=== PATIENT | female | born 1980 | race Hispanic/Latino ===

== ENCOUNTER 2017-07-16 19:23 | Emergency (ER) | payer SELFPAY ==
--- NOTE | 2017-07-16 20:06 | ER ---
Nurse's Notes [facility] Name: Nidia Ford Age: 37 yrs Sex: Female : 1980 Arrival Date: 07/16/2017 Time: 19:24 Bed 26 Private MD: Diagnosis: Streptococcal pharyngitis Presentation: 07/16 19:37 Presenting complaint: Patient states: fever X2 days. last does tylenol at 1500. ak1 Transition of care: patient was not received from another setting of care. Onset of symptoms is unknown. Care prior to arrival: None. 19:37 Method Of Arrival: Ambulatory ak1 19:37 Acuity: ANASTACIO 4 ak1 Triage Assessment: 19:39 General: Appears in no apparent distress. Behavior is calm, cooperative. 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 - Social history:: Smoking status: Patient/guardian denies using tobacco. Screenin:39 Abuse screen: Denies threats or abuse. Denies injuries from another. Nutritional ak1 screening: No deficits noted. Tuberculosis screening: No symptoms or risk factors identified. Fall Risk None identified. Assessment: 20:00 General: Appears in no apparent distress. Behavior is calm, cooperative, appropriate lk1 for age. Pain: Complains of pain in throat Pain currently is 8 out of 10 on a pain scale. Neuro: Level of Consciousness is awake, alert, obeys commands, Oriented to person, place, time, situation, Installer Helper are equal bilaterally Moves all extremities. Full function Gait is steady, Speech is normal, Facial symmetry appears normal. Cardiovascular: Capillary refill is brisk Patient's skin is warm and dry. Respiratory: Airway is patent Respiratory effort is even, unlabored, Respiratory pattern is regular, symmetrical. GI: Abdomen is non-distended. : No signs and/or symptoms were reported regarding the genitourinary system. EENT: Throat is reddened has enlarged tonsils. Derm: No signs and/or symptoms reported regarding the dermatologic system. Musculoskeletal: No signs and/or symptoms reported regarding the musculoskeletal system. Vital Signs: 19:38 BP 116 / 69; Pulse 88; Resp 20; Pulse Ox 97% on R/A; Weight 72.57 kg (R); Height 5 ft. ak1 (152.40 cm); Pain 8/10; 19:44 Temp 99.0(O); dh3 20:30 BP 124 / 70; Pulse 79; Resp 20; Pulse Ox 99% on R/A; lk1 19:38 Body Mass Index 31.25 (72.57 kg, 152.40 cm) ak1 ED Course: 19:24 Patient arrived in ED. es 19:28 Dulce Maria Chappell [facility]-C [facility] snw 19:28 Jovan Hidalgo MD is Attending Physician. snw 19:38 Triage completed. ak1 19:38 Arm band placed on Patient placed in an exam room, on a stretcher, Patient notified of ak1 wait time. 19:39 Patient has correct armband on for positive identification. Bed in low position. Call ak1 light in reach. Side rails up X 1. Pulse ox on. NIBP on. 19:44 Flu and/or RSV swab sent to lab. Strep swab sent to lab. 3 20:11 Radha Hardwick, RN is Primary Nurse. lk1 20:39 No provider procedures requiring assistance completed. Patient did not have IV access lk1 during this emergency room visit. Administered Medications: 20:15 Drug: Rocephin (cefTRIAXone) 1 grams Route: IM; Site: right gluteus; lk1 20:40 Follow up: Response: No adverse reaction lk1 20:15 Drug: Decadron 8 mg Route: PO; lk1 20:41 Follow up: Response: No adverse reaction lk1 Outcome: 20:05 Discharge ordered by . snw 20:42 Patient left the ED. lk Signatures: Dulce Maria Chappell FNP-C FUR REMODELER-Deepa Espinoza Amber RN RN ak1 Radha Hardwick, MAMI RN lk1 Kristine Nance [facility]
--- NOTE | 2017-07-16 20:06 | EDPHYS ---
Physician Documentation [facility] Name: Nidia Ford Age: 37 yrs Sex: Female : 1980 Arrival Date: 07/16/2017 Time: 19:24 Bed 26 Private MD: ED Physician Jovan Hidalgo HPI: 07/16 19:57 This 37 yrs old Female presents to ER via Ambulatory with complaints of Fever, snw Vomiting, Sore Throat. 19:57 The patient reports fever, not measured (subjective). Onset: The symptoms/episode snw began/occurred suddenly, 3 day(s) ago, and became persistent. Modifying factors: there are no obvious modifying factors. Severity of symptoms: At their worst the symptoms were moderate. It is unknown whether or not the patient has had similar symptoms in the past. The patient has not recently seen a physician. ORTHO TECH: 19:38 pt doesn't remember ak1 Historical: - Allergies: 19:38 NKDA; ak1 - Home Meds: 19:38 None [Active]; ak1 - PMHx: 19:38 fatty liver; ak1 - PSHx: 19:38 None; ak1 - Immunization history:: Adult Immunizations unknown. - Social history:: Smoking status: Patient/guardian denies using tobacco. ROS: 19:50 Eyes: Negative for injury, pain, redness, and discharge. snw 19:50 Neck: Negative for injury, pain, and swelling, Cardiovascular: Negative for chest pain, palpitations, and edema, Respiratory: Negative for shortness of breath, cough, wheezing, and pleuritic chest pain. 19:50 Back: Negative for injury and pain, : Negative for injury, bleeding, discharge, and swelling, MS/Extremity: Negative for injury and deformity, Skin: Negative for injury, rash, and discoloration, Neuro: Negative for headache, weakness, numbness, tingling, and seizure. 19:50 Constitutional: Positive for body aches, fever, malaise. 19:50 Abdomen/GI: Positive for nausea and vomiting. Exam: 19:49 Head/Face: Normocephalic, atraumatic. Eyes: Pupils equal round and reactive to light, snw extra-ocular motions intact. Lids and lashes normal. Conjunctiva and sclera are non-icteric and not injected. Cornea within normal limits. Periorbital areas with no swelling, redness, or edema. Neck: Trachea midline, no thyromegaly or masses palpated, and no cervical lymphadenopathy. Supple, full range of motion without nuchal rigidity, or vertebral point tenderness. No Meningismus. Chest/axilla: Normal chest wall appearance and motion. Nontender with no deformity. No lesions are appreciated. Cardiovascular: Regular rate and rhythm with a normal S1 and S2. No gallops, murmurs, or rubs. Normal PMI, no JVD. No pulse deficits. Respiratory: Lungs have equal breath sounds bilaterally, clear to auscultation and percussion. No rales, rhonchi or wheezes noted. No increased work of breathing, no retractions or nasal flaring. Abdomen/GI: Soft, non-tender, with normal bowel sounds. No distension or tympany. No guarding or rebound. No evidence of tenderness throughout. Back: No spinal tenderness. No costovertebral tenderness. Full range of motion. Skin: Warm, dry with normal turgor. Normal color with no rashes, no lesions, and no evidence of cellulitis. MS/ Extremity: Pulses equal, no cyanosis. Neurovascular intact. Full, normal range of motion. Neuro: Awake and alert, GCS 15, oriented to person, place, time, and situation. Cranial nerves II-XII grossly intact. Motor strength 5/5 in all extremities. Sensory grossly intact. Cerebellar exam normal. Normal gait. 19:49 Constitutional: The patient appears alert, awake, anxious, uncomfortable. 19:49 ENT: External ear(s): no acute changes, Ear canal(s): are normal, TM's: are normal, Nose: is normal, Mouth: is normal, Posterior pharynx: erythema, that is moderate. Vital Signs: 19:38 BP 116 / 69; Pulse 88; Resp 20; Pulse Ox 97% on R/A; Weight 72.57 kg (R); Height 5 ft. ak1 (152.40 cm); Pain 8/10; 19:44 Temp 99.0(O); dh3 20:30 BP 124 / 70; Pulse 79; Resp 20; Pulse Ox 99% on R/A; lk1 19:38 Body Mass Index 31.25 (72.57 kg, 152.40 cm) ak1 MDM: 19:36 Patient medically screened. snw 20:07 Data reviewed: vital signs, nurses notes. Data interpreted: Pulse oximetry: on room air snw is 97 %. Interpretation: normal. Counseling: I had a detailed discussion with the patient and/or guardian regarding: the historical points, exam findings, and any diagnostic results supporting the discharge/admit diagnosis, lab results, the need for outpatient follow up, to return to the emergency department if symptoms worsen or persist or if there are any questions or concerns that arise at home. Special discussion: Based on the history and exam findings, there is no indication for further emergent testing or inpatient evaluation. I discussed with the patient/guardian the need to see the primary care provider for further evaluation of the symptoms. 07/16 19:28 Order name: Flu; Complete Time: 20:04 snw 07/16 19:28 Order name: Strep; Complete Time: 20:04 snw Administered Medications: 20:15 Drug: Rocephin (cefTRIAXone) 1 grams Route: IM; Site: right gluteus; lk1 20:40 Follow up: Response: No adverse reaction lk1 20:15 Drug: Decadron 8 mg Route: PO; lk1 20:41 Follow up: Response: No adverse reaction lk1 Disposition: 07/17 01:40 Co-signature as Attending Physician, Jovan Hidalgo MD I agree with the assessment and 4 plan of care. Disposition: 07/16/17 20:05 Discharged to Home. Impression: Streptococcal pharyngitis. - Condition is Stable. - Discharge Instructions: Fever, Adult, Sore Throat, Strep Throat, Rehydration, Adult. - Prescriptions for Zithromax 500 mg Oral Tablet - take 1 tablet by ORAL route once daily for 5 days; 5 tablet. - Work release form, Medication Reconciliation Form, Thank You Letter, Antibiotic Education, Prescription Opioid Use form. - Follow up: Private Physician; When: 2 - 3 days; Reason: Recheck today's complaints, Continuance of care, Re-evaluation by your physician. Follow up: Emergency Department; When: As needed; Reason: Worsening of condition. - Notes: Please replace toothbrush with a new one in 5-7 days. Signatures: [facility] Dulce Maria Bell, TOÑO-C MINES INSPECTOR-Csnw Magdalene Slater, RN RN ak1 Radha Hardwick, RN RN lk1 Jovan Hidalgo MD MD tw4
[2017-07-16] MEDS ORDERED: DEXAMETHASONE 4 MG TAB ONE (20:35)
[2017-07-16] MEDS ORDERED: CEFTRIAXONE 1000 MG/VIAL ONE (20:35)
[2017-07-16] MEDS ORDERED: LIDOCAINE 1% MPF 5 ML VIAL ONE (20:35)
== END 2017-07-16 20:42 | disposition home or self-care (01) ==
LOC: ER 19:23
DX: J02.0 Streptococcal pharyngitis (principal)
CPT/HCPCS: 87081; 87804; 96372; 99283

== ENCOUNTER 2018-02-21 22:09 | Emergency (ER) | payer SELFPAY ==
--- NOTE | 2018-02-21 23:05 | ER ---
Nurse's Notes [facility] Name: Nidia Ford Age: 37 yrs Sex: Female : 1980 Arrival Date: 02/21/2018 Time: 22:27 Bed 17 Private MD: Diagnosis: Pain in left shoulder Presentation: 02/21 22:46 Presenting complaint: Patient states: left arm hurts. my family has a history of "heart dm5 attacks and circulation of the blood" pain in right arm that started at the shoulder. Transition of care: patient was not received from another setting of care. Onset of symptoms was February 21, 2018. Risk Assessment: Do you want to hurt yourself or someone else? Patient reports no desire to harm self or others. 22:46 Method Of Arrival: Ambulatory dm5 22:46 Acuity: ANASTCAIO 3 dm5 23:46 Initial Sepsis Screen: Does the patient meet any 2 criteria? No. Patient's initial jd3 sepsis screen is negative. Does the patient have a suspected source of infection? No. Patient's initial sepsis screen is negative. Care prior to arrival: None. 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 - Social history:: Smoking status: unknown. - Ebola Screening: : Patient negative for fever greater than or equal to 101.5 degrees Fahrenheit, and additional compatible Ebola Virus Disease symptoms. Screenin:46 Abuse screen: Denies threats or abuse. Nutritional screening: No deficits noted. jd3 Tuberculosis screening: No symptoms or risk factors identified. Fall Risk None identified. Assessment: 23:00 General: Appears in no apparent distress. uncomfortable, Behavior is calm, cooperative, jd3 appropriate for age. 23:00 Pain: Complains of pain in anterior aspect of left shoulder Quality of pain is jd3 described as aching. Neuro: Level of Consciousness is awake, alert, obeys commands, Oriented to person, place, time, situation. Cardiovascular: Capillary refill < 3 seconds Patient's skin is warm and dry. Rhythm is regular. Respiratory: Airway is patent Respiratory effort is even, unlabored, Respiratory pattern is regular, symmetrical, Breath sounds are clear bilaterally. GI: No signs and/or symptoms were reported involving the gastrointestinal system. : No signs and/or symptoms were reported regarding the genitourinary system. EENT: No signs and/or symptoms were reported regarding the EENT system. Derm: Skin is intact, Skin is dry, Skin is normal, Skin temperature is warm. Musculoskeletal: Circulation, motion, and sensation intact. Range of motion: limited in left shoulder. Vital Signs: 22:46 BP 116 / 52; Pulse 70; Resp 20; Temp 97.8; Pulse Ox 98% on R/A; Weight 70.31 kg; Height dm5 5 ft. (152.40 cm); Pain 5/10; 23:47 Pulse 75; Resp 18 S; Pulse Ox 98% on R/A; jd3 22:46 Body Mass Index 30.27 (70.31 kg, 152.40 cm) dm5 ED Course: 22:27 Patient arrived in ED. tl2 22:48 Triage completed. dm5 22:48 Arm band placed on right wrist. Patient placed in waiting room. EKG done per protocol. dm5 Performed by ED Staff. 22:57 Dulce Maria Chappell FNP-C [facility]. snw 23:01 Danilo Leiva RN is Primary Nurse. jd3 23:05 Krishna Oconnor MD is Attending Physician. snw 23:46 No provider procedures requiring assistance completed. Patient did not have IV access jd3 during this emergency room visit. 23:48 Patient has correct armband on for positive identification. Bed in low position. Call jd3 light in reach. Side rails up X 1. Adult w/ patient. Administered Medications: 23:29 Drug: TORadol 60 mg Route: IM; Site: right deltoid; jd3 23:48 Follow up: Response: No adverse reaction jd3 23:30 Drug: Flexeril 10 mg Route: PO; jd3 23:49 Follow up: Response: Medication administered at discharge. jd3 Intake: 23:02 IV: 500ml; Total: 500ml. jd3 Outcome: 23:04 Discharge ordered by . snw 23:47 Discharged to home ambulatory, with family. jd3 23:47 Condition: stable 23:47 Discharge instructions given to patient, family, Instructed on discharge instructions, follow up and referral plans. medication usage, Demonstrated understanding of instructions, follow-up care, medications, Prescriptions given X 1. 23:49 Patient left the ED. jradha Signatures: Fabienne Holt, RN RN dm5 Dulce Maria Chappell, PIGSKIN TRIMMER-C PIGSKIN TRIMMER-Csnw Linda Lora RN RN tl2 Danilo Leiva RN RN jd3 Corrections: (The following items were deleted from the chart) 23:46 23:44 General: Appears in no apparent distress. uncomfortable, jradha jradha
--- NOTE | 2018-02-21 23:05 | EDPHYS ---
Physician Documentation [facility] Name: Nidia Ford Age: 37 yrs Sex: Female : 1980 Arrival Date: 02/21/2018 Time: 22:27 Bed 17 Private MD: ED Physician Krishna Oconnor HPI: 02/21 23:07 This 37 yrs old Female presents to ER via Ambulatory with complaints of Arm snw Pain. 23:07 The patient or guardian complains of pain, that is acute. The complaints affect the snw anterior aspect of left shoulder and left bicep. Context: The problem was sustained at home, resulted from unknown cause, pt states she awoke with pain to left shoulder, pain down to elbow. Onset: The symptoms/episode began/occurred suddenly, today. Associated signs and symptoms: Pertinent positives: pain. Severity of symptoms: At their worst the symptoms were mild. The patient has not experienced similar symptoms in the past, but family has similar symptoms. saw a Doctor in [place] and was told she had a fatty liver. Given medications for wt loss to make her have frequent BMs. Denies chest pain. RN BIRTHING: 23:47 LMP N/A - Irregular menses jd3 Historical: - Allergies: 22:48 NKDA; dm5 - PMHx: 23:48 fatty liver; jd3 - PSHx: 23:48 None; jd3 - Immunization history:: Adult Immunizations unknown. - Social history:: Smoking status: unknown. - Ebola Screening: : Patient negative for fever greater than or equal to 101.5 degrees Fahrenheit, and additional compatible Ebola Virus Disease symptoms. ROS: 23:06 Constitutional: Negative for fever, chills, and weight loss, Eyes: Negative for injury, snw pain, redness, and discharge, ENT: Negative for injury, pain, and discharge, Neck: Negative for injury, pain, and swelling, Cardiovascular: Negative for chest pain, palpitations, and edema, Respiratory: Negative for shortness of breath, cough, wheezing, and pleuritic chest pain, Abdomen/GI: Negative for abdominal pain, nausea, vomiting, diarrhea, and constipation, Back: Negative for injury and pain, : Negative for injury, bleeding, discharge, and swelling, Skin: Negative for injury, rash, and discoloration, Neuro: Negative for headache, weakness, numbness, tingling, and seizure. 23:06 MS/extremity: Positive for tenderness, of the left shoulder upon waking today. Exam: 23:05 Constitutional: This is a well developed, well nourished patient who is awake, alert, snw and in no acute distress. Head/Face: Normocephalic, atraumatic. Eyes: Pupils equal round and reactive to light, extra-ocular motions intact. Lids and lashes normal. Conjunctiva and sclera are non-icteric and not injected. Cornea within normal limits. Periorbital areas with no swelling, redness, or edema. ENT: Nares patent. No nasal discharge, no septal abnormalities noted. Tympanic membranes are normal and external auditory canals are clear. Oropharynx with no redness, swelling, or masses, exudates, or evidence of obstruction, uvula midline. Mucous membranes moist. Neck: Trachea midline, no thyromegaly or masses palpated, and no cervical lymphadenopathy. Supple, full range of motion without nuchal rigidity, or vertebral point tenderness. No Meningismus. Chest/axilla: Normal chest wall appearance and motion. Nontender with no deformity. No lesions are appreciated. Cardiovascular: Regular rate and rhythm with a normal S1 and S2. No gallops, murmurs, or rubs. Normal PMI, no JVD. No pulse deficits. Respiratory: Lungs have equal breath sounds bilaterally, clear to auscultation and percussion. No rales, rhonchi or wheezes noted. No increased work of breathing, no retractions or nasal flaring. Abdomen/GI: Soft, non-tender, with normal bowel sounds. No distension or tympany. No guarding or rebound. No evidence of tenderness throughout. Back: No spinal tenderness. No costovertebral tenderness. Full range of motion. Skin: Warm, dry with normal turgor. Normal color with no rashes, no lesions, and no evidence of cellulitis. Neuro: Awake and alert, GCS 15, oriented to person, place, time, and situation. Cranial nerves II-XII grossly intact. Motor strength 5/5 in all extremities. Sensory grossly intact. Cerebellar exam normal. Normal gait. Psych: Awake, alert, with orientation to person, place and time. Behavior, mood, and affect are within normal limits. 23:05 Musculoskeletal/extremity: Extremities: grossly normal except: noted in the left shoulder: tenderness, reproducible pain to left shoulder, ROM: intact in all extremities. Vital Signs: 22:46 BP 116 / 52; Pulse 70; Resp 20; Temp 97.8; Pulse Ox 98% on R/A; Weight 70.31 kg; Height dm5 5 ft. (152.40 cm); Pain 5/10; 23:47 Pulse 75; Resp 18 S; Pulse Ox 98% on R/A; jd3 22:46 Body Mass Index 30.27 (70.31 kg, 152.40 cm) dm5 MDM: 23:01 Patient medically screened. snw 23:06 Data reviewed: vital signs, nurses notes. Data interpreted: Pulse oximetry: on room air snw is 98 %. Interpretation:. Counseling: I had a detailed discussion with the patient and/or guardian regarding: the historical points, exam findings, and any diagnostic results supporting the discharge/admit diagnosis, the need for outpatient follow up, to return to the emergency department if symptoms worsen or persist or if there are any questions or concerns that arise at home. Special discussion: Based on the patient's history, exam, and Dx evaluation, there is no indication for emergent intervention or inpatient Tx. It is understood by the patient/guardian that if the Sx's persist or worsen they need to return immediately for re-evaluation. Based on the history and exam findings, there is no indication for further emergent testing or inpatient evaluation. I discussed with the patient/guardian the need to see the primary care provider for further evaluation of the symptoms. 02/21 22:49 Order name: EKG; Complete Time: 22:49 snw 02/21 22:49 Order name: EKG - Nurse/Tech; Complete Time: 23:17 snw Administered Medications: 23:29 Drug: TORadol 60 mg Route: IM; Site: right deltoid; jd3 23:48 Follow up: Response: No adverse reaction jd3 23:30 Drug: Flexeril 10 mg Route: PO; jd3 23:49 Follow up: Response: Medication administered at discharge. jd3 Disposition: 02/21/18 23:04 Discharged to Home. Impression: Pain in left shoulder. - Condition is Stable. - Discharge Instructions: Joint Pain, Musculoskeletal Pain, Shoulder Pain, Cryotherapy, Heat Therapy. - Prescriptions for Cyclobenzaprine 5 mg Oral Tablet - take 1 tablet by ORAL route 3 times per day As needed; 15 tablet. - Medication Reconciliation Form, Thank You Letter, Antibiotic Education, Prescription Opioid Use form. - Follow up: Emergency Department; When: As needed; Reason: Worsening of condition. Follow up: Private Physician; When: 2 - 3 days; Reason: Recheck today's complaints, Continuance of care, Re-evaluation by your physician. Addendum: 02/24/2018 06:46 Co-signature as Attending Physician, Krishna Oconnor MD. g s Signatures: Fabienne Holt, RN RN dm5 Dulce Maria Chappell, NURSE ASSISTANT-C NURSE ASSISTANT-Csnw Krishna Oconnor MD MD gs Danilo Leiva RN RN jd3 Corrections: (The following items were deleted from the chart) 02/21 23:49 23:04 02/21/2018 23:04 Discharged to Home. Impression: Pain in left shoulder. Condition jd3 is Stable. Forms are Medication Reconciliation Form, Thank You Letter, Antibiotic Education, Prescription Opioid Use. Follow up: Emergency Department; When: As needed; Reason: Worsening of condition. Follow up: Private Physician; When: 2 - 3 days; Reason: Recheck today's complaints, Continuance of care, Re-evaluation by your physician. snw
[2018-02-21] MEDS ORDERED: CYCLOBENZAPRINE 10 MG TAB ONE (23:30)
[2018-02-21] MEDS ORDERED: KETOROLAC 30 MG/ML INJ ONE (23:30)
--- NOTE | 2018-02-22 12:34 | EKG ---
Test Date: 2018-02-21 Test Time: 22:46:34 Guide Cruise: FELISHA MEASUREMENT RESULTS: Intervals: Rate: 73 HI: 162 QRSD: 80 QT: 408 QTc: 449 Fouke: P: 36 HI: 162 QRS: -1 T: 16 INTERPRETIVE STATEMENTS: Normal sinus rhythm with sinus arrhythmia Minimal voltage criteria for LVH, may be normal variant Nonspecific T wave abnormality Abnormal ECG Compared to ECG 10/31/2014 01:03:50 Left ventricular hypertrophy now present T-wave abnormality now present Electronically Signed On 02-22-18 12:32:51 DIETARY SUPERVISOR by London Frias
== END 2018-02-21 23:49 | disposition home or self-care (01) ==
LOC: ER 22:09
DX: M25.512 Pain in left shoulder (principal)
CPT/HCPCS: 93005; 96372; 99283

== ENCOUNTER 2018-04-23 21:32 | Emergency (ER) | payer SELFPAY ==
--- NOTE | 2018-04-23 23:25 | ER ---
Nurse's Notes [facility] Name: Nidia Ford Age: 38 yrs Sex: Female : 1980 Arrival Date: 04/23/2018 Time: 21:35 Bed 23 Private MD: Nevaeh Hernández C Diagnosis: Acute upper respiratory infection, unspecified Presentation: 04/23 21:46 Presenting complaint: Patient states: she is having the "flu" x 3 days with fever up to bb 100.0, sore throat, runny nose and today she started coughing. She also has back pain but she has that whenever it is cold outside. Transition of care: patient was not received from another setting of care. Onset of symptoms was April 20, 2018. Risk Assessment: Do you want to hurt yourself or someone else? Patient reports no desire to harm self or others. Initial Sepsis Screen: Does the patient meet any 2 criteria? No. Patient's initial sepsis screen is negative. Does the patient have a suspected source of infection? No. Patient's initial sepsis screen is negative. Care prior to arrival: None. 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 - Social history:: Smoking status: Patient/guardian denies using tobacco, Patient uses alcohol, but reports only rare drinking. - Ebola Screening: : No symptoms or risks identified at this time. Screenin:50 Abuse screen: Denies threats or abuse. Denies injuries from another. Nutritional mg2 screening: No deficits noted. Tuberculosis screening: No symptoms or risk factors identified. Fall Risk None identified. Assessment: 22:46 General: Appears in no apparent distress. comfortable, Behavior is calm, cooperative. mg2 Pain: Denies pain. Neuro: Level of Consciousness is awake, alert, obeys commands, Oriented to person, place, time, situation. Cardiovascular: Capillary refill < 3 seconds Patient's skin is warm and dry. Respiratory: Airway is patent Respiratory effort is even, unlabored, Respiratory pattern is regular, symmetrical. Respiratory: Reports cough that is non-productive, runny nose. GI: No signs and/or symptoms were reported involving the gastrointestinal system. : No signs and/or symptoms were reported regarding the genitourinary system. EENT: No signs and/or symptoms were reported regarding the EENT system. Derm: Skin is intact, is healthy with good turgor, Skin is pink, warm \\T\\ dry. normal. Musculoskeletal: Circulation, motion, and sensation intact. Capillary refill < 3 seconds. 23:41 Reassessment: Patient appears in no apparent distress at this time. Patient and/or mg2 family updated on plan of care and expected duration. Pain level reassessed. Patient is alert, oriented x 3, equal unlabored respirations, skin warm/dry/pink. Vital Signs: 21:49 BP 115 / 50; Pulse 85; Resp 16 S; Temp 98.6(O); Pulse Ox 99% on R/A; Weight 74.84 kg bb (R); Height 5 ft. 0 in. (152.40 cm) (R); Pain 5/10; 23:41 BP 120 / 78; Pulse 80; Resp 18; Pulse Ox 100% on R/A; Pain 0/10; mg2 21:49 Body Mass Index 32.22 (74.84 kg, 152.40 cm) bb ED Course: 21:35 Patient arrived in ED. am2 21:36 Nevaeh Hernández FNP is Private Physician. am2 21:47 Triage completed. bb 21:49 Arm band placed on Patient placed in an exam room, on a stretcher, on pulse oximetry. bb Family accompanied patient. 21:57 Graham Alvarez PA is PHCP. jr8 21:57 Jovan Hidalgo MD is Attending Physician. jr8 22:09 Jj Beth, MAMI is Primary Nurse. mg2 22:50 No provider procedures requiring assistance completed. Patient did not have IV access mg2 during this emergency room visit. 22:51 Patient has correct armband on for positive identification. mg2 Administered Medications: No medications were administered Outcome: 23:24 Discharge ordered by MD. jr8 23:42 Discharged to home ambulatory, with family. mg2 23:42 Condition: stable 23:42 Discharge instructions given to patient, family, Instructed on discharge instructions, follow up and referral plans. medication usage, Demonstrated understanding of instructions, follow-up care, medications, Prescriptions given X 3. 23:42 Patient left the ED. mg2 Signatures: Rocio Huerta, RN RN Graham Ham PA PA jr8 Oksana Montenegro am2 Jj Beth RN RN mg2
--- NOTE | 2018-04-23 23:25 | EDPHYS ---
Physician Documentation [facility] Name: Nidia Ford Age: 38 yrs Sex: Female : 1980 Arrival Date: 04/23/2018 Time: 21:35 Bed 23 Private MD: Nevaeh Hernández C ED Physician Jovan Hidalgo HPI: 04/23 22:07 This 38 yrs old Female presents to ER via Ambulatory with complaints of Flu jr8 Symptoms. 22:07 Patient presents to ED with 3 day history of flu like symptoms. Not feeling any better jr8 . Severity of symptoms: At their worst the symptoms were mild in the emergency department the symptoms are unchanged. The patient has not experienced similar symptoms in the past. The patient has not recently seen a physician. 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 - Social history:: Smoking status: Patient/guardian denies using tobacco, Patient uses alcohol, but reports only rare drinking. - Ebola Screening: : No symptoms or risks identified at this time. ROS: 22:07 Eyes: Negative for injury, pain, redness, and discharge, Neck: Negative for injury, jr8 pain, and swelling, Cardiovascular: Negative for chest pain, palpitations, and edema, Abdomen/GI: Negative for abdominal pain, nausea, vomiting, diarrhea, and constipation, Back: Negative for injury and pain, MS/Extremity: Negative for injury and deformity, Skin: Negative for injury, rash, and discoloration, Neuro: Negative for headache, weakness, numbness, tingling, and seizure. 22:07 ENT: Positive for rhinorrhea, sinus congestion, sore throat. 22:07 Respiratory: Positive for cough, Negative for dyspnea on exertion, shortness of breath, sputum production, wheezing. Exam: 22:07 Eyes: Pupils equal round and reactive to light, extra-ocular motions intact. Lids and jr8 lashes normal. Conjunctiva and sclera are non-icteric and not injected. Cornea within normal limits. Periorbital areas with no swelling, redness, or edema. ENT: Nares patent. No nasal discharge, no septal abnormalities noted. Tympanic membranes are normal and external auditory canals are clear. Oropharynx with no redness, swelling, or masses, exudates, or evidence of obstruction, uvula midline. Mucous membranes moist. Neck: Trachea midline, no thyromegaly or masses palpated, and no cervical lymphadenopathy. Supple, full range of motion without nuchal rigidity, or vertebral point tenderness. No Meningismus. Cardiovascular: Regular rate and rhythm with a normal S1 and S2. No gallops, murmurs, or rubs. Normal PMI, no JVD. No pulse deficits. Respiratory: Lungs have equal breath sounds bilaterally, clear to auscultation and percussion. No rales, rhonchi or wheezes noted. No increased work of breathing, no retractions or nasal flaring. Abdomen/GI: Soft, non-tender, with normal bowel sounds. No distension or tympany. No guarding or rebound. No evidence of tenderness throughout. Back: No spinal tenderness. No costovertebral tenderness. Full range of motion. Skin: Warm, dry with normal turgor. Normal color with no rashes, no lesions, and no evidence of cellulitis. MS/ Extremity: Pulses equal, no cyanosis. Neurovascular intact. Full, normal range of motion. Neuro: Awake and alert, GCS 15, oriented to person, place, time, and situation. Cranial nerves II-XII grossly intact. Motor strength 5/5 in all extremities. Sensory grossly intact. Cerebellar exam normal. Normal gait. Vital Signs: 21:49 BP 115 / 50; Pulse 85; Resp 16 S; Temp 98.6(O); Pulse Ox 99% on R/A; Weight 74.84 kg bb (R); Height 5 ft. 0 in. (152.40 cm) (R); Pain 5/10; 23:41 BP 120 / 78; Pulse 80; Resp 18; Pulse Ox 100% on R/A; Pain 0/10; mg2 21:49 Body Mass Index 32.22 (74.84 kg, 152.40 cm) bb MDM: 21:57 Patient medically screened. jr8 23:23 Data reviewed: vital signs, nurses notes, lab test result(s), Flu: negative and as a jr8 result, I will discharge patient. Data interpreted: Pulse oximetry: on room air is 99 %. Interpretation: normal. Counseling: I had a detailed discussion with the patient and/or guardian regarding: the historical points, exam findings, and any diagnostic results supporting the discharge/admit diagnosis, lab results, the need for outpatient follow up, a family practitioner, to return to the emergency department if symptoms worsen or persist or if there are any questions or concerns that arise at home. 04/23 22:06 Order name: Influenza Screen (a \\T\\ B); Complete Time: 23:23 jr8 Administered Medications: No medications were administered Disposition: 04/24 22:32 Co-signature as Attending Physician, Jovan Hidalgo MD I agree with the assessment and tw4 plan of care. Disposition: 04/23/18 23:24 Discharged to Home. Impression: Acute upper respiratory infection, unspecified. - Condition is Stable. - Discharge Instructions: Upper Respiratory Infection, Adult. - Prescriptions for Prednisone 20 mg Oral Tablet - take 1 tablet by ORAL route once daily for 5 days; 5 tablet. Claritin- D 24 Hour 10-240 mg Oral Tablet Sustained Release 24 hr - take 1 tablet by ORAL route once daily As needed; 20 tablet. Guaifenesin AC 10- 100 mg/5 mL Oral Liquid - take 10 milliliter by ORAL route every 4 hours As needed; 240 milliliter. - Medication Reconciliation Form, Thank You Letter, Antibiotic Education, Prescription Opioid Use form. - Follow up: Private Physician; When: 5 - 6 days; Reason: Recheck today's complaints, Continuance of care, Re-evaluation by your physician. - Problem is new. - Symptoms have improved. Signatures: Dispatcher [employer] EDUT Rocio Huerta RN RN Graham Ham PA PA jr8 Jovan Hidalgo MD MD tw4 Jj Beth RN RN mg2 Corrections: (The following items were deleted from the chart) 04/23 23:42 23:24 04/23/2018 23:24 Discharged to Home. Impression: Acute upper respiratory mg2 infection, unspecified. Condition is Stable. Forms are Medication Reconciliation Form, Thank You Letter, Antibiotic Education, Prescription Opioid Use. Follow up: Private Physician; When: 5 - 6 days; Reason: Recheck today's complaints, Continuance of care, Re-evaluation by your physician. Problem is new. Symptoms have improved. jr8
== END 2018-04-23 23:42 | disposition home or self-care (01) ==
LOC: ER 21:32
DX: J06.9 Acute upper respiratory infection, unspecified (principal)
CPT/HCPCS: 87804; 99283

== ENCOUNTER 2019-09-11 11:55 | Emergency (ER) | payer SELFPAY ==
[2019-09-11 12:39] LABS: Urine Blood NEGATIVE (NEG); Urine Glucose NEGATIVE (NEG); Urine Protein NEGATIVE (NEG); Urine Specific Gravity 1.025 (1.005-1.030); Urine pH 5.5 (5.0-7.0)
--- OUTSIDE RECORDS SUMMARY | 2019-09-11 12:51 | XMS REPORT | Continuity of Care Document ---
:1980 Author Organization [facility] t Address [address] [place] [address] Care Team Providers Name Role Phone Visit, Nurse Attending Clinician Unavailable Doctor Unassigned, Name Attending Clinician Unavailable Problems This patient has no known problems. Allergies, Adverse Reactions, Alerts This patient has no known allergies or adverse reactions. Medications This patient has no known medications. Procedures This patient has no known procedures. 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
[2019-09-11 12:57] LABS: Urine Bacteria 20-50 /HPF (<20); Urine Culture Reflex Order REFLEXED; Urine Mucus 2+ /HPF (NONE SEEN)
--- NOTE | 2019-09-11 14:18 | ER ---
Nurse's Notes [facility] Name: Nidia Ford Age: 39 yrs Sex: Female : 1980 Arrival Date: 09/11/2019 Time: 11:57 Bed 23 Private MD: Diagnosis: Urinary tract infection, site not specified Presentation: 09/10 12:13 Chief complaint: Patient states: lower abd pain x 3 days and breast tenderness. States sv she took a home test but they have been negative. Reports she is very hungry at times. Coronavirus screen: Proceed with normal triage. Patient denies a cough. Patient denies shortness of breath or difficulty breathing. Patient denies measured and/or subjective temperature greater than 100.4F prior to today's visit. Patient denies travel on a cruise ship or to a country the [facility] currently lists as an affected area. Patient denies contact with known and/or suspected case of COVID-19. Ebola Screen: No symptoms or risks identified at this time. Risk Assessment: Do you want to hurt yourself or someone else? Patient reports no desire to harm self or others. Onset of symptoms was September 08, 2019. 12:13 Method Of Arrival: Ambulatory sv 12:13 Acuity: ANASTACIO 3 sv 12:15 Initial Sepsis Screen: Does the patient meet any 2 criteria? No. Patient's initial sv sepsis screen is negative. Does the patient have a suspected source of infection? Yes: Acute abdominal pain. Triage Assessment: 12:13 General: Appears in no apparent distress. uncomfortable, Behavior is calm, cooperative, sv appropriate for age. Pain: Complains of pain in suprapubic area, right lower quadrant and left lower quadrant. Neuro: Level of Consciousness is awake, alert, obeys commands, Oriented to person, place, time, situation, Gait is steady. Respiratory: Airway is patent Respiratory effort is even, unlabored, Respiratory pattern is regular, symmetrical. GI: Reports lower abdominal pain. 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 - Social history:: Smoking status: Patient denies any tobacco usage or history of. Screenin:30 Abuse screen: Denies threats or abuse. Nutritional screening: No deficits noted. aa5 Tuberculosis screening: No symptoms or risk factors identified. Fall Risk None identified. Assessment: 13:30 General: Appears comfortable, Behavior is calm, cooperative. Pain: Complains of pain in aa5 suprapubic area Pain currently is 7 out of 10 on a pain scale. Quality of pain is described as burning, pressure, Is continuous. Neuro: Level of Consciousness is awake, alert, obeys commands, Oriented to person, place, time, situation. Cardiovascular: Patient's skin is warm and dry. Respiratory: Airway is patent Respiratory effort is even, unlabored, Respiratory pattern is regular, symmetrical. GI: Abdomen is round Bowel sounds present X 4 quads. Abd is soft and non tender X 4 quads. : Reports burning with urination. EENT: No signs and/or symptoms were reported regarding the EENT system. Derm: Skin is pink, warm \\T\\ dry. Musculoskeletal: Range of motion: intact in all extremities. 14:25 Reassessment: Patient is alert, oriented x 3, equal unlabored respirations, skin aa5 warm/dry/pink. Vital Signs: 12:15 BP 121 / 56; Pulse 78; Resp 16; Temp 98.2; Pulse Ox 98% ; Weight 75.3 kg; Height 5 ft. sv 0 in. (152.40 cm); 13:24 BP 113 / 62; Pulse 66; Resp 17; Temp 97.5(TE); Pulse Ox 100% on R/A; dm5 12:15 Body Mass Index 32.42 (75.30 kg, 152.40 cm) sv ED Course: 11:57 Patient arrived in ED. ag5 12:13 Arm band placed on. sv 12:15 Triage completed. sv 13:20 Babatunde Valadez PA is PHCP. [facility] 13:20 Pedrito Salazar MD is Attending Physician. [facility] 13:20 Urine Culture Sent. aa5 13:30 Patient has correct armband on for positive identification. Bed in low position. Call aa5 light in reach. Side rails up X 1. 14:25 No provider procedures requiring assistance completed. Patient did not have IV access aa5 during this emergency room visit. 14:26 Hi, Karla, RN is Primary Nurse. [email or web address] Administered Medications: No medications were administered Outcome: 14:17 Discharge ordered by . andres 14:25 Discharged to home ambulatory. adriana 14:25 Condition: stable 14:25 Discharge instructions given to patient, Instructed on discharge instructions, follow up and referral plans. medication usage, Demonstrated understanding of instructions, follow-up care, medications, Prescriptions given X 1. 14:26 Patient left the ED. aa5 Addendum: 09/14/2019 17:27 Addendum: Culture Results: Positive urine culture. Bacteria is resistant to, has s s intermediate sensitivity, or is not tested against prescribed antibiotics. Report given to RODRIGUEZ for further evaluation and then to political advisor for follow up with patient. Phone call Attempt #1 spoke with patient who reports she is better. Thom Wright NP recommends to call in Bactrim to pharmacy of choice if symptoms have not improved. Pt verbalizes understanding importance of continuing antibiotic therapy and follow up with PCP. Signatures: Fabienne Holt, RN RN [email or web address] Yahaira Prince RN RN sv Mickail, Joel, PA PA jmm Calderon, Audri, RN Regi Miller RN RN ss [place], Ajare [facility]
--- NOTE | 2019-09-11 14:18 | EDPHYS ---
Physician Documentation [facility] Name: Nidia Ford Age: 39 yrs Sex: Female : 1980 Arrival Date: 09/11/2019 Time: 11:57 Bed 23 Private MD: ED Physician Pedrito Salazar HPI: 09/10 12:28 This 39 yrs old Female presents to ER via Ambulatory with complaints of jmm Abdominal Pain. 12:28 The patient presents with abdominal pain suprapubic. Onset: The symptoms/episode jmm began/occurred gradually, 3 day(s) ago. The symptoms do not radiate. Associated signs and symptoms: Pertinent negatives: nausea and vomiting, diarrhea. The symptoms are described as achy. Modifying factors: The symptoms are alleviated by nothing, the symptoms are aggravated by nothing. This is a 39 year old female with a history of asthma, fatty liver that presents to the ED with complaints suprapubic pain. Patient denies vomiting, diarrhea, fever, vaginal bleeding or discharge. . 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 - Social history:: Smoking status: Patient denies any tobacco usage or history of. ROS: 12:28 Constitutional: Negative for fever, chills, and weight loss, Cardiovascular: Negative jmm for chest pain, palpitations, and edema, Respiratory: Negative for shortness of breath, cough, wheezing, and pleuritic chest pain. 12:28 Back: Negative for injury and pain. 12:28 Abdomen/GI: Positive for abdominal pain. 12:28 All other systems are negative. Exam: 12:28 Constitutional: This is a well developed, well nourished patient who is awake, alert, jmm and in no acute distress. Head/Face: atraumatic. Eyes: EOMI, no conjunctival erythema appreciated ENT: Moist Mucus Membranes Neck: Trachea midline, Supple Chest/axilla: Normal chest wall appearance and motion. Cardiovascular: Regular rate and rhythm. No edema appreciated Respiratory: Normal respirations, no respiratory distress appreciated 12:28 Back: Normal ROM Skin: General appearance color normal MS/ Extremity: Moves all extremities, no obvious deformities appreciated, no edema noted to the lower extremities Neuro: Awake and alert, normal gait Psych: Behavior is normal, Mood is normal, Patient is cooperative and pleasant 12:28 Abdomen/GI: Inspection: abdomen appears normal, Bowel sounds: normal, Palpation: soft, mild abdominal tenderness, in the suprapubic area. Vital Signs: 12:15 BP 121 / 56; Pulse 78; Resp 16; Temp 98.2; Pulse Ox 98% ; Weight 75.3 kg; Height 5 ft. sv 0 in. (152.40 cm); 13:24 BP 113 / 62; Pulse 66; Resp 17; Temp 97.5(TE); Pulse Ox 100% on R/A; dm5 12:15 Body Mass Index 32.42 (75.30 kg, 152.40 cm) sv MDM: 13:38 Patient medically screened. andres 14:15 Data reviewed: vital signs, nurses notes. Counseling: I had a detailed discussion with andres the patient and/or guardian regarding: the historical points, exam findings, and any diagnostic results supporting the discharge/admit diagnosis, lab results. ED course: Patient is alert and non toxic in appearance in the ED. No McBurney's pt tenderness. No guarding or rebound. I do not suspect an acute intraabdominal process. Most likely due to UTI/cystitis. Will treat with oral ABX and otherwise given early appendicitis return precautions. Patient understood and agrees with the plan of care. . 09/10 12:27 Order name: Urine Microscopic Only; Complete Time: 14:23 aa5 09/10 12:29 Order name: Urine Dipstick--Ancillary (enter results); Complete Time: 14:23 em1 09/10 12:29 Order name: Urine --Ancillary (enter results); Complete Time: 14:23 em1 09/10 13:02 Order name: Urine Culture EDMS Administered Medications: No medications were administered Disposition: 15:28 Co-signature as Attending Physician, Pedrito Salazar MD I agree with the assessment and kdr plan of care. Disposition: 09/11/19 14:17 Discharged to Home. Impression: Urinary tract infection, site not specified. - Condition is Stable. - Discharge Instructions: Urinary Tract Infection, Adult. - Prescriptions for Cephalexin 500 mg Oral Capsule - take 1 capsule by ORAL route every 12 hours for 10 days; 20 capsule. - Medication Reconciliation Form, Thank You Letter, Antibiotic Education, Prescription Opioid Use form. - Follow up: Private Physician; When: 2 - 3 days; Reason: Recheck today's complaints, Continuance of care, Re-evaluation by your physician. Signatures: Dispatcher [employer] Yahaira Márquez RN RN Pedrito Sears MD MD kdr Mickail, Joel, PA PA jmm Calderon, Audri, MAMI RN aa5 Corrections: (The following items were deleted from the chart) 14:26 14:17 09/11/2019 14:17 Discharged to Home. Impression: Urinary tract infection, site aa5 not specified. Condition is Stable. Forms are Medication Reconciliation Form, Thank You Letter, Antibiotic Education, Prescription Opioid Use. Follow up: Private Physician; When: 2 - 3 days; Reason: Recheck today's complaints, Continuance of care, Re-evaluation by your physician. andres
[2019-09-11 14:34] VITALS: BP 113/62; TEMP 97.5; O2SAT 100
== END 2019-09-11 14:26 | disposition home or self-care (01) ==
LOC: ER 11:55
DX: N39.0 Urinary tract infection, site not specified (principal)
CPT/HCPCS: 81003; 81015; 81025; 87077; 87086; 87088; 87186; 99283

== ENCOUNTER 2020-12-13 23:15 | Emergency (ER) | payer SELFPAY ==
--- OUTSIDE RECORDS SUMMARY | 2020-12-13 23:18 | XMS REPORT | Continuity of Care Document ---
:1980 Author Organization [facility] t Address 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 [id number] MATERNAL [id number] & CHILD [address] [place] [address] 2019-05-24 2019-05-24 Orders Doctor JOANNE [id number] 00:00:00 00:00:00 Only Unassigned, GHISLAINE [id number] [place] [facility] [id number] [id number] Results This patient has no known results.
[2020-12-14] MEDS ORDERED: IBUPROFEN 400 MG TAB ONE (02:15)
[2020-12-14] MEDS ORDERED: ACETAMINOPHEN 500 MG TAB ONE (02:16)
--- NOTE | 2020-12-14 02:27 | ER ---
Nurse's Notes [facility] Name: Nidia Ford Age: 40 yrs Sex: Female : 1980 Arrival Date: 12/13/2020 Time: 23:20 Bed 12 Private MD: Diagnosis: Contusion of left lower leg Presentation: 12/14 00:18 Chief complaint: Patient states: Left posada pain. Pt hit her posada with box at work that bb was full of equipment. Coronavirus screen: Vaccine status: Patient reports receiving the 1st dose of the Covid vaccine. Date November 16, 2020 Moderna Client denies travel out of the [place] in the last 14 days. At this time, the client does not indicate any symptoms associated with coronavirus-19. Ebola Screen: Patient negative for fever greater than or equal to 101.5 degrees Fahrenheit, and additional compatible Ebola Virus Disease symptoms Patient denies exposure to infectious person. Patient denies travel to an Ebola-affected area in the 21 days before illness onset. No symptoms or risks identified at this time. Initial Sepsis Screen: Does the patient meet any 2 criteria? No. Patient's initial sepsis screen is negative. Does the patient have a suspected source of infection? No. Patient's initial sepsis screen is negative. Risk Assessment: Do you want to hurt yourself or someone else? Patient reports no desire to harm self or others. Onset of symptoms was December 13, 2020 at 20:30. 00:18 Method Of Arrival: Ambulatory bb 00:18 Acuity: ANASTACIO 4 bb Triage Assessment: 00:22 General: Appears in no apparent distress. Behavior is calm, cooperative, appropriate bb for age, quiet. Pain: Complains of pain in lateral aspect of left calf, left calf, medial aspect of left calf and left posada Pain currently is 8 out of 10 on a pain scale. at worst was 4 out of 10 on a pain scale. DOCTORATE OF CHIROPRACTIC: 00:22 LMP N/A - Hysterectomy bb Historical: - Allergies: 00:22 NKDA; bb - Home Meds: 00:22 None [Active]; bb - PMHx: 00:22 "heart problem"; Asthma; fatty liver; bb - PSHx: 00:22 Ligation of fallopian tube; bb - Immunization history:: Adult Immunizations up to date, Client reports receiving the 1st dose of the Covid vaccine, November 16, 2020 Quita. - Social history:: Smoking status: Patient denies any tobacco usage or history of. Patient uses alcohol, on a daily basis. Screenin:22 Abuse screen: Denies threats or abuse. Nutritional screening: No deficits noted. cc4 Tuberculosis screening: No symptoms or risk factors identified. Fall Risk None identified. Assessment: 02:25 General: Appears uncomfortable. cc4 02:26 Pain: Complains of pain in left leg Pain currently is 6 out of 10 on a pain scale. at cc4 worst was 9 out of 10 on a pain scale. Musculoskeletal: Reports plastic container containing "heavy objects" fell onto her left medial lower leg \\T\\ approx 2000 tonight causing pain "9" on pain scale with "limp" of gait; approximately 1 cm x 0.5cm bruising with tenderness noted medial lower lower leg beneath knee; moving right toes with no difficulty. Vital Signs: 00:18 BP 121 / 61; Pulse 61; Resp 20; Temp 98.1(TE); Pulse Ox 100% on R/A; Weight 72.57 kg; bb Height 5 ft. 0 in. (152.40 cm); Pain 8/10; 02:10 BP 111 / 58; Pulse 80; Resp 20; Temp 98.2(O); Pulse Ox 98% on R/A; cc4 02:45 BP 118 / 60; Pulse 72; Resp 20; Temp 97.6(O); cc4 00:18 Body Mass Index 31.25 (72.57 kg, 152.40 cm) ED Course: 12/13 23:20 Patient arrived in ED. ja2 12/14 00:22 Triage completed. bb 01:05 Tanner Reyes PA is PHCP. cp 01:12 Tanner Reyes PA is PHCP. cp 01:12 Reggie Espinal MD is Attending Physician. cp 01:30 XRAY Tib Fib LEFT In Process Unspecified. EDMS 01:45 Radha Vieyra is Primary Nurse. cc4 02:23 Arm band placed on. cc4 02:23 X-ray(s) taken. cc4 02:24 No provider procedures requiring assistance completed. cc4 02:25 Patient has correct armband on for positive identification. Bed in low position. Call cc4 light in reach. Side rails up X 1. 02:45 Recheck of Ben wrap applied left lower leg with ice pack applied; instructed on use of cc4 crutches with return demonstration of use; discharge instructions given with v/u. 03:07 Patient did not have IV access during this emergency room visit. cc4 Administered Medications: 01:55 Drug: Ibuprofen 800 mg Route: PO; cc4 03:02 Follow up: Urine output 0245 ml; Response: Pain is decreased cc4 01:55 Drug: Tylenol 1000 mg Route: PO; cc4 02:45 Follow up: BP 118 / 60; Pulse 72 bpm; Resp 20 bpm; Temp 97.6 Oral cc4 03:01 Follow up: Response: Pain is decreased cc4 Point of Care Testing: Urine : 02:10 hCG Reading: Negative; cc4 Output: 03:02 Urine: 245ml; Total: 245ml. cc4 Outcome: 02:24 Condition: stable cc4 02:26 Discharge ordered by . cp 03:06 Discharged to home via wheelchair, with significant other. cc4 03:06 Discharge instructions given to Instructed on crutch walking, Reapplication of ben wrap cc4 and use of ice pack with v/u. Prescriptions given X 1. 03:08 Patient left the ED. cc4 Signatures: Dispatcher [employer] Rocio Palomino RN RN Tanner Choudhary PA PA cp Alexander, Jessica ja2 Cooper, Christie cc4
--- NOTE | 2020-12-14 02:27 | EDPHYS ---
Physician Documentation [facility] Name: Nidia Ford Age: 40 yrs Sex: Female : 1980 Arrival Date: 12/13/2020 Time: 23:20 Bed 12 Private MD: ED Physician Reggie Espinal HPI: 12/14 01:20 This 40 yrs old Female presents to ER via Ambulatory with complaints of Leg cp Pain. 01:20 The patient presents with a contusion, an injury. The complaints affect the left posada. cp 01:20 Context: resulted from a direct blow, heavy box full of equipment. Onset: The cp symptoms/episode began/occurred today. Associated signs and symptoms: Pertinent positives: numbness, Pertinent negatives calf tenderness. Treatment prior to arrival includes: no previous treatment. 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 - Social history:: Smoking status: Patient denies any tobacco usage or history of. Patient uses alcohol, on a daily basis. ROS: 01:25 MS/extremity: Positive for contusion, ecchymosis, swelling, tenderness, of the anterior cp aspect left lower leg, Negative for decreased range of motion, deformity. 01:25 Eyes: Negative for injury, pain, redness, and discharge. cp 01:25 Constitutional: Negative for body aches, chills, fever. 01:25 Cardiovascular: Negative for chest pain, palpitations. 01:25 Respiratory: Negative for cough, shortness of breath, wheezing. 01:25 Abdomen/GI: Negative for abdominal pain, nausea, vomiting, and diarrhea. 01:25 Neuro: Negative for altered mental status, dizziness, headache, syncope, weakness. 01:25 All other systems are negative. Exam: 01:30 Constitutional: The patient appears in no acute distress, alert, awake, non-toxic, well cp developed, well nourished. 01:30 Musculoskeletal/extremity: Extremities: grossly normal except: noted in the anterior cp upper aspect left lower leg: contusion, ecchymosis, pain, swelling, tenderness, the left foot decreased sensation, Compartment Syndrome exam of affected extremity: is normal. no palor, no weak pulses. Vital Signs: 00:18 BP 121 / 61; Pulse 61; Resp 20; Temp 98.1(TE); Pulse Ox 100% on R/A; Weight 72.57 kg; bb Height 5 ft. 0 in. (152.40 cm); Pain 8/10; 02:10 BP 111 / 58; Pulse 80; Resp 20; Temp 98.2(O); Pulse Ox 98% on R/A; cc4 02:45 BP 118 / 60; Pulse 72; Resp 20; Temp 97.6(O); cc4 00:18 Body Mass Index 31.25 (72.57 kg, 152.40 cm) bb MDM: 01:26 Patient medically screened. cp 02:00 Differential diagnosis: dislocation, closed fracture, contusion, compartment syndrome. cp 02:24 Data reviewed: vital signs, nurses notes, radiologic studies, plain films. Test cp interpretation: by ED physician or midlevel provider: xrays of left lower leg negative for fracture. Counseling: I had a detailed discussion with the patient and/or guardian regarding: the historical points, exam findings, and any diagnostic results supporting the discharge/admit diagnosis, radiology results, to return to the emergency department if symptoms worsen or persist or if there are any questions or concerns that arise at home. Response to treatment: the patient's symptoms have mildly improved after treatment, and as a result, I will discharge patient. 12/14 00:26 Order name: XRAY Tib Fib LEFT bb 12/14 01:15 Order name: Urine Test (obtain specimen); Complete Time: 02:06 cp 12/14 02:23 Order name: Crutches; Complete Time: 02:59 cp 12/14 02:23 Order name: Ben Wrap; Complete Time: 02:59 cp 12/14 02:23 Order name: Ice pack; Complete Time: 02:59 cp Administered Medications: 01:55 Drug: Ibuprofen 800 mg Route: PO; cc4 03:02 Follow up: Urine output 0245 ml; Response: Pain is decreased cc4 01:55 Drug: Tylenol 1000 mg Route: PO; cc4 02:45 Follow up: BP 118 / 60; Pulse 72 bpm; Resp 20 bpm; Temp 97.6 Oral cc4 03:01 Follow up: Response: Pain is decreased cc4 Point of Care Testing: Urine : 02:10 hCG Reading: Negative; cc4 Disposition: 02:30 Chart complete. cp 07:42 Co-signature as Attending Physician, Reggie Espinal MD. [email or web address] Disposition Summary: 12/14/20 02:26 Discharge Ordered Location: Home cp Problem: new cp Symptoms: have improved cp Condition: Stable cp Diagnosis - Contusion of left lower leg cp Followup: cp - With: Private Physician - When: 1 - 2 days - Reason: Worsening of condition Discharge Instructions: - Discharge Summary Sheet cp - Contusion cp - Crutch Use, Adult cp - Form - Excuse from Work, School, or Physical Activity cp Forms: - Medication Reconciliation Form cp - Thank You Letter cp - Antibiotic Education cp - Prescription Opioid Use cp Prescriptions: - Naprosyn 500 mg Oral Tablet - take 1 tablet by ORAL route 2 times per day take with food; 20 tablet; Refills: cp 0, Product Selection Permitted Signatures: Dispatcher [employer] Rocio Palomino RN RN Tanner Choudhary PA PA cp Reggie Espinal MD MD [facility] Radha Vieyra [facility]
[2020-12-14 03:22] VITALS: O2SAT 98
[2020-12-14 03:24] VITALS: BP 118/60; TEMP 97.6
--- NOTE | 2020-12-14 09:42 | RAD REPORT ---
EXAM DESCRIPTION: Tracee Guzman Left12/14/2020 1:30 am CLINICAL HISTORY: Left leg pain status post injury FINDINGS: No fracture is seen
== END 2020-12-14 03:08 | disposition home or self-care (01) ==
LOC: ER 23:15
DX: S80.12XA Contusion of left lower leg, initial encounter (principal); W22.8XXA Striking against or struck by other objects, initial encounter
CPT/HCPCS: 99284

== ENCOUNTER 2021-03-25 23:21 | Emergency (ER) | payer SELFPAY ==
--- OUTSIDE RECORDS SUMMARY | 2021-03-26 00:24 | XMS REPORT | Continuity of Care Document ---
:1980 [facility] t Address [address] [place] [address] Care Team Providers Name Role Phone David COLON Attending Clinician Unavailable Visit, Nurse Attending Clinician Unavailable David Meyer Attending Clinician Doctor Unassigned, Name Attending Clinician Unavailable Payers Payer Name Policy Type Policy Number Effective Date Expiration Date S cordell [id number] 2019 00:00:00 Problems Condition Condition Condition Status Onset Resolution Last Treating Co mments Source Name Details Category Date Date Treatment Clinician Date Heavy Heavy Disease Active Univers menses menses 6-24 ity of 00:00: [place] 00 Medical Branch Stress Stress Disease Active Univers incontinen incontinen 6-24 it y of ce ce 00:00: [place] 00 Medical Branch Recent Recent Disease Active 2015-04 Univers urinary urinary 0-28 ity of tract tract 00:00: [place] infection infection 00 [facility] harriett Branch Other Other Disease Active 2015-04 Univers general general 0-28 [place] of [place] and advice and advice 00 Ar dical for for Branch contracept contracept jorge jorge management management History of History of Disease Active 2015-04 U nivers bilateral bilateral 0-28 ity of tubal tubal 00:00: [place] ligation ligation 00 Medica l Branch Overweight Overweight Disease Active 2015-04 U nivers (BMI (BMI 0-28 ity of 25.0-29.9) 25.0-29.9) [place] Obesity Obesity Disease Active Overview: Univ ers (BMI (BMI 6-15 ICD10 ity of 30-39.9) 30-39.9) 00:00: Diagnosis [place] 00 [employer] Branch Utility Obesity Obesity Disease Active Overview: Univ ers 6-15 ICD10 ity of 00:00: Diagnosis [place] 00 [employer] Branch Utility Allergies, Adverse Reactions, Alerts Allergy Allergy Status Severity Reaction(s) Onset Inactive Treating Comm ents Source Name Type Date Date Clinician NO KNOWN Drug Active Univers ALLERGIE Class ity of S [facility] Social History Social Habit Start Date Stop Date Quantity Comments Source History SDOH University o f Alcohol Std [place] Medical Drinks Branch History SDOH University o f Alcohol Binge [place] Medic al Branch Exposure to Not sure [facility] SARS-CoV-2 [facility] (event) Branch Sex Assigned At Universit y of [facility] Tobacco use and 2020-01-13 2020-01-13 Never used Universit y of exposure 00:00:00 00:00:00 [facility] Alcohol intake 2020-01-13 2020-01-13 Current drinker Unive rsity of 00:00:00 00:00:00 of alcohol [place] Medical (finding) Branch History SDOH 2019-10-02 2019-10-02 2 University o f Alcohol Frequency 00:00:00 00:00:00 [facility] edical [place] Alcohol Comment 2019-10-02 2019-10-02 socially Universit y of 00:00:00 00:00:00 [facility] Smoking Status Start Date Stop Date Source Never smoker [facility] Medications Ordered Filled Start Stop Current Ordering Indication Dosage Frequency Signature Comments Components Source Medication Medication Date Date Medication? Clinician (SIG) Name Name norethindro Yes [id number] 1{tbl} Take 1 Univers ne 0.35 mg 6-24 tablet by ity of tablet 00:00: mouth [place] 00 daily. Medical Branch norethindro Yes [id number] 1{tbl} Take 1 Univers ne 0.35 mg 6-24 tablet by ity of tablet 00:00: mouth [place] 00 daily. Medical Branch norethindro Yes [id number] 1{tbl} Take 1 Univers ne 0.35 mg 6-24 tablet by ity of tablet 00:00: mouth [place] 00 daily. [facility] Branch norethindro 2019-0 Yes [id number] 1{tbl} Take 1 Univers ne 0.35 mg 6-24 tablet by ity of tablet 00:00: mouth [place] 00 daily. [facility] norethindro 0 Yes [id number] 1{tbl} Take 1 Univers ne 0.35 mg 6-24 tablet by ity of tablet 00:00: mouth [place] 00 daily. [facility] Branch norgestimat 2020- No [id number] 1{tbl} Take 1 Univers e-ethinyl 6-24 06-24 tablet by ity of estradiol 00:00: 00:00 mouth [place] (ORTHO 00 :00 daily. [facility] [place] [address] 0.18/0.215/ 0.25 mg-35 mcg (28) tablet norgestimat 2019- No [id number] 1{tbl} Take 1 Univers e-ethinyl 6-24 06-24 tablet by ity of estradiol 00:00: 00:00 mouth [place] (ORTHO 00 :00 daily. [facility] [place] [address] 0.18/0.215/ 0.25 mg-35 mcg (28) tablet norgestimat 2020- No [id number] 1{tbl} Take 1 Univers e-ethinyl 6-24 06-24 tablet by ity of estradiol 00:00: 00:00 mouth [place] ([facility] 00 :[facility] [address] 0.18/0.215/ 0.25 mg-35 mcg (28) tablet Nitrofurant 2019- No [id number] 100mg Take 1 Univers oin&Nit. 6-15 -26 capsule by ity of Macrocryst 00:00: 04:59 mouth 2 [place] (MACROBID) 00 :00 (two) Medical 100 mg times Branch capsule daily for 10 days. Nitrofurant 2019- No [id number] 100mg Take 1 Univers oin&Nit. 6-15 -26 capsule by ity of Macrocryst 00:00: 04:59 mouth 2 [place] (MACROBID) 00 :00 (two) Medical 100 mg times Branch capsule daily for 10 days. Nitrofurant 2019- No [id number] 100mg Take 1 Univers oin&Nit. 6-15 -26 capsule by ity of Mac[place] 00:00: 04:59 mouth 2 [place] (MACROBID) 00 :00 (two) Medical 100 mg times Branch capsule daily for 10 days. Nitrofurant 2020-0 2020- No [id number] 100mg Take 1 Univers oin&Nit. 6-15 -26 capsule by ity of [place] 00:00: 04:59 mouth 2 [place] (MACROBID) 00 :00 (two) Medical 100 mg times Branch capsule daily for 10 days. Nitrofurant 2020-0 2020- No [id number] 100mg Take 1 Univers oin&Nit. 6-15 - capsule by ity of [place] 00:00: 04:59 mouth 2 [place] (MACROBID) 00 :00 (two) Medical 100 mg times Branch capsule daily for 10 days. Nitrofurant 2020-0 2020- No [id number] 100mg Take 1 Univers oin&Nit. 615 - capsule by ity of [place] 00:00: 04:59 mouth 2 [place] (MACROBID) 00 :00 (two) Medical 100 mg times Branch capsule daily for 10 days. Nitrofurant 2020-0 2020- No [id number] 100mg Take 1 Univers oin&Nit. 6-15 - capsule by ity of [place] 00:00: 04:59 mouth 2 [place] (MACROBID) 00 :00 (two) Medical 100 mg times Branch capsule daily for 10 days. No known No Univers medications ity [facility] No known No Univers medications ity [facility] No known No Univers medications ity [facility] No known No [facility] No known No [facility] No known No [facility] Immunizations Ordered Filled Immunization Date Status Comments [facility] e Immunization Name Name Td 2014-04-22 Completed University of 00:00:00 [facility] TDAP 2014-04-22 Completed University of 00:00:00 [facility] TDAP 2014-04-22 Completed University of 00:00:00 [facility] TDAP 2014-04-22 Completed University of 00:00:00 [facility] Tdap 2014-04-22 Completed University of 00:00:00 [facility] TDAP 2014-04-22 Completed University of 00:00:00 [place] [facility] TDAP 2014-04-22 Completed University of 00:00:00 [place] [facility] TDAP 2014-04-22 Completed University of 00:00:00 [place] [facility] Tdap 2014-04-22 Completed University of 00:00:00 [place] [facility] Tdap 2014-04-22 Completed University of 00:00:00 [place] [facility] Tdap 2014-04-22 Completed University of 00:00:00 [place] [facility] Tdap 2014-04-22 Completed University of 00:00:00 [place] [facility] Tdap 2014-04-22 Completed University of 00:00:00 [place] [facility] Tdap 2014-04-22 Completed University of 00:00:00 [place] [facility] Tdap 2014-04-22 Completed University of 00:00:00 [facility] Influenza Virus 2014-03-25 Completed Universit y of Vaccine Quad IM 00:00:00 [place] Med ical Multi-dose 6+ MO Branch Influenza Virus 2014-03-25 Completed Universit y of Vaccine Quad IM 00:00:00 [place] Med ical Multi-dose 6+ MO Branch Influenza Virus 2014-03-25 Completed Universit y of Vaccine Quad IM 00:00:00 [place] Med ical Multi-dose 6+ MO Branch Influenza Virus 2014-03-25 Completed Universit y of Vaccine Quad IM 00:00:00 [place] Med ical Multi-dose 6+ MO Branch Influenza Virus 2014-03-25 Completed Universit y of Vaccine [place] IM 00:00:00 [place] Med ical Multi-dose 6+ MO Branch Influenza Virus 2014-03-25 Completed Universit y of Vaccine Quad IM 00:00:00 [place] Med ical Multi-dose 6+ MO Branch Influenza Virus 2014-03-25 Completed Universit y of Vaccine [place] IM 00:00:00 [place] Med ical Multi-dose 6+ MO Branch Influenza Virus 2014-03-25 Completed Universit y of Vaccine Quad IM 00:00:00 [place] Med ical Multi-dose 6+ MO Branch Influenza Virus 2014-03-25 Completed Universit y of Vaccine Quad IM 00:00:00 [place] Med ical Multi-dose 6+ MO Branch Influenza Virus 2014-03-25 Completed Universit y of Vaccine Quad IM 00:00:00 [place] Med ical Multi-dose 6+ MO Branch Influenza Virus 2014-03-25 Completed Universit y of Vaccine Quad IM 00:00:00 [place] Med ical Multi-dose 6+ MO Branch Influenza Virus 2014-03-25 Completed Universit y of Vaccine Quad IM 00:00:00 [place] Med ical Multi-dose 6+ MO Branch Influenza Virus 2014-03-25 Completed Universit y of Vaccine Quad IM 00:00:00 [place] Med ical Multi-dose 6+ MO Branch Influenza Virus 2014-03-25 Completed Universit y of Vaccine [facility] IM 00:00:00 [place] Med ical Multi-dose 6+ MO Branch Influenza Virus 2014-03-25 Completed Universit y of Vaccine Quad IM 00:00:00 [place] Med ical Multi-dose 6+ MO Branch Varicella 2011-08-18 Completed University of (varivax)(chicken 00:00:00 [place] M edical pox) Branch Varicella 2011-08-18 Completed University of (varivax)(chicken 00:00:00 [place] M edical pox) Branch Varicella 2011-08-18 Completed University of (varivax)(chicken 00:00:00 [place] M edical pox) Branch Varicella 2011-08-18 Completed University of (varivax)(chicken 00:00:00 [place] M edical pox) Branch Varicella 2011-08-18 Completed University of (varivax)(chicken 00:00:00 [place] M edical pox) Branch Varicella 2011-08-18 Completed University of (varivax)(chicken 00:00:00 [place] M edical pox) Branch Varicella 2011-08-18 Completed University of (varivax)(chicken 00:00:00 [place] M edical pox) Branch Varicella 2011-08-18 Completed University of (varivax)(chicken 00:00:00 [place] M edical pox) Branch Varicella 2011-08-18 Completed University of (varivax)(chicken 00:00:00 [place] M edical pox) Branch Varicella 2011-08-18 Completed University of (varivax)(chicken 00:00:00 [place] M edical pox) Branch Varicella 2011-08-18 Completed University of (varivax)(chicken 00:00:00 [place] M edical pox) Branch Varicella 2011-08-18 Completed University of (varivax)(chicken 00:00:00 [place] M edical pox) Branch Varicella 2011-08-18 Completed University of (varivax)(chicken 00:00:00 [facility] edical pox) Branch Varicella 2011-08-18 Completed University of (varivax)(chicken 00:00:00 [place] edical pox) Branch Varicella 2011-08-18 Completed University of (varivax)(chicken 00:00:00 [place] M edical pox) Branch Rubella 2008-03-25 Completed University of 00:00:00 [facility] Rubella 2008-03-25 Completed University of 00:00:00 [facility] Rubella 2008-03-25 Completed University of 00:00:00 [facility] Rubella 2008-03-25 Completed University of 00:00:00 [facility] Rubella 2008-03-25 Completed University of 00:00:00 [facility] Rubella 2008-03-25 Completed University of 00:00:00 [facility] Rubella 2008-03-25 Completed University of 00:00:00 [facility] Rubella 2008-03-25 Completed University of 00:00:00 [facility] Rubella 2008-03-25 Completed University of 00:00:00 [facility] Rubella 2008-03-25 Completed University of 00:00:00 [facility] Rubella 2008-03-25 Completed University of 00:00:00 [facility] Rubella 2008-03-25 Completed University of 00:00:00 [facility] Rubella 2008-03-25 Completed University of 00:00:00 [facility] Rubella 2008-03-25 Completed University of 00:00:00 [facility] Rubella 2008-03-25 Completed University of 00:00:00 [facility] Td 2006-04-10 Completed University of 00:00:00 [facility] Td 2006-04-10 Completed University of 00:00:00 [facility] Td 2006-04-10 Completed University of 00:00:00 [facility] Td 2006-04-10 Completed University of 00:00:00 [facility] Td 2006-04-10 Completed University of 00:00:00 [facility] Td 2006-04-10 Completed University of 00:00:00 [facility] Td 2006-04-10 Completed University of 00:00:00 [facility] Td 2006-04-10 Completed University of 00:00:00 [facility] Td 2006-04-10 Completed University of 00:00:00 [facility] Td 2006-04-10 Completed University of 00:00:00 [place] [facility] Td 2006-04-10 Completed University of 00:00:00 [place] [facility] Td 2006-04-10 Completed University of 00:00:00 [place] [facility] Td 2006-04-10 Completed University of 00:00:00 [place] [facility] Td 2006-04-10 Completed University of 00:00:00 [place] [facility] Td 2006-04-10 Completed University of 00:00:00 [facility] Branch Vital Signs Vital Name Observation Time Observation Value Comments Source Systolic blood 2020-01-13 15:53:00 111 mm[Hg] Univer sity of pressure [place] [facility] Diastolic blood 2020-01-13 15:53:00 64 mm[Hg] Unive rsity of pressure [place] [facility] Heart rate 2020-01-13 15:53:00 74 /min Universi ty of [place] [facility] Body temperature 2020-01-13 15:53:00 36.17 Sandie Univ ersity of [place] [facility] Respiratory rate 2020-01-13 15:53:00 16 /min Univ ersity of [place] [facility] Body height 2020-01-13 15:53:00 152.4 cm Universi ty of [place] [facility] Body weight 2020-01-13 15:53:00 74.503 kg Universi ty of [place] [facility] BMI 2020-01-13 15:53:00 32.08 kg/m2 Universi ty of [place] [facility] Systolic blood 2019-10-02 19:20:00 102 mm[Hg] Univer sity of pressure [place] [facility] Diastolic blood 2019-10-02 19:20:00 72 mm[Hg] Unive rsity of pressure [place] [facility] Heart rate 2019-10-02 19:20:00 68 /min Universi ty of [place] [facility] Body temperature 2019-10-02 19:20:00 36.67 Sandie Univ ersity of [place] [facility] Respiratory rate 2019-10-02 19:20:00 16 /min Univ ersity of [place] [facility] Body height 2019-10-02 19:20:00 154.9 cm Universi ty of [place] [facility] Body weight 2019-10-02 19:20:00 75.524 kg Universi ty of [place] [facility] BMI 2019-10-02 19:20:00 31.46 kg/m2 Universi ty of [place] [facility] Systolic blood 2019-09-18 13:36:00 108 mm[Hg] Univer sity of pressure [place] [facility] Diastolic blood 2019-09-18 13:36:00 63 mm[Hg] Unive rsity of pressure [place] [facility] Heart rate 2019-09-18 13:36:00 62 /min Universi ty of [place] [facility] Body temperature 2019-09-18 13:36:00 36.33 Sandie Univ ersity of [place] [facility] Respiratory rate 2019-09-18 13:36:00 16 /min Univ ersity of [place] [facility] Body height 2019-09-18 13:36:00 152.4 cm Universi ty of [place] [facility] Body weight 2019-09-18 13:36:00 75.864 kg Universi ty of [place] [facility] BMI 2019-09-18 13:36:00 32.66 kg/m2 Universi ty of [place] [facility] Systolic blood 2019-05-24 16:48:00 118 mm[Hg] Univer sity of pressure [place] [facility] Diastolic blood 2019-05-24 16:48:00 71 mm[Hg] Unive rsity of pressure [place] [facility] Heart rate 2019-05-24 16:48:00 71 /min Universi ty of [place] [facility] Body temperature 2019-05-24 16:48:00 36.56 Sandie Univ ersity of [place] [facility] Respiratory rate 2019-05-24 16:48:00 16 /min Univ ersity of [place] [facility] Body height 2019-05-24 16:48:00 152.4 cm Universi ty of [place] [facility] Body weight 2019-05-24 16:48:00 73.596 kg Universi ty of [place] [facility] BMI 2019-05-24 16:48:00 31.69 kg/m2 Universi ty of [place] [facility] Systolic blood 2019-05-24 16:48:00 118 mm[Hg] Univer sity of pressure [place] [facility] Diastolic blood 2019-05-24 16:48:00 71 mm[Hg] Unive rsity of pressure [place] [facility] Heart rate 2019-05-24 16:48:00 71 /min Universi ty of [place] [facility] Body temperature 2019-05-24 16:48:00 36.56 Sandie Univ ersity of [place] [facility] Respiratory rate 2019-05-24 16:48:00 16 /min Univ ersity of [place] [facility] Body height 2019-05-24 16:48:00 152.4 cm [facility] Body weight 2019-05-24 16:48:00 73.596 kg [facility] BMI 2019-05-24 16:48:00 31.69 kg/m2 [facility] Procedures Procedure Date / Time Performed Performing Clinician [facility] e POCT TEST 2020-01-13 15:59:00 [facility] 2019-10-02 19:26:00 Yue Colon Uni [facility] NOTICE OF PRIVACY 2019-10-02 18:34:07 Doctor Unassigned, No Univ [facility] POCT TEST 2019-09-18 13:43:00 Yue Colon Uni [facility] POCT TEST 2019-05-24 17:00:00 Yue Colon [facility] CONSENT/REFUSAL FOR 2019-05-24 16:07:54 Doctor Unassigned, No [facility] DIAGNOSIS AND [facility] TREATMENT ASSIGNMENT OF BENEFITS 2019-05-24 16:07:36 Doctor Unassigned, No [facility] Encounters Start End Encounter Admission Attending Care Care Encounter Source Date/Time Date/Time Type Type Clinicians Facility Department ID 2020-09-29 2020-09-29 Outpatient R NOY [facility] [id number] Univers 10:30:00 10:30:00 YUE [id number] ity o f [facility] 2020-09-29 2020-09-29 Outpatient R NOY [facility] [id number] Univers 10:30:00 10:30:00 YUE ity o f [facility] 2020-01-13 2020-01-13 Outpatient R [facility] [id number] Univers 14:00:00 14:00:00 ity [facility] 2020-01-13 2020-01-13 Outpatient R [facility] [id number] Univers 14:00:00 [facility] 2020-01-13 2020-01-13 Nurse Visit, Gaurang-Rmchp Nurse [facility] [id number] .[id number] Univers 10:40:07 11:11:28 Visit Yue Colon [employer]ER [id number]. [address] [facility] [id number] [place] MATERNAL [id number] [facility] & CHILD [address] [place] [address] 2020-01-02 2020-01-02 Outpatient R [facility] [id number] Univers 14:30:00 14:30:00 [id number] ity of [facility] 2020-01-02 2020-01-02 Outpatient R [facility] [id number] Univers 14:30:00 14:30:00 ity of [facility] 2019-10-14 2019-10-14 Tele[facility] [id number] Univers 00:00:00 00:00:00 Yue Hernandez [employer] [id number] [facility] [id number] [place] MATERNAL [id number] [address] 2019-10-02 2019-10-02 Office [facility] [id number] Univers 14:05:45 16:18:05 Visit Yue Hernandez [employer] [id number] [facility] [id number] [place] MATERNAL [id number] [address] 2019-10-02 2019-10-02 [facility] [id number] Univers 14:15:00 14:15:00 YUE [id number] ity o f [facility] 2019-10-02 2019-10-02 [facility] [id number] Univers 14:15:00 14:15:00 YUE ity o f [facility] 2019-10-02 2019-10-02 Orders Doctor RUBIO [id number] Univers 00:00:00 00:00:00 Only Unassigned, GHISLAINE [id number] ity of [place] [facility] [id number] [place] [id number] [address] 2019-09-23 2019-09-23 [facility] [id number] Univers 00:00:00 00:00:00 Yue C [employer] [id number] ity of REGIONAL [id number] [place] MATERNAL [id number] [facility] & CHILD [address] [place] [address] 2019-09-19 2019-09-19 [facility] [id number] Univers 00:00:00 00:00:00 Yue C [employer]ER [id number] ity of REGIONAL [id number] [place] MATERNAL [id number] [facility] & CHILD [address] [place] [address] 2019-09-18 2019-09-18 Outpatient R NOY, [facility] [id number] Univers 09:45:00 09:45:00 YUE ott [facility] 2019-09-18 2019-09-18 Outpatient R NOY, [facility] [id number] Univers 09:45:00 09:45:00 YUE anguiano o f [facility] 2019-09-18 2019-09-18 [facility] [id number] Univers 08:23:20 09:22:38 Visit Yue Hernandez [employer] [id number] ity of REGIONAL [id number] [place] MATERNAL [id number] [facility] & CHILD [address] [place] [address] 2019-06-28 2019-06-28 Outpatient R MCKENZIEPE, [facility] [id number] Univers 09:00:00 09:00:00 YUE anguiano o namrata [facility] 2019-05-24 2019-05-24 Nurse Visit, [facility] [id number] 10:29:28 10:58:44 Visit Rosekaren [employer] [id number] Nurse REGIONAL [id number] MATERNAL [id number] & CHILD [address] [place] [address] 2019-05-24 2019-05-24 [facility] 1.2 .840.114 [id number] [facility] 10:29:28 10:58:44 Visit Yue Colon [employer] BR[employer]ER [id number]. [address] [facility] [id number] [place] MATERNAL [id number] Med ical & CHILD 107 [facility] 2019-05-24 2019-05-24 Orders Doctor JOANNE [id number] 00:00:00 00:00:00 Only Unassigned, GHISLAINE [id number] [place] [facility] [id number] [id number] 2019-05-24 2019-05-24 Orders Doctor JOANNE [id number] Univers 00:00:00 00:00:00 Only Unassigned, GHISLAINE [id number] [facility] [id number] [place] [id number] [address] Results Test Description Test Time Test Comments Results Result Comments Source POCT TEST 2020-01-13 16:00:00 Test Item Value Reference Range Interpretation Comme nts POCT PREG (test code = 1605) Negative On board controls acceptable with C Line (test code = 3574) Yes POCT PREG LOT # (test code = 3575) POCT PREG TEST DATE (test code = 3576) [facility] [id number] 19:26:00 Test Item Value Reference Range Interpretation Comments POCT PREG (test code = 1605) Negative On board controls acceptable with C Yes Line (test code = 3574) POCT PREG LOT # (test code = 3575) POCT PREG TEST DATE (test code = 3576) [id number] 19:26:00 Test Item Value Reference Range Interpretation Comments POCT PREG (test code = 1605) Negative On board controls acceptable with C Yes Line (test code = 3574) POCT PREG LOT # (test code = 3575) POCT PREG TEST DATE (test code = 3576) [facility] [id number] 19:26:00 Test Item Value Reference Range Interpretation Comments POCT PREG (test code = 1605) Negative On board controls acceptable with C Yes Line (test code = 3574) POCT PREG LOT # (test code = 3575) POCT PREG TEST DATE (test code = 3576) [facility] [id number] 13:43:00 Test Item Value Reference Range Interpretation Comments POCT PREG (test code = 1605) Negative On board controls acceptable with C Yes Line (test code = 3574) POCT PREG LOT # (test code = 3575) POCT PREG TEST DATE (test code = 3576) [id number] Test Item Value Reference Range Interpretation Comments POCT PREG (test code = 1605) Negative On board controls acceptable with C Yes Line (test code = 3574) POCT PREG LOT # (test code = 3575) POCT PREG TEST DATE (test code = 3576) [id number] 17:03:00 Test Item Value Reference Range Interpretation Comments POCT PREG (test code = 1605) Negative On board controls acceptable with C Yes Line (test code = 3574) POCT PREG LOT # (test code = 3575) POCT PREG TEST DATE (test code = 3576) [facility]
[2021-03-26 01:02] LABS: Urine Blood Negative (Negative); Urine Glucose Negative (Negative); Urine Protein Negative (Negative); Urine Specific Gravity 1.025 (1.005-1.030)
[2021-03-26 01:20] LABS: Urine Specific Gravity/Preg 1.025 (1.005-1.030)
[2021-03-26] MEDS ORDERED: MORPHINE 2 MG/ML SYR ONE (01:34)
[2021-03-26] MEDS ORDERED: NA CHLORIDE 0.9% 1,000 ML ONE (01:34)
[2021-03-26] MEDS ORDERED: ONDANSETRON 4 MG/2 ML VIAL ONE (01:34)
[2021-03-26 02:24] LABS: Urine RBC <5 /HPF (NONE SEEN)
[2021-03-26 02:25] LABS: Urine Bacteria 20-50 /HPF (<20); Urine Mucus 1+ /HPF (NONE SEEN)
[2021-03-26 02:38] LABS: Absolute Lymphocytes (CBC) 4.9 K/uL (0.7-4.9); Basophils % 0.8 % (0-1.3); Hematocrit 38.4 % (36.0-45.0); Lymphocytes % 41.4 % (15.3-44.8); MPV 8.7 fL (7.6-11.3); RBC Red Blood Cell Count 4.49 M/uL (3.86-4.86)
[2021-03-26 02:40] LABS: Albumin 3.4 g/dL (3.4-5.0); Bilirubin Direct 0.1 mg/dL (0-0.2); Bilirubin Total 0.3 mg/dL (0.2-1.0); Potassium 3.2 mmol/L (3.5-5.1); Protein, Total 7.8 g/dL (6.4-8.2)
[2021-03-26] MEDS ORDERED: NA CHLORIDE 0.9% 50 ML ONE (03:22)
[2021-03-26] MEDS ORDERED: CEFTRIAXONE 1000 MG/VIAL ONE (03:22)
[2021-03-26] MEDS ORDERED: POTASSIUM 25 MEQ EFFERV TAB ONE (03:22)
--- NOTE | 2021-03-26 03:25 | EDPHYS ---
Physician Documentation [facility] Name: Nidia Ford Age: 41 yrs Sex: Female : 1980 Arrival Date: 03/25/2021 Time: 23:23 Bed 7 Private MD: ED Physician Moustapha Hill HPI: 03/26 01:35 This 41 yrs old Female presents to ER via Ambulatory with complaints of Low cp Back Pain and Left Flank Pain. 01:35 The patient presents with pain that is chronic, with no known mechanism of injury. The cp symptoms are located in the lumbar area. Onset: The symptoms/episode began/occurred 6 month(s) ago. 01:35 The patient complains of pain in the left flank. cp 01:35 Associated signs and symptoms: Pertinent negatives: chest pain, constipation, dysuria, cp fever, incontinence, numbness, weakness. The pain radiates to the back and abdomen. Onset: The symptoms/episode began/occurred yesterday. Historical: - Allergies: 03/25 23:30 NKDA; 5 - PMHx: 23:30 "heart problem"; Asthma; fatty liver; 5 - PSHx: 23:30 Ligation of fallopian tube; [facility] - Immunization history:: Adult Immunizations up to date. - Social history:: Smoking status: Patient denies any tobacco usage or history of. ROS: 03/26 01:40 Constitutional: Negative for body aches, chills, fever, poor PO intake. cp 01:40 Eyes: Negative for injury, pain, redness, and discharge. cp 01:40 ENT: Negative for ear pain, sore throat, difficulty swallowing, difficulty handling secretions. 01:40 Cardiovascular: Negative for chest pain, edema, palpitations. 01:40 Respiratory: Negative for cough, shortness of breath, wheezing. 01:40 Abdomen/GI: Positive for abdominal pain, Negative for vomiting, diarrhea, constipation, bowel incontinence. 01:40 Back: Positive for pain at rest, pain with movement, flank pain, on the left. 01:40 : Negative for urinary symptoms, bladder incontinence, vaginal bleeding, vaginal discharge. 01:40 MS/extremity: Negative for decreased range of motion, paresthesias, swelling, tenderness. 01:40 Neuro: Negative for altered mental status, headache, weakness. 01:40 All other systems are negative. Exam: 01:45 Constitutional: The patient appears in no acute distress, alert, awake, non-toxic, well cp developed, well nourished, uncomfortable. 01:45 Head/Face: Normocephalic, atraumatic. cp 01:45 Eyes: Periorbital structures: appear normal, Conjunctiva: normal, no exudate, no injection, Sclera: no appreciated abnormality, Lids and lashes: appear normal, bilaterally. 01:45 ENT: External ear(s): are unremarkable, Nose: is normal, Mouth: Lips: moist, Oral mucosa: pink and intact, moist, Posterior pharynx: Airway: no evidence of obstruction, patent. 01:45 Chest/axilla: Inspection: normal. 01:45 Cardiovascular: Rate: normal, Rhythm: regular, Edema: is not appreciated, JVD: is not appreciated. 01:45 Respiratory: the patient does not display signs of respiratory distress, Respirations: normal, no use of accessory muscles, no retractions, labored breathing, is not present, Breath sounds: are clear throughout, no decreased breath sounds. 01:45 Abdomen/GI: Inspection: obese Bowel sounds: active, all quadrants, Palpation: soft, in all quadrants, moderate abdominal tenderness, in the posterior aspect of left lateral abdomen and anterior aspect of left lateral abdomen. 01:45 Back: pain, that is moderate, of the lumbar area, ROM is painful, with all movement. 01:45 Skin: cellulitis, is not appreciated, no rash present. 01:45 Neuro: Orientation: to person, place \\T\\ time. Mentation: is normal, Motor: moves all fours, strength is normal, Sensation: is normal, Gait: is steady, Deep tendon reflexes are 2+ (normal) in the right patellar, right Achilles, left patellar and left Achilles. Vital Signs: 03/25 23:25 BP 106 / 67; Pulse 72; Resp 18; Temp 97.4; Pulse Ox 100% ; Weight 74.84 kg; Height 5 jh5 ft. 0 in. (152.40 cm); Pain 8/10; 12 01:00 BP 113 / 63; Pulse 66; Resp 18 S; Pulse Ox 100% on R/A; as6 02:07 BP 114 / 60; Pulse 61; Resp 18 S; Pulse Ox 100% on R/A; as6 03:06 BP 98 / 53; Pulse 58; Resp 18 S; Pulse Ox 99% on R/A; as6 03:30 Pain 5/10; tw5 12/16 23:25 Body Mass Index 32.22 (74.84 kg, 152.40 cm) jh5 MDM: 00:54 Patient medically screened. cp 02:00 Differential diagnosis: sciatica, Herniated disc UTI, nephrolithiasis, pyelonephritis, cp diverticulitis. 03:22 Data reviewed: vital signs, nurses notes, lab test result(s), radiologic studies, CT cp scan. Counseling: I had a detailed discussion with the patient and/or guardian regarding: the historical points, exam findings, and any diagnostic results supporting the discharge/admit diagnosis, lab results, radiology results, the need for outpatient follow up, a family practitioner, to return to the emergency department if symptoms worsen or persist or if there are any questions or concerns that arise at home. Response to treatment: the patient's symptoms have markedly improved after treatment, and as a result, I will discharge patient. ED course: VSS. Labs and radiology studies reviewed. Pain improved. Will discharge to home for continued monitoring. 03/26 01:03 Order name: Urine Dipstick-Ancillary; Complete Time: 01:30 EDMS 03/26 03:19 Interpretation: Normal except: UESTR Trace. cp 03/26 01:03 Order name: Urine --Ancillary (enter results); Complete Time: 01:30 cs9 03/26 01:31 Order name: Urine Microscopic Only; Complete Time: 03:18 cp 03/26 03:18 Interpretation: Normal except: UWBC 10-20; UBACT 20-50; SQEPI 10-20. cp 03/26 01:31 Order name: Basic Metabolic Panel; Complete Time: 03:18 cp 03/26 03:18 Interpretation: Normal except: K 3.2; CL 108; GLUC 107; GFR 79. cp 03/26 01:31 Order name: CBC with Diff; Complete Time: 03:18 cp 03/26 03:18 Interpretation: Normal except: WBC 11.90. cp 03/26 01:31 Order name: Hepatic Function; Complete Time: 03:18 cp 03/26 03:18 Interpretation: Normal except: ALK 127; GLOB 4.4; A/G 0.8. cp 03/26 01:31 Order name: Lipase; Complete Time: 03:18 cp 03/26 01:31 Order name: CT Stone Protocol cp 03/26 02:26 Order name: Urine Culture EDMS 03/26 01:31 Order name: IV Saline Lock; Complete Time: 01:48 cp 03/26 01:31 Order name: Labs collected and sent; Complete Time: 01:51 cp Administered Medications: 01:40 Drug: morphine 2 mg Route: IVP; Site: right antecubital; as6 03:30 Follow up: Pain 5/10 Adult; Response: No adverse reaction; Pain is decreased; RASS: tw5 Alert and Calm (0) 01:40 Drug: NS 0.9% 1000 ml Route: IV; Rate: 1 bolus; Site: right antecubital; as6 03:30 Follow up: Response: No adverse reaction; IV Status: Completed infusion tw5 04:09 Follow up: Response: No adverse reaction; IV Status: Completed infusion; IV Intake: as6 1000ml 01:40 Drug: Zofran (Ondansetron) 4 mg Route: IVP; Site: right antecubital; as6 03:30 Follow up: Response: No adverse reaction tw5 03:30 Drug: Potassium Effervescent Tablet 50 mEq Route: PO; tw5 04:09 Follow up: Response: No adverse reaction as6 03:30 Drug: Rocephin - (cefTRIAXone) 1 grams Route: IVPB; Infused Over: 30 mins; Site: left tw5 antecubital; 04:09 Follow up: Response: No adverse reaction; IV Status: Completed infusion; IV Intake: [id number] Disposition Summary: 03/26/21 03:24 Discharge Ordered Location: Home cp Problem: new cp Symptoms: have improved cp Condition: Stable cp Diagnosis - Low back pain cp - UTI/ Urinary tract infection, site not specified cp Followup: cp - With: Private Physician - When: 2 - 3 days - Reason: Recheck today's complaints Discharge Instructions: - Discharge Summary Sheet cp - Chronic Back Pain cp - Urinary Tract Infection, Adult cp - Heat Therapy cp - Back Exercises cp Forms: - Medication Reconciliation Form cp - Thank You Letter cp - Antibiotic Education cp - Prescription Opioid Use cp Prescriptions: - Lidoderm 5 % Topical adhesive patch,medicated - apply 1 patch by TOPICAL route once daily As needed; 1 box; Refills: 0, Product cp Selection Permitted - Zofran 4 mg Oral Tablet - take 1 tablet by ORAL route every 12 hours As needed; 20 tablet; Refills: 0, cp Product Selection Permitted - Cyclobenzaprine 10 mg Oral Tablet - take 1 tablet by ORAL route every 8 hours As needed no driving while taking cp medication; 20 tablet; Refills: 0, Product Selection Permitted - Bactrim DS 800-160 mg Oral Tablet - take 1 tablet by ORAL route every 12 hours for 7 days; 14 tablet; Refills: 0, cp Product Selection Permitted - Diclofenac Sodium 75 mg Oral Tablet Sustained Release - take 1 tablet by ORAL route 2 times per day; 30 tablet; Refills: 0, Product cp Selection Permitted Signatures: Dispatcher [employer] EDTanner Irizarry PA PA cp Wood, Tiffany tw5 Alyssa Ferro, RN RN jh5 Orestes Gold RN RN as6
--- NOTE | 2021-03-26 03:25 | ER ---
Nurse's Notes [facility] [place], [place] Name: Nidia Ford Age: 41 yrs Sex: Female : 1980 Arrival Date: 03/25/2021 Time: 23:23 Bed 7 Private MD: Diagnosis: Low back pain;UTI/ Urinary tract infection, site not specified Presentation: 03/25 23:25 Chief complaint: Patient states: pain first started left lower quadrant abdomen and its jh5 radiated to left lower back. She was in a car to [place] for 20 hours there and back and she has been hurting since returning. Believes it may be from long car ride. Pt denies frequency of urination, denies pain upon urination. Coronavirus screen: Vaccine status: Patient reports receiving the 2nd dose of the covid vaccine. Client indicates they have traveled out of the [place] in the last 14 days. Client traveled to: [place] At this time, the client does not indicate any symptoms associated with coronavirus-19. Ebola Screen: Patient negative for fever greater than or equal to 101.5 degrees Fahrenheit, and additional compatible Ebola Virus Disease symptoms Patient denies exposure to infectious person. Patient denies travel to an Ebola-affected area in the 21 days before illness onset. Initial Sepsis Screen: Does the patient meet any 2 criteria? No. Patient's initial sepsis screen is negative. Does the patient have a suspected source of infection? No. Patient's initial sepsis screen is negative. Risk Assessment: Do you want to hurt yourself or someone else? Patient reports no desire to harm self or others. Onset of symptoms was March 03, 2021. 23:25 Method Of Arrival: Ambulatory [facility] 23:25 Acuity: ANASTACIO 3 jh5 Triage Assessment: 23:30 General: Appears in no apparent distress. comfortable, well groomed, well developed, jh5 well nourished, Behavior is calm, cooperative, appropriate for age. Pain: Complains of pain in lumbar area, right mid back and right low back. Historical: - Allergies: 23:30 NKDA; jh5 - PMHx: 23:30 "heart problem"; Asthma; fatty liver; jh5 - PSHx: 23:30 Ligation of fallopian tube; 5 - Immunization history:: Adult Immunizations up to date. - Social history:: Smoking status: Patient denies any tobacco usage or history of. Screenin:31 Abuse screen: Denies threats or abuse. Denies injuries from another. Nutritional [facility] screening: No deficits noted. Tuberculosis screening: No symptoms or risk factors identified. Fall Risk None identified. Assessment: 03/26 00:59 General: Appears in no apparent distress. uncomfortable, Behavior is calm, cooperative. as6 Pain: Complains of pain in left lower quadrant Pain radiates to back and coccyx Quality of pain is described as aching. Neuro: Level of Consciousness is awake, alert, obeys commands, Oriented to person, place, time, situation. Cardiovascular: Capillary refill < 3 seconds Patient's skin is warm and dry. Respiratory: Airway is patent Trachea midline Respiratory effort is even, unlabored, Respiratory pattern is regular, symmetrical. Derm: Skin is intact, is healthy with good turgor. 03:07 Reassessment: Patient states feeling better. as6 Vital Signs: 03/25 23:25 BP 106 / 67; Pulse 72; Resp 18; Temp 97.4; Pulse Ox 100% ; Weight 74.84 kg; Height 5 [facility] ft. 0 in. (152.40 cm); Pain 8/10; 03/26 01:00 BP 113 / 63; Pulse 66; Resp 18 S; Pulse Ox 100% on R/A; as6 02:07 BP 114 / 60; Pulse 61; Resp 18 S; Pulse Ox 100% on R/A; as6 03:06 BP 98 / 53; Pulse 58; Resp 18 S; Pulse Ox 99% on R/A; as6 03:30 Pain 5/10; tw5 03/25 23:25 Body Mass Index 32.22 (74.84 kg, 152.40 cm) [facility] ED Course: 03/25 23:23 Patient arrived in ED. kc5 23:30 Triage completed. [facility] 23:32 Arm band placed on left wrist. [facility] 03/26 00:46 Orestes Gold RN is Primary Nurse. as6 00:51 Tanner Reyes PA is PHCP. cp 00:51 Moustapha Hill MD is Attending Physician. cp 01:03 Placed in gown. Bed in low position. Call light in reach. Side rails up X2. Adult w/ as6 patient. Pulse ox on. NIBP on. Warm blanket given. 01:52 Inserted saline lock: 20 gauge in right antecubital area, using aseptic technique. as6 Blood collected. 02:32 CT Stone Protocol In Process Unspecified. EDMS 04:08 No provider procedures requiring assistance completed. IV discontinued, intact, as6 bleeding controlled, No redness/swelling at site. Pressure dressing applied. Administered Medications: 01:40 Drug: morphine 2 mg Route: IVP; Site: right antecubital; as6 03:30 Follow up: Pain 5/10 Adult; Response: No adverse reaction; Pain is decreased; RASS: tw5 Alert and Calm (0) 01:40 Drug: NS 0.9% 1000 ml Route: IV; Rate: 1 bolus; Site: right antecubital; as6 03:30 Follow up: Response: No adverse reaction; IV Status: Completed infusion tw5 04:09 Follow up: Response: No adverse reaction; IV Status: Completed infusion; IV Intake: as6 1000ml 01:40 Drug: Zofran (Ondansetron) 4 mg Route: IVP; Site: right antecubital; as6 03:30 Follow up: Response: No adverse reaction tw5 03:30 Drug: Potassium Effervescent Tablet 50 mEq Route: PO; tw5 04:09 Follow up: Response: No adverse reaction as6 03:30 Drug: Rocephin - (cefTRIAXone) 1 grams Route: IVPB; Infused Over: 30 mins; Site: left tw5 antecubital; 04:09 Follow up: Response: No adverse reaction; IV Status: Completed infusion; IV Intake: [id number] Intake: 04:09 IV: 50ml; Total: 50ml. as6 04:09 IV: 1000ml; Total: 1050ml. as6 Outcome: 03:24 Discharge ordered by . cp 04:08 Discharged to home ambulatory, with significant other. as6 04:08 Condition: stable 04:08 Discharge instructions given to patient, Instructed on discharge instructions, follow up and referral plans. medication usage, Demonstrated understanding of instructions, follow-up care, medications, Prescriptions given X 5 04:09 Patient left the ED. as6 Signatures: Dispatcher [employer] EDMA Tanner Reyes PA PA cp Wood, Tiffany tw5 Alyssa Ferro RN RN jh5 Orestes Gold RN RN as6 Osiris Martinez kc5
[2021-03-26 04:16] VITALS: TEMP 97.4
[2021-03-26 04:20] VITALS: BP 98/53; O2SAT 99
--- NOTE | 2021-03-28 11:28 | RAD REPORT ---
EXAM DESCRIPTION: CT Abdomen and Pelvis Without Intravenous Contrast CLINICAL HISTORY: The patient is 41 years old and is Female; FLANK PAIN TECHNIQUE: Axial computed tomography images of the abdomen and pelvis without intravenous contrast. Sagittal and coronal reformatted images were created and reviewed. This CT exam was performed usi ng one or more of the following dose reduction techniques: automated exposure control, adjustment o f the mA and/or kV according to patient size, and/or use of iterative reconstruction technique. COMPARISON: No relevant prior studies available. FINDINGS: Lung bases: Unremarkable. No mass. No consolidation. ABDOMEN: Liver: Hepatomegaly with diffuse hepatic steatosis. Gallbladder and bile ducts: Unremarkable. No calcified stones. No ductal dilation. Pancreas: Unremarkable. No ductal dilation. Spleen: Unremarkable. No splenomegaly. Adrenals: Unremarkable. No mass. Kidneys and ureters: Unremarkable. No obstructing stones. No hydronephrosis. Stomach and bowel: Unremarkable. No obstruction. No mucosal thickening. PELVIS: Appendix: No findings to suggest acute appendicitis. Bladder: Unremarkable. No stones. Reproductive: Unremarkable as visualized. ABDOMEN and PELVIS: Intraperitoneal space: Unremarkable. No free air. No significant fluid collection. Bones/joints: No acute fracture. No dislocation. Soft tissues: Unremarkable. Vasculature: Unremarkable. No abdominal aortic aneurysm. Lymph nodes: Unremarkable. No enlarged lymph nodes. IMPRESSION: 1. No acute finding. 2. Hepatomegaly with diffuse hepatic steatosis. Electronically signed by: Brooks Atkins MD 03/26/2021 3:04 AM FINISHING AREA OPERATOR Due to temporary technical issues with the PACS/Fluency reporting system, reports are being signed by the in house radiologists without review as a courtesy to insure prompt reporting. The interpreting radiologist is fully responsible for the content of the report.
== END 2021-03-26 04:09 | disposition home or self-care (01) ==
LOC: ER 23:21
DX: N39.0 Urinary tract infection, site not specified (principal)
CPT/HCPCS: 36415; 74176; 76377; 80048; 80076; 81003; 81015; 81025; 83690; 85025; 87077; 87086; 87088; 87186; 96361; 96365; 96375; 99284; J2270; J2405; J7030

== ENCOUNTER 2021-06-18 07:54 | Emergency (ER) | payer SELFPAY ==
--- OUTSIDE RECORDS SUMMARY | 2021-06-18 07:57 | XMS REPORT | Continuity of Care Document ---
:1980 Author Organization [facility] t Address [address] [place] [address] Care Team Providers Name Role Phone David COLON Attending Clinician Unavailable Visit, Nurse Attending Clinician Unavailable David Meyer Attending Clinician Doctor Unassigned, Name Attending Clinician Unavailable Payers Payer Name Policy Type Policy Number Effective Date Expiration Date S cordell [id number] 2019 00:00:00 Problems Condition Condition Condition Status Onset Resolution Last Treating Co mments Source Name Details Category Date Date Treatment Clinician Date Heavy Heavy Disease Active Univers menses menses 6-24 ity of 00:00: [place] 00 Medical Branch Stress Stress Disease Active Univers incontinen incontinen 6-24 it y of ce ce 00:00: [place] 00 Medical Branch Recent Recent Disease Active 2015-04 Univers urinary urinary 0-28 ity of tract tract 00:00: [place] infection infection 00 [facility] Branch Other Other Disease Active 2015-04 Univers general general 0-28 ity of counseling [place] and advice and advice 00 Dc dical for for Branch contracept contracept jorge [...] 00:00: Diagnosis [place] 00 Term Medical Licensed Veterinary Technician Branch Utility Obesity Obesity Disease Active Overview: Univ ers 6-15 ICD10 ity of 00:00: Diagnosis [place] 00 Term Medical Licensed Veterinary Technician Branch Utility Allergies, Adverse Reactions, Alerts Allergy Allergy Status Severity Reaction(s) Onset Inactive Treating Comm ents Source Name Type Date Date Clinician NO KNOWN Drug Active Univers ALLERGIE Class ity of S [facility] Social History Social Habit Start Date Stop Date Quantity Comments Source History SDOH University o f Alcohol Std [place] [facility] Drinks Branch History SDOH University o f Alcohol Binge [place] [facility] Branch Exposure to Not sure [facility] SARS-CoV-2 [facility] (event) Branch Sex Assigned At Universit y of [facility] Tobacco use and 2020-01-13 2020-01-13 Never used Universit y of exposure 00:00:00 00:00:00 [facility] Alcohol intake 2020-01-13 2020-01-13 Current drinker Unive rsity of 00:00:00 00:00:00 of alcohol [place] [facility] (finding) Branch History SDOH 2019-10-02 2019-10-02 2 University o f Alcohol Frequency 00:00:00 00:00:00 [facility] [place] [facility] edical Branch Alcohol Comment 2019-10-02 2019-10-02 socially Universit y of 00:00:00 00:00:00 [facility] Smoking Status Start Date Stop Date Source Never smoker [facility] Medications Ordered Filled Start Stop Current Ordering Indication Dosage Frequency Signature Comments Components Source Medication Medication Date Date Medication? Clinician (SIG) Name Name norethindro Yes [id number] 1{tbl} Take 1 Univers ne 0.35 mg 6-24 tablet by ity of tablet 00:00: mouth 00 daily. Medical Branch norethindro Yes [id number] 1{tbl} Take 1 Univers ne 0.35 mg 6-24 tablet by ity of tablet 00:00: mouth [place] 00 daily. Medical Branch norethindro Yes [id number] 1{tbl} Take 1 Univers ne 0.35 mg 6-24 tablet by ity of tablet 00:00: mouth 00 daily. Medical Branch norethindro Yes [id number] 1{tbl} Take 1 Univers ne 0.35 mg 6-24 tablet by ity of tablet 00:00: mouth [place] 00 daily. Medical Branch norethindro 2019-0 Yes [id number] 1{tbl} Take 1 Univers ne 0.35 mg 6-24 tablet by ity of tablet 00:00: mouth [place] 00 daily. [facility] Branch norgestimat 2019- 2020- No [id number] 1{tbl} Take 1 Univers e-ethinyl 6-24 06-24 tablet by ity of estradiol 00:00: 00:00 mouth [place] ([facility] 00 :[facility] 0.18/0.215/ 0.25 mg-35 mcg (28) tablet norgestimat 2019- No [id number] 1{tbl} Take 1 Univers e-ethinyl 6-24 06-24 tablet by ity of estradiol 00:00: 00:00 mouth [place] (ORTHO 00 :00 daily. [facility] 28,) 0.18/0.215/ 0.25 mg-35 mcg (28) tablet norgestimat 2019- No [id number] 1{tbl} Take 1 Univers e-ethinyl 6-24 06-24 tablet by ity of estradiol 00:00: 00:00 mouth [place] (ORTHO 00 :00 [facility]. [facility] 0.18/0.215/ 0.25 mg-35 mcg (28) tablet Nitrofurant 2019- No [id number] 100mg Take 1 Univers oin&Nit. 6-15 -26 capsule by ity of Macrocryst 00:00: 04:59 mouth 2 [place] as (MACROBID) 00 :00 (two) Medical 100 mg times Branch capsule daily for 10 days. Nitrofurant 2019- No [id number] 100mg Take 1 Univers oin&Nit. 6-15 -26 capsule by ity of Macrocryst 00:00: 04:59 mouth 2 [place] (MACROBID) 00 :00 (two) Medical 100 mg times Branch capsule daily for 10 days. Nitrofurant 2019- No [id number] 100mg Take 1 Univers oin&Nit. 6-15 -26 capsule by ity of Macrocryst 00:00: 04:59 mouth 2 [place] (MACROBID) 00 :00 (two) Medical 100 mg times Branch capsule daily for 10 days. Nitrofurant 2019-0 2020- No [id number] 100mg Take 1 Univers oin&Nit. 09-22 capsule by ity of Macrocryst 00:00: 04:59 mouth 2 [place] (MACROBID) 00 :00 (two) Medical 100 mg times Branch capsule daily for 10 days. Nitrofurant 2020-0 2020- No [id number] 100mg Take 1 Univers oin&Nit. 09-22 capsule by ity of Macrocryst 00:00: 04:59 mouth 2 [place] (MACROBID) 00 :00 (two) Medical 100 mg times Branch capsule daily for 10 days. Nitrofurant 2020-0 2020- No [id number] 100mg Take 1 Univers oin&Nit. 09-22 capsule by ity of Macrocryst 00:00: 04:59 mouth 2 [place] (MACROBID) 00 :00 (two) Medical 100 mg times Branch capsule daily for 10 days. Nitrofurant 2020-0 2020- No [id number] 100mg Take 1 Univers oin&Nit. 09-22 capsule by ity of Macrocryst 00:00: 04:59 mouth 2 [place] (MACROBID) 00 :00 (two) Medical 100 mg times Branch capsule daily for 10 days. No known No [facility] No known No [facility] No known No [facility] No known No [facility] No known No [facility] Immunizations Ordered Filled Immunization Date Status Comments [facility] e Immunization Name Name Tdap 2014-04-22 Completed University of 00:00:00 [facility] TDAP 2014-04-22 Completed University of 00:00:00 [facility] TDAP 2014-04-22 Completed University of 00:00:00 [facility] TDAP 2014-04-22 Completed University of 00:00:00 [facility] Tdap 2014-04-22 Completed University of 00:00:00 [facility] TDAP 2014-04-22 Completed University of 00:00:00 [facility] Branch TDAP 2014-04-22 Completed University of 00:00:00 [place] [facility] TDAP 2014-04-22 Completed University of 00:00:00 [place] [facility] Tdap 2014-04-22 Completed University of 00:00:00 [place] [facility] Tdap 2014-04-22 Completed University of 00:00:00 [place] [facility] Tdap 2014-04-22 Completed University of 00:00:00 [place] [facility] Tdap 2014-04-22 Completed University of 00:00:00 [place] [facility] Tdap 2014-04-22 Completed University of 00:00:00 [place] [facility] Tdap 2014-04-22 Completed University of 00:00:00 [facility] Branch Tdap 2014-04-22 Completed University of 00:00:00 [facility] Influenza Virus 2014-03-25 Completed [...] Universit y of Vaccine Quad IM 00:00:00 [place] [facility] ical Multi-dose 6+ MO Branch Varicella [...] Varicella 2011-08-18 Completed University of (varivax)(chicken 00:00:00 [facility] [place] [facility] edical pox) Branch Varicella 2011-08-18 Completed University of (varivax)(chicken 00:00:00 [facility] [place] [facility] edical pox) Branch Rubella 2008-03-25 Completed University of 00:00:00 [facility] Rubella 2008-03-25 Completed University of 00:00:00 [facility] Rubella 2008-03-25 Completed University of 00:00:00 [facility] Rubella 2008-03-25 Completed University of 00:00:00 [facility] Rubella 2008-03-25 Completed University of 00:00:00 [facility] Rubella 2008-03-25 Completed University of 00:00:00 [facility] Rubella 2008-03-25 Completed University of 00:00:00 [facility] Rubella 2008-03-25 Completed University of 00:00:00 [facility] Rubella 2008-03-25 Completed University of 00:00:00 [facility] Rubella 2008-03-25 Completed University of 00:00:00 [facility] Rubella 2008-03-25 Completed University of 00:00:00 [facility] Rubella 2008-03-25 Completed University of 00:00:00 [facility] Rubella 2008-03-25 Completed University of 00:00:00 [facility] Rubella 2008-03-25 Completed University of 00:00:00 [facility] Rubella 2008-03-25 Completed University of 00:00:00 [facility] Td 2006-04-10 Completed University of 00:00:00 [facility] Td 2006-04-10 Completed University of 00:00:00 [facility] Td 2006-04-10 Completed University of 00:00:00 [facility] Td 2006-04-10 Completed University of 00:00:00 [facility] Td 2006-04-10 Completed University of 00:00:00 [facility] Td 2006-04-10 Completed University of 00:00:00 [facility] Td 2006-04-10 Completed University of 00:00:00 [facility] Td 2006-04-10 Completed University of 00:00:00 [facility] Td 2006-04-10 Completed University of 00:00:00 [facility] Td 2006-04-10 Completed University of 00:00:00 [facility] Td 2006-04-10 Completed University of 00:00:00 [place] [facility] Td 2006-04-10 Completed University of 00:00:00 [place] [facility] Td 2006-04-10 Completed University of 00:00:00 [place] [facility] Td 2006-04-10 Completed University of 00:00:00 [place] [facility] Td 2006-04-10 Completed University of 00:00:00 [facility] Branch Vital Signs Vital Name Observation Time Observation Value Comments Source Systolic blood 2020-01-13 15:53:00 111 mm[Hg] Univer sity of pressure [place] [facility] Diastolic blood 2020-01-13 15:53:00 64 mm[Hg] Unive rsity of pressure [place] [facility] Heart rate 2020-01-13 15:53:00 74 /min Universi ty of [place] [facility] Body temperature 2020-01-13 15:53:00 36.17 Sandie Univ ersity of [place] [facility] Respiratory rate 2020-01-13 15:53:00 16 /min Univ ersity of [place] [facility] Body height 2020-01-13 15:53:00 152.4 cm Universi ty of [place] [facility] Body weight 2020-01-13 15:53:00 74.503 kg Universi ty of [place] [facility] BMI 2020-01-13 15:53:00 32.08 kg/m2 Universi ty of [place] [facility] Systolic blood 2019-10-02 19:20:00 102 mm[Hg] Univer sity of pressure [place] [facility] Diastolic blood 2019-10-02 19:20:00 72 mm[Hg] Unive rsity of pressure [place] [facility] Heart rate 2019-10-02 19:20:00 68 /min Universi ty of [place] [facility] Body temperature 2019-10-02 19:20:00 36.67 Sandie Univ ersity of [place] [facility] Respiratory rate 2019-10-02 19:20:00 16 /min Univ ersity of [place] [facility] Body height 2019-10-02 19:20:00 154.9 cm Universi ty of [place] [facility] Body weight 2019-10-02 19:20:00 75.524 kg Universi ty of [place] [facility] BMI 2019-10-02 19:20:00 31.46 kg/m2 Universi ty of [place] [facility] Systolic blood 2019-09-18 13:36:00 108 mm[Hg] Univer sity of pressure [place] [facility] Diastolic blood 2019-09-18 13:36:00 63 mm[Hg] Unive rsity of pressure [place] [facility] Heart rate 2019-09-18 13:36:00 62 /min Universi ty of [place] [facility] Body temperature 2019-09-18 13:36:00 36.33 Sandie Univ ersity of [place] [facility] Respiratory rate 2019-09-18 13:36:00 16 /min Univ ersity of [place] [facility] Body height 2019-09-18 13:36:00 152.4 cm Universi ty of [place] [facility] Body weight 2019-09-18 13:36:00 75.864 kg Universi ty of [place] [facility] BMI 2019-09-18 13:36:00 32.66 kg/m2 Universi ty of [place] [facility] Systolic blood 2019-05-24 16:48:00 118 mm[Hg] Univer sity of pressure [place] [facility] Diastolic blood 2019-05-24 16:48:00 71 mm[Hg] Unive rsity of pressure [place] [facility] Heart rate 2019-05-24 16:48:00 71 /min Universi ty of [place] [facility] Body temperature 2019-05-24 16:48:00 36.56 Sandie Univ ersity of [place] [facility] Respiratory rate 2019-05-24 16:48:00 16 /min Univ ersity of [place] [facility] Body height 2019-05-24 16:48:00 152.4 cm Universi ty of [place] [facility] Body weight 2019-05-24 16:48:00 73.596 kg Universi ty of [place] [facility] BMI 2019-05-24 16:48:00 31.69 kg/m2 Universi ty of [place] [facility] Systolic blood 2019-05-24 16:48:00 118 mm[Hg] Univer sity of pressure [place] [facility] Diastolic blood 2019-05-24 16:48:00 71 mm[Hg] Unive rsity of pressure [place] [facility] Heart rate 2019-05-24 16:48:00 71 /min Universi ty of [place] [facility] Body temperature 2019-05-24 16:48:00 36.56 Sandie Univ ersity of [place] [facility] Respiratory rate 2019-05-24 16:48:00 16 /min Univ ersity of [place] [facility] Body height 2019-05-24 16:48:00 152.4 cm Universi ty of [place] [facility] Body weight 2019-05-24 16:48:00 73.596 kg [facility] BMI 2019-05-24 16:48:00 31.69 kg/m2 [facility] Procedures Procedure Date / Time Performed Performing Clinician Rena lim POCT TEST 2020-01-13 15:59:00 [facility] 2019-10-02 19:26:00 Yue Colon Uni [facility] NOTICE OF PRIVACY 2019-10-02 18:34:07 Doctor Unassigned, No [facility] POCT TEST 2019-09-18 13:43:00 Yue Colon Uni [facility] POCT TEST 2019-05-24 17:00:00 Yue Colon [facility] CONSENT/REFUSAL FOR 2019-05-24 16:07:54 Doctor Unassigned, No [facility] DIAGNOSIS AND [facility] TREATMENT ASSIGNMENT OF BENEFITS 2019-05-24 16:07:36 Doctor Unassigned, No [facility] Encounters Start End Encounter Admission Attending Care Care Encounter Source Date/Time Date/Time Type Type Clinicians Facility Department ID 2020-09-29 2020-09-29 Outpatient R ISAIAH [facility] [id number] Univers 10:30:00 10:30:00 YUE [id number] silvio o f [facility] 2020-09-29 2020-09-29 Outpatient R ISAIAH [facility] [id number] Univers 10:30:00 10:30:00 YUE chackoy o f [facility] 2020-01-13 2020-01-13 Outpatient R [facility] [id number] Univers 14:00:00 14:00:00 ity [facility] [place] [facility] 2020-01-13 2020-01-13 Outpatient R [facility] [id number] Univers 14:00:00 14:00:00 [facility] 2020-01-13 2020-01-13 Nurse Visit, Ang-Rmchp Nurse [facility] 1.2 .[id number] Univers 10:40:07 11:11:28 Visit Yue Colon NURSING HOME ADMINISTRATOR [id number]. 10 ity of [facility] [id number] [place] MATERNAL [id number] [facility] CH[facility] [address] [place] [address] 2020-01-02 2020-01-02 Outpatient R [facility] [id number] Univers 14:30:00 14:30:00 [id number] ity [facility] [place] [facility] 2020-01-02 2020-01-02 Outpatient R [facility] [id number] Univers 14:30:00 14:30:00 ity of [facility] 2019-10-14 2019-10-14 Telephone [facility] [id number] Univers 00:00:00 00:00:00 Yue Hernandez NURSING HOME ADMINISTRATOR [id number] ity of [facility] [id number] [place] MATERNAL [id number] [facility] & [address] 2019-10-02 2019-10-02 [facility] [id number] Univers 14:05:45 16:18:05 Visit Yue Hernandez NURSING HOME ADMINISTRATOR [id number] ity of [facility] [id number] [place] MATERNAL [id number] [address] 2019-10-02 2019-10-02 [facility] [id number] Univers 14:15:00 14:15:00 YUE [id number] ity o f [facility] 2019-10-02 2019-10-02 [facility] [id number] Univers 14:15:00 14:15:00 YUE ity o f [facility] 2019-10-02 2019-10-02 Orders Doctor RUBIO [id number] Univers 00:00:00 00:00:00 Only Unassigned, GHISLAINE [id number] ity of [place] [facility] [id number] [place] [id number] [address] 2019-09-23 2019-09-23 [facility] [id number] Univers 00:00:00 00:00:00 Yue Hernandez NURSING HOME ADMINISTRATOR [id number] ity of REGIONAL [id number] [place] MATERNAL [id number] [facility] & CHILD [address] [place] [address] 2019-09-19 2019-09-19 [facility] [id number] Univers 00:00:00 00:00:00 Yue C NURSING HOME ADMINISTRATOR [id number] ity of [facility] [id number] [place] MATERNAL [id number] [facility] & [address] 2019-09-18 2019-09-18 Outpatient R ISAIAH, [facility] [id number] Univers 09:45:00 09:45:[address] [facility] 2019-09-18 2019-09-18 Outpatient R ISAIAH, [facility] [id number] Univers 09:45:00 09:45:[address] [facility] 2019-09-18 2019-09-18 Office Tongsherry, [facility] [id number] Univers 08:23:20 09:22:38 Visit Yue Hernandez NURSING HOME ADMINISTRATOR [id number] ity of [facility] [id number] [place] MATERNAL [id number] [facility] & [address] 2019-06-28 2019-06-28 Outpatient R ISAIAH, [facility] [id number] Univers 09:00:00 09:00:00 YUE ott [facility] 2019-05-24 2019-05-24 Nurse Visit, [facility] [id number] 10:29:28 10:58:44 Visit Bobby NURSING HOME ADMINISTRATOR [id number] Nurse REGIONAL [id number] MATERNAL [id number] & CHILD [address] [place] [address] 2019-05-24 2019-05-24 Nurse Visit, Gaurang-Abhay Nurse [facility] 1.2 .840.[id number] [facility] 10:29:28 10:58:44 Visit Yue Colon NURSING HOME ADMINISTRATOR [id number]. 10 ity of REGIONAL [id number] [place] MATERNAL [id number] Med ical & CHILD [address] [facility] 2019-05-24 2019-05-24 Orders Doctor JOANNE [id number] 00:00:00 00:00:00 Only Unassigned, GHISLAINE [id number] [place] [facility] 4.2.7.2.686 [id number] 2019-05-24 2019-05-24 Orders Doctor JOANNE [id number] Univers 00:00:00 00:00:00 Only Unassigned, GHISLAINE [id number] ity of [place] [facility] [id number] [place] [id number] [address] Results Test Description Test Time Test Comments Results Result Comments Source POCT TEST 2020-01-13 16:00:00 Test Item Value Reference Range Interpretation Comme nts POCT PREG (test code = 1605) Negative On board controls acceptable with C Line (test code = 3574) Yes POCT PREG LOT # (test code = 3575) POCT PREG TEST DATE (test code = 3576) [facility] [id number] 19:26:00 Test Item Value Reference Range Interpretation Comments POCT PREG (test code = 1605) Negative On board controls acceptable with C Yes Line (test code = 3574) POCT PREG LOT # (test code = 3575) POCT PREG TEST DATE (test code = 3576) [id number] 19:26:00 Test Item Value Reference Range Interpretation Comments POCT PREG (test code = 1605) Negative On board controls acceptable with C Yes Line (test code = 3574) POCT PREG LOT # (test code = 3575) POCT PREG TEST DATE (test code = 3576) [facility] [id number] 19:26:00 Test Item Value Reference Range Interpretation Comments POCT PREG (test code = 1605) Negative On board controls acceptable with C Yes Line (test code = 3574) POCT PREG LOT # (test code = 3575) POCT PREG TEST DATE (test code = 3576) [facility] [id number] 13:43:00 Test Item Value Reference Range Interpretation Comments POCT PREG (test code = 1605) Negative On board controls acceptable with C Yes Line (test code = 3574) POCT PREG LOT # (test code = 3575) POCT PREG TEST DATE (test code = 3576) [facility] [id number] 13:43:00 Test Item Value Reference Range Interpretation Comments POCT PREG (test code = 1605) Negative On board controls acceptable with C Yes Line (test code = 3574) POCT PREG LOT # (test code = 3575) POCT PREG TEST DATE (test code = 3576) [facility] [id number] 17:03:00 Test Item Value Reference Range Interpretation Comments POCT PREG (test code = 1605) Negative On board controls acceptable with C Yes Line (test code = 3574) POCT PREG LOT # (test code = 3575) POCT PREG TEST DATE (test code = 3576) [facility]
--- NOTE | 2021-06-18 08:32 | EDPHYS ---
Physician Documentation [facility] Name: Nidia Ford Age: 41 yrs Sex: Female : 1980 Arrival Date: 06/18/2021 Time: 07:55 Bed 7 Private MD: ED Physician Pedrito Salazar HPI: 06/18 08:34 This 41 yrs old Female presents to ER via Ambulatory with complaints of Back jr8 Pain, Hip Pain. 08:35 Onset: The symptoms/episode began/occurred 1 week(s) ago. Severity of symptoms: At jr8 their worst the symptoms were mild, in the emergency department the symptoms are unchanged. The patient has not experienced similar symptoms in the past. The patient has not recently seen a physician. Patient stated that she has had pain to left flank and thigh for one week. Just noticed rash today. Denies trauma . 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 - Social history:: Smoking status: Patient denies any tobacco usage or history of. ROS: 08:35 Eyes: Negative for injury, pain, redness, and discharge, ENT: Negative for injury, jr8 pain, and discharge, Neck: Negative for injury, pain, and swelling, Cardiovascular: Negative for chest pain, palpitations, and edema, Respiratory: Negative for shortness of breath, cough, wheezing, and pleuritic chest pain, Abdomen/GI: Negative for abdominal pain, nausea, vomiting, diarrhea, and constipation, Back: Negative for injury and pain, MS/Extremity: Negative for injury and deformity, Neuro: Negative for headache, weakness, numbness, tingling, and seizure. 08:35 Skin: Positive for rash, of the left leg and flank. Exam: 08:35 Constitutional: This is a well developed, well nourished patient who is awake, alert, jr8 and in no acute distress. Cardiovascular: Regular rate and rhythm with a normal S1 and S2. No gallops, murmurs, or rubs. Normal PMI, no JVD. No pulse deficits. Respiratory: Lungs have equal breath sounds bilaterally, clear to auscultation and percussion. No rales, rhonchi or wheezes noted. No increased work of breathing, no retractions or nasal flaring. Abdomen/GI: Soft, non-tender, with normal bowel sounds. No distension or tympany. No guarding or rebound. No evidence of tenderness throughout. Back: No spinal tenderness. No costovertebral tenderness. Full range of motion. MS/ Extremity: Pulses equal, no cyanosis. Neurovascular intact. Full, normal range of motion. Neuro: Awake and alert, GCS 15, oriented to person, place, time, and situation. Cranial nerves II-XII grossly intact. Motor strength 5/5 in all extremities. Sensory grossly intact. 08:35 Skin: rash a mild rash is noted, rash can be described as vesicular, zoster, on the left flank and back in typical dermatomal pattern. Left lateral thigh as well. Vital Signs: 08:14 BP 109 / 63; Pulse 66; Resp 17; Temp 98.2; Pulse Ox 100% ; Weight 70.31 kg; Height 5 [facility] ft. 0 in. (152.40 cm); Pain 3/10; 08:46 BP 112 / 63; Pulse 70; Resp 17; Pulse Ox 100% ; jh6 08:14 Body Mass Index 30.27 (70.31 kg, 152.40 cm) [facility] MDM: 08:09 Patient medically screened. jr8 08:30 Data reviewed: vital signs, nurses notes, and as a result, I will discharge patient. 8 Data interpreted: Pulse oximetry: on room air is 100 %. Interpretation: normal. Counseling: I had a detailed discussion with the patient and/or guardian regarding: the historical points, exam findings, and any diagnostic results supporting the discharge/admit diagnosis, the need for outpatient follow up, a family practitioner, to return to the emergency department if symptoms worsen or persist or if there are any questions or concerns that arise at home. Administered Medications: No medications were administered Disposition: 08:58 Co-signature as Attending Physician, Pedrito Salazar MD I agree with the assessment and kdr plan of care. Disposition Summary: 06/18/21 08:31 Discharge Ordered Location: Home [facility] Problem: new jr8 Symptoms: are unchanged jr8 Condition: Stable jr8 Diagnosis - Zoster without complications jr8 Followup: jr8 - With: Private Physician - When: 1 week - Reason: Recheck today's complaints, Continuance of care, Re-evaluation by your physician Discharge Instructions: - Discharge Summary Sheet jr8 - Valerie jr8 Forms: - Medication Reconciliation Form jr8 - Thank You Letter jr8 - Antibiotic Education jr8 - Prescription Opioid Use jr8 - Work release form 6 Prescriptions: - Ibuprofen 800 mg Oral Tablet - take 1 tablet by ORAL route every 12 hours As needed take with food; 20 tablet; jr8 Refills: 0, Product Selection Permitted - Acyclovir 800 mg Oral Tablet - take 1 tablet by ORAL route 5 times per day for 7 days; 35 tablet; Refills: 0, jr8 Product Selection Permitted - Tylenol-Codeine #3 300 mg-30 mg Oral - take 2 tablet by ORAL route every 6-8 hours As needed; 20 tablet; Refills: 0, jr8 Product Selection Permitted Signatures: Pedrito Salazar MD MD [facility] Graham Alvarez PA PA 8 Floresita Pena, RN RN 6
--- NOTE | 2021-06-18 08:32 | ER ---
Nurse's Notes [facility] Name: Nidia Ford Age: 41 yrs Sex: Female : 1980 Arrival Date: 06/18/2021 Time: 07:55 Bed 7 Private MD: Diagnosis: Zoster without complications Presentation: 06/18 08:14 Chief complaint: Patient states: raised rash x 1wk to l lower back. no new products or [facility] exposure to irritants. Coronavirus screen: Vaccine status: Patient reports receiving the 2nd dose of the covid vaccine. Client denies travel out of the [place] in the last 14 days. At this time, the client does not indicate any symptoms associated with coronavirus-19. Ebola Screen: Patient denies exposure to infectious person. Patient denies travel to an Ebola-affected area in the 21 days before illness onset. Initial Sepsis Screen: Does the patient meet any 2 criteria? No. Patient's initial sepsis screen is negative. Does the patient have a suspected source of infection? No. Patient's initial sepsis screen is negative. Risk Assessment: Do you want to hurt yourself or someone else? Patient reports no desire to harm self or others. Onset of symptoms was June 10, 2021. 08:14 Method Of Arrival: Ambulatory [facility] 08:14 Acuity: ANASTACIO 4 [facility] Triage Assessment: 08:17 General: Appears in no apparent distress. comfortable, Behavior is calm, cooperative. 6 Pain: Complains of pain in left mid back. Derm: Wound noted Rash noted that is itchy, papular, red, raised. 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 - Social history:: Smoking status: Patient denies any tobacco usage or history of. Screenin:17 Abuse screen: Denies threats or abuse. Nutritional screening: No deficits noted. [facility] Tuberculosis screening: No symptoms or risk factors identified. Fall Risk None identified. Assessment: 08:17 General: Appears in no apparent distress. Behavior is calm, cooperative. 6 08:17 Neuro: No deficits noted. 6 08:45 Reassessment: No changes from previously documented assessment. Patient is alert, 6 oriented x 3, equal unlabored respirations, skin warm/dry/pink. Verbal understanding of d.c instructions and meds. Vital Signs: 08:14 BP 109 / 63; Pulse 66; Resp 17; Temp 98.2; Pulse Ox 100% ; Weight 70.31 kg; Height 5 [facility] ft. 0 in. (152.40 cm); Pain 3/10; 08:46 BP 112 / 63; Pulse 70; Resp 17; Pulse Ox 100% ; jh6 08:14 Body Mass Index 30.27 (70.31 kg, 152.40 cm) 6 ED Course: 07:55 Patient arrived in ED. as 08:08 [facility] 8 08:09 Pedrito Salazar MD is Attending Physician. 8 08:14 Floresita Pena, MAMI is Primary Nurse. 6 08:16 Triage completed. jh6 08:17 Arm band placed on left wrist. 6 08:18 Placed in gown. Bed in low position. Call light in reach. Side rails up X 1. 6 08:18 No provider procedures requiring assistance completed. 6 08:46 Patient did not have IV access during this emergency room visit. 6 Administered Medications: No medications were administered Outcome: 08:31 Discharge ordered by . 8 08:46 Discharged to home ambulatory. jh6 08:46 Condition: good 08:46 Discharge instructions given to patient, Instructed on discharge instructions, Demonstrated understanding of instructions, medications, Prescriptions given X 3. 08:47 Patient left the ED. [facility] Signatures: Kaitlyn Kimble as Graham Alvarez PA PA 8 Floresita Pena, RN RN 6
[2021-06-18 08:57] VITALS: TEMP 98.2; O2SAT 100
[2021-06-18 08:58] VITALS: BP 112/63
== END 2021-06-18 08:47 | disposition home or self-care (01) ==
LOC: ER 07:54
DX: B02.9 Zoster without complications (principal)
CPT/HCPCS: 99282

== ENCOUNTER 2021-09-13 07:56 | Emergency (ER) | payer SELFPAY ==
--- OUTSIDE RECORDS SUMMARY | 2021-09-13 08:00 | XMS REPORT | Continuity of Care Document ---
:1980 Author Organization [facility] t Address [address] [place] [address] Care Team Providers Name Role Phone David COLON Attending Clinician Unavailable Visit, Nurse Attending Clinician Unavailable David Meyer Attending Clinician Doctor Unassigned, Name Attending Clinician Unavailable Payers Payer Name Policy Type Policy Number Effective Date Expiration Date Lionel landa [id number] 2019 00:00:00 Problems Condition Condition Condition Status Onset Resolution Last Treating Co mments Source Name Details Category Date Date Treatment Clinician Date Heavy Heavy Disease Active Univers menses menses 6-24 ity of 00:00: [place] 00 Medical [place] Stress Stress Disease Active Univers incontinen incontinen 6-24 it y of ce ce 00:00: [place] 00 Medical Branch Recent Recent Disease Active 2015-04 Univers urinary urinary 0-28 ity of tract tract 00:00: [place] infection infection 00 [facility] Branch Other Other Disease Active 2015-04 Univers general general 0-28 ity of counseling [place] and advice and advice 00 [place] dical for for Branch contracept contracept jorge [...] 00:00: Diagnosis [place] 00 Term [facility] Sales Associate Branch Utility Obesity Obesity Disease Active Overview: Univ ers 6-15 ICD10 ity of 00:00: Diagnosis [place] 00 Term [facility] Sales Associate Branch Utility Allergies, Adverse Reactions, Alerts Allergy Allergy Status Severity Reaction(s) Onset Inactive Treating Comm ents Source Name Type Date Date Clinician NO KNOWN Drug Active Univers ALLERGIE Class ity of S [facility] Social History Social Habit Start Date Stop Date Quantity Comments Source History SDOH University o f Alcohol Std [place] [facility] Drinks Branch History SDWA University o f Alcohol Binge [place] [facility] Branch Exposure to Not sure [facility] SARS-CoV-2 [facility] (event) Branch Sex Assigned At Universit y of [facility] [place] [facility] Tobacco use and 2020-01-13 2020-01-13 Never used Universit y of exposure 00:00:00 00:00:00 [facility] [place] [facility] Alcohol intake 2020-01-13 2020-01-13 Current drinker Unive rsity of 00:00:00 00:00:00 of alcohol [place] [facility] (finding) Branch History SDOH 2019-10-02 2019-10-02 2 University o f Alcohol Frequency 00:00:00 00:00:00 [facility] edical [place] Alcohol Comment 2019-10-02 2019-10-02 socially Universit y of 00:00:00 00:00:00 [facility] [place] [facility] Smoking Status Start Date Stop Date Source Never smoker [facility] Branch Medications Ordered Filled Start Stop Current Ordering Indication Dosage Frequency Signature Comments Components Source Medication Medication Date Date Medication? Clinician (SIG) Name Name norethindro Yes [id number] 1{tbl} Take 1 Univers ne 0.35 mg 6-24 tablet by ity of tablet 00:00: mouth [place] 00 daily. Medical Branch norethindro Yes [id number] 1{tbl} Take 1 Univers ne 0.35 mg 6-24 tablet by ity of tablet 00:00: mouth [place] 00 daily. Medical Branch norethindro Yes [id number] 1{tbl} Take 1 Univers ne 0.35 mg 6-24 tablet by ity of tablet 00:00: mouth [place] 00 daily. Medical Branch norethindro 2020-0 Yes [id number] 1{tbl} Take 1 Univers ne 0.35 mg 6-24 tablet by ity of tablet 00:00: mouth [place] 00 daily. [facility] Branch norethindro 2019-0 Yes [id number] 1{tbl} Take 1 Univers ne 0.35 mg 6-24 tablet by ity of tablet 00:00: mouth [place] 00 daily. [facility] Branch norgestimat 2019- No [id number] 1{tbl} Take 1 Univers e-ethinyl 6-24 06-24 tablet by ity of estradiol 00:00: 00:00 mouth [place] (ORTHO 00 :00 daily. [facility] 0.18/0.215/ 0.25 mg-35 mcg (28) tablet norgestimat 2019- No [id number] 1{tbl} Take 1 Univers e-ethinyl 6-24 06-24 tablet by ity of estradiol 00:00: 00:00 mouth [place] (ORTHO 00 :00 [facility]. [facility] 0.18/0.215/ 0.25 mg-35 mcg (28) tablet norgestimat 2019- No [id number] 1{tbl} Take 1 Univers e-ethinyl 6-24 06-24 tablet by ity of estradiol 00:00: 00:00 mouth [place] (ORTHO 00 :00 [facility]. [facility] 0.18/0.215/ 0.25 mg-35 mcg (28) tablet Nitrofurant 2019- No [id number] 100mg Take 1 Univers oin&Nit. 6-15 -26 capsule by ity of [place] 00:00: 04:59 mouth 2 [place] as (MACROBID) 00 :00 (two) Medical 100 mg times Branch capsule daily for 10 days. Nitrofurant 2019- No [id number] 100mg Take 1 Univers oin&Nit. 6-15 -26 capsule by ity of [place] 00:00: 04:59 mouth 2 [place] as (MACROBID) 00 :00 (two) Medical 100 mg times Branch capsule daily for 10 days. Nitrofurant 2019- No [id number] 100mg Take 1 Univers oin&Nit. 09-22 capsule by ity of [place] 00:00: 04:59 mouth 2 [place] (MACROBID) 00 :00 (two) Medical 100 mg times Branch capsule daily for 10 days. Nitrofurant 2019-0 2020- No [id number] 100mg Take 1 Univers oin&Nit. 09-22 capsule by ity of [place] 00:00: 04:59 mouth 2 [place] (MACROBID) 00 :00 (two) Medical 100 mg times Branch capsule daily for 10 days. Nitrofurant 2019-0 2020- No [id number] 100mg Take 1 Univers oin&Nit. 09-22 capsule by ity of [place] 00:00: 04:59 mouth 2 [place] (MACROBID) 00 :00 (two) Medical 100 mg times Branch capsule daily for 10 days. Nitrofurant 2019-0 2020- No [id number] 100mg Take 1 Univers oin&Nit. 09-22 capsule by ity of [place] 00:00: 04:59 mouth 2 [place] as (MACROBID) 00 :00 (two) Medical 100 mg times Branch capsule daily for 10 days. Nitrofurant 2019-0 2020- No [id number] 100mg Take 1 Univers oin&Nit. 09-22 capsule by ity of [place] 00:00: 04:59 mouth 2 [place] (MACROBID) 00 :00 (two) Medical 100 mg times Branch capsule daily for 10 days. No known No Univers medications ity [facility] No known No Univers medications ity [facility] No known No Univers medications ity [facility] No known No [facility] No known No [facility] No known No [facility] Immunizations Ordered Filled Immunization Date Status Comments [facility] e Immunization Name Name Td 2014-04-22 Completed University of 00:00:00 [facility] [place] [facility] TDAP 2014-04-22 Completed University of 00:00:00 [facility] [place] [facility] TDAP 2014-04-22 Completed University of 00:00:00 [facility] [place] [facility] TDAP 2014-04-22 Completed University of 00:00:00 [facility] [place] [facility] Tdap 2014-04-22 Completed University of 00:00:00 [facility] [place] [facility] TDAP 2014-04-22 Completed University of 00:00:00 [place] [facility] TDAP 2014-04-22 Completed University of 00:00:00 [place] [facility] TDAP 2014-04-22 Completed University of 00:00:00 [place] [facility] Tdap 2014-04-22 Completed University of 00:00:00 [place] [facility] Tdap 2014-04-22 Completed University of 00:00:00 [place] [facility] Tdap 2014-04-22 Completed University of 00:00:00 [place] [facility] Tdap 2014-04-22 Completed University of 00:00:00 [place] [facility] Tdap 2014-04-22 Completed University of 00:00:00 [place] [facility] Tdap 2014-04-22 Completed University of 00:00:00 [place] [facility] Tdap 2014-04-22 Completed University of 00:00:00 [facility] [place] [facility] Influenza Virus 2014-03-25 Completed Universit [...] Universit y of Vaccine Quad IM 00:00:00 [place] [facility] ical Multi-dose 6+ MO Branch Influenza [...] Universit y of Vaccine [place] IM 00:00:00 [place] [facility] ical Multi-dose 6+ MO Branch Varicella [...] Varicella 2011-08-18 Completed University of (varivax)(chicken 00:00:00 [facility] edical pox) Branch Varicella 2011-08-18 Completed University of (varivax)(chicken 00:00:00 [facility] edical pox) Branch Rubella 2008-03-25 Completed University of 00:00:00 [facility] [place] [facility] Rubella 2008-03-25 Completed University of 00:00:00 [facility] [place] [facility] Rubella 2008-03-25 Completed University of 00:00:00 [facility] [place] [facility] Rubella 2008-03-25 Completed University of 00:00:00 [facility] [place] [facility] Rubella 2008-03-25 Completed University of 00:00:00 [facility] [place] [facility] Rubella 2008-03-25 Completed University of 00:00:00 [facility] [place] [facility] Rubella 2008-03-25 Completed University of 00:00:00 [facility] [place] [facility] Rubella 2008-03-25 Completed University of 00:00:00 [facility] [place] [facility] Rubella 2008-03-25 Completed University of 00:00:00 [facility] [place] [facility] Rubella 2008-03-25 Completed University of 00:00:00 [facility] [place] [facility] Rubella 2008-03-25 Completed University of 00:00:00 [facility] [place] [facility] Rubella 2008-03-25 Completed University of 00:00:00 [facility] [place] [facility] Rubella 2008-03-25 Completed University of 00:00:00 [facility] [place] [facility] Rubella 2008-03-25 Completed University of 00:00:00 [facility] [place] [facility] Rubella 2008-03-25 Completed University of 00:00:00 [facility] [place] [facility] Td 2006-04-10 Completed University of 00:00:00 [facility] [place] [facility] Td 2006-04-10 Completed University of 00:00:00 [facility] [place] [facility] Td 2006-04-10 Completed University of 00:00:00 [facility] [place] [facility] Td 2006-04-10 Completed University of 00:00:00 [facility] [place] [facility] Td 2006-04-10 Completed University of 00:00:00 [facility] [place] [facility] Td 2006-04-10 Completed University of 00:00:00 [facility] [place] [facility] Td 2006-04-10 Completed University of 00:00:00 [facility] [place] [facility] Td 2006-04-10 Completed University of 00:00:00 [facility] [place] [facility] Td 2006-04-10 Completed University of 00:00:00 [facility] [place] [facility] Td 2006-04-10 Completed University of 00:00:00 [facility] [place] [facility] Td 2006-04-10 Completed University of 00:00:00 [place] [facility] Td 2006-04-10 Completed University of 00:00:00 [place] [facility] Td 2006-04-10 Completed University of 00:00:00 [place] [facility] Td 2006-04-10 Completed University of 00:00:00 [place] [facility] Td 2006-04-10 Completed University of 00:00:00 [place] [facility] Vital Signs Vital Name Observation Time Observation Value Comments Source Systolic blood 2020-01-13 15:53:00 111 mm[Hg] Univer sity of pressure [place] [facility] Diastolic blood 2020-01-13 15:53:00 64 mm[Hg] Unive rsity of pressure [place] [facility] Heart rate 2020-01-13 15:53:00 74 /min Universi ty of [place] [facility] Body temperature 2020-01-13 15:53:00 36.17 Sandie Univ ersity of [place] [facility] Respiratory rate 2020-01-13 15:53:00 16 /min Univ ersity of [place] [facility] Body height 2020-01-13 15:53:00 152.4 cm Universi ty of [place] [facility] Body weight 2020-01-13 15:53:00 74.503 kg Universi ty of [place] [facility] BMI 2020-01-13 15:53:00 32.08 kg/m2 Universi ty of [place] [facility] Systolic blood 2019-10-02 19:20:00 102 mm[Hg] Univer sity of pressure [place] [facility] Diastolic blood 2019-10-02 19:20:00 72 mm[Hg] Unive rsity of pressure [place] [facility] Heart rate 2019-10-02 19:20:00 68 /min Universi ty of [place] [facility] Body temperature 2019-10-02 19:20:00 36.67 Sandie Univ ersity of [place] [facility] Respiratory rate 2019-10-02 19:20:00 16 /min Univ ersity of [place] [facility] Body height 2019-10-02 19:20:00 154.9 cm Universi ty of [place] [facility] Body weight 2019-10-02 19:20:00 75.524 kg Universi ty of [place] [facility] BMI 2019-10-02 19:20:00 31.46 kg/m2 Universi ty of [place] [facility] Systolic blood 2019-09-18 13:36:00 108 mm[Hg] Univer sity of pressure [place] [facility] Diastolic blood 2019-09-18 13:36:00 63 mm[Hg] Unive rsity of pressure [place] [facility] Heart rate 2019-09-18 13:36:00 62 /min Universi ty of [place] [facility] Body temperature 2019-09-18 13:36:00 36.33 Sandie Univ ersity of [place] [facility] Respiratory rate 2019-09-18 13:36:00 16 /min Univ ersity of [place] [facility] Body height 2019-09-18 13:36:00 152.4 cm Universi ty of [place] [facility] Body weight 2019-09-18 13:36:00 75.864 kg Universi ty of [place] [facility] BMI 2019-09-18 13:36:00 32.66 kg/m2 Universi ty of [place] [facility] Systolic blood 2019-05-24 16:48:00 118 mm[Hg] Univer sity of pressure [place] [facility] Diastolic blood 2019-05-24 16:48:00 71 mm[Hg] Unive rsity of pressure [place] [facility] Heart rate 2019-05-24 16:48:00 71 /min Universi ty of [place] [facility] Body temperature 2019-05-24 16:48:00 36.56 Sandie Univ ersity of [place] [facility] Respiratory rate 2019-05-24 16:48:00 16 /min Univ ersity of [place] [facility] Body height 2019-05-24 16:48:00 152.4 cm Universi ty of [place] [facility] Body weight 2019-05-24 16:48:00 73.596 kg Universi ty of [place] [facility] BMI 2019-05-24 16:48:00 31.69 kg/m2 Universi ty of [place] [facility] Systolic blood 2019-05-24 16:48:00 118 mm[Hg] Univer sity of pressure [place] [facility] Diastolic blood 2019-05-24 16:48:00 71 mm[Hg] Unive rsity of pressure [place] [facility] Heart rate 2019-05-24 16:48:00 71 /min Universi ty of [place] [facility] Body temperature 2019-05-24 16:48:00 36.56 Sandie Univ ersity of [place] [facility] Respiratory rate 2019-05-24 16:48:00 16 /min Univ ersity of [place] [facility] Body height 2019-05-24 16:48:00 152.4 cm Universi ty of [place] [facility] Body weight 2019-05-24 16:48:00 73.[address] [facility] ty [facility] BMI 2019-05-24 16:48:00 31.69 kg/m2 [facility] Procedures Procedure Date / Time Performed Performing Clinician Rena lim POCT TEST 2020-01-13 15:59:00 [facility] 2019-10-02 19:26:00 Yue Colon [facility] NOTICE OF PRIVACY 2019-10-02 18:34:07 Doctor Unassigned, No [facility] POCT TEST 2019-09-18 13:43:00 Yue Colon Uni [facility] POCT TEST 2019-05-24 17:00:00 Yue Colon [facility] acute hospital CONSENT/REFUSAL FOR 2019-05-24 16:07:54 Doctor Unassigned, No [facility] DIAGNOSIS AND [facility] TREATMENT ASSIGNMENT OF BENEFITS 2019-05-24 16:07:36 Doctor Unassigned, No [facility] Encounters Start End Encounter Admission Attending Care Care Encounter Source Date/Time Date/Time Type Type Clinicians Facility Department ID 2020-09-29 2020-09-29 Outpatient R [facility] [id number] Univers 10:30:00 10:30:00 YUE [id number] ity o f [facility] [place] [facility] 2020-09-29 2020-09-29 Outpatient R [facility] [id number] Univers 10:30:00 10:30:00 YUE ity o f [facility] [place] [facility] 2020-01-13 2020-01-13 Outpatient [facility] [id number] Univers 14:00:00 14:00:00 ity [facility] 2020-01-13 2020-01-13 Outpatient [facility] [id number] Univers 14:00:00 [facility]00[facility] 2020-01-13 2020-01-13 Nurse Visit, Ang-Rmchp Nurse [facility] 1.2 .[id number] Univers 10:40:07 11:11:28 Visit Yue Colon HEALTH INFORMATION ASSISTANT 350.1.13. 10 ity of REGIONAL [id number] [place] MATERNAL [phone] [facility] & [address] 2020-01-02 2020-01-02 Outpatient R [facility] [id number] Univers 14:30:00 14:30:00 [id number] ity of [facility] [place] [facility] 2020-01-02 2020-01-02 Outpatient R [facility] [id number] Univers 14:30:00 14:30:00 ity of [facility] [place] [facility] 2019-10-14 2019-10-14 [facility] [id number] Univers 00:00:00 00:00:00 Yue Hernandez HEALTH INFORMATION ASSISTANT [id number] ity of [facility] [id number] [place] MATERNAL [id number] [facility] & [address] 2019-10-02 2019-10-02 Office Noy [facility] [id number] Univers 14:05:45 16:18:05 Visit Yue Hernandez HEALTH INFORMATION ASSISTANT [id number] ity of [facility] [id number] [place] MATERNAL [id number] [address] 2019-10-02 2019-10-02 [facility] [id number] Univers 14:15:00 14:15:00 YUE [id number] ity o f [facility] [place] [facility] 2019-10-02 2019-10-02 [facility] [id number] Univers 14:15:00 14:15:00 YUE ity o f [facility] [place] [facility] 2019-10-02 2019-10-02 Orders Doctor RUBIO [id number] Univers 00:00:00 00:00:00 Only Unassigned, GHISLAINE 350.1.13.10 ity of [place] [facility] [id number] [place] [id number] [address] 2019-09-23 2019-09-23 [facility] [id number] Univers 00:00:00 00:00:00 Yue C HEALTH INFORMATION ASSISTANT [id number] ity of [facility] [id number] [place] MATERNAL [phone] [facility] & CHILD [address] [place] [address] 2019-09-19 2019-09-19 Telephone [facility] [id number] Univers 00:00:00 00:00:00 Yue C HEALTH INFORMATION ASSISTANT [id number] ity of [facility] [id number] [place] MATERNAL [id number] [address] 2019-09-18 2019-09-18 [facility] [id number] Univers 09:45:00 09:45:00 YUE [id number] itvin o [facility] 2019-09-18 2019-09-18 Outpatient R NOY, [facility] [id number] Univers 09:45:00 09:45:00 YUE chackoy o [facility] 2019-09-18 2019-09-18 Office [facility] [id number] Univers 08:23:20 09:22:38 Visit Yue Hernandez HEALTH INFORMATION ASSISTANT 350.1.13.10 ity General acute hospital [id number] [place] MATERNAL [id number] [address] 2019-06-28 2019-06-28 Outpatient R [facility] [id number] Univers 09:00:00 09:00:00 YUE anguiano o f [facility] [place] [facility] 2019-05-24 2019-05-24 Nurse Visit, [facility] [id number] 10:29:28 10:58:44 Visit Bobby HEALTH INFORMATION ASSISTANT 350.1.13.10 Nurse REGIONAL 4.2.7.2.686 MATERNAL [id number] & CHILD [address] [place] [address] 2019-05-24 2019-05-24 Nurse Visit, Bobby Nurse [facility] 1.2 .840.114 [id number] Univers 10:29:28 10:58:44 Visit Yue Colon HEALTH INFORMATION ASSISTANT 350.1.13. 10 ity of [facility] 4.2.7.2.686 [place] MATERNAL [id number] Med ical & CHILD [address] [place] [address] 2019-05-24 2019-05-24 Orders Doctor JOANNE [id number] 00:00:00 00:00:00 Only Unassigned, GHISLAINE 350.1.13.10 [place] [facility] 4.2.7.2.686 [id number] 2019-05-24 2019-05-24 Orders Doctor JOANNE [id number] Univers 00:00:00 00:00:00 Only Unassigned, GHISLAINE 350.1.13.10 [facility] [id number] [place] [id number] [address] Results Test Description Test Time Test Comments Results Result Comments Source POCT TEST 2020-01-13 16:00:00 Test Item Value Reference Range Interpretation Comme nts POCT PREG (test code = 1605) Negative On board controls acceptable with C Line (test code = 3574) Yes POCT PREG LOT # (test code = 3575) POCT PREG TEST DATE (test code = 3576) [facility] [id number] 19:26:00 Test Item Value Reference Range Interpretation Comments POCT PREG (test code = 1605) Negative On board controls acceptable with C Yes Line (test code = 3574) POCT PREG LOT # (test code = 3575) [facility]test [facility] 3576[id number] 19:26:00 Test Item Value Reference Range Interpretation Comments POCT PREG (test code = 1605) Negative On board controls acceptable with C Yes Line (test code = 3574) POCT PREG LOT # (test code = 3575) POCT PREG TEST DATE (test code = 3576) [facility] [id number] 19:26:00 Test Item Value Reference Range Interpretation Comments POCT PREG (test code = 1605) Negative On board controls acceptable with C Yes Line (test code = 3574) POCT PREG LOT # (test code = 3575) POCT PREG TEST DATE (test code = 3576) [facility] [id number] 13:43:00 Test Item Value Reference Range Interpretation Comments POCT PREG (test code = 1605) Negative On board controls acceptable with C Yes Line (test code = 3574) POCT PREG LOT # (test code = 3575) POCT PREG TEST DATE (test code = 3576) [facility] [id number] 13:43:00 Test Item Value Reference Range Interpretation Comments POCT PREG (test code = 1605) Negative On board controls acceptable with C Yes Line (test code = 3574) POCT PREG LOT # (test code = 3575) POCT PREG TEST DATE (test code = 3576) [facility] [id number] 17:03:00 Test Item Value Reference Range Interpretation Comments POCT PREG (test code = 1605) Negative On board controls acceptable with C Yes Line (test code = 3574) POCT PREG LOT # (test code = 3575) POCT PREG TEST DATE (test code = 3576) [facility]
--- NOTE | 2021-09-13 08:32 | EDPHYS ---
Physician Documentation [facility] Name: Nidia Ford Age: 41 yrs Sex: Female : 1980 Arrival Date: 09/13/2021 Time: 07:59 Bed 12 Private MD: ED Physician Alexi Proctor HPI: 09/13 08:20 This 41 yrs old Female presents to ER via Ambulatory with complaints of r/o cp covid. 08:20 requesting screening test for COVID-19. Denies any symptoms at this time. Reports cp co-workers are sick and has an upcoming trip planned. Historical: - Allergies: 08:07 NKDA; iw - PMHx: 08:07 "heart problem"; Asthma; fatty liver; iw - PSHx: 08:07 Ligation of fallopian tube; iw - Immunization history:: Adult Immunizations unknown. - Social history:: Smoking status: unknown. ROS: 08:25 Constitutional: Negative for body aches, chills, fever, poor PO intake. cp 08:25 Eyes: Negative for injury, pain, redness, and discharge. cp 08:25 ENT: Negative for drainage from ear(s), ear pain, sore throat, difficulty swallowing, difficulty handling secretions. 08:25 Respiratory: Negative for cough, shortness of breath, wheezing. 08:25 Abdomen/GI: Negative for abdominal pain, nausea, vomiting, and diarrhea. 08:25 Neuro: Negative for altered mental status, headache. 08:25 All other systems are negative. Exam: 08:27 Constitutional: The patient appears in no acute distress, alert, awake, comfortable, cp non-toxic, well developed, well nourished. 08:27 Head/Face: Normocephalic, atraumatic. cp 08:27 Eyes: Periorbital structures: appear normal, Conjunctiva: normal, no exudate, no injection, Sclera: no appreciated abnormality, Lids and lashes: appear normal, bilaterally. 08:27 ENT: External ear(s): are unremarkable, Nose: is normal, Mouth: Lips: moist, Oral mucosa: pink and intact, moist, Posterior pharynx: Airway: no evidence of obstruction, patent, Tonsils: are normal in appearance, erythema, is not appreciated, exudate, is not appreciated. 08:27 Neck: Lymph nodes: no appreciated lymphadenopathy. 08:27 Chest/axilla: Inspection: normal, Palpation: is normal, no crepitus, no tenderness. 08:27 Cardiovascular: Rate: normal. 08:27 Respiratory: the patient does not display signs of respiratory distress, Respirations: normal, no use of accessory muscles, no retractions, labored breathing, is not present, Breath sounds: are clear throughout, no decreased breath sounds, no stridor, no wheezing. 08:27 Abdomen/GI: Exam negative for discomfort, distension, guarding, Inspection: abdomen appears normal. 08:27 Neuro: Orientation: to person, place \\T\\ time. Mentation: is normal. Vital Signs: 08:06 BP 126 / 70; Pulse 64; Resp 16; Temp 98.1; Pulse Ox 100% on R/A; iw MDM: 08:11 Patient medically screened. cp 08:31 Data reviewed: vital signs, nurses notes, and as a result, I will discharge patient. cp 08:31 ED course: Patient medical screened and directed to home testing, [facility], etc.. cp Administered Medications: No medications were administered Disposition: 15:00 Co-signature as Attending Physician, Alexi Proctor MD. rn Disposition Summary: 09/13/21 08:31 Discharge Ordered Location: Home as Medical Screen cp Problem: new cp Symptoms: are unchanged cp Condition: Stable cp Diagnosis - Encounter for screening for other viral diseases - COVID-19 cp Followup: cp - With: Private Physician - When: 2 - 3 days - Reason: Worsening of condition Discharge Instructions: - Discharge Summary Sheet cp - COVID-19 Frequently Asked Questions cp - Frequently Asked Questions About COVID-19 Vaccination - CDC cp Forms: - Medication Reconciliation Form cp - Thank You Letter cp - Antibiotic Education cp - Prescription Opioid Use cp Signatures: Demi Echeverria RN RN Alexi Wallace MD MD rn Page, Corey, PA PA cp
--- NOTE | 2021-09-13 08:32 | ER ---
Nurse's Notes [facility] Name: Nidia Ford Age: 41 yrs Sex: Female : 1980 Arrival Date: 09/13/2021 Time: 07:59 Bed 12 Private MD: Diagnosis: Encounter for screening for other viral [id number] Presentation: 09/13 08:06 Chief complaint: Patient states: somebody at her work was sick and now she wants a iw COVID test , denies any symptoms . Also states in three days she has a trip scheduled. Coronavirus screen: At this time, the client does not indicate any symptoms associated with coronavirus-19. Ebola Screen: Patient negative for fever greater than or equal to 101.5 degrees Fahrenheit, and additional compatible Ebola Virus Disease symptoms Patient denies exposure to infectious person. Patient denies travel to an Ebola-affected area in the 21 days before illness onset. No symptoms or risks identified at this time. Initial Sepsis Screen: Does the patient meet any 2 criteria? No. Patient's initial sepsis screen is negative. Does the patient have a suspected source of infection? No. Patient's initial sepsis screen is negative. Risk Assessment: Do you want to hurt yourself or someone else? Patient reports no desire to harm self or others. Onset of symptoms was September 13, 2021. 08:06 Method Of Arrival: Ambulatory iw 08:06 Acuity: ANASTACIO 4 iw Triage Assessment: 08:40 General: Appears in no apparent distress. Behavior is calm, cooperative. iw Historical: - Allergies: 08:07 NKDA; iw - PMHx: 08:07 "heart problem"; Asthma; fatty liver; iw - PSHx: 08:07 Ligation of fallopian tube; iw - Immunization history:: Adult Immunizations unknown. - Social history:: Smoking status: unknown. Screenin:48 Abuse screen: Denies threats or abuse. Denies injuries from another. Nutritional iw screening: No deficits noted. Tuberculosis screening: No symptoms or risk factors identified. Fall Risk None identified. Assessment: 08:15 General: Appears in no apparent distress. Behavior is calm, cooperative. Pain: Denies iw pain. Neuro: Level of Consciousness is awake, alert, obeys commands, Oriented to person, place, time, situation. Respiratory: Respiratory effort is even, unlabored, Respiratory pattern is regular, symmetrical. Vital Signs: 08:06 BP 126 / 70; Pulse 64; Resp 16; Temp 98.1; Pulse Ox 100% on R/A; iw ED Course: 07:59 Patient arrived in ED. as 08:07 Triage completed. iw 08:08 Arm band placed on. iw 08:10 Tanner Reyes PA is PHCP. cp 08:10 Alexi Proctor MD is Attending Physician. cp 08:15 Patient has correct armband on for positive identification. iw 08:35 Demi Echeverria, RN is Primary Nurse. iw 08:47 No provider procedures requiring assistance completed. Patient did not have IV access iw during this emergency room visit. Administered Medications: No medications were administered Medication: 08:15 VIS not applicable for this client. iw Outcome: 08:31 Discharge ordered by . cp 08:48 Medical screen evaluation completed per provider. Patient declined treatment. iw 08:48 Following a medical screening exam, the patient was provided information regarding iw alternative care sites and resources available per registration personnel. 08:48 Condition: good iw 08:49 Patient left the ED. iw Signatures: Kaitlyn Kimble as Demi Echeverria, RN RN iw Tanner Reyes PA PA cp Corrections: (The following items were deleted from the chart) 08:08 08:06 Chief complaint: Patient states: somebody at her work was sick and now she wants iw a COVID test , denies any symptoms iw
[2021-09-13 08:53] VITALS: BP 126/70; TEMP 98.1; O2SAT 100
== END 2021-09-13 08:49 | disposition home or self-care (01) ==
LOC: ER 07:56
DX: Z20.822 Contact with and (suspected) exposure to COVID-19 (principal)
CPT/HCPCS: 99281

== ENCOUNTER 2023-01-18 11:32 | Emergency (ER) | payer SELFPAY ==
--- OUTSIDE RECORDS SUMMARY | 2023-01-18 11:35 | XMS REPORT | Continuity of Care Document ---
:1980 Author Organization [facility] t Address [address] [facility] [address] [place] [address] Care Team Providers Name Role Phone YUE COLON Primary Care Physician Unavailable YUE COLON Attending Clinician Unavailable Noy Yue SAVAGE Attending Clinician [phone] Visit, [facility] Nurse Attending Clinician Unavailable Doctor Unassigned, [place] Attending Clinician Unavailable Payers Payer Name Policy Type Policy Number Effective Date Expiration Date Lionel landa [facility] [id number] 2019 00:00:00 Problems Condition Condition Condition Status Onset Resolution Last Treating Co mments Source Name Details Category Date Date Treatment Clinician Date Heavy Heavy Disease Active Univers menses menses 6-24 ity of 00:00: [address] Stress Stress Disease Active Univers incontinen incontinen 6-24 it y of ce ce 00:00: [address] Recent Recent Disease Active 2015-04 Univers urinary urinary 0-28 ity of tract tract 00:00: [place] infection infection 00 Medi harriett Branch Other Other Disease Active 2015-04 Univers general general 0-28 it[place] of counseling [place] and advice 00 Wy dical for for Branch contracept contracept jorge jorge management management History of History of Disease Active 2015-04 U nivers bilateral bilateral 0-28 ity of tubal tubal 00:00: [place] ligation ligation 00 Medica l Branch Obesity Obesity Disease Active Overview: Univ ers (BMI (BMI 6-15 Formattin ity of 30-39.9) 30-39.9) 00:00: g of this [place] as 00 note Medical might be Branch different from the original. 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 Utility Allergies, Adverse Reactions, Alerts Allergy Allergy Status Severity Reaction(s) Onset Inactive Treating Comm ents Source Name Type Date Date Clinician NO KNOWN Drug Active Univers ALLERGIE Class ity of S [place] [facility] [place] Social History Social Habit Start Date Stop Date Quantity Comments Source History SDTN University o f Alcohol Std [place] [facility] Branch History [facility] o f Alcohol Binge [place] [facility] Exposure to 2021-10-09 2021-10-19 Not sure [facility] SARS-CoV-2 00:00:00 08:45:00 [facility] (event) Branch Tobacco use and 2021-10-19 2021-10-19 Smokeless tobacco Un iversity of exposure 00:00:00 00:00:00 non-user [facility] Alcohol intake 2021-10-19 2021-10-19 Ex-drinker [facility] 00:00:00 00:00:00 (finding) [facility] Branch History SDOH 2019-10-02 2019-10-02 2 University o f Alcohol Frequency 00:00:00 00:00:00 [facility] edical [place] Alcohol Comment 2019-10-02 2019-10-02 socially Universit y of 00:00:00 00:00:00 [facility] Sex Assigned At [birth year] Universit y of 00:00:00 00:00:00 [facility] Smoking Status Start Date Stop Date Source Never smoked tobacco [facility] Medications Ordered Filled Start Stop Current Ordering Indication Dosage Frequency Signature Comments Components Source Medication Medication Date Date Medication? Clinician (SIG) Name Name norethindro 2020-0 Yes [id number] 1{tbl} Take 1 Univers ne 0.35 mg 6-24 tablet by ity of tablet 00:00: mouth 00 daily. Medical Branch norethindro 2020-0 Yes [id number] 1{tbl} Take 1 Univers ne 0.35 mg 6-24 tablet by ity of tablet 00:00: mouth 00 daily. Medical Branch Vital Signs Vital Name Observation Time Observation Value Comments Source Systolic blood 2021-10-19 13:46:00 114 mm[Hg] Univer sity of pressure [facility] Diastolic blood 2021-10-19 13:46:00 65 mm[Hg] Unive rsity of [facility] Heart rate 2021-10-19 13:46:00 61 /min [facility] Body temperature 2021-10-19 13:46:00 36.22 [facility] Respiratory rate 2021-10-19 13:46:00 16 /min [facility] Body height 2021-10-19 13:46:[address] [facility] Body weight 2021-10-19 13:46:[address] [facility] BMI 2021-10-19 13:46:00 28.94 kg/m2 [facility] Procedures Procedure Date / Time Performed Performing Clinician Rena e GARDASIL 9 (HPV 9V) 2021-10-19 14:03:[address] [facility] POCT TEST 2021-10-19 13:48:00 [facility] En[facility] Start End Encounter Admission Attending Care Care Encounter Source Date/Time Date/Time Type Type Clinicians Facility Department ID 2023-01-03 2023-01-03 Outpatient R NOY [facility] [id number] Univers 13:30:00 13:30:00 YUE ott [facility] 2021-11-19 2021-11-19 Outpatient R [facility] [id number] Univers 08:00:00 08:00:00 ity [facility] 2021-11-19 2021-11-19 Outpatient R NOY [facility] [id number] Univers 08:00:00 08:00:00 YUE ott [facility] 2021-10-19 2021-10-19 Outpatient R NOY [facility] [id number] Univers 08:30:00 09:36:55 YUE ott [facility] 2021-10-19 2021-10-19 Office Noy [facility] [id number] Univers 08:30:00 09:36:55 Visit Yue Hernandez MEDICATION RECONCILIATION TECHNICIAN [id number] ity of [facility] [id number] [place] MATERNAL [phone] [facility] & [address] 2021-10-19 2021-10-19 [facility] [id number] Univers 09:30:00 09:30:00 YUE ott [facility] 2021-10-19 2021-10-19 [facility] 1.2 .840.114 [id number] Univers 08:30:00 08:45:00 Visit Yue Colon MEDICATION RECONCILIATION TECHNICIAN 350.1.13. 10 ity of [facility] [id number] [place] MATERNAL [id number] [address] 2021-10-19 2021-10-19 [facility] [id number] Univers 08:30:00 08:30:00 YUE schultz [facility] 2021-10-19 2021-10-19 Orders Doctor JOANNE [id number] Univers 00:00:00 00:00:00 Only Unassigned, GHISLAINE 350.1.13.10 ity of [place] [facility] 4.2.7.2.686 [place] as [id number] [address] 2020-09-29 2020-09-29 [facility] [id number] Univers 10:30:00 10:30:00 YUE schultz [facility] 2020-01-13 2020-01-13 Outpatient R [facility] [id number] Univers 14:00:00 14:00:00 ity of [facility] 2020-01-13 2020-01-13 [facility] 1.2 .840.114 [id number] Univers 10:40:07 11:11:28 Visit Yue Colon MEDICATION RECONCILIATION TECHNICIAN 350.1.13. 10 ity of [facility] 4.2.7.2.686 [place] MATERNAL [phone] Med ical & CHILD [address] [place] [address] 2020-01-02 2020-01-02 Outpatient R [facility] [id number] Univers 14:30:00 14:30:00 ity of [facility] 2019-10-14 2019-10-14 Telephone [facility] [id number] Univers 00:00:00 00:00:00 Yue C MEDICATION RECONCILIATION TECHNICIAN 350.1.13.10 ity of [facility] 4.2.7.2.686 [place] MATERNAL [id number] [facility] ical & CHILD [address] [place] [address] 2019-10-02 2019-10-02 Office [facility] [id number] Univers 14:05:45 16:18:05 Visit Yue C MEDICATION RECONCILIATION TECHNICIAN 350.1.13.10 ity of [place] [id number] [place] MATERNAL [id number] [facility] ical & CHILD [address] [place] [address] 2019-10-02 2019-10-02 Outpatient R [facility] [id number] Univers 14:15:00 14:15:00 YUE ity o f [facility] 2019-10-02 2019-10-02 Orders Doctor JOANNE 1.2.840.114 [id number] Univers 00:00:00 00:00:00 Only Unassigned, GHISLAINE 350.1.13.10 ity of [place] [facility] 4.2.7.2.686 [place] as [id number] [address] 2019-09-23 2019-09-23 Telephone [facility] 1.2.840.114 [id number] Univers 00:00:00 00:00:00 Yue C MEDICATION RECONCILIATION TECHNICIAN 350.1.13.10 ity of [facility] 4.2.7.2.686 [place] MATERNAL [id number] Med ical & CHILD [address] [place] [address] 2019-09-19 2019-09-19 Telephone [facility] 1.2.840.114 [id number] Univers 00:00:00 00:00:00 Yue C MEDICATION RECONCILIATION TECHNICIAN 350.1.13.10 ity of [facility] 4.2.7.2.686 [place] MATERNAL [id number] Med ical & CHILD [address] [place] [address] 2019-09-18 2019-09-18 Outpatient R NOY [facility] [id number] Univers 09:45:00 09:45:00 YUE ott [facility] 2019-09-18 2019-09-18 Office Noy [facility] [id number] Univers 08:23:20 09:22:38 Visit Yue Hernandez MEDICATION RECONCILIATION TECHNICIAN 350.1.13.10 ity of [facility] 4.2.7.2.686 [place] MATERNAL [id number] [facility] & CHILD [address] [place] [address] 2019-06-28 2019-06-28 Outpatient R NOY [facility] [id number] Univers 09:00:00 09:00:00 YUE ott [facility] 2019-05-24 2019-05-24 Nurse Visit, [facility] Nurse [facility] 1.2 .840.114 [id number] [facility] 10:29:28 10:58:44 Visit Yue Colon MEDICATION RECONCILIATION TECHNICIAN 350.1.13. 10 ity of REGIONAL 4.2.7.2.686 [place] MATERNAL [id number] [facility] & CHILD [address] [place] [address] 2019-05-24 2019-05-24 Nurse Visit, [facility] 1.2.840.114 [id number] 10:29:28 10:58:44 Visit [facility] MEDICATION RECONCILIATION TECHNICIAN 350.1.13.10 Nurse REGIONAL 4.2.7.2.686 MATERNAL [phone] & CHILD [address] [place] [address] 2019-05-24 2019-05-24 Orders Doctor JOANNE 1.2.840.114 [id number] Univers 00:00:00 00:00:00 Only Unassigned, GHISLAINE 350.1.13.10 ity of [place] [facility] 4.2.7.2.686 [place] as [phone] [address] 2019-05-24 2019-05-24 Orders Doctor RUBIO 1.2.840.114 [id number] 00:00:00 00:00:00 Only Unassigned, GHISLAINE 350.1.13.10 [facility] 4.2.7.2.686 [id number] Results Test Description Test Time Test Comments Results Result Comments Source COMPREHENSIVE METABOLIC PANEL 2021-11-03 05:53:04 Test Item Value Reference Range Interpretation Comme nts GLUCOSE (test code = 2217) 79 MG/DL 70-99 BUN (test code = 2208) 12 MG/DL 6-20 CREATININE (test code = 0.73 MG/DL 0.60-1.30 2213) eGFR (2020 CKD-EPI) (test 106 ML/MIN/1.73 >60 code = 42750) CALC BUN/CREAT (test code = 16 RATIO 6-28 2234) SODIUM (test code = 223) 139 MEQ/L 133-146 POTASSIUM (test code = 2228) 4.6 MEQ/L 3.5-5.4 CHLORIDE (test code = 221) 106 MEQ/L 95-107 CARBON DIOXIDE (test code = 23 MEQ/L 19-31 2205) CALCIUM (test code = 220) 9.1 MG/DL 8.5-10.5 PROTEIN, TOTAL (test code = 7.1 G/DL 6.1-8.3 2228) ALBUMIN (test code = 220) 3.9 G/DL 3.5-5.2 CALC GLOBULIN (test code = 3.2 G/DL 1.9-3.7 2239) CALC A/G RATIO (test code = 1.2 RATIO 1.0-2.6 2233) BILIRUBIN, TOTAL (test code 0.4 MG/DL See_Comment [Automated message] The = 2206) system which ge nerated this result transmit karen reference range : <=1.2. The reference range was not used to interpr et this result as everardo l/abnormal. ALKALINE PHOSPHATASE (test 105 U/L 40-113 code = 2204) AST (test code = 2218) 15 U/L 9-40 ALT (test code = 2219) 28 U/L 5-40 LIPID [id number] 05:53:04 Test Item Value Reference Range Interpretation Comments CHOLESTEROL (test 175 MG/DL <200 code = 2210) TRIGLYCERIDES (test 103 MG/DL <150 code = 2232) HDL CHOLESTEROL (test 47 MG/DL >39 code = 2220) CALC LDL CHOL (test 108 MG/DL <100 H NOTE: C ALCULATED LDL code = 2237) IS BASED ON JARAD-BELCHER METHOD WHICHINCLUDES ADJUSTABLE TRIGLYCERIDE:VL DL CHOLESTEROL RAT IO.THIS FACTOR VARIES B Y MEASURED TRIGLY CERIDE AND NON-HDLCHOL ESTEROL CONCENTRATIONS WITH INCREASED CALCU LATED LDL SEENIN HIGH ER TRIGLYCERIDE OR LOWER NON-HDL SPECIME NS. FOR MOREINFORMATION , SEE CLIENT ANNOUNCE MENT AT [email or web address] [email or web address] RATIO LDL/HDL 2.30 RATIO <3.22 (test code = 2238) TSH, THIRD [id number] 04:53:46 Test Item Value Reference Range Interpretation Comments TSH, THIRD 1.790 UIU/ML 0.400-4.100 UNLESS OTHERWI SE GENERATION (test INDICATED, ALL TESTING code = 2821) PERFORMED [facility] PATH[facility]Y [facility], [facility]. [address] [place] [id number] [place] [address] [place]ITA DIRECTOR: RAMIREZ CUELLO M.D. CLIA NUMBER [id number] CAP ACCREDITATION N O. [id number] CBC W/AUTO DIFF WITH [id number] 04:43:48 Test Item Value Reference Range Interpretation Comments WBC (test code = 9.6 K/UL 3.5-11.0 1001) RBC (test code = 4.42 M/UL 3.80-5.40 1002) HEMOGLOBIN (test code 12.8 G/DL 11.5-15.5 = 1003) HEMATOCRIT (test code 37.0 % 34.0-45.0 = 1004) MCV (test code = 83.7 fL 80.0-99.0 1005) MCH (test code = 29.0 PG 25.0-33.0 1006) MCHC (test code = 34.6 G/DL 31.0-36.0 1007) RDW (test code = 12.8 % 11.5-15.0 1038) NEUTROPHILS (test 56.3 % code = 1008) LYMPHOCYTES (test 33.7 % code = 1010) MONOCYTES (test code 5.3 % = 1011) EOSINOPHILS (test 3.5 % code = 1012) BASOPHILS (test code 0.9 % = 1013) IMMATURE GRANULOCYTES 0.3 % (test code = 1036) NUCLEATED RBCS (test 0.0 /100 WBC'S See_Comment [Aut omated code = 1065) message] The sy stem which generated this result transmitted reference range : 0.0. The refere nce range was not u sed to interpret th is result as normal/abnormal . PLATELET COUNT (test 345 K/UL 130-400 code = 1015) ABSOLUTE NEUTROPHILS 5.42 K/UL 1.50-7.50 (test code = 1066) ABSOLUTE LYMPHOCYTES 3.25 K/UL 1.00-4.00 (test code = 1067) ABSOLUTE MONOCYTES 0.51 K/UL 0.20-1.00 (test code = 1068) ABSOLUTE EOSINOPHILS 0.34 K/UL 0.00-0.50 (test code = 1040) ABSOLUTE BASOPHILS 0.09 K/UL 0.00-0.20 (test code = 1069) ABS IMMATURE 0.03 K/UL 0.00-0.10 GRANULOCYTES (test code = 1020) ABS NUCLEATED RBCS 0.00 K/UL 0.00-0.11 (test code = 72326) HEMOGLOBIN [id number] 04:35:33 Test Item Value Reference Range Interpretation Comments HEMOGLOBIN A1c (test code = 82099) 5.8 % 4.2-5.6 H VAGINAL PATHOGENS DNA [id number] 15:33:56 Test Item Value Reference Range Interpretation Comments RAMAKRISHNA SPECIES (test NEGATIVE NEGATIVE code = 27715) G. VAGINALIS (test POSITIVE NEGATIVE A code = ) T. VAGINALIS (test NEGATIVE NEGATIVE UNLESS O THERWISE code = 67363) INDICATED, ALL TESTING PERFORMED [facility] PATHOLOGY [facility], [facility]. [address] [place] [address] LABORATORY DIRE CTOR: RAMIREZ ALCARAZ M.D. CLIA NUMBER [id number] [facility] [place] [id number] PAP TEST, THINPREP, [id number] 14:29:43 Test Item Value Reference Range Interpretation Comments SOURCE: (test Cervical code = 8001) SLIDES: (test 1 code = 8011) LMP: (test code 09/29/2021 = 8021) SPECIMEN (NOTE) Satisfactory f or ADEQUACY: (test evaluation. code = 24867) Endocervical cells/transform ation zone component present. INTERPRETATION: NILM/NO EPITH. (test code = ABNORMALITY;SEE 07230) BELOW -------- - NEGATIVE FOR INTRAEPITHELIAL LESION OR MALIGNANCY ( NILM) -------- -------- -------- ---- OTHER COMMENTS: (NOTE) Shift in aster ra (test code = suggestive of b acterial 8081) vaginosis. DIRECTOR TELEVISION NEWS [place] : (test code = YE Mai(ASCP) 8101) IAC LOCATION: (test (NOTE) Specimens pr ocessed and code = 44160) interpreted at [facility], [address] [place] [address] 4, Phone: , CLIA: [id number] CPT: (test code (NOTE) 68275 UNLESS OTHERWISE = 8140) INDICATED, COMP UTER AIDED AND CYTOTECHNOLOGIS T SCREENING PERFO RMED. The Pap test is a screening test with an inherent, but l ow probability of error. Your patient sh ould be reminded to con sult you immediately if she experiences any suspicious sign s or symptoms, regar dless of her Pap test re sult. An alternate repor t format containing imag es or consolidated pr ior Pap history is avai lable as applicable. UNL ESS OTHERWISE INDIC ATED, ALL TESTING PER FORMED ATCLIN[facility] PATH [facility], I [place]. [address] [place] [address] LABORATOR Y DIRECTOR: RAMIREZ CUELLO M.D. CLIA NUMBER [id number] CAP ACCREDITATION N O. [id number] HCG, [id number] 06:38:23 Test Item Value Reference Range Interpretation Comments HCG, QUANTITATIVE <5 MIU/ML SEE BELOW E XPECTED (test code = 2506) VALUES FO R HCG GST.AGE UNITS RANGE GST. AGE UNITS RANGE3 WEEKS TN U/ML 6-71 10 WEEKS M IU/ML 46,509-186,9774 WEEKS MIU/ML 10-750 1 2 WEEKS MIU/ML 27,832-2 10,6125 WEEKS MIU/ML 21 7-7,138 14 WEEKS MIU/ML 13,950-62,5306 WEEKS MIU/ML 158-31,7 95 15 WEEKS MIU/ML 12,039-70,9717 WEEKS MIU/ML 3,697-16 3,563 16 WEEKS MIU/ML 9,040-56,4518 W EEKS MIU/ML 32,065-1 49,571 17 WEEKS MIU/ML 8,175-55,8689 W EEKS MIU/ML 63,803-1 51,410 18 WEEKS MIU/ML 8,099-58,176MAL ES and NON- FE MALES . . . . . . . . M IU/ML 3-8JTUD-ZYCWECJ JAKE FEMALES . . . . . . . . . . . . MIU/M L <=7 UNLESS OTHERWIS E INDICATED, ALL TESTING PERFORMED [facility], [facility]. [address] [place] [id number] [place] [address] DIRECTOR: RAMIREZ CUELLO M.D. CLIA NUMBER [id number] CAP ACCREDITATION N O. [id number] POCT [id number] 13:48:00 Test Item Value Reference Range Interpretation Comments POCT PREG (test code = 1605) Negative On board controls acceptable with C Yes Line (test code = 3574) POCT PREG LOT # (test code = 3575) POCT PREG TEST DATE (test code = 3576) [facility]
[2023-01-18] MEDS ORDERED: FLUORESCEIN SODIUM 1 MG/WRAP ONE (12:00)
[2023-01-18] MEDS ORDERED: TETRACAINE HCL 0.5% 4ML OPTH ONE (12:00)
--- NOTE | 2023-01-18 12:03 | EDPHYS ---
Physician Documentation [facility] Name: Nidia Ford Age: 42 yrs Sex: Female : 1980 Arrival Date: 01/18/2023 Time: 11:32 Bed 19 Private MD: ED Physician Pedrito Salazar HPI: 01/18 11:57 This 42 yrs old Female presents to ER via Ambulatory with complaints of Eye kdr Problem. 11:57 The patient is experiencing burning, redness, The patient sustained Unknown. Onset: The kdr symptoms/episode began/occurred this morning. Duration: the symptoms are continuous. Aggravated by nothing. Alleviated by nothing. Associated signs and symptoms: Pertinent positives: None. Pertinent negatives: chills, dizziness, ear ache, fever, headache, runny nose. Patient wears glasses. Severity of symptoms: At their worst the symptoms were very mild in the emergency department the symptoms are unchanged. The patient has not experienced similar symptoms in the past. The patient has not recently seen a physician. Historical: - Allergies: 11:39 NKDA; ll1 - PMHx: 11:39 fatty liver; Asthma; ll1 - PSHx: 11:39 Ligation of fallopian tube; ll1 - Immunization history:: Adult Immunizations up to date. - Social history:: Smoking status: Patient denies any tobacco usage or history of. ROS: 11:57 Constitutional: Negative for fever, chills, and weight loss, ENT: Negative for injury, kdr pain, and discharge, Neck: Negative for injury, pain, and swelling, 11:57 Eyes: Positive for redness, of the outer aspect of conjuctiva of right eye, Negative for blurry vision, discharge, foreign body sensation, icterus, injury or acute deformity, itching, matting, pain, photophobia, sunken appearance, swelling, tearing, vision loss, visual disturbance, Exam: 11:57 Visual Acuity: I have reviewed the nursing documentation. kdr 11:57 Constitutional: This is a well developed, well nourished patient who is awake, alert, and in no acute distress. Head/Face: Normocephalic, atraumatic. ENT: Nares patent. No nasal discharge, no septal abnormalities noted. Tympanic membranes are normal and external auditory canals are clear. Oropharynx with no redness, swelling, or masses, exudates, or evidence of obstruction, uvula midline. Mucous membranes moist. Neck: Trachea midline, no thyromegaly or masses palpated, and no cervical lymphadenopathy. Supple, full range of motion without nuchal rigidity, or vertebral point tenderness. No Meningismus. 11:57 Eyes: Periorbital structures: appear normal, Pupils: equal, round, and reactive to light and accomodation, Extraocular movements: intact throughout, Conjunctiva: injected, subconjunctival hemorrhage(s), seen in the right eye, at 9 o'clock, Corneas: are normal, abrasion, is not appreciated, foreign body, is not appreciated, a fluorescein strip employed to appreciate the findings, Vital Signs: 11:39 BP 122 / 70; Pulse 55; Resp 17; Temp 98.1; Pulse Ox 100% ; Pain 3/10; ll1 12:07 BP 109 / 62; Pulse 50; Resp 16; Pulse Ox 99% ; nj1 11:39 Pain Scale: Adult ll1 Visual Acuity: 12:00 Left Eye Visual acuity 20/30, ; Right Eye Visual acuity 20/40, ; Both Eyes Visual nj1 acuity 20/40; Without Lenses; MDM: 11:57 Data reviewed: vital signs, nurses notes. kdr 12:03 Patient medically screened. kdr 01/18 11:57 Order name: Visual Acuity; Complete Time: 12:00 kdr Administered Medications: 11:48 Drug: Tetracaine Ophthalmic Drops 0.5 % 1 drops Ophthalmic once {Note: Given to Dr megan Salazar for administration.} Route: Ophthalmic; Site: right eye; 12:12 Follow up: Response: No adverse reaction nj1 11:49 Drug: Fluorescein Ophthalmic Strip 1 strip Ophthalmic once {Note: Given to Dr Martin guzman for administration.} Route: Ophthalmic; Site: right eye; 12:13 Follow up: Response: No adverse reaction nj1 Disposition Summary: 01/18/23 12:03 Discharge Ordered Notes: Location: Home kdr Problem: new kdr Symptoms: are unchanged kdr Condition: Stable kdr Diagnosis - Subconjunctival hemorrhage -right eye at 9 o'clock position kdr Followup: kdr - With: Private Physician - When: Tomorrow - Reason: If symptoms return, Further diagnostic work-up, Recheck today's complaints, Continuance of care, Re-evaluation by your physician Followup: kdr - With: Cipriano Cortés MD - When: 48 Hours - Reason: If symptoms return, Further diagnostic work-up, Recheck today's complaints, Continuance of care, Re-evaluation by your physician Discharge Instructions: - Discharge Summary Sheet kdr - Subconjunctival Hemorrhage kdr Forms: - Medication Reconciliation Form kdr - Thank You Letter kdr - Patient Portal Instructions kdr - Leadership Thank You Letter kdr Signatures: Pedrito Salazar MD MD kdr Paul Parmar RN RN ll1 Jami Pinto RN RN nj1
--- NOTE | 2023-01-18 12:03 | ER ---
Nurse's Notes [facility] Name: Nidia Ford Age: 42 yrs Sex: Female : 1980 Arrival Date: 01/18/2023 Time: 11:32 Bed 19 Private MD: Diagnosis: Subconjunctival hemorrhage -right eye at 9 o'clock position Presentation: 01/18 11:39 Chief complaint: Patient states: Noticed R eye is red today. Slight pain now, no ll1 trauma. Coronavirus screen: Client denies travel out of the [place] in the last 14 days. At this time, the client does not indicate any symptoms associated with coronavirus-19. Ebola Screen: Patient denies travel to an Ebola-affected area in the 21 days before illness onset. Initial Sepsis Screen: Does the patient meet any 2 criteria? No. Patient's initial sepsis screen is negative. Does the patient have a suspected source of infection? No. Patient's initial sepsis screen is negative. Risk Assessment: Do you want to hurt yourself or someone else? Patient reports no desire to harm self or others. Onset of symptoms was January 18, 2023. 11:39 Method Of Arrival: Ambulatory ll1 11:39 Acuity: ANASTACIO 4 ll1 Historical: - Allergies: 11:39 NKDA; ll1 - PMHx: 11:39 fatty liver; Asthma; ll1 - PSHx: 11:39 Ligation of fallopian tube; ll1 - Immunization history:: Adult Immunizations up to date. - Social history:: Smoking status: Patient denies any tobacco usage or history of. Screenin:00 [facility] ED Fall Risk Assessment (Adult) Score/Fall Risk Level 0 - 2 = Low Risk nj1 Oriented to surroundings, Maintained a safe environment, Hourly rounding (assess needs \T\ fall precautionary measures) done. Abuse screen: Denies threats or abuse. Denies injuries from another. Nutritional screening: No deficits noted. Tuberculosis screening: No symptoms or risk factors identified. Assessment: 11:52 General: Appears in no apparent distress. comfortable, Behavior is calm, cooperative, nj1 appropriate for age. Pain: Complains of pain in right eye. Neuro: Level of Consciousness is awake, alert, obeys commands, Oriented to person, place, time, situation. Cardiovascular: Patient's skin is warm and dry. Respiratory: Airway is patent Respiratory effort is even, unlabored. EENT: Sclera/Cornea are reddened in outer aspect of conjuctiva of right eye and inner aspect of conjuctiva of right eye. Vital Signs: 11:39 BP 122 / 70; Pulse 55; Resp 17; Temp 98.1; Pulse Ox 100% ; Pain 3/10; ll1 12:07 BP 109 / 62; Pulse 50; Resp 16; Pulse Ox 99% ; nj1 11:39 Pain Scale: Adult ll1 Visual Acuity: 12:00 Left Eye Visual acuity 20/30, ; Right Eye Visual acuity 20/40, ; Both Eyes Visual nj1 acuity 20/40; Without Lenses; ED Course: 11:33 Patient arrived in ED. rg4 11:35 Pedrito Salazar MD is Attending Physician. kdr 11:39 Jami Pinto, MAMI is Primary Nurse. nj1 11:39 Arm band placed on Patient placed in an exam room, on a stretcher. ll1 11:40 Triage completed. ll1 12:01 Cipriano Cortés MD is Referral Physician. kdr 12:01 Patient has correct armband on for positive identification. Bed in low position. Call nj1 light in reach. Adult w/ patient. Provided Education on: call light, fall precautions. 12:12 No provider procedures requiring assistance completed. Patient did not have IV access nj1 during this emergency room visit. Administered Medications: 11:48 Drug: Tetracaine Ophthalmic Drops 0.5 % 1 drops Ophthalmic once {Note: Given to Dr megan Salazar for administration.} Route: Ophthalmic; Site: right eye; 12:12 Follow up: Response: No adverse reaction nj1 11:49 Drug: Fluorescein Ophthalmic Strip 1 strip Ophthalmic once {Note: Given to Dr Martin guzman for administration.} Route: Ophthalmic; Site: right eye; 12:13 Follow up: Response: No adverse reaction nj1 Medication: 12:01 VIS not applicable for this client. nj1 Outcome: 12:03 Discharge ordered by . kdr 12:12 Discharged to home ambulatory, with significant other, nj1 12:12 Condition: stable 12:12 Discharge instructions given to patient, Instructed on discharge instructions, follow up and referral plans. Demonstrated understanding of instructions, follow-up care, 12:13 Patient left the ED. nj1 Signatures: Pedrito Salazar MD MD kdr Brit [place] rg4 Paul Parmar RN RN ll1 Jami Pinto RN RN nj1
[2023-01-18 12:17] VITALS: TEMP 98.1
[2023-01-18 12:19] VITALS: BP 109/62; O2SAT 99
== END 2023-01-18 12:13 | disposition home or self-care (01) ==
LOC: ER 11:32
DX: H11.31 Conjunctival hemorrhage, right eye (principal)

== ENCOUNTER 2023-09-03 01:22 | Emergency (ER) | payer OTHER, SELFPAY ==
--- OUTSIDE RECORDS SUMMARY | 2023-09-03 01:27 | XMS REPORT | Continuity of Care Document ---
Author Name Unknown Address [address] [facility] [address] [place] [address] [facility] thconnect Address [address] [facility] [address] [place] [address] Care Team Providers Care Riprap Man Name Role Phone Yessenia Taylor Primary Care Physician [phone] YUE COLON Attending Clinician Unavail able Visit, [facility] Nurse Attending Clinician Unava ilable Yue Meyer Attending Clinician + Doctor Unassigned, [place] Attending Clinician U navailable Payers Payer Name Policy Type Policy Number Effective Date Expirati on Date Source [facility] [id number] 2019 00:00:00 Problems Condition Name Condition Details Condition Category Status Onset Date Resolution Date Last Treatment Date Treating Clinician Comments Source Heavy menses Heavy menses Disease Active 10-01 00:00: 00 [facility] Stress incontinen ce Stress incontinen ce Disease Active 10-01 00:00: 00 [facility] Recent urinary tract infection Recent urinary tract infection Disease Active 2015-04 00:00: 00 [facility] Other general counseling and advice for contracept jorge management Other general counseling and advice for contracept jorge management Disease Active 2015-04 00:00: 00 [facility] History of bilateral tubal ligation History of bilateral tubal ligation Disease Active 2016-1 0-28 00:00: 00 [facility] Obesity (BMI 30-39.9) Obesity (BMI 30-39.9) Disease Active 6-15 00:00: 00 Overview: Formattin g of this note might be different from the original. ICD10 Diagnosis Term Supervisor Composing Room Utility [facility] Allergies, Adverse Reactions, Alerts Allergy Name Allergy Type Status Severity Reaction(s) Onset Date Inactive Date Treating Clinician Comments Source NO KNOWN ALLERGIE S Drug Class Active [facility] Social History Social Habit Start Date Stop Date Quantity Comments Source History SDOH Alcohol Std Drinks [facility] History SDOH Alcohol Binge [facility] Alcoholic beverage intake 2023-08-21 00:00:00 2023-08-21 00:00:00 Ex-drinker (finding) [facility] Exposure to SARS-CoV-2 (event) 2021-10-09 00:00:00 2021-10-19 08:45:00 Not sure [facility] Tobacco use and exposure 2021-10-19 00:00:00 2021-10-19 00:00:00 Smokeless tobacco non-user [facility] History of Social function 2021-10-19 00:00:00 2021-10-19 00:00:00 [facility] Alcohol intake 2021-10-19 00:00:00 2021-10-19 00:00:00 Ex-drinker (finding) [facility] History SDOH Alcohol Frequency 2019-10-02 00:00:00 2019-10-02 00:00:00 2 [facility] Alcohol Comment 2019-10-02 00:00:00 2019-10-02 00:00:00 socially [facility] Sex assigned at 1980 00:00:00 1980 00:00:00 [facility] Smoking Status Start Date Stop Date Source Never smoked tobacco [facility] Medications Ordered Medication Name Filled Medication Name Start Date Stop Date Current Medication? Ordering Clinician Indication Dosage Frequency Signature (SIG) Comments Components Source Dose Unknown - 00:00: 00 Yes 800 Kenyon Brownlee Dose Unknown 11-10 00:00: 00 Yes Kenyno Brownlee TAKE 1 TABLET BY MOUTH EVERY 12 HOURS NEEDED 2-0 8- 00:00: 00 Yes 4 Kenyon Brownlee TAKE 1 TABLET BY MOUTH EVERY 8 HOURS NEEDED FOR MUSCLE SPASMS 2-0 7-26 00:00: 00 Yes 10 Kenyon Brownlee Dose Unknown 2021-0 7-22 00:00: 00 Yes Kenyon Brownlee Dose Unknown 2021-0 7-21 00:00: 00 Yes Kenyon Brownlee Dose Unknown 2021-0 7-21 00:00: 00 Yes 4 Kenyon Brownlee Dose Unknown 2021-0 7- 00:00: 00 Yes Kenyon Brownlee Dose Unknown 2021-0 7-21 00:00: 00 Yes 800 Kenyon Brownlee metronidazo le 500 mg tablet 2021-0 7-21 00:00: 00 Yes 1mg Kenyon Brownlee TAKE 1 TABLET BY MOUTH EVERY 12 HOURS WITH FOOD NEEDED FOR PAIN 2021-0 7-20 00:00: 00 Yes 800 Kenyon Brownlee TAKE 1 TABLET BY MOUTH 5 TIMES A DAY FOR 7 DAYS 2-0 7-19 00:00: 00 Yes 800 Kenyon Brownlee TAKE 1 TABLET BY MOUTH 5 TIMES A DAY FOR 7 DAYS 2021-0 7-13 00:00: 00 Yes 800 Kenyon Brownlee TAKE 1 TABLET BY MOUTH EVERY 12 HOURS FOR 7 DAYS 2-0 7-12 00:00: 00 Yes Kenyon Brownlee TAKE 1 TABLET BY MOUTH EVERY 8 HOURS NEEDED FOR MUSCLE SPASMS 2021-0 7-12 00:00: 00 Yes 10 Kenyon Brownele TAKE 1 TABLET BY MOUTH TWICE A DAY 2021-0 7-08 00:00: 00 Yes 75 Kenyon Brownlee APPLY 1 PATCH ONCE DAILY NEEDED 2021-0 -06 00:00: 00 Yes Kenyon Brownlee TAKE 1 TABLET BY MOUTH EVERY 12 HOURS WITH FOOD NEEDED FOR PAIN 2-0 6- 00:00: 00 Yes Kenyon Brownlee TAKE 2 TABLETS BY MOUTH EVERY 6 TO 8 HOURS NEEDED FOR PAIN 2021-0 - 00:00: 00 Yes Kenyon Brownlee TAKE 1 TABLET BY MOUTH EVERY 12 HOURS NEEDED 2021-0 - 00:00: 00 Yes Kenyon Brownlee norethindro ne 0.35 mg tablet 2019-0 -24 00:00: 00 Yes [id number] 1{tbl} Take 1 tablet by mouth daily. [facility] metronidazo le 500 mg tablet 01-05 00:00: 00 Yes 1mg Kenyon Brownlee Keflex 500 mg capsule 01-01 00:00: 00 Yes 1mg Kenyon Brownlee Immunizations Ordered Immunization Name Filled Immunization Name Date Status Comments Source HPV9 2021-10-19 00:00:00 Completed [facility] HPV9 2021-10-19 00:00:00 Completed [facility] TDAP 2014-04-22 00:00:00 Completed [facility] TDAP 2014-04-22 00:00:00 Completed [facility] Influenza Virus Vaccine Quad IM Multi-dose 6+ MO 2014-03-25 00:00:00 Completed [facility] Influenza Virus Vaccine Quad IM Multi-dose 6+ MO 2014-03-25 00:00:00 Completed [facility] Varicella (varivax)(chicken pox) 2011-08-18 00:00:00 Completed [facility] Varicella (varivax)(chicken pox) 2011-08-18 00:00:00 Completed [facility] Rubella 2008-03-25 00:00:00 Completed [facility] Rubella 2008-03-25 00:00:00 Completed [facility] Td 2006-04-10 00:00:00 Completed [facility] TD, NOS 2006-04-10 00:00:00 Completed [facility] Rubella Unknown Completed [facility] TD, NOS Unknown Completed [facility] Varicella (varivax)(chicken pox) Unknown Completed [facility] Influenza Virus Vaccine Quad IM Multi-dose 6+ MO Unknown Completed [facility] TDAP Unknown Completed [facility] HPV9 Unknown Completed [facility] Vital Signs Vital Name Observation Time Observation Value Comments S cordell Systolic blood pressure 2023-08-21 14:01:00 123 mm[Hg] [facility] Diastolic blood pressure 2023-08-21 14:01:00 76 mm[Hg] [place] [facility] Heart rate 2023-08-21 14:01:00 56 /min [facility] Body temperature 2023-08-21 14:01:00 36.5 Sandie [facility] Respiratory rate 2023-08-21 14:01:00 18 /min [facility] Body height 2023-08-21 14:01:00 152.4 cm [facility] Body weight 2023-08-21 14:01:00 70.398 kg [facility] BMI 2023-08-21 14:01:00 30.31 kg/m2 [facility] Systolic blood pressure 2021-10-19 13:46:00 114 mm[Hg] [facility] Diastolic blood pressure 2021-10-19 13:46:00 65 mm[Hg] [place] [facility] Heart rate 2021-10-19 13:46:00 61 /min [facility] Body temperature 2021-10-19 13:46:00 36.22 Sandie [facility] Respiratory rate 2021-10-19 13:46:00 16 /min [facility] Body height 2021-10-19 13:46:00 152.4 cm [facility] Body weight 2021-10-19 13:46:00 67.223 kg [facility] BMI 2021-10-19 13:46:00 28.94 kg/m2 [facility] BP Systolic 2023-08-21 14:06:00 117 mm[Hg] Step hen F Kem BP Diastolic 2023-08-21 14:06:00 77 mm[Hg] Justice phen F Kem Weight Measured 2023-08-21 14:06:00 155.80 pounds Kenyon F Kem Height Measured 2023-08-21 14:06:00 59.00 inches Kenyon F Kem Body Temperature 2023-08-21 14:06:00 98.20 degrees Kenyon F Kem Heart Rate 2023-08-21 14:06:00 59.00 /min Marjan en F Kem Respiratory Rate 2023-08-21 14:06:00 18.00 /min Kenyon F Kem BP Systolic 2023-08-18 11:31:00 107 mm[Hg] Step hen F Kem BP Diastolic 2023-08-18 11:31:00 57 mm[Hg] Justice phen F Kem Weight Measured 2023-08-18 11:31:00 155.20 pounds Kenyon F Kem Height Measured 2023-08-18 11:31:00 59.00 inches Kenyon F Kem Body Temperature 2023-08-18 11:31:00 98.20 degrees Kenyon F Kem Heart Rate 2023-08-18 11:31:00 64.00 /min Marjan en F Kem Respiratory Rate 2023-08-18 11:31:00 Kenyon F Kem BP Systolic 2021-11-02 10:17:00 129 mm[Hg] Step hen F Kem BP Diastolic 2021-11-02 10:17:00 76 mm[Hg] Justice phen F Kem Weight Measured 2021-11-02 10:17:00 150.20 pounds Kenyon F Kem Height Measured 2021-11-02 10:17:00 59.00 inches Kenyon F Kem Body Temperature 2021-11-02 10:17:00 98.20 degrees Kenyon F Kem Heart Rate 2021-11-02 10:17:00 58.00 /min Marjan en F Kem Respiratory Rate 2021-11-02 10:17:00 18.00 /min Kenyon F Kem BP Systolic 2021-10-26 08:51:00 94 mm[Hg] Step hen F Kem BP Diastolic 2021-10-26 08:51:00 59 mm[Hg] Justice phen F Kem Weight Measured 2021-10-26 08:51:00 148.60 pounds Kenyon F Kem Height Measured 2021-10-26 08:51:00 59.00 inches Kenyon F Kem Body Temperature 2021-10-26 08:51:00 97.80 degrees Kenyon F Kem Heart Rate 2021-10-26 08:51:00 54.00 /min Marjan en F Ekm Respiratory Rate 2021-10-26 08:51:00 16.00 /min Kenyon F Kem BP Systolic 2021-10-20 09:39:00 114 mm[Hg] Step hen F Kem BP Diastolic 2021-10-20 09:39:00 65 mm[Hg] Justice phen F Kem Weight Measured 2021-10-20 09:39:00 149.00 pounds Kenyon F Kem Height Measured 2021-10-20 09:39:00 59.00 inches Kenyon F Kem Body Temperature 2021-10-20 09:39:00 98.30 degrees Kenyon F Kem Heart Rate 2021-10-20 09:39:00 53.00 /min Marjan en F Kem Respiratory Rate 2021-10-20 09:39:00 17.00 /min Kenyon F Kem BP Systolic 2020-07-28 08:20:00 107 mm[Hg] Step hen F Kem BP Diastolic 2020-07-28 08:20:00 61 mm[Hg] Justice phen F Kem Weight Measured 2020-07-28 08:20:00 153.20 pounds Kenyon F Kem Height Measured 2020-07-28 08:20:00 59.00 inches Kenyon F Kem Body Temperature 2020-07-28 08:20:00 Kenyon F Kem Heart Rate 2020-07-28 08:20:00 99.00 /min Marjan en F Kem Respiratory Rate 2020-07-28 08:20:00 17.00 /min Kenyon F Kem BP Systolic 2020-06-27 14:13:00 116 mm[Hg] Step hen F Kem BP Diastolic 2020-06-27 14:13:00 74 mm[Hg] Justice phen F Kem Weight Measured 2020-06-27 14:13:00 164.00 pounds Kenyon F Kem Height Measured 2020-06-27 14:13:00 59.00 inches Kenyon F Kem Body Temperature 2020-06-27 14:13:00 98.10 degrees Kenyon F Kem Heart Rate 2020-06-27 14:13:00 69.00 /min Marjan en F Kem Respiratory Rate 2020-06-27 14:13:00 18.00 /min Kenyon F Kem BP Systolic 2019-09-17 17:13:00 113 mm[Hg] Step hen F Kem BP Diastolic 2019-09-17 17:13:00 72 mm[Hg] Justice phen F Kem Weight Measured 2019-09-17 17:13:00 167.40 pounds Kenyon F Kem Height Measured 2019-09-17 17:13:00 59.00 inches Kenyon F Kem Body Temperature 2019-09-17 17:13:00 98.50 degrees Kenyon F Kem Heart Rate 2019-09-17 17:13:00 61.00 /min Marjan en F Kem Respiratory Rate 2019-09-17 17:13:00 16.00 /min Kenyon F Kem BP Systolic 2019-09-11 10:13:00 112 mm[Hg] Step hen F Kem BP Diastolic 2019-09-11 10:13:00 76 mm[Hg] Justice phen F Kem Weight Measured 2019-09-11 10:13:00 165.80 pounds Kenyon F Kem Height Measured 2019-09-11 10:13:00 59.00 inches Kenyon F Kem Body Temperature 2019-09-11 10:13:00 98.30 degrees Kenyon F Kem Heart Rate 2019-09-11 10:13:00 68.00 /min Marjan en F Kem Respiratory Rate 2019-09-11 10:13:00 16.00 /min Kenyon F Kem BP Systolic 2018-10-03 14:33:00 108 mm[Hg] Step hen F Kem BP Diastolic 2018-10-03 14:33:00 72 mm[Hg] Justice phen F Kem Weight Measured 2018-10-03 14:33:00 159.80 pounds Kenyon F Kem Height Measured 2018-10-03 14:33:00 59.00 inches Kenyon F Kem Body Temperature 2018-10-03 14:33:00 98.80 degrees Kenyon F Kem Heart Rate 2018-10-03 14:33:00 67.00 /min Marjan en F Kem Respiratory Rate 2018-10-03 14:33:00 17.00 /min Kenyon F Kem BP Systolic 2018-05-22 11:50:00 111 mm[Hg] Step hen F Kem BP Diastolic 2018-05-22 11:50:00 61 mm[Hg] Justice phen F Kem Weight Measured 2018-05-22 11:50:00 161.40 pounds Kenyon F Kem Height Measured 2018-05-22 11:50:00 59.00 inches Kenyon F Kem Body Temperature 2018-05-22 11:50:00 98.50 degrees Kenyon F Kem Heart Rate 2018-05-22 11:50:00 59.00 /min Marjan en F Kem Respiratory Rate 2018-05-22 11:50:00 16.00 /min Kenyon F Kem Procedures Procedure Date / Time Performed Performing Clinicia n Source POCT TEST 2023-08-21 14:02:00 Jerad Colon [facility] GARDASIL 9 (HPV 9V) VACCINE 2021-10-19 14:03:36 Yue Colon [facility] POCT TEST 2021-10-19 13:48:00 Jerad Colon [facility] Encounters Start Date/Time End Date/Time Encounter Type Admission Type Attending [facility] Care Facility Care Department Encounter ID Source 2023-08-21 14:02:13 2023-08-21 14:02:13 Outpatient [facility] [id number] Kenyon Brownlee 2023-08-21 09:00:00 2023-08-21 09:11:13 Outpatient R YUE COLON [facility] [id number] [facility] 2023-08-21 09:00:00 2023-08-21 09:11:13 Nurse Visit Visit, Ang-Rmchp Nurse Yue Colon [facility] [id number] [id number] [id number] [facility] 2023-08-21 00:00:00 2023-08-21 00:00:00 Outpatient Visit [facility] [id number] Kenyon Brownlee 2023-08-18 11:35:02 2023-08-18 11:35:02 Outpatient [facility] [id number] Kenyon Brownlee 2023-08-18 00:00:00 2023-08-18 00:00:00 Outpatient Visit [facility] [id number] Kenyon Brownlee 2023-01-03 13:30:00 2023-01-03 13:30:00 Outpatient R YUE COLON [facility] [id number] [facility] 2021-11-19 08:00:00 2021-11-19 08:00:00 Outpatient R [facility] [id number] [facility] 2021-11-19 08:00:00 2021-11-19 08:00:00 Outpatient R MCKENZIESHERRYYUE [facility] [id number] [facility] 2021-10-19 08:30:00 2021-10-19 09:36:55 Outpatient R YUE COLON [facility] [id number] [facility] 2021-10-19 08:30:00 2021-10-19 09:36:55 Office Visit Yue Colon [facility] 1..840.114 350.1.13.10 4.2.7.2.686 [id number] [facility] 2021-10-19 09:30:00 2021-10-19 09:30:00 Outpatient R YUE COLON [facility] [id number] [facility] 2021-10-19 08:30:00 2021-10-19 08:45:00 Nurse Visit Visit, Ang-Rmchp Nurse Yue Colon [facility] 1..840.114 350.1.13.10 4.2.7.2.686 [id number] [facility] 2021-10-19 08:30:00 2021-10-19 08:30:00 Outpatient R YUE COLON [facility] [id number] [facility] 2021-10-19 00:00:00 2021-10-19 00:00:00 Orders Only Doctor Unassigned, [place] [facility] ..840.114 350.1.13.10 4.2.7.2.686 [id number] [facility] 2020-09-29 10:30:00 2020-09-29 10:30:00 Outpatient R YUE COLON [facility] [id number] [facility] 2020-01-13 14:00:00 2020-01-13 14:00:00 Outpatient R [facility] [id number] [facility] 2020-01-13 10:40:07 2020-01-13 11:11:28 Nurse Visit Visit, Ang-Rmchp Nurse Yue Colon [facility] 1.840.114 350.1.13.10 4.2.7.2.686 [id number] [facility] 2020-01-02 14:30:00 2020-01-02 14:30:00 Outpatient R [facility] [id number] [facility] 2019-10-14 00:00:00 2019-10-14 00:00:00 Telephone Yue Colon [facility] 1.840.114 350.1.13.10 4.2.7.2.686 [id number] [facility] 2019-10-02 14:05:45 2019-10-02 16:18:05 Office Visit Yue Colon [facility] 1.84.114 350.1.13.10 4.2.7.2.686 [id number] [facility] 2019-10-02 14:15:00 2019-10-02 14:15:00 Outpatient R YUE COLON [facility] [id number] [facility] 2019-10-02 00:00:00 2019-10-02 00:00:00 Orders Only Doctor Unassigned, [place] [facility] ..114 350.1.13.10 4.2.7.2.686 [id number] [facility] 2019-09-23 00:00:00 2019-09-23 00:00:00 Telephone Yue Colon [facility] 1.0.114 350.1.13.10 4.2.7.2.686 [id number] [facility] 2019-09-19 00:00:00 2019-09-19 00:00:00 Telephone Yue Colon [facility] 1..114 350.1.13.10 4.2.7.2.686 [id number] [facility] 2019-09-18 09:45:00 2019-09-18 09:45:00 Outpatient R YUE COLON [facility] [id number] [facility] 2019-09-18 08:23:20 2019-09-18 09:22:38 Office Visit Yue Colon [facility] 1..114 350.1.13.10 4.2.7.2.686 [id number] [facility] 2019-06-28 09:00:00 2019-06-28 09:00:00 Outpatient R YUE COLON [facility] [id number] [facility] 2019-05-24 10:29:28 2019-05-24 10:58:44 Nurse Visit Visit, Yue Turner [facility] 1..114 350.1.13.10 4.2.7.2.686 [id number] [facility] 2019-05-24 10:29:28 2019-05-24 10:58:44 Nurse Visit Visit, Bobby Huang [facility] 1..114 350.1.13.10 4.2.7.2.686 [id number] 2019-05-24 00:00:00 2019-05-24 00:00:00 Orders Only Doctor Unassigned, [place] [facility] 1.20.114 350.1.13.10 4.2.7.2.686 [id number] [facility] 2019-05-24 00:00:00 2019-05-24 00:00:00 Orders Only Doctor Unassigned, [place] [facility] 1.2.840.114 350.1.13.10 4.2.7.2.686 [id number] Results Test Description Test Time Test Comments Results Result Co mments Source Kenyon BrownleePOCT [id number] 14:02:00* Test Item Value Reference Range Interpretation Comme nts POCT PREG (test code = 1605) Negative On board controls acceptable with C Line (test code = 3574) Yes POCT PREG LOT # (test code = 3575) POCT PREG TEST DATE ( test code = 3576) [facility] [id number] 08:07:31* Test Item Value Reference Range Interpretation Comme nts CHLAMYDIA, NAAT, URINE (test code = 50638) NEGATIVE NEGATIVE Testing is perfo rmed with Homero PAULO 6800/8800 systems usingreal-time polymerase chain reaction (PCR) method. A negative result does not exclude low level infection, specimensampling error, or collection error. GONORRHEA, NAAT, [id number] 08:07:31* Test Item Value Reference Range Interpretation Comme nts GONORRHEA, NAAT, URINE (test code = 84766) NEGATIVE NEGATIVE Testing is perfo rmed with Homero PAULO 6800/8800 systems usingreal-time polymerase chain reaction (PCR) method. A negative result does not exclude low level infection, specimensampling error, or collection error. CHLAMYDIA, AMPLIFIED, [id number] 00:00:00* Test Item Value Reference Range Interpretation Comme nts CHLAMYDIA, NAAT, URINE (test code = 47648) NEGATIVE Kenyon BrownleeGC, AMPLIFIED, [id number] 00:00:00* Test Item Value Reference Range Interpretation Comme nts GONORRHEA, NAAT, URINE (test code = 22715) NEGATIVE Kenyon BrownleeHIV 1/2 4TH GEN, RFLX [id number] 06:46:46* Test Item Value Reference Range Interpretation Comme nts HIV 1/2 4TH GEN, RFLX CONF ( test code = 3514) NON-REACTIVE NON-REACTIVE HEPATITIS PANEL, [id number] 06:46:46* Test Item Value Reference Range Interpretation Comments HEPATITIS A TOTAL AB (test code = 2725) REACTIVE NON-REACTIVE A HEPATITIS B SURF AG (test code = 2739) NON-REACTIVE NON-REACTIVE HEP B CORE TOTAL AB (test code = 2729) NON-REACTIVE NON-REACTIVE HEPATITIS B SURFACE AB (test code = 2737) NON-REACTIVE NON-REACTIVE HEPATITIS C ANTIBODY (test code = 4675) NON-REACTIVE NON-REACTIVE INTERPRETATION HEPATITIS A: (test code = 2552) (NOTE) Hepatitis A sero logy consistent with past exposure or previousvaccination to hepatitis A virus. No evidence of current acutehepatitis A infection. INTERPRETATION HEPATITIS B: (test code = 72840) (NOTE) Hepatitis B sero logy shows no evidence of past exposure to orcurrent infection with hepatitis B virus. No evidence of hepatitis Bimmunization is identified. INTERPRETATION HEPATITIS C: (test code = 54592) (NOTE) Hepatitis C sero logy shows no evidence of exposure to hepatitisC virus at this time. It can take up to 12 months after exposure tothe hepatitis C virus for antibodies to become detectable in the blood in certain patients. HEPATITIS A [id number] 06:46:46* Test Item Value Reference Range Interpretation Comme nts HEPATITIS A IgM (test code = 2728) NON-REACTIVE NON-REACTIVE UNLESS OTHERW ISE INDICATED, ALL TESTING PERFORMED AT [facility] [address] [place] [address] DOG AND CAT FOOD COOK: DAVID DAVE M.D. CLIA NUMBER [id number] [facility] [place]. [id number] RPR REFLEX TO [id number] 03:49:07* Test Item Value Reference Range Interpretation Comme nts RPR (test code = 80172) NON-REACTIVE NON-REACTIVE RPR TITER (test code = 3500) NOT INDIC. TITER NOT INDIC. HIV 1/2 4TH GEN, RFLX [id number] 00:00:00* Test Item Value Reference Range Interpretation Comme nts HIV 1/2 4TH GEN, RFLX CONF ( test code = 3514) NON-REACTIVE Kenyon F AustinHEPATITIS PROFILE (A,B,C)2023-08-19 00:00:00* Test Item Value Reference Range Interpretation Comme nts HEPATITIS A TOTAL AB (test c ode = 2725) REACTIVE HEPATITIS B SURF AG (test co de = 2739) NON-REACTIVE HEP B CORE TOTAL AB (test co de = 2729) NON-REACTIVE HEPATITIS B SURFACE AB (test code = 2737) NON-REACTIVE HEPATITIS C ANTIBODY (test c ode = 4675) NON-REACTIVE INTERPRETATION HEPATITIS A: (test code = 2552) (NOTE) INTERPRETATION HEPATITIS B: (test code = 13810) (NOTE) INTERPRETATION HEPATITIS C: (test code = 56581) (NOTE) Kenyon BrownleeRPR REFLEX TO [id number] 00:00:00* Test Item Value Reference Range Interpretation Comme nts RPR (test code = 46239) NON-REACTIVE RPR TITER (test code = 3500) NOT INDIC. TITER Kenyon BrownleeHEPATITIS A IgM [REFLEX]2023-08-19 00:00:00* Test Item Value Reference Range Interpretation Comme nts HEPATITIS A IgM (test code = 2728) NON-REACTIVE Kenyon BrownleeCOMPREHENSIVE METABOLIC [id number] 05:53:04* Test Item Value Reference Range Interpretation Comme nts GLUCOSE (test code = 2217) 79 MG/DL 70-99 BUN (test code = 2208) 12 MG/DL 6-20 CREATININE (test code = 2214) 0.73 MG/DL 0.60-1.30 eGFR (2020 CKD-EPI) (test code = 55874) 106 ML/MIN/1.73 >60 CALC BUN/CREAT (test code = 2235) 16 RATIO 6-28 SODIUM (test code = 2231) 139 MEQ/L 133-146 POTASSIUM (test code = 2228) 4.6 MEQ/L 3.5-5.4 CHLORIDE (test code = 2215) 106 MEQ/L 95-107 CARBON DIOXIDE (test code = 2206) 23 MEQ/L 19-31 CALCIUM (test code = 2209) 9.1 MG/DL 8.5-10.5 PROTEIN, TOTAL (test code = 222) 7.1 G/DL 6.1-8.3 ALBUMIN (test code = 2201) 3.9 G/DL 3.5-5.2 CALC GLOBULIN (test code = 2240) 3.2 G/DL 1.9-3.7 CALC A/G RATIO (test code = 2234) 1.2 RATIO 1.0-2.6 BILIRUBIN, TOTAL (test code = 7) 0.4 MG/DL See_Comment [Automated me ssage] The system which generated this result transmitted reference range: <=1.2. The reference range was not used to interpret this result as normal/abnormal. ALKALINE PHOSPHATASE (test code = 2203) 105 U/L 40-113 AST (test code = 2218) 15 U/L 9-40 ALT (test code = 9) 28 U/L 5-40 LIPID [id number] 05:53:04* Test Item Value Reference Range Interpretation Comme nts CHOLESTEROL (test code = 0) 175 MG/DL <200 TRIGLYCERIDES (test code = 2231) 103 MG/DL <150 HDL CHOLESTEROL (test code = 2219) 47 MG/DL >39 CALC LDL CHOL (test code = 2236) 108 MG/DL <100 H NOTE: CALCULATED LDL IS BASED ON JARAD-BELCHER METHOD WHICHINCLUDES ADJUSTABLE TRIGLYCERIDE:VLDL CHOLESTEROL RATIO.THIS FACTOR VARIES BY MEASURED TRIGLYCERIDE AND NON-HDLCHOLESTEROL CONCENTRATIONS WITH INCREASED CALCULATED LDL SEENIN HIGHER TRIGLYCERIDE OR LOWER NON-HDL SPECIMENS. FOR MOREINFORMATION, SEE CLIENT ANNOUNCEMENT AT [email or web address] RISK RATIO LDL/HDL (test code = 2237) 2.30 RATIO <3.22 TSH, THIRD [id number] 04:53:46* Test Item Value Reference Range Interpretation Comme nts TSH, THIRD GENERATION (test code = 2821) 1.790 UIU/ML 0.400-4.100 UNLESS OTHERWISE INDICATED, ALL TESTING PERFORMED [facility] [address] [place] [address] DOG AND CAT FOOD COOK: RAMIREZ CUELLO M.D. CLIA NUMBER [id number] [facility] [place]. [id number] CBC W/AUTO DIFF WITH [id number] 04:43:48* Test Item Value Reference Range Interpretation Comme nts WBC (test code = 1001) 9.6 K/UL 3.5-11.0 RBC (test code = 1002) 4.42 M/UL 3.80-5.40 HEMOGLOBIN (test code = 1003) 12.8 G/DL 11.5-15.5 HEMATOCRIT (test code = 1004) 37.0 % 34.0-45.0 MCV (test code = 1005) 83.7 fL 80.0-99.0 MCH (test code = 1006) 29.0 PG 25.0-33.0 MCHC (test code = 1007) 34.6 G/DL 31.0-36.0 RDW (test code = 1038) 12.8 % 11.5-15.0 NEUTROPHILS (test code = 1008) 56.3 % LYMPHOCYTES (test code = 1010) 33.7 % MONOCYTES (test code = 1011) 5.3 % EOSINOPHILS (test code = 1012) 3.5 % BASOPHILS (test code = 1013) 0.9 % IMMATURE GRANULOCYTES (test code = 1036) 0.3 % NUCLEATED RBCS (test code = 1065) 0.0 /100 WBC'S See_Comment [Automated messa ge] The system which generated this result transmitted reference range: 0.0. The reference range was not used to interpret this result as normal/abnormal. PLATELET COUNT (test code = 1015) 345 K/UL 130-400 ABSOLUTE NEUTROPHILS (test code = 1066) 5.42 K/UL 1.50-7.50 ABSOLUTE LYMPHOCYTES (test code = 1067) 3.25 K/UL 1.00-4.00 ABSOLUTE MONOCYTES (test code = 1068) 0.51 K/UL 0.20-1.00 ABSOLUTE EOSINOPHILS (test code = 1040) 0.34 K/UL 0.00-0.50 ABSOLUTE BASOPHILS (test code = 1069) 0.09 K/UL 0.00-0.20 ABS IMMATURE GRANULOCYTES (test code = 1020) 0.03 K/UL 0.00-0.10 ABS NUCLEATED RBCS (test code = 29857) 0.00 K/UL 0.00-0.11 HEMOGLOBIN [id number] 04:35:33* Test Item Value Reference Range Interpretation Comme nts HEMOGLOBIN A1c (test code = 24943) 5.8 % 4.2-5.6 H CBC W/AUTO [id number] 00:00:00* Test Item Value Reference Range Interpretation Comme nts WBC (test code = 1001) 9.6 K/UL RBC (test code = 1002) 4.42 M/UL HEMOGLOBIN (test code = 1003) 12.8 G/DL HEMATOCRIT (test code = 1004) 37.0 % MCV (test code = 1005) 83.7 fL MCH (test code = 1006) 29.0 PG MCHC (test code = 1007) 34.6 G/DL RDW (test code = 1038) 12.8 % NEUTROPHILS (test code = 1008) 56.3 % LYMPHOCYTES (test code = 1010) 33.7 % MONOCYTES (test code = 1011) 5.3 % EOSINOPHILS (test code = 1012) 3.5 % BASOPHILS (test code = 1013) 0.9 % IMMATURE GRANULOCYTES (test code = 1036) 0.3 % NUCLEATED RBCS (test code = 1065) 0.0 /100WBC'S PLATELET COUNT (test code = 1015) 345 K/UL ABSOLUTE NEUTROPHILS (test c ode = 1066) 5.42 K/UL ABSOLUTE LYMPHOCYTES (test c ode = 1067) 3.25 K/UL ABSOLUTE MONOCYTES (test cod e = 1068) 0.51 K/UL ABSOLUTE EOSINOPHILS (test c ode = 1040) 0.34 K/UL ABSOLUTE BASOPHILS (test cod e = 1069) 0.09 K/UL ABS IMMATURE GRANULOCYTES (t est code = 1020) 0.03 K/UL ABS NUCLEATED RBCS (test cod e = 88789) 0.00 K/UL Kenyon Escobar AustinCOMPREHENSIVE METABOLIC [id number] 00:00:00* Test Item Value Reference Range Interpretation Comme nts GLUCOSE (test code = 2217) 79 MG/DL BUN (test code = 2208) 12 MG/DL CREATININE (test code = 2214) 0.73 MG/DL eGFR (2020 CKD-EPI) (test code = 07037) 106 ML/MIN/1.73 CALC BUN/CREAT (test code = 2235) 16 RATIO SODIUM (test code = 2231) 139 MEQ/L POTASSIUM (test code = 2228) 4.6 MEQ/L CHLORIDE (test code = 2215) 106 MEQ/L CARBON DIOXIDE (test code = 2206) 23 MEQ/L CALCIUM (test code = 2209) 9.1 MG/DL PROTEIN, TOTAL (test code = 2229) 7.1 G/DL ALBUMIN (test code = 2201) 3.9 G/DL CALC GLOBULIN (test code = 2240) 3.2 G/DL CALC A/G RATIO (test code = 2234) 1.2 RATIO BILIRUBIN, TOTAL (test code = 2207) 0.4 MG/DL ALKALINE PHOSPHATASE (test code = 2204) 105 U/L AST (test code = 2218) 15 U/L ALT (test code = 2219) 28 U/L Kenyon BrownleeLIPID [id number] 00:00:00* Test Item Value Reference Range Interpretation Comme nts CHOLESTEROL (test code = 2210) 175 MG/DL TRIGLYCERIDES (test code = 2232) 103 MG/DL HDL CHOLESTEROL (test code = 2220) 47 MG/DL CALC LDL CHOL (test code = 2237) 108 MG/DL RISK RATIO LDL/HDL (test cod e = 2238) 2.30 RATIO Kenyon BrownleeHEMOGLOBIN [id number] 00:00:00* Test Item Value Reference Range Interpretation Comme nts HEMOGLOBIN A1c (test code = 64522) 5.8 % Kenyon [id number] 00:00:00* Test Item Value Reference Range Interpretation Comme nts TSH, THIRD GENERATION (test code = 2821) 1.790 UIU/ML Kenyon BrownleeCBC W/AUTO [id number] 00:00:00* Test Item Value Reference Range Interpretation Comme nts WBC (test code = 1001) 9.6 K/UL RBC (test code = 1002) 4.42 M/UL HEMOGLOBIN (test code = 1003) 12.8 G/DL HEMATOCRIT (test code = 1004) 37.0 % MCV (test code = 1005) 83.7 fL MCH (test code = 1006) 29.0 PG MCHC (test code = 1007) 34.6 G/DL RDW (test code = 1038) 12.8 % NEUTROPHILS (test code = 1008) 56.3 % LYMPHOCYTES (test code = 1010) 33.7 % MONOCYTES (test code = 1011) 5.3 % EOSINOPHILS (test code = 1012) 3.5 % BASOPHILS (test code = 1013) 0.9 % IMMATURE GRANULOCYTES (test code = 1036) 0.3 % NUCLEATED RBCS (test code = 1065) 0.0 /100WBC'S PLATELET COUNT (test code = 1015) 345 K/UL ABSOLUTE NEUTROPHILS (test c ode = 1066) 5.42 K/UL ABSOLUTE LYMPHOCYTES (test c ode = 1067) 3.25 K/UL ABSOLUTE MONOCYTES (test cod e = 1068) 0.51 K/UL ABSOLUTE EOSINOPHILS (test c ode = 1040) 0.34 K/UL ABSOLUTE BASOPHILS (test cod e = 1069) 0.09 K/UL ABS IMMATURE GRANULOCYTES (t est code = 1020) 0.03 K/UL ABS NUCLEATED RBCS (test cod e = 62997) 0.00 K/UL Kenyon Escobar KemCOMPREHENSIVE METABOLIC [id number] 00:00:00* Test Item Value Reference Range Interpretation Comme nts GLUCOSE (test code = 2217) 79 MG/DL BUN (test code = 2208) 12 MG/DL CREATININE (test code = 2214) 0.73 MG/DL eGFR (2020 CKD-EPI) (test code = 79430) 106 ML/MIN/1.73 CALC BUN/CREAT (test code = 2235) 16 RATIO SODIUM (test code = 2231) 139 MEQ/L POTASSIUM (test code = 2228) 4.6 MEQ/L CHLORIDE (test code = 2215) 106 MEQ/L CARBON DIOXIDE (test code = 2206) 23 MEQ/L CALCIUM (test code = 2209) 9.1 MG/DL PROTEIN, TOTAL (test code = 2229) 7.1 G/DL ALBUMIN (test code = 2201) 3.9 G/DL CALC GLOBULIN (test code = 2240) 3.2 G/DL CALC A/G RATIO (test code = 2234) 1.2 RATIO BILIRUBIN, TOTAL (test code = 2207) 0.4 MG/DL ALKALINE PHOSPHATASE (test code = 2204) 105 U/L AST (test code = 2218) 15 U/L ALT (test code = 2219) 28 U/L Kenyon BrownleeLIPID [id number] 00:00:00* Test Item Value Reference Range Interpretation Comme nts CHOLESTEROL (test code = 2210) 175 MG/DL TRIGLYCERIDES (test code = 2232) 103 MG/DL HDL CHOLESTEROL (test code = 2220) 47 MG/DL CALC LDL CHOL (test code = 2237) 108 MG/DL RISK RATIO LDL/HDL (test cod e = 2238) 2.30 RATIO Kenyon BrownleeHEMOGLOBIN [id number] 00:00:00* Test Item Value Reference Range Interpretation Comme nts HEMOGLOBIN A1c (test code = 66329) 5.8 % Kenyon [id number] 00:00:00* Test Item Value Reference Range Interpretation Comme nts TSH, THIRD GENERATION (test code = 2821) 1.790 UIU/ML Kenyon BrownleeVAGINAL PATHOGENS DNA [id number] 15:33:56* Test Item Value Reference Range Interpretation Comme nts RAMAKRISHNA SPECIES (test code = 50649) NEGATIVE NEGATIVE G. VAGINALIS (test code = 43799) POSITIVE NEGATIVE A T. VAGINALIS (test code = 81510) NEGATIVE NEGATIVE UNLESS OTHERWISE INDICATED, ALL TESTING PERFORMED [facility] [email or web address] [employer] [address] [place] [address] DOG AND CAT FOOD COOK: RAMIREZ CUELLO M.D. CLIA NUMBER [id number] [facility] [place]. [id number] PAP TEST, THINPREP, [id number] 14:29:43* Test Item Value Reference Range Interpretation Comme nts SOURCE: (test code = 8001) Cervical SLIDES: (test code = 8011) 1 LMP: (test code = 8021) 09/29/2021 SPECIMEN ADEQUACY: (test code = 70295) (NOTE) Satisfactory for evaluation. Endocervical cells/transformation zone component present. INTERPRETATION: (test code = 35055) NILM/NO EPITH. ABNORMALITY;SEE BELOW --- - NEGATIVE FOR INTRAEPITHELIAL LESION OR MALIGNANCY (NILM) ---- OTHER COMMENTS: (test code = 8081) (NOTE) Shift in javier suggestive of bacterial vaginosis. MID LEVEL CLINICIAN : (test code = 8101) YE Rey(ASCP) IAC LOCATION: (test code = 72159) (NOTE) Specimens proces sed and interpreted at [facility], [address] [place] [address], , CLIA: [id number] CPT: (test code = 8140) (NOTE) [address] UNLESS OTH ERWISE INDICATED, COMPUTER AIDED AND MID LEVEL CLINICIAN SCREENING PERFORMED. The Pap test is a screening test with an inherent, but low probability of error. Your patient should be reminded to consult you immediately if she experiences any suspicious signs or symptoms, regardless of her Pap test result. An alternate report format containing images or consolidated prior Pap history is available as applicable. UNLESS OTHERWISE INDICATED, ALL TESTING PERFORMED [facility] [email or web address] [address] [place] [address] DOG AND CAT FOOD COOK: RAMIREZ CUELLO M.D. CLIA NUMBER [id number] [facility] [place]. [id number] PAP TEST, THINPREP, [id number] 00:00:00* Test Item Value Reference Range Interpretation Comme nts SOURCE: (test code = 8001) Cervical SLIDES: (test code = 8011) 1 LMP: (test code = 8021) 09/29/2021 SPECIMEN ADEQUACY: (test code = 70578) (NOTE) INTERPRETATION: (test code = 10420) NILM/NO EPITH. ABNORMALITY;SEE BELOW OTHER COMMENTS: (test code = 8081) (NOTE) MID LEVEL CLINICIAN: (test code = 8101) YE Rey(ASCP)IAC LOCATION: (test code = 64980) (NOTE) CPT: (test code = 8140) (NOTE) Kenyon BrownleeVAGINAL PATHOGENS DNA [id number] 00:00:00* Test Item Value Reference Range Interpretation Comme nts RAMAKRISHNA SPECIES (test code = 11395) NEGATIVE G. VAGINALIS (test code = ) POSITIVE T. VAGINALIS (test code = ) NEGATIVE Kenyon BrownleePAP TEST, THINPREP, [id number] 00:00:00* Test Item Value Reference Range Interpretation Comme nts SOURCE: (test code = 8001) Cervical SLIDES: (test code = 8011) 1 LMP: (test code = 8021) 09/29/2021 SPECIMEN ADEQUACY: (test code = 71607) (NOTE) INTERPRETATION: (test code = 76116) NILM/NO EPITH. ABNORMALITY;SEE BELOW OTHER COMMENTS: (test code = 8081) (NOTE) MID LEVEL CLINICIAN: (test code = 8101) YE Rey(ASCP)IAC LOCATION: (test code = 06543) (NOTE) CPT: (test code = 8140) (NOTE) Kenyon BrownleeVAGINAL PATHOGENS DNA [id number] 00:00:00* Test Item Value Reference Range Interpretation Comme nts RAMAKRISHNA SPECIES (test code = 97629) NEGATIVE G. VAGINALIS (test code = 34944) POSITIVE T. VAGINALIS (test code = 52128) NEGATIVE Kenyon BrownleeHCG, [id number] 06:38:23* Test Item Value Reference Range Interpretation Comme nts HCG, QUANTITATIVE (test code = 2506) <5 MIU/ML SEE BELOW EXPEC ROSALBA VALUES FOR HCG GST.AGE UNITS RANGE GST. AGE UNITS RANGE3 WEEKS MIU/ML 6-71 10 WEEKS MIU/ML 46,509-186,9774 WEEKS MIU/ML 10-750 12 WEEKS MIU/ML 27,832-210,6125 WEEKS MIU/ML 217-7,138 14 WEEKS MIU/ML 13,950-62,5306 WEEKS MIU/ML 158-31,795 15 WEEKS MIU/ML 12,039-70,9717 WEEKS MIU/ML 3,697-163,563 16 WEEKS MIU/ML 9,040-56,4518 WEEKS MIU/ML 32,065-149,571 17 WEEKS MIU/ML 8,175-55,8689 WEEKS MIU/ML 63,803-151,410 18 WEEKS MIU/ML 8,099-58,176MALES and NON- FEMALES . . . . . . . . MIU/ML 5-2WUPL-ZDHLVNKEXS FEMALES . . . . . . . . . . . . MIU/ML <=7 UNLESS OTHERWISE INDICATED, ALL TESTING PERFORMED [facility] [address] [place] [address] DOG AND CAT FOOD COOK: RAMIREZ CUELLO M.D. CLIA NUMBER [id number] [facility]. [id number] HCG, QUANTITATIVE [ADDED]2021-10-21 00:00:00* Test Item Value Reference Range Interpretation Comme nts HCG, QUANTITATIVE (test code = 2506) <5 MIU/ML Kenyon F AustinHCG, QUANTITATIVE [ADDED]2021-10-21 00:00:00* Test Item Value Reference Range Interpretation Comme nts HCG, QUANTITATIVE (test code = 2506) <5 MIU/ML Kenyon F AustinPOCT [id number] 13:48:00* Test Item Value Reference Range Interpretation Comme nts POCT PREG (test code = 1605) Negative On board controls acceptable with C Line (test code = 3574) Yes POCT PREG LOT # (test code = 3575) POCT PREG TEST DATE ( test code = 3576) [facility] [id number] 00:00:00* Test Item Value Reference Range Interpretation Comme nts HCG, QUANTITATIVE (test code = 2506) <5 MIU/ML Kenyon F AustinHCG, [id number] 00:00:00* Test Item Value Reference Range Interpretation Comme nts HCG, QUANTITATIVE (test code = 2506) <5 MIU/ML Kenyon F AustinHCG, [id number] 00:00:00* Test Item Value Reference Range Interpretation Comme nts HCG, QUANTITATIVE (test code = 2506) <5 MIU/ML Kenyon F AustinHCG, [id number] 00:00:00* Test Item Value Reference Range Interpretation Comme nts HCG, QUANTITATIVE (test code = 2506) <5 MIU/ML Kenyon F AustinHCG, [id number] 00:00:00* Test Item Value Reference Range Interpretation Comme nts HCG, QUANTITATIVE (test code = 2506) <5 MIU/ML Kenyon F AustinHCG, [id number] 00:00:00* Test Item Value Reference Range Interpretation Comme nts HCG, QUANTITATIVE (test code = 2506) <5 MIU/ML Kenyon BrownleeHCG, [id number] 00:00:00* Test Item Value Reference Range Interpretation Comme nts HCG, QUANTITATIVE (test code = 2506) <5 MIU/ML Kenyoneleanor BrownleeHCG, [id number] 00:00:00* Test Item Value Reference Range Interpretation Comme nts HCG, QUANTITATIVE (test code = 2506) <5 MIU/ML Kenyon BrownleeHCG, [id number] 00:00:00* Test Item Value Reference Range Interpretation Comme nts HCG, QUANTITATIVE (test code = 2506) <5 MIU/ML Kenyon Escobar AustinVAGINAL PATHOGENS DNA [id number] 00:00:00* Test Item Value Reference Range Interpretation Comme nts RAMAKRISHNA SPECIES (test code = 79022) NEGATIVE G. VAGINALIS (test code = 12595) POSITIVE T. VAGINALIS (test code = 44434) NEGATIVE Kenyon BrownleeHCG, [id number] 00:00:00* Test Item Value Reference Range Interpretation Comme nts HCG, QUANTITATIVE (test code = 2506) <5 MIU/ML Kenyon Escobar AustinVAGINAL PATHOGENS DNA [id number] 00:00:00* Test Item Value Reference Range Interpretation Comme nts RAMAKRISHNA SPECIES (test code = 31931) NEGATIVE G. VAGINALIS (test code = 64709) POSITIVE T. VAGINALIS (test code = 82314) NEGATIVE Kenyon Brownlee [facility] Date/Time Note Provider Source 2023-08-21 00:00:00 [id number]+FyRVV6/vYIl1EN [id number]+BLquRi4Tky27SL/[id number] T00:00:00+ + +| Plan Activity | Plan Date |+ + +| reassurance given that unlikely given BTL and current menses, patient | 2018-01-01 || requesting serum Hcg | || wet mount today, defer tx until results return | || Appended: 2019-09-11 | || UPT negative | || Sent patient to ER for further evaluation and R/O ectopic . | |+ + +| keflex BID | 2018-01-01 |+ + +| UA: Negative | 2018-05-22 || UPT: Negative | || Check serum HCG quantitative. | |+ + +| Helpful Guidelines for Successful Weight Loss | 2018-05-22 || Weight loss should occur when you eat fewer calories than you burn. Increasing | || physical activity while | || limiting your calories will increase your rate of weight loss. Increasing | || physical activity will also help | || you to maintain your weight after weight loss. Discuss appropriate calorie | || levels and serving sizes with | || your dietitian. | || 1. Keep a written food and physical activity journal. | || 2. Weigh yourself once per week at the same time of day, with the same amount | || of clothing, and on the same scale. | || 3. Eat breakfast everyday and do not skip meals. Skipping meals can lead to | || extreme hunger, overeating and poor food choices. | || 4. Plan your meals and eat around the same time every day. | || 5. Pick an eating area at home and/or work. | || 6. Turn off the TV and/or computer during meals and snacks. | || 7. Eat slowly. Take 30 minutes for a meal. It takes 20 minutes before you feel | || full, so wait 20 | || minutes after your first serving before taking a second serving. | || 8. Eat protein foods first to help you feel full sooner. | || 9. Read food labels to help control portions of food. | || 10. Eat less fat and sugar. Eat more fiber, including fresh fruits/vegetables | || and whole grains. | || 11. Limit restaurant and fast food meals. | || 12. Don t keep problem foods around the house and/or at work. A | || problem food is a food that you are | || likely to eat too much of or too often if readily available. | || 13. Drink at least 8 cups (64 ounces) of liquids per day. Focus on | || calorie-free, caffeine-free | || beverages. | || 14. Get adequate sleep each night (7-9 hours). | |+ + +| Recommend OTC sleep aid and RTO if no success for rx sleep aid | 2018-10-03 |+ + +| UPT negative in office | 2019-09-17 || pt requests blood work to confirm. | || pending result | |+ + +| UPT negative. | 2020-06-27 || Blood work to confirm | |+ + +| Exercise 45-60 minutes per day at least 4-5 days per week. | 2020-06-27 |+ + +| Exercise 45-60 minutes per day at least 4-5 days per week. | 2020-06-27 |+ + +| Medrol dose pack | 2020-06-27 || SE per pharmacy/ Verbal RX given | || Return if no improvement in 2 weeks or sooner if symptoms return | || Return for Wellness exam at earliest convenience | |+ + +| WWE | 2021-10-26 || Pap+wet rosmery | || RTO in 1 year | |+ + +| Wet mount sent | 2021-10-26 |+ + +| Mammo referral sent | 2021-10-26 |+ + +| CBC, CMP, Lipids, A1C, TSH | 2021-11-02 || Monitor calories | |+ + +| Pt educated on eating a well balanced diet and at least 30 min of aerobic | 2023-08-18 || exercise a day or 150 min a week | |+ + +| RTC on annual exam | 2023-08-18 || SBE | || If 40 or greater, schedule 1-2 year MMG as indicated | || If 50 or greater, schedule colonoscopy or give Heme card. | || Recommend Ca 2+ and Vitamin D if menopausal | || DEXA at 65 and greater | || Immunizations as age indicated | || Annual well adult with PCP as indicated | || STI labs -desires | || Await diagnostic results | |+ + +| STD panel : Hep, HIV, RPR, G/C | 2023-08-18 |+ + +| educated pt that since she had her tubes tied it is unlikely that she will get | 2023-08-18 || and additional contraceptive method is not necessary. | |+ + +| discussed tobacoo cessation | 2023-08-21 |+ + +| discussed tobacoo cessation | 2023-08-21 |+ + +| UPT negative in office | 2023-08-21 || pt requests blood work to confirm. | || pending result | |+ + +[id number] of TreatmentLNCARE PLANTSTONY BROOK UNIVERSITY [facility]OSPITALFA|[facility]-[id number] for patient k[id number] Section NarrativeNARRATIVEFormatted C-CDA narrative textSFAStmaged rBandon [facility]2024-05-15T00:00:00 Kenyon Brandon [facility] 2023-08-18 00:00:00 SCmTlTQqFJeV0gGBKOZd igmLePMNMcObNfecy 3GmvM+3F80ljWcg0zQLKDY78IqK2701-87-45 T00:00:00+ + +| Plan Activity | Plan Date |+ + +| reassurance given that unlikely given BTL and current menses, patient | 2018-01-01 || requesting serum Hcg | || wet mount today, defer tx until results return | || Appended: 2019-09-11 | || UPT negative | || Sent patient to ER for further evaluation and R/O ectopic . | |+ + +| keflex BID | 2018-01-01 |+ + +| UA: Negative | 2018-05-22 || UPT: Negative | || Check serum HCG quantitative. | |+ + +| Helpful Guidelines for Successful Weight Loss | 2018-05-22 || Weight loss should occur when you eat fewer calories than you burn. Increasing | || physical activity while | || limiting your calories will increase your rate of weight loss. Increasing | || physical activity will also help | || you to maintain your weight after weight loss. Discuss appropriate calorie | || levels and serving sizes with | || your dietitian. | || 1. Keep a written food and physical activity journal. | || 2. Weigh yourself once per week at the same time of day, with the same amount | || of clothing, and on the same scale. | || 3. Eat breakfast everyday and do not skip meals. Skipping meals can lead to | || extreme hunger, overeating and poor food choices. | || 4. Plan your meals and eat around the same time every day. | || 5. Pick an eating area at home and/or work. | || 6. Turn off the TV and/or computer during meals and snacks. | || 7. Eat slowly. Take 30 minutes for a meal. It takes 20 minutes before you feel | || full, so wait 20 | || minutes after your first serving before taking a second serving. | || 8. Eat protein foods first to help you feel full sooner. | || 9. Read food labels to help control portions of food. | || 10. Eat less fat and sugar. Eat more fiber, including fresh fruits/vegetables | || and whole grains. | || 11. Limit restaurant and fast food meals. | || 12. Don t keep problem foods around the house and/or at work. A | || problem food is a food that you are | || likely to eat too much of or too often if readily available. | || 13. Drink at least 8 cups (64 ounces) of liquids per day. Focus on | || calorie-free, caffeine-free | || beverages. | || 14. Get adequate sleep each night (7-9 hours). | |+ + +| Recommend OTC sleep aid and RTO if no success for rx sleep aid | 2018-10-03 |+ + +| UPT negative in office | 2019-09-17 || pt requests blood work to confirm. | || pending result | || advised pt to bring her at home test to [facility] next time she is concerned about | || . will compare results in office | |+ + +| UPT negative. | 2020-06-27 || Blood work to confirm | |+ + +| Exercise 45-60 minutes per day at least 4-5 days per week. | 2020-06-27 |+ + +| Exercise 45-60 minutes per day at least 4-5 days per week. | 2020-06-27 |+ + +| Medrol dose pack | 2020-06-27 || SE per pharmacy/ Verbal RX given | || Return if no improvement in 2 weeks or sooner if symptoms return | || Return for Wellness exam at earliest convenience | |+ + +| [facility] | 2021-10-26 || Pap+merlene botello | || RTO in 1 year | |+ + +| Merlene botello sent | 2021-10-26 |+ + +| Mammo referral sent | 2021-10-26 |+ + +| CBC, CMP, Lipids, A1C, TSH | 2021-11-02 || Monitor calories | |+ + +| Pt educated on eating a well balanced diet and at least 30 min of aerobic | 2023-08-18 || exercise a day or 150 min a week | |+ + +| RTC on annual exam | 2023-08-18 || SBE | || If 40 or greater, schedule 1-2 year MMG as indicated | || If 50 or greater, schedule colonoscopy or give Heme card. | || Recommend Ca 2+ and Vitamin D if menopausal | || DEXA at 65 and greater | || Immunizations as age indicated | || Annual well adult with PCP as indicated | || STI labs -desires | || Await diagnostic results | |+ + +| STD panel : Hep, HIV, RPR, G/C | 2023-08-18 |+ + +| educated pt that since she had her tubes tied it is unlikely that she will get | 2023-08-18 || and additional contraceptive method is not necessary. | |+ + [id number] of TreatmentLNCARE PLANTXTSFA|[id number] for patient [id number] Section NarrativeNARRATIVEFormatted C-CDA narrative textSFAStmaged [facility]2024-05-11T00:00:00 [place] [facility]"
[2023-09-03] MEDS ORDERED: KETOROLAC 30 MG/ML INJ ONE (01:48)
[2023-09-03] MEDS ORDERED: methocarbamoL 500 MG TAB ONE (01:48)
[2023-09-03] MEDS ORDERED: ACETAMINOPHEN 500 MG TAB ONE (01:48)
--- NOTE | 2023-09-03 03:45 | EDPHYS ---
Physician Documentation [facility] Name: Nidia Ford Age: 43 yrs Sex: Female : 1980 Arrival Date: 09/03/2023 Time: 01:22 Bed 18 Private MD: ED Physician Ludin Pizano HPI: 09/02 01:39 This 43 yrs old Female presents to ER via Unassigned with complaints of Knee ec2 Pain, Knee Injury. 01:39 Patient arrives today for evaluation of right knee pain. Patient reports ongoing knee ec2 pain for the past 6 days. Patient reports no falls injuries or trauma. States that she injured after kneeling for prolonged period of time. Patient reports that she has not taken any medications for the symptoms. Patient reports no history of arthritis, no history of previous knee pathology.. 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 - Infectious Disease History:: Denies. - Social history:: Smoking status: Patient reports the use of cigarette tobacco products, denies chronic smoking, but will smoke occasionally, Patient/guardian denies using alcohol, street drugs. ROS: 01:39 Constitutional: as per hpi ec2 Exam: 01:39 Constitutional: GEN: NAD Head: atraumatic Eyes: EOMI Ears: External ears are ec2 normal. CV: regular rate LUNGS: no respiratory distress ABD: non-distended SKIN: no evidence of rashes MSK: no evidence of trauma, good range of motion of the right lower extremity, scant knee effusion appreciated, no evidence of trauma, intact distal neurovascular status, no bony deformities appreciated. NEURO: moves all extremities equally Vital Signs: 01:43 BP 112 / 55; Pulse 72; Resp 16; Temp 97.8; Pulse Ox 100% on R/A; Weight 70.31 kg; pf1 Height 5 ft. 0 in. ; Pain 8/10; 02:00 BP 110 / 64; Pulse 66; Resp 16 S; Pulse Ox 96% on R/A; jw7 03:00 BP 106 / 64; Pulse 54; Resp 16 S; Pulse Ox 97% on R/A; jw7 04:01 BP 108 / 65; Pulse 60; Resp 16 S; Pulse Ox 100% on R/A; jw7 01:43 Body Mass Index 30.27 (70.31 kg, 152.4 cm) pf1 01:43 Pain Scale: Adult pf1 MDM: 01:29 Patient medically screened. ec2 01:39 Data reviewed: vital signs. ED course: Patient arrives today for evaluation of right ec2 knee pain. Examination remarkable for knee findings as noted above. Will obtain radiograph of the knee. Differential diagnosis includes bony fracture, knee sprain, bony contusion. 03:44 ED course: Knee x-ray independently reviewed and interpreted by me, no significant ec2 effusion, no bony fracture appreciated, small sesamoid bone noted. Will discharge home, prescribed the patient Robaxin as needed. . 09/02 01:38 Order name: Knee Right 3 View XRAY ec2 Administered Medications: 01:54 Drug: Methocarbamol PO 500 mg PO once Route: PO; jw7 03:09 Follow up: Response: No adverse reaction; Marked relief of symptoms jw7 01:54 Drug: Ketorolac IM 15 mg IM once Route: IM; Site: right deltoid; jw7 03:09 Follow up: Response: No adverse reaction; Marked relief of symptoms jw7 01:54 Drug: Acetaminophen PO 1000 mg PO once Route: PO; jw7 03:09 Follow up: Response: No adverse reaction; Marked relief of symptoms jw7 Disposition Summary: 09/03/23 03:45 Discharge Ordered Notes: Location: Home ec2 Condition: Stable ec2 Diagnosis - Sprain of unspecified site of right knee ec2 Followup: ec2 - With: Private Physician - When: - Reason: Re-evaluation by your physician Discharge Instructions: - Discharge Summary Sheet ec2 - Knee Sprain, Adult, [id number] ec2 Forms: - Work release form jw7 - Medication Reconciliation Form ec2 - Antibiotic Education ec2 - Prescription Opioid Use ec2 - Patient Portal Instructions ec2 - Leadership Thank You Letter ec2 Prescriptions: - methocarbamol 500 mg Oral tablet - take 2 tablets ORAL route 4 times per day; 20 tablet; Refills: 0, Product ec2 Selection Permitted Signatures: Dispatcher [employer] Chata Escobar RN RN jw7 Laura Diez RN RN pf1 Ludin Pizano MD MD ec2
--- NOTE | 2023-09-03 03:45 | ER ---
Nurse's Notes [facility] Name: Nidia Ford Age: 43 yrs Sex: Female : 1980 Arrival Date: 09/03/2023 Time: 01:22 Bed 18 Private MD: Diagnosis: Sprain of unspecified site of right knee Presentation: 09/02 01:43 Chief complaint: Patient states: right knee pain of 8,onset Monday. Patient stated pf1 while at work was kneeling then upon standing the right knee pain started. Patient denies any injury. Coronavirus screen: Vaccine status: Patient reports receiving the 2nd dose of the covid vaccine. At this time, the client does not indicate any symptoms associated with coronavirus-19. Ebola Screen: Patient negative for fever greater than or equal to 101.5 degrees Fahrenheit, and additional compatible Ebola Virus Disease symptoms. Initial Sepsis Screen: Does the patient meet any 2 criteria? No. Patient's initial sepsis screen is negative. Does the patient have a suspected source of infection? No. Patient's initial sepsis screen is negative. Risk Assessment: Do you want to hurt yourself or someone else? Patient reports no desire to harm self or others. Onset of symptoms was August 28, 2023. 01:43 Method Of Arrival: Ambulatory pf1 01:43 Acuity: ANASTACIO 4 pf1 Triage Assessment: 01:47 General: Appears in no apparent distress. uncomfortable, well groomed, well developed, pf1 Behavior is calm, cooperative, appropriate for age, quiet. Pain: Complains of pain in right knee Pain currently is 8 out of 10 on a pain scale. Musculoskeletal: Circulation, motion, and sensation intact. Capillary refill < 3 seconds, Range of motion: intact in all extremities, Reports pain in right knee Pain is 8 out of 10 on a pain scale. 04:02 Injury Description:. 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 - Infectious Disease History:: Denies. - Social history:: Smoking status: Patient reports the use of cigarette tobacco products, denies chronic smoking, but will smoke occasionally, Patient/guardian denies using alcohol, street drugs. Screenin:48 [facility] ED Fall Risk Assessment (Adult) History of falling in the last 3 months, pf1 including since admission No falls in past 3 months (0 pts) Confusion or Disorientation No (0 pts) Intoxicated or Sedated No (0 pts) Impaired Gait No (0 pts) Mobility Assist Device Used No (0 pt) Altered Elimination No (0 pt) Score/Fall Risk Level 0 - 2 = Low Risk Oriented to surroundings, Maintained a safe environment, Educated pt \T\ family on fall prevention, incl call for assistance when getting out of bed, Assessed \T\ reinforced patient's understanding of fall precautions, Provided non-skid footwear, Hourly rounding (assess needs \T\ fall precautionary measures) done, Used ambulatory aids as needed (educated on \T\ assisted with), Used gait belt as appropriate. Abuse screen: Denies threats or abuse. Nutritional screening: No deficits noted. Tuberculosis screening: No symptoms or risk factors identified. Assessment: 02:00 Pain: Complains of pain in right knee Pain does not radiate. Pain currently is 8 out of jw7 10 on a pain scale. Quality of pain is described as throbbing, Pain began gradually, Is continuous. Neuro: Level of Consciousness is awake, alert, obeys commands, Oriented to person, place, time, situation, Appropriate for age. Cardiovascular: Heart tones S1 S2 present Capillary refill < 3 seconds Clubbing of nail beds is absent JVD is absent Patient's skin is warm and dry. Respiratory: Airway is patent Trachea midline Respiratory effort is even, unlabored, Respiratory pattern is regular, symmetrical, Breath sounds are clear bilaterally. GI: Abdomen is round non-distended, Bowel sounds present X 4 quads. Abd is soft and non tender X 4 quads. : No deficits noted. No signs and/or symptoms were reported regarding the genitourinary system. EENT: No deficits noted. No signs and/or symptoms were reported regarding the EENT system. Derm: Skin is intact, is healthy with good turgor, Skin is dry, Skin is normal, Skin temperature is warm. Musculoskeletal: Circulation, motion, and sensation intact. Range of motion: limited in right knee. 02:00 General: Appears in no apparent distress. comfortable, Behavior is calm, cooperative, jw7 appropriate for age. 03:10 Reassessment: Patient appears in no apparent distress at this time. No changes from jw7 previously documented assessment. Patient and/or family updated on plan of care and expected duration. Pain level reassessed. Patient is alert, oriented x 3, equal unlabored respirations, skin warm/dry/pink. 04:01 Reassessment: Patient appears in no apparent distress at this time. Patient and/or jw7 family updated on plan of care and expected duration. Pain level reassessed. Patient is alert, oriented x 3, equal unlabored respirations, skin warm/dry/pink. Patient states feeling better. Patient states symptoms have improved. Vital Signs: 01:43 BP 112 / 55; Pulse 72; Resp 16; Temp 97.8; Pulse Ox 100% on R/A; Weight 70.31 kg; pf1 Height 5 ft. 0 in. ; Pain 8/10; 02:00 BP 110 / 64; Pulse 66; Resp 16 S; Pulse Ox 96% on R/A; jw7 03:00 BP 106 / 64; Pulse 54; Resp 16 S; Pulse Ox 97% on R/A; jw7 04:01 BP 108 / 65; Pulse 60; Resp 16 S; Pulse Ox 100% on R/A; jw7 01:43 Body Mass Index 30.27 (70.31 kg, 152.4 cm) pf1 01:43 Pain Scale: Adult pf1 ED Course: 01:27 Patient arrived in ED. gm2 01:29 Ludin Pizano MD is Attending Physician. ec2 01:35 Chata Sandoval RN is Primary Nurse. jw7 01:46 Triage completed. pf1 01:52 Knee Right 3 View XRAY In Process Unspecified. EDMS 02:17 Arm band placed on. jw7 02:17 Patient has correct armband on for positive identification. Bed in low position. Call jw7 light in reach. Provided Education on: Use of Call Light. 04:02 No provider procedures requiring assistance completed. Patient did not have IV access jw7 during this emergency room visit. Administered Medications: 01:54 Drug: Methocarbamol PO 500 mg PO once Route: PO; jw7 03:09 Follow up: Response: No adverse reaction; Marked relief of symptoms jw7 01:54 Drug: Ketorolac IM 15 mg IM once Route: IM; Site: right deltoid; jw7 03:09 Follow up: Response: No adverse reaction; Marked relief of symptoms jw7 01:54 Drug: Acetaminophen PO 1000 mg PO once Route: PO; jw7 03:09 Follow up: Response: No adverse reaction; Marked relief of symptoms jw7 Medication: 04:02 VIS not applicable for this client. jw7 Outcome: 03:45 Discharge ordered by . [email or web address] 04:02 Discharged to home ambulatory, jw7 04:02 Condition: stable 04:02 Discharge instructions given to patient, Instructed on discharge instructions, follow up and referral plans. medication usage, Demonstrated understanding of instructions, follow-up care, medications, Prescriptions given X 1, 04:03 Patient left the ED. jw7 Signatures: Dispatcher [employer] Chata Escobar RN RN jw7 Laura Diez RN RN pf1 Ludin Pizano MD MD ec2 Mayuri Pablo 2 Corrections: (The following items were deleted from the chart) 02:16 02:15 General: Appears in no apparent distress. comfortable, Behavior is calm, jw7 cooperative, appropriate for age, jw7 03:10 02:15 Pain: jw7 jw7
[2023-09-03 04:40] VITALS: BP 108/65; TEMP 97.8; O2SAT 100
--- NOTE | 2023-09-03 16:23 | RAD REPORT ---
EXAM DESCRIPTION: RAD - Knee Right 3 View - 09/03/2023 1:50 am CLINICAL HISTORY: Pain COMPARISON: None TECHNIQUE: Right Knee 3 Views FINDINGS: No fracture or dislocation. No significant sclerotic/lytic bone lesion. Joint spaces unremarkable. Soft tissues unremarkable. IMPRESSION: Unremarkable Right Knee Radiographs. Electronically signed by: Grant Larkin MD 09/03/2023 05:05 AM CDT RP Due to temporary technical issues with the PACS/Fluency reporting system, reports are being signed by the in house radiologists without review as a courtesy to insure prompt reporting. The interpreting radiologist is fully responsible for the content of the report.
== END 2023-09-03 04:03 | disposition home or self-care (01) ==
LOC: ER 01:22
DX: S83.91XA Sprain of unspecified site of right knee, initial encounter (principal)
CPT/HCPCS: 96372; 99284

== ENCOUNTER 2023-12-14 18:30 | Emergency (ER) | payer OTHER ==
--- OUTSIDE RECORDS SUMMARY | 2023-12-14 18:34 | XMS REPORT | Continuity of Care Document ---
Author Name Unknown Address [address] [place] [address] [facility] thconnect Address [address] [place] [address] Care Team Providers Care Teen Counselor Name Role Phone Yessenia Taylor Primary Care Physician [phone] YUE COLON Attending Clinician Unavail able Visit, [facility] Nurse Attending Clinician Unava ilable Noy uYe SAVAGE Attending Clinician + Doctor Unassigned, [place] Attending Clinician U navailable Payers Payer Name Policy Type Policy Number Effective Date Expirati on Date Source [facility] [id number] 2019 00:00:00 Problems Condition Name Condition Details Condition Category Status Onset Date Resolution Date Last Treatment Date Treating Clinician Comments Source Heavy menses Heavy menses Disease Active 10-01 00:00: 00 [facility] Stress incontinen ce Stress incontinen ce Disease Active 10-01 00:00: 00 [facility] Recent urinary tract infection Recent urinary tract infection Disease Active 2015-04 00:00: 00 [facility] Other general counseling and advice for contracept jorge management Other general counseling and advice for contracept jorge management Disease Active 2015-04 00:00: 00 [facility] History of bilateral tubal ligation History of bilateral tubal ligation Disease Active 2015-04 00:00: 00 [facility] Obesity (BMI 30-39.9) Obesity (BMI 30-39.9) Disease Active 09-22 00:00: 00 Overview: Formattin g of this note might be different from the original. 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 Utility [facility] Allergies, Adverse Reactions, Alerts Allergy Name Allergy Type Status Severity Reaction(s) Onset Date Inactive Date Treating Clinician Comments Source NO KNOWN ALLERGIE S Drug Class Active [facility] Social History Social Habit Start Date Stop Date Quantity Comments Source History SDOH Alcohol Std Drinks [facility] History SDOH Alcohol Binge [facility] intake 2023-08-21 00:00:00 2023-08-21 00:00:00 Ex-drinker (finding) [facility] Exposure to SARS-CoV-2 (event) 2021-10-09 00:00:00 2021-10-19 08:45:00 Not sure [facility] Tobacco use and exposure 2021-10-19 00:00:00 2021-10-19 00:00:00 Smokeless tobacco non-user [facility] History of Social function 2021-10-19 00:00:00 2021-10-19 00:00:00 [facility] Alcohol intake 2021-10-19 00:00:00 2021-10-19 00:00:00 Ex-drinker (finding) [facility] History SDOH Alcohol Frequency 2019-10-02 00:00:00 2019-10-02 00:00:00 2 [facility] Alcohol Comment 2019-10-02 00:00:00 2019-10-02 00:00:00 socially [facility] Sex assigned at 1980 00:00:00 1980 00:00:00 [facility] Smoking Status Start Date Stop Date Source Never smoked tobacco [facility] Medications Ordered Medication Name Filled Medication Name Start Date Stop Date Current Medication? Ordering Clinician Indication Dosage Frequency Signature (SIG) Comments Components Source Dose Unknown - 00:00: 00 Yes 800 Kenyon Brownlee Dose Unknown 11-10 00:00: 00 Yes Kenyon Brownlee TAKE 1 TABLET BY MOUTH EVERY 12 HOURS NEEDED 2-0 8-02 00:00: 00 Yes 4 Kenyon Brownlee TAKE 1 TABLET BY MOUTH EVERY 8 HOURS NEEDED FOR MUSCLE SPASMS 2-0 7-26 00:00: 00 Yes 10 Kenyon Brownlee Dose Unknown 2021-0 7-22 00:00: 00 Yes Kenyon Brownlee Dose Unknown 2021-0 7- 00:00: 00 Yes Kenyon Brownlee Dose Unknown 2021-0 7-21 00:00: 00 Yes 4 Kenyon Brownlee Dose Unknown 2021-0 7- 00:00: 00 Yes Kenyon Brownlee Dose Unknown 2021-0 7- 00:00: 00 Yes 800 Kenyon Brownlee metronidazo le 500 mg tablet 2021-0 -21 00:00: 00 Yes 1mg Kenyon Brownlee TAKE 1 TABLET BY MOUTH EVERY 12 HOURS WITH FOOD NEEDED FOR PAIN 2021-0 -20 00:00: 00 Yes 800 Kenyon Brownlee TAKE 1 TABLET BY MOUTH 5 TIMES A DAY FOR 7 DAYS 2021-0 7-19 00:00: 00 Yes 800 Kenyon Brownlee [...] 2021-0 7-12 00:00: 00 Yes 10 Kenyon Brownlee TAKE 1 TABLET BY MOUTH TWICE A [...] BY MOUTH EVERY 12 HOURS NEEDED 2021-0 6- 00:00: 00 Yes Kenyon Brownlee norethindro ne 0.35 mg tablet 2019-0 -24 00:00: 00 Yes [id number] 1{tbl} Take 1 tablet by mouth daily. [facility] metronidazo le 500 mg tablet 01-05 00:00: 00 Yes 1mg Kenyon Brownlee Keflex 500 mg capsule 01-01 00:00: 00 Yes 1mg Kenyon Brownlee Immunizations Ordered Immunization Name Filled Immunization Name Date Status Comments Source HPV9 2021-10-19 00:00:00 Completed [facility] HPV9 2021-10-19 00:00:00 Completed [facility] TDAP 2014-04-22 00:00:00 Completed [facility] TDAP 2014-04-22 00:00:00 Completed [facility] Influenza Virus Vaccine Quad IM Multi-dose 6+ MO 2014-03-25 00:00:00 Completed [facility] Influenza Virus Vaccine Quad IM Multi-dose 6+ MO 2014-03-25 00:00:00 Completed [facility] Varicella (varivax)(chicken pox) 2011-08-18 00:00:00 Completed [facility] Varicella (varivax)(chicken pox) 2011-08-18 00:00:00 Completed [facility] Rubella 2008-03-25 00:00:00 Completed [facility] Rubella 2008-03-25 00:00:00 Completed [facility] Td 2006-04-10 00:00:00 Completed [facility] TD, NOS 2006-04-10 00:00:00 Completed [facility] Rubella Unknown Completed [facility] TD, NOS Unknown Completed [facility] Varicella (varivax)(chicken pox) Unknown Completed [facility] Influenza Virus Vaccine Quad IM Multi-dose 6+ MO Unknown Completed [facility] TDAP Unknown Completed [facility] HPV9 Unknown Completed [facility] Vital Signs Vital Name Observation Time Observation Value Comments S ource Systolic blood pressure 2023-08-21 14:01:00 123 mm[Hg] [facility] Diastolic blood pressure 2023-08-21 14:01:00 76 mm[Hg] [facility] Heart rate 2023-08-21 14:01:00 56 /min [facility] Body temperature 2023-08-21 14:01:00 36.5 Sandie [facility] Respiratory rate 2023-08-21 14:01:00 18 /min [facility] Body height 2023-08-21 14:01:00 152.4 cm [facility] Body weight 2023-08-21 14:01:00 70.398 kg [facility] BMI 2023-08-21 14:01:00 30.31 kg/m2 [facility] Systolic blood pressure 2021-10-19 13:46:00 114 mm[Hg] [facility] Diastolic blood pressure 2021-10-19 13:46:00 65 mm[Hg] [place] [facility] Heart rate 2021-10-19 13:46:00 61 /min [facility] Body temperature 2021-10-19 13:46:00 36.22 Sandie [facility] Respiratory rate 2021-10-19 13:46:00 16 /min [facility] Body height 2021-10-19 13:46:00 152.4 cm [facility] Body weight 2021-10-19 13:46:00 67.223 kg [facility] BMI 2021-10-19 13:46:00 28.94 kg/m2 [facility] BP Systolic 2023-08-21 14:06:00 117 [...] 2023-08-21 14:06:00 18.00 /min Kenyon F Kem Height Measured 2023-08-18 11:31:00 59.00 inches Kenyon F Kem Body Temperature 2023-08-18 11:31:00 98.20 degrees Kenyon F Kem Heart Rate 2023-08-18 11:31:00 64.00 /min Marjan en F Kem Respiratory Rate 2023-08-18 11:31:00 Kenyon F Kem BP Systolic 2023-08-18 11:31:00 107 mm[Hg] Step hen F Kem BP Diastolic 2023-08-18 11:31:00 57 mm[Hg] Justice phen F Kem Weight Measured 2023-08-18 11:31:00 155.20 pounds Kenyon F Kem BP Systolic 2021-11-02 10:17:00 [...] 2021-10-26 08:51:00 54.00 /min Marjan en F Kem Respiratory Rate 2021-10-26 08:51:00 16.00 /min Kenyon [...] Source POCT TEST 2023-08-21 14:02:00 Jerad Colon [facility] GARDASIL 9 (HPV 9V) VACCINE 2021-10-19 14:03:36 Yue Colon [facility] POCT TEST 2021-10-19 13:48:00 Jerad Colon [facility] Encounters Start Date/Time End Date/Time Encounter Type Admission Type Attending [facility] Facility Care Department Encounter ID Source 2023-12-12 14:00:32 2023-12-12 14:00:32 Outpatient [facility] [id number] Kenyon Brownlee 2023-12-12 10:00:00 2023-12-12 10:00:00 Outpatient R [facility] [id number] [facility] 2023-09-13 10:27:40 2023-09-13 10:27:40 Outpatient [facility] [id number] Kenyon Brownlee 2023-08-21 14:02:13 2023-08-21 14:02:13 Outpatient [facility] [id number] Kenyoneleanor Brownlee 2023-08-21 09:00:00 2023-08-21 09:11:13 Outpatient R YUE COLON [facility] [id number] [facility] 2023-08-21 09:00:00 2023-08-21 09:11:13 Nurse Visit Visit, [facility] Nurse Yue Colon [facility] TECHNICAL CONSULTANT [facility]ERNAL & CHILD [facility] [id number] 350.1.13.10 [id number] [id number] [facility] 2023-08-21 00:00:00 2023-08-21 00:00:00 Outpatient Visit [facility] [id number] Kenyon Escobar Kem 2023-08-18 11:35:02 2023-08-18 11:35:02 Outpatient [facility] [id number] Kenyon Shawn Kem 2023-08-18 00:00:00 2023-08-18 00:00:00 Outpatient Visit [facility] [id number] Kenyon Brownlee 2023-01-03 13:30:00 2023-01-03 13:30:00 Outpatient R YUE COLON [facility] [id number] [facility] 2021-11-19 08:00:00 2021-11-19 08:00:00 Outpatient R [facility] [id number] [facility] 2021-11-19 08:00:00 2021-11-19 08:00:00 Outpatient R YUE COLON [facility] [id number] [facility] 2021-10-19 08:30:00 2021-10-19 09:36:55 Outpatient R YUE COLON [facility] [id number] [facility] 2021-10-19 08:30:00 2021-10-19 09:36:55 Office Visit Yue Colon [facility] TECHNICAL CONSULTANT [facility] [id number] 350.1.13.10 4.2.7.2.686 [id number] [facility] 2021-10-19 09:30:00 2021-10-19 09:30:00 Outpatient R YUE COLON [facility] [id number] [facility] 2021-10-19 08:30:00 2021-10-19 08:45:00 Nurse Visit Visit, Ang[facility] Nurse Yue Colon [facility] TECHNICAL CONSULTANT [facility] .2.840.114 350.1.13.10 4.2.7.2.686 [id number] [facility] 2021-10-19 08:30:00 2021-10-19 08:30:00 Outpatient R YUE COLON [facility] [id number] [facility] 2021-10-19 00:00:00 2021-10-19 00:00:00 Orders Only Doctor Unassigned, [place] [facility] 1.0.114 350.1.13.10 4.2.7.2.686 [id number] [facility] 2020-09-29 10:30:00 2020-09-29 10:30:00 Outpatient R YUE COLON [facility] [id number] [facility] 2020-01-13 14:00:00 2020-01-13 14:00:00 Outpatient R [facility] [id number] [facility] 2020-01-13 10:40:07 2020-01-13 11:11:28 [facility] TECHNICAL CONSULTANT [facility]ILD [facility] 1.840.114 350.1.13.10 4.2.7.2.686 [id number] [facility] 2020-01-02 14:30:00 2020-01-02 14:30:00 Outpatient R [facility] [id number] [facility] 2019-10-14 00:00:00 2019-10-14 00:00:00 Telephone Yue Colon [facility] TECHNICAL CONSULTANT [facility] 1.840.114 350.1.13.10 4.2.7.2.686 [id number] [facility] 2019-10-02 14:05:45 2019-10-02 16:18:05 Office Visit Yue Colon [facility] TECHNICAL CONSULTANT [facility] 1.0.114 350.1.13.10 4.2.7.2.686 [id number] [facility] 2019-10-02 14:15:00 2019-10-02 14:15:00 Outpatient R YUE COLON [facility] [id number] [facility] 2019-10-02 00:00:00 2019-10-02 00:00:00 Orders Only Doctor Unassigned, [place] [facility] 1..114 350.1.13.10 4.2.7.2.686 [id number] [facility] 2019-09-23 00:00:00 2019-09-23 00:00:00 Telephone Yue Colon [facility] TECHNICAL CONSULTANT [facility] 1.0.114 350.1.13.10 4.2.7.2.686 [id number] [facility] 2019-09-19 00:00:00 2019-09-19 00:00:00 Telephone Yue Colon [facility] TECHNICAL CONSULTANT [facility] CHILD [facility] 1.0.114 350.1.13.10 4.2.7.2.686 [id number] [facility] 2019-09-18 09:45:00 2019-09-18 09:45:00 Outpatient R YUE COLON [facility] [id number] [facility] 2019-09-18 08:23:20 2019-09-18 09:22:38 Office Visit Yue Colon [facility] TECHNICAL CONSULTANT [facility] CHILD [facility] 1..114 350.1.13.10 4.2.7.2.686 [id number] [facility] 2019-06-28 09:00:00 2019-06-28 09:00:00 Outpatient R YUE COLON [facility] [id number] [facility] 2019-05-24 10:29:28 2019-05-24 10:58:44 Nurse Visit Visit, Gaurang-[facility] Nurse Yue Colon [facility] TECHNICAL CONSULTANT [facility] CHILD [facility] 1..114 350.1.13.10 4.2.7.2.686 [id number] [facility] 2019-05-24 10:29:28 2019-05-24 10:58:44 Nurse Visit Visit, [facility] Nurse [facility] TECHNICAL CONSULTANT [facility] 1.2.840.114 350.1.13.10 4.2.7.2.686 [id number] 2019-05-24 00:00:00 2019-05-24 00:00:00 Orders Only Doctor Unassigned, [place] [facility] 1.2.840.114 350.1.13.10 4.2.7.2.686 [id number] [facility] 2019-05-24 00:00:00 2019-05-24 00:00:00 Orders Only Doctor Unassigned, [place] [facility] 1.2.840.114 350.1.13.10 4.2.7.2.686 [id number] Results Test Description Test Time Test Comments Results Result Co mments Source Kenyon Escobar AustinPOCT [id number] 14:02:00* Test Item Value Reference Range Interpretation Comme nts POCT PREG (test code = 1605) Negative On board controls acceptable with C Line (test code = 3574) Yes POCT PREG LOT # (test code = 3575) POCT PREG TEST DATE ( test code = 3576) [facility], [id number] 08:07:31* Test Item Value Reference Range Interpretation Comme nts CHLAMYDIA, NAAT, URINE (test code = 43197) NEGATIVE NEGATIVE Testing is perfo rmed with Homero PAULO 6800/8800 systems usingreal-time polymerase chain reaction (PCR) method. A negative result does not exclude low level infection, specimensampling error, or collection error. GONORRHEA, NAAT, [id number] 08:07:31* Test Item Value Reference Range Interpretation Comme nts GONORRHEA, NAAT, URINE (test code = 74710) NEGATIVE NEGATIVE Testing is perfo rmed with Homero PAULO 6800/8800 systems usingreal-time polymerase chain reaction (PCR) method. A negative result does not exclude low level infection, specimensampling error, or collection error. CHLAMYDIA, AMPLIFIED, [id number] 00:00:00* Test Item Value Reference Range Interpretation Comme nts CHLAMYDIA, NAAT, URINE (test code = 77828) NEGATIVE Kenyon BrownleeGC, AMPLIFIED, [id number] 00:00:00* Test Item Value Reference Range Interpretation Comme nts GONORRHEA, NAAT, URINE (test code = 67215) NEGATIVE Kenyon BrownleeHEPATITIS PANEL, [id number] 06:46:46* Test Item Value Reference Range Interpretation [...] infection. INTERPRETATION HEPATITIS B: (test code = 44480) (NOTE) Hepatitis B sero logy shows no evidence of past exposure to orcurrent infection with hepatitis B virus. No evidence of hepatitis Bimmunization is identified. INTERPRETATION HEPATITIS C: (test code = 25810) (NOTE) Hepatitis C sero logy shows no evidence of exposure to hepatitisC virus at this time. It can take up to 12 months after exposure tothe hepatitis C virus for antibodies to become detectable in the blood in certain patients. HEPATITIS A [id number] 06:46:46* Test Item Value Reference Range Interpretation Comme nts HEPATITIS A IgM (test code = 2728) NON-REACTIVE NON-REACTIVE UNLESS OTHERW ISE INDICATED, ALL TESTING PERFORMED AT [facility] [address] [place] [address] SURFACE SHIP USW SUPERVISOR: DAVID DAVE M.D. CLIA NUMBER [id number] [facility] [place]. [id number] HIV 1/2 4TH GEN, RFLX [id number] 06:46:46* Test Item Value Reference Range Interpretation Comme nts HIV 1/2 4TH GEN, RFLX CONF ( test code = 3514) NON-REACTIVE NON-REACTIVE RPR REFLEX TO [id number] 03:49:07* Test Item Value Reference Range Interpretation Comme nts RPR (test code = 88011) NON-REACTIVE NON-REACTIVE RPR TITER (test code = 3500) NOT INDIC. TITER NOT INDIC. HIV 1/2 4TH GEN, RFLX [id number] 00:00:00* Test Item Value Reference Range Interpretation Comme nts HIV 1/2 4TH GEN, RFLX CONF ( test code = 3514) NON-REACTIVE Kenyon Escobar AustinHEPATITIS PROFILE (A,B,C)2023-08-19 00:00:00* Test Item Value [...] (NOTE) INTERPRETATION HEPATITIS B: (test code = 41531) (NOTE) INTERPRETATION HEPATITIS C: (test code = 70739) (NOTE) Kenyon Escobar AustinRPR REFLEX TO [id number] 00:00:00* Test Item Value Reference Range Interpretation Comme nts RPR (test code = 47115) NON-REACTIVE RPR TITER (test code = 3500) NOT INDIC. TITER Kenyon Escobar AustinHEPATITIS A IgM [REFLEX]2023-08-19 00:00:00* Test Item Value Reference Range Interpretation Comme nts HEPATITIS A IgM (test code = 2728) NON-REACTIVE Kenyon Escobar AustinCOMPREHENSIVE METABOLIC [id number] 05:53:04* Test Item Value Reference Range Interpretation Comme nts GLUCOSE (test code = 2217) 79 MG/DL 70-99 BUN (test code = 2208) 12 MG/DL 6-20 CREATININE (test code = 2214) 0.73 MG/DL 0.60-1.30 eGFR (2020 CKD-EPI) (test code = 22854) 106 ML/MIN/1.73 >60 CALC BUN/CREAT (test code = 2235) 16 RATIO 6-28 SODIUM (test code = 2231) 139 MEQ/L 133-146 POTASSIUM (test code = 2227) 4.6 MEQ/L 3.5-5.4 CHLORIDE (test code = 5) 106 MEQ/L 95-107 CARBON DIOXIDE (test code = 2205) 23 MEQ/L 19-31 CALCIUM (test code = 2208) 9.1 MG/DL 8.5-10.5 PROTEIN, TOTAL (test code = 2228) 7.1 G/DL 6.1-8.3 ALBUMIN (test code = 2200) 3.9 G/DL 3.5-5.2 CALC GLOBULIN (test code = 2239) 3.2 G/DL 1.9-3.7 CALC A/G RATIO (test code = 2233) 1.2 RATIO 1.0-2.6 BILIRUBIN, TOTAL (test code = 2206) 0.4 MG/DL See_Comment [Automated me ssage] The system which generated this result transmitted reference range: <=1.2. The reference range was not used to interpret this result as normal/abnormal. ALKALINE PHOSPHATASE (test code = 2203) 105 U/L 40-113 AST (test code = 2217) 15 U/L 9-40 ALT (test code = 2218) 28 U/L 5-40 LIPID [id number] 05:53:04* Test Item Value Reference Range Interpretation Comme nts CHOLESTEROL (test code = 2209) 175 MG/DL <200 TRIGLYCERIDES (test code = [...] SPECIMENS. FOR MOREINFORMATION, SEE CLIENT ANNOUNCEMENT AT [email or web address] RISK RATIO LDL/HDL (test code = 2237) 2.30 RATIO <3.22 TSH, THIRD [id number] 04:53:46* Test Item Value Reference Range Interpretation Comme nts TSH, THIRD GENERATION (test code = 2821) 1.790 UIU/ML 0.400-4.100 UNLESS OTHERWISE INDICATED, ALL TESTING PERFORMED [facility] [address] [place] [address] SURFACE SHIP USW SUPERVISOR: RAMIREZ CUELLO M.D. CLIA NUMBER [id number] [facility] [place]. [id number] CBC W/AUTO DIFF WITH [id number] 04:43:48* Test Item Value Reference Range Interpretation [...] 0.00-0.10 ABS NUCLEATED RBCS (test code = 46043) 0.00 K/UL 0.00-0.11 HEMOGLOBIN [id number] 04:35:33* Test Item Value Reference Range Interpretation Comme nts HEMOGLOBIN A1c (test code = 07939) 5.8 % 4.2-5.6 H CBC W/AUTO [id number] 00:00:00* Test Item Value Reference Range Interpretation [...] ABS NUCLEATED RBCS (test cod e = 50724) 0.00 K/UL Kenyon Shawn KemCOMPREHENSIVE METABOLIC [id number] 00:00:00* Test Item Value Reference Range Interpretation Comme nts GLUCOSE (test code = 2217) 79 MG/DL BUN (test code = 2208) 12 MG/DL CREATININE (test code = 2214) 0.73 MG/DL eGFR (2020 CKD-EPI) (test code = 62053) 106 ML/MIN/1.73 CALC BUN/CREAT (test code = [...] code = 2219) 28 U/L Kenyon BrownleeLIPID [id number] 00:00:00* Test Item Value Reference Range Interpretation Comme nts CHOLESTEROL (test code = 2210) 175 MG/DL TRIGLYCERIDES (test code = 2232) 103 MG/DL HDL CHOLESTEROL (test code = 2220) 47 MG/DL CALC LDL CHOL (test code = 2237) 108 MG/DL RISK RATIO LDL/HDL (test cod e = 2238) 2.30 RATIO Kenyon BrownleeHEMOGLOBIN [id number] 00:00:00* Test Item Value Reference Range Interpretation Comme nts HEMOGLOBIN A1c (test code = 14920) 5.8 % Kenyon [id number] 00:00:00* Test Item Value Reference Range Interpretation Comme nts TSH, THIRD GENERATION (test code = 2821) 1.790 UIU/ML Kenyon BrownleeCBC W/AUTO [id number] 00:00:00* Test Item Value Reference Range Interpretation [...] ABS NUCLEATED RBCS (test cod e = 47036) 0.00 K/UL Kenyon Shawn KemCOMPREHENSIVE METABOLIC [id number] 00:00:00* Test Item Value Reference Range Interpretation Comme nts GLUCOSE (test code = 2217) 79 MG/DL BUN (test code = 2208) 12 MG/DL CREATININE (test code = 2214) 0.73 MG/DL eGFR (2020 CKD-EPI) (test code = 83380) 106 ML/MIN/1.73 CALC BUN/CREAT (test code = [...] code = 2219) 28 U/L Kenyon BrownleeLIPID [id number] 00:00:00* Test Item Value Reference Range Interpretation Comme nts CHOLESTEROL (test code = 2210) 175 MG/DL TRIGLYCERIDES (test code = 2232) 103 MG/DL HDL CHOLESTEROL (test code = 2220) 47 MG/DL CALC LDL CHOL (test code = 2237) 108 MG/DL RISK RATIO LDL/HDL (test cod e = 2238) 2.30 RATIO Kenyon BrownleeHEMOGLOBIN [id number] 00:00:00* Test Item Value Reference Range Interpretation Comme nts HEMOGLOBIN A1c (test code = 66657) 5.8 % Kenyon [id number] 00:00:00* Test Item Value Reference Range Interpretation Comme [place] TSH, THIRD GENERATION (test code = 2821) 1.790 UIU/ML Kenyon BrownleeVAGINAL PATHOGENS DNA [id number] 15:33:56* Test Item Value Reference Range Interpretation Comme nts RAMAKRISHNA SPECIES (test code = 25447) NEGATIVE NEGATIVE G. VAGINALIS (test code = 18210) POSITIVE NEGATIVE A T. VAGINALIS (test code = 90622) NEGATIVE NEGATIVE UNLESS OTHERWISE INDICATED, ALL TESTING PERFORMED [facility] [address] [place] [address] SURFACE SHIP USW SUPERVISOR: RAMIREZ CUELLO M.D. CLIA NUMBER [id number] [facility] [place]. [id number] PAP TEST, THINPREP, [id number] 14:29:43* Test Item Value Reference Range Interpretation Comme nts SOURCE: (test code = 8001) Cervical SLIDES: (test code = 8011) 1 LMP: (test code = 8021) 09/29/2021 SPECIMEN ADEQUACY: (test code = 14465) (NOTE) Satisfactory for evaluation. Endocervical cells/transformation zone component present. INTERPRETATION: (test code = 85313) NILM/NO EPITH. ABNORMALITY;SEE BELOW --- - NEGATIVE FOR INTRAEPITHELIAL LESION OR MALIGNANCY (NILM) ---- OTHER COMMENTS: (test code = 8081) (NOTE) Shift in javier suggestive of bacterial vaginosis. SOLE LEATHER CUTTING MACHINE OPERATOR : (test code = 8101) YE Rey(ASCP) [facility] LOCATION: (test code = 92291) (NOTE) Specimens proces sed and interpreted at [facility], [address] [place] [address], , CLIA: [id number] CPT: (test code = 8140) (NOTE) [address] UNLESS OTH ERWISE INDICATED, COMPUTER AIDED AND SOLE LEATHER CUTTING MACHINE OPERATOR SCREENING PERFORMED. The Pap test is a screening test with an inherent, but low probability of error. Your patient should be reminded to consult you immediately if she experiences any suspicious signs or symptoms, regardless of her Pap test result. An alternate report format containing images or consolidated prior Pap history is available as applicable. UNLESS OTHERWISE INDICATED, ALL TESTING PERFORMED [facility] [address] [place] [id number] SURFACE SHIP USW SUPERVISOR: RAMIREZ CUELLO M.D. CLIA NUMBER [id number] [facility] [place]. [id number] PAP TEST, THINPREP, [id number] 00:00:00* Test Item Value Reference Range Interpretation Comme nts SOURCE: (test code = 8001) Cervical SLIDES: (test code = 8011) 1 LMP: (test code = 8021) 09/29/2021 SPECIMEN ADEQUACY: (test code = 11386) (NOTE) INTERPRETATION: (test code = 03645) NILM/NO EPITH. ABNORMALITY;SEE BELOW OTHER COMMENTS: (test code = 8081) (NOTE) SOLE LEATHER CUTTING MACHINE OPERATOR: (test code = 8101) YE Rey(ASCP)[facility] LOCATION: (test code = 10766) (NOTE) CPT: (test code = 8140) (NOTE) [facility] [id number] 00:00:00* Test Item Value Reference Range Interpretation Comme nts RAMAKRISHNA SPECIES (test code = ) NEGATIVE G. VAGINALIS (test code = 22463) POSITIVE T. VAGINALIS (test code = 23892) NEGATIVE Kenyon BrownleePAP TEST, THINPREP, [id number] 00:00:00* Test Item Value Reference Range Interpretation Comme nts SOURCE: (test code = 8001) Cervical SLIDES: (test code = 8011) 1 LMP: (test code = 8021) 09/29/2021 SPECIMEN ADEQUACY: (test code = 31281) (NOTE) INTERPRETATION: (test code = 79992) NILM/NO EPITH. 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 VAGINALIS (test code = 60957) POSITIVE T. VAGINALIS (test code = 37927) NEGATIVE Kenyon BrownleeHCG, [id number] 06:38:23* Test Item Value Reference Range Interpretation [...] . . . . . . MIU/ML 3-5HIYZ-ASMBFWOPJE FEMALES . . . . . . . . . . . . MIU/ML <=7 UNLESS OTHERWISE INDICATED, ALL TESTING PERFORMED [facility] [address] [place] [id number] SURFACE SHIP USW SUPERVISOR: RAMIREZ CUELLO M.D. [place] NUMBER [id number] [facility] [place]. [id number] HCG, QUANTITATIVE [ADDED]2021-10-21 00:00:00* Test Item Value Reference Range Interpretation Comme nts HCG, QUANTITATIVE (test code = 2506) <5 MIU/ML Kenyon F AustinHCG, QUANTITATIVE [ADDED]2021-10-21 00:00:00* Test Item Value Reference Range Interpretation Comme nts HCG, QUANTITATIVE (test code = 2506) <5 MIU/ML Kenyon F AustinPOCT [id number] 13:48:00* Test Item Value Reference Range Interpretation Comme nts POCT PREG (test code = 1605) Negative On board controls acceptable with C Line (test code = 3574) Yes POCT PREG LOT # (test code = 3575) POCT PREG TEST DATE ( test code = 3576) [facility], [id number] 00:00:00* Test Item Value Reference Range Interpretation Comme nts HCG, QUANTITATIVE (test code = 2506) <5 MIU/ML Kenyon F AustinHCG, [id number] 00:00:00* Test Item Value Reference Range Interpretation Comme nts HCG, QUANTITATIVE (test code = 2506) <5 MIU/ML Kenyon F AustinHCG, [id number] 00:00:00* Test Item Value Reference Range Interpretation Comme nts HCG, QUANTITATIVE (test code = 2506) <5 MIU/ML Kenyon F AustinHCG, [id number] 00:00:00* Test Item Value Reference Range Interpretation Comme nts HCG, QUANTITATIVE (test code = 2506) <5 MIU/ML Kenyon BrownleeHCG, [id number] 00:00:00* Test Item Value Reference Range Interpretation Comme nts HCG, QUANTITATIVE (test code = 2506) <5 MIU/ML Kenyon BrownleeHCG, [id number] 00:00:00* Test Item Value Reference Range Interpretation Comme nts HCG, QUANTITATIVE (test code = 2506) <5 MIU/ML Kenyon BrownleeHCG, [id number] 00:00:00* Test Item Value Reference Range Interpretation Comme nts HCG, QUANTITATIVE (test code = 2506) <5 MIU/ML Kenyon Escobar AustinHCG, [id number] 00:00:00* Test Item Value Reference Range Interpretation Comme nts HCG, QUANTITATIVE (test code = 2506) <5 MIU/ML Kenyon BrownleeHCG, [id number] 00:00:00* Test Item Value Reference Range Interpretation Comme nts HCG, QUANTITATIVE (test code = 2506) <5 MIU/ML [facility] BrownleeVAGINAL PATHOGENS DNA [id number] 00:00:00* Test Item Value Reference Range Interpretation Comme nts RAMAKRISHNA SPECIES (test code = 64981) NEGATIVE G. VAGINALIS (test code = 57486) POSITIVE T. VAGINALIS (test code = 21935) NEGATIVE Kenyon BrownleeHCG, [id number] 00:00:00* Test Item Value Reference Range Interpretation Comme nts HCG, QUANTITATIVE (test code = 2506) <5 MIU/ML [facility] BrownleeVAGINAL PATHOGENS DNA [id number] 00:00:00* Test Item Value Reference Range Interpretation Comme nts RAMAKRISHNA SPECIES (test code = 37333) NEGATIVE G. VAGINALIS (test code = 67732) POSITIVE T. VAGINALIS (test code = 49202) NEGATIVE Kenyon Brownlee Notes Date/Time Note Provider Source [facility]2024-05-10 00:00:00 [facility]
[2023-12-14 19:40] LABS: Absolute Basophils 0.1 K/uL (0-0.5); Absolute Eosinophils 0.3 K/uL (0-0.5); Absolute Lymphocytes (CBC) 4.3 K/uL (0.7-4.9); Absolute Monocytes 0.7 K/uL (0.1-1.3); Basophils % 1.2 % (0-1.3); Eosinophils % 2.8 % (0-4.4); Hematocrit 37.6 % (36.0-45.0); Hemoglobin 12.5 g/dL (12.0-15.0); Lymphocytes % 37.6 % (15.3-44.8); MCH 28.5 pg (27.0-35.0); MCHC 33.2 g/dL (32.0-36.0); MCV 86.1 fL (80-100); MPV 8.1 fL (7.6-11.3); Monocytes % 5.7 % (3.3-12.3); Neutrophils % 52.7 % (41.7-73.7); Nucleated Red Blood Cells % 0.1 % (0-0); Platelets 342 thou/uL (152-406); RBC Red Blood Cell Count 4.36 M/uL (3.86-4.86); Red Cell Distribution Width 13.2 % (12.1-15.2)
[2023-12-14 20:19] LABS: Specific Gravity 1.015 (1.005-1.030); Sqamous Epithelial <5 /HPF (None Seen); Urine Bacteria <20 /HPF (<20); Urine Bilirubin NEGATIVE (Negative); Urine Blood Negative (Negative); Urine Clarity Turbid (Clear); Urine Color Light-Yellow (Yellow); Urine Culture Reflex Order NOT NEEDED; Urine Glucose NEGATIVE (Negative); Urine Ketones NEGATIVE (Negative); Urine Microscopic Reflex YN ORDER UMIC; Urine Mucus Slight /HPF (None Seen); Urine Nitrite NEGATIVE (Negative); Urine Protein NEGATIVE (Negative); Urine RBC <5 /HPF (None Seen); Urine Urobilinogen Normal (Normal); Urine WBC <5 /HPF (<5)
--- NOTE | 2023-12-14 21:07 | RAD REPORT ---
EXAM DESCRIPTION: US - Transvaginal Study Probe - 12/14/2023 8:52 pm CLINICAL HISTORY: lower abdomen pain COMPARISON: PELVIS dated 12/23/2009 TECHNIQUE: Sonographic grayscale and color flow images of the pelvis were obtained. FINDINGS: The uterus is normal in size, shape and echotexture. The uterus measures 9 cm in length. The endometrial stripe measures 6 mm, normal. The right ovary is normal in size and morphology, with no suspicious lesions, measuring 2.1 x 1.5 x 1 .5 cm. The left ovary is not clearly visualized due to over shadowing bowel gas. No suspicious adnexa l masses. Normal Doppler blood flow was demonstrated to the right ovary. No significant pelvic ascites. IMPRESSION: Nonvisualization of the left ovary due to over shadowing bowel gas. No other suspicious pelvic process.
[2023-12-14 21:10] LABS: Anion Gap 10.9 mEq/L (5.0-15.0); BUN Blood Urea Nitrogen 16 mg/dL (7-18); Bicarbonate 25 mEq/L (21-32); Glomerular Filtration Rate 74 ml/min (=/>90); Glucose Level 92 mg/dL (74-106); Potassium 3.9 mEq/L (3.5-5.1); Sodium Level 138 mEq/L (136-145)
[2023-12-14 21:26] LABS: HCG, Quantitative < 1 mIU/mL (1-3)
[2023-12-14] MEDS ORDERED: KETOROLAC 30 MG/ML INJ ONE (21:58)
[2023-12-14] MEDS ORDERED: NA CHLORIDE 0.9% 1,000 ML ONE (21:59)
--- NOTE | 2023-12-14 22:41 | RAD REPORT ---
EXAM DESCRIPTION: CT - Abdomen Pelvis W Contrast - 12/14/2023 10:16 pm CLINICAL HISTORY: lower abdomen pain COMPARISON: Abdomen Pelvis W Contrast dated 07/19/2016; Abdomen Pelvis W Contrast dated 12/08/2015 ; CT ABD PELVIS W CONTRAST dated 11/03/2007 TECHNIQUE: Thin cut axial CT imaging of the abdomen and pelvis was performed following intravenous a dministration of iodinated contrast. Multiplanar reformats were generated and reviewed. All CT scans are performed using dose optimization technique as appropriate and may include automated exposure control or mA/KV adjustment according to patient size. FINDINGS: No suspicious findings in the lung bases. The liver, spleen, adrenal glands, and pancreas show no suspicious findings. Gallbladder and biliary tree are also without suspicious finding. Symmetric renal function is seen with no hydronephrosis or suspicious renal mass. No dilated bowel loops or bowel wall thickening. No free air, free fluid or inflammatory stranding. N o hernia, mass or bulky lymphadenopathy. Right adnexal 2.8 cm cyst, likely physiologic. The urinary b ladder is without significant finding. No suspicious bony findings. IMPRESSION: No acute intra-abdominal process.
--- NOTE | 2023-12-14 22:49 | EDPHYS ---
Physician Documentation [facility] Name: Nidia Ford Age: 43 yrs Sex: Female : 1980 Arrival Date: 12/14/2023 Time: 18:30 Bed 5 Private MD: ED Physician Yo Gross HPI: 12/13 19:00 This 43 yrs old Female presents to ER via Ambulatory with complaints of cp Abdominal Pain. 19:00 The patient presents with abdominal pain in the lower abdomen. cp 19:00 Onset: The symptoms/episode began/occurred today. cp 19:00 The symptoms do not radiate. Associated signs and symptoms: Pertinent positives: cp possible with positive home test, reports spotting this past Monday, Pertinent negatives: constipation, diarrhea, fever. Severity of pain: in the emergency department the pain is unchanged despite home interventions. 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 - Infectious Disease History:: Denies. - Social history:: Smoking status: Patient/guardian denies using tobacco. ROS: 19:05 Constitutional: Negative for body aches, chills, fever, poor PO intake, cp 19:05 Eyes: Negative for injury, pain, redness, and discharge, cp 19:05 Respiratory: Negative for cough, shortness of breath, wheezing, 19:05 Abdomen/GI: Positive for abdominal pain, of the lower abdomen, Negative for vomiting, diarrhea, constipation, 19:05 Back: Negative for pain at rest, pain with movement, radiated pain, 19:05 : Negative for urinary symptoms, vaginal bleeding, 19:05 Neuro: Negative for altered mental status, dizziness, headache, weakness, 19:05 All other systems are negative, Exam: 19:15 Constitutional: The patient appears in no acute distress, alert, awake, non-toxic, well cp developed, well nourished, 19:15 Head/Face: Normocephalic, atraumatic. cp 19:15 Eyes: Periorbital structures: appear normal, Conjunctiva: normal, no exudate, no injection, Sclera: no appreciated abnormality, Lids and lashes: appear normal, bilaterally, 19:15 ENT: External ear(s): are unremarkable, Nose: is normal, Mouth: Lips: moist, Oral mucosa: moist, Posterior pharynx: Airway: no evidence of obstruction, patent, 19:15 Chest/axilla: Inspection: normal, 19:15 Cardiovascular: Rate: normal, Rhythm: regular, 19:15 Respiratory: the patient does not display signs of respiratory distress, Respirations: normal, no use of accessory muscles, no retractions, labored breathing, is not present, Breath sounds: are clear throughout, no decreased breath sounds, no stridor, no wheezing, 19:15 Abdomen/GI: Inspection: abdomen appears normal, Bowel sounds: active, all quadrants, Palpation: soft, in all quadrants, mild abdominal tenderness, in the suprapubic area, right lower quadrant and left lower quadrant, rebound tenderness, is not appreciated, involuntary guarding, is not appreciated, 19:15 Back: CVA tenderness, is absent, 19:15 Neuro: Orientation: to person, place \\T\\ time. Mentation: is normal, Vital Signs: 18:34 BP 141 / 73; Pulse 68; Resp 16; Temp 97; Pulse Ox 100% ; Weight 69.85 kg; dd2 19:00 BP 117 / 70; Pulse 60; Resp 17 S; Pulse Ox 100% on R/A; ha1 20:00 BP 113 / 57; Pulse 62; Resp 17 S; Pulse Ox 100% on R/A; ha1 21:00 BP 105 / 57; Pulse 62; Resp 17; Pulse Ox 97% ; jj7 22:00 BP 109 / 68; Pulse 59; Resp 17; Pulse Ox 96% ; jj7 23:00 BP 97 / 57; Pulse 63; Resp 17; Temp 97.8; Pulse Ox 98% ; jj7 MDM: 18:46 Patient medically screened. cp 20:00 Differential diagnosis: appendicitis, Pyelonephritis, Ureterolithiasis, urinary tract cp infection, , threatened miscarriage. 22:48 Data reviewed: vital signs, nurses notes, lab test result(s), radiologic studies, CT cp scan, ultrasound, and as a result, I will discharge patient. 22:49 Counseling: I had a detailed discussion with the patient and/or guardian regarding the cp historical points, exam findings, and any diagnostic results supporting the discharge/admit diagnosis, lab results, radiology results, to return to the emergency department if symptoms worsen or persist or if there are any questions or concerns that arise at home. 22:49 Response to treatment: the patient's symptoms have markedly improved after treatment, cp and as a result, I will discharge patient. Special discussion: Based on the patient's Hx, exam, and Dx evaluation, there is no indication for emergent surgery or inpatient Tx. It is understood by the patient/guardian that if the Sx's persist or worsen they need to return immediately for re-evaluation. 12/13 18:47 Order name: Abo/rh Typing; Complete Time: 20:31 12/13 18:47 Order name: Basic Metabolic Panel; Complete Time: 21:32 12/13 21:32 Interpretation: Normal except: GFR 74. 12/13 18:47 Order name: CBC with Diff; Complete Time: 19:47 12/13 19:47 Interpretation: Normal except: WBC 11.40. 12/13 18:47 Order name: Test, Urine; Complete Time: 20:31 12/13 20:31 Interpretation: Reviewed. 12/13 18:47 Order name: Quantitative Hcg; Complete Time: 21:32 12/13 21:32 Interpretation: Reviewed. 12/13 18:47 Order name: Urinalysis w/ reflexes; Complete Time: 20:31 12/13 21:33 Interpretation: Normal except: [facility] Turbid. 12/13 20:32 Order name: US Transvaginal Study (Probe); Complete Time: 21:32 12/13 21:33 Interpretation: Reviewed report. 12/13 21:39 Order name: CT Abd/Pelvis - IV Contrast Only; Complete Time: 22:43 12/13 22:43 Interpretation: Report reviewed. 12/13 18:47 Order name: IV Saline Lock; Complete Time: 19:25 12/13 18:47 Order name: Labs collected and sent; Complete Time: 19:25 12/13 18:47 Order name: NPO; Complete Time: 19:25 12/13 19:46 Order name: Misc. Order: recollect green top; Complete Time: 20:17 kmf Administered Medications: 21:30 Drug: Ketorolac IVP 15 mg IVP once Route: IVP; Site: right antecubital; ha1 22:00 Follow up: Response: No adverse reaction; Marked relief of symptoms; Pain is decreased 21:30 Drug: NS 0.9% IV 1000 ml IV at 1 bolus Per protocol Route: IV; Rate: 1 bolus; Site: ha right antecubital; 23:02 Follow up: IV Status: Completed infusion; IV Intake: 600ml jj7 Disposition Summary: 12/14/23 22:49 Discharge Ordered Notes: Location: Home cp Problem: new cp Symptoms: have improved cp Condition: Stable cp Diagnosis - Lower abdominal pain, unspecified cp - Other and unspecified ovarian cysts cp Followup: cp - With: Private Physician - When: 2 - 3 days - Reason: Worsening of condition Discharge Instructions: - Discharge Summary Sheet cp - Abdominal Pain, Adult cp - Ovarian Cyst cp Forms: - Medication Reconciliation Form cp - Antibiotic Education cp - Prescription Opioid Use cp - Patient Portal Instructions cp - Leadership Thank You Letter cp Prescriptions: - Ibuprofen 800 mg Oral Tablet - take 1 tablet ORAL route every 8 hours As needed take with food; 30 tablet; cp Refills: 0, Product Selection Permitted Addendum: 12/16/2023 03:43 Co-signature as Attending Physician, Yo Gross MD I agree with the assessment s p4 and plan of care. I reviewed the patient's care provided by the Advanced Practice Provider and agree with the diagnosis and treatment plan. Signatures: Dispatcher [employer] EDKY Tanner Reyes PA PA cp Josey Shafer RN RN ha1 Yo Gross MD MD sp4 Isabelle Aguilar [facility] LONDON SARKAR RN RN dd2 Una Hyatt RN jj7 Corrections: (The following items were deleted from the chart) 12/13 18:38 18:38 PMHx: "heart problem"; dd2 dd2
--- NOTE | 2023-12-14 22:49 | ER ---
Nurse's Notes [facility] Name: Nidia Ford Age: 43 yrs Sex: Female : 1980 Arrival Date: 12/14/2023 Time: 18:30 Bed 5 Private MD: Diagnosis: Lower abdominal pain, unspecified;Other and unspecified ovarian cysts Presentation: 12/13 18:34 Chief complaint: Patient states: Pt c/o lower abdominal pain. Sates missed last period, dd2 urine was positive. Sates spotting blood on Monday. Coronavirus screen: At this time, the client does not indicate any symptoms associated with coronavirus-19. Ebola Screen: No symptoms or risks identified at this time. Initial Sepsis Screen: Does the patient meet any 2 criteria? No. Patient's initial sepsis screen is negative. Does the patient have a suspected source of infection? No. Patient's initial sepsis screen is negative. Risk Assessment: Do you want to hurt yourself or someone else? Patient reports no desire to harm self or others. Onset of symptoms was December 14, 2023. 18:34 Method Of Arrival: Ambulatory dd2 18:34 Acuity: ANASTACIO 3 dd2 Triage Assessment: 18:38 General: Appears in no apparent distress. Behavior is calm, cooperative, appropriate dd2 for age. Pain: Complains of pain in right lower quadrant and left lower quadrant Pain currently is 3 out of 10 on a pain scale. GI: Reports lower abdominal pain, cramping. : Reports cramping, lower quadrant(s) vaginal bleeding that is spotty. 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 - Infectious Disease History:: Denies. - Social history:: Smoking status: Patient/guardian denies using tobacco. Screenin:50 [facility] ED Fall Risk Assessment (Adult) History of falling in the last 3 months, ha1 including since admission No falls in past 3 months (0 pts) Confusion or Disorientation No (0 pts) Intoxicated or Sedated No (0 pts) Impaired Gait No (0 pts) Mobility Assist Device Used No (0 pt) Altered Elimination No (0 pt) Score/Fall Risk Level 0 - 2 = Low Risk Oriented to surroundings, Maintained a safe environment, Educated pt \\T\\ family on fall prevention, incl call for assistance when getting out of bed, Hourly rounding (assess needs \\T\\ fall precautionary measures) done. Abuse screen: Denies threats or abuse. Denies injuries from another. Nutritional screening: No deficits noted. Tuberculosis screening: No symptoms or risk factors identified. Assessment: 19:00 General: Appears comfortable, Behavior is calm, cooperative. Pain: Complains of pain in ha1 pelvis Pain radiates to back Pain currently is 4 out of 10 on a pain scale. Quality of pain is described as crampy, Pain began gradually. Neuro: Level of Consciousness is awake, alert, obeys commands, Oriented to person, place, time, situation. Cardiovascular: Capillary refill < 3 seconds Patient's skin is warm and dry. Respiratory: Airway is patent Respiratory effort is even, unlabored, Respiratory pattern is regular, symmetrical. GI: Abdomen is round obese, Bowel sounds present X 4 quads. Abd is soft and non tender. : Reports positive test, vaginal bleeding few days ago. Today denies any more vaginal bleeding. lower abdomen cramping. 20:00 Reassessment: Patient and/or family updated on plan of care and expected duration. Pain ha1 level reassessed. Patient is alert, oriented x 3, equal unlabored respirations, skin warm/dry/pink. 21:00 Reassessment: Patient and/or family updated on plan of care and expected duration. Pain ha1 level reassessed. Patient is alert, oriented x 3, equal unlabored respirations, skin warm/dry/pink. 22:00 Reassessment: Patient and/or family updated on plan of care and expected duration. Pain ha1 level reassessed. Patient is alert, oriented x 3, equal unlabored respirations, skin warm/dry/pink. Patient denies pain at this time. Patient states feeling better. Patient states symptoms have improved. 23:00 Reassessment: Patient and/or family updated on plan of care and expected duration. Pain ha1 level reassessed. Patient is alert, oriented x 3, equal unlabored respirations, skin warm/dry/pink. Vital Signs: 18:34 BP 141 / 73; Pulse 68; Resp 16; Temp 97; Pulse Ox 100% ; Weight 69.85 kg; dd2 19:00 BP 117 / 70; Pulse 60; Resp 17 S; Pulse Ox 100% on R/A; ha1 20:00 BP 113 / 57; Pulse 62; Resp 17 S; Pulse Ox 100% on R/A; ha1 21:00 BP 105 / 57; Pulse 62; Resp 17; Pulse Ox 97% ; jj7 22:00 BP 109 / 68; Pulse 59; Resp 17; Pulse Ox 96% ; jj7 23:00 BP 97 / 57; Pulse 63; Resp 17; Temp 97.8; Pulse Ox 98% ; jj7 ED Course: 18:33 Patient arrived in ED. mg5 18:33 Tanner Reyes PA is PHCP. cp 18:33 Moustapha Hill MD is Attending Physician. cp 18:38 Triage completed. dd2 18:38 Arm band placed on right wrist. Patient placed in an exam room, on a stretcher, on dd2 pulse oximetry, Patient notified of wait time. 19:00 Patient has correct armband on for positive identification. Placed in gown. Bed in low ha1 position. Call light in reach. Side rails up X 1. 19:20 Inserted saline lock: 20 gauge in right antecubital area, using aseptic technique. ha1 Blood collected. Flushed with 10 mL NS. 19:25 Josey Shafer, RN is Primary Nurse. ha1 19:25 Abo/rh Typing Sent. ha1 19:25 Basic Metabolic Panel Sent. ha1 19:25 CBC with Diff Sent. ha1 19:25 Test, Urine Sent. ha1 19:25 Quantitative Hcg Sent. ha1 19:30 Provided Education on: PLAN OF CARE . ha1 20:23 Yo Gross MD is Attending Physician. cp 20:54 US Transvaginal Study (Probe) In Process Unspecified. EDMS 22:18 CT Abd/Pelvis - IV Contrast Only In Process Unspecified. EDMS 23:01 No provider procedures requiring assistance completed. IV discontinued, intact, jj7 bleeding controlled, No redness/swelling at site. Pressure dressing applied. Administered Medications: 21:30 Drug: Ketorolac IVP 15 mg IVP once Route: IVP; Site: right antecubital; ha1 22:00 Follow up: Response: No adverse reaction; Marked relief of symptoms; Pain is decreased ha1 21:30 Drug: NS 0.9% IV 1000 ml IV at 1 bolus Per protocol Route: IV; Rate: 1 bolus; Site: ha1 right antecubital; 23:02 Follow up: IV Status: Completed infusion; IV Intake: 600ml jj7 Medication: 20:36 VIS not applicable for this client. ha1 Intake: 23:02 IV: 600ml; Total: 600ml. jj7 Outcome: 22:49 Discharge ordered by . michel 23:01 Discharged to home ambulatory, shira 23:01 Condition: improved 23:01 Discharge instructions given to patient, Instructed on discharge instructions, medication usage, Demonstrated understanding of instructions, medications, Prescriptions given X 2, 23:01 Patient left the ED. jj7 Signatures: Dispatcher [employer] EDMS Tanner Reyes PA PA cp Ayala, Heidy, RN RN ha1 Una Hyatt RN RN jValerie Simons LONDON LOZANO RN RN dd2 Corrections: (The following items were deleted from the chart) 18:38 18:38 PMHx: "heart problem"; dd2 dd2 23:02 22:30 Reassessment: Patient and/or family updated on plan of care and expected ha1 duration. Pain level reassessed. Patient is alert, oriented x 3, equal unlabored respirations, skin warm/dry/pink. Patient denies pain at this time. Patient states feeling better. Patient states symptoms have improved. ha1
[2023-12-14 23:35] VITALS: BP 97/57; TEMP 97.8; O2SAT 98
== END 2023-12-14 23:01 | disposition home or self-care (01) ==
LOC: ER 18:30
DX: N83.291 Other ovarian cyst, right side (principal)
CPT/HCPCS: 96361; 85025; 81001; 80048; 36415; 86900; 81025; 86901; 84702; 74177; 76830; 96374; 99284; Q9967; J7030

== ENCOUNTER 2024-06-01 22:48 | Emergency (ER) | payer SELFPAY ==
--- OUTSIDE RECORDS SUMMARY | 2024-06-01 22:52 | XMS REPORT | Continuity of Care Document ---
Author Name Unknown Address [address] [facility] [address] [place] [address] [facility] thconnect Address [address] [facility] [address] [place] [address] Care Team Providers Care Showroom Manager Name Role Phone Piedad Navarrete Primary Care Physician [phone] Rafal BECKER Attending Clinician Unavailable Rafal BECKER Attending Clinician Unavailable Nery PACRafal Attending Clinician [phone] FAM CHAUDHRY Attending Clinician Unavailable YUE VILLAFUERTE Attending Clinician [facility]ail [facility] Unava ilkaley Villafuerte Yue SAVAGE Attending Clinician + Doctor Unassigned, Bryant Attending Clinician U navailRafal Garduno Admitting Clinician Unavailable Payers Payer Name Policy Type Policy Number Effective Date Expirati on Date Source NICHOLAS Metcalf/ ASHLEY CABRAL [id number] 2023 00:00:00 CIPRIANO-LAYNE [id number] 2019 00:00:00 Problems Condition Name Condition Details Condition Category Status Onset Date Resolution Date Last Treatment Date Treating Clinician Comments Source Heavy menses Heavy menses Disease Active 10-01 00:00: 00 [facility] Stress incontinen ce Stress incontinen ce Disease Active 10-01 00:00: 00 [facility] Recent urinary tract infection Recent urinary tract infection Disease Active 2015-04 00:00: 00 [facility] Other general counseling and advice for contracept jorge management Other general counseling and advice for contracept jorge management Disease Active 2015-04 00:00: 00 [facility] History of bilateral tubal ligation History of bilateral tubal ligation Disease Active 2015-04 00:00: 00 [facility] Obesity (BMI 30-39.9) Obesity (BMI 30-39.9) Disease Active 09-22 00:00: 00 Overview: Formattin g of this note might be different from the original. ICD10 Diagnosis Term Husbandry Technician Utility [facility] Overweight (BMI 25.0-29.9) Overweight (BMI 25.0-29.9) Disease Resolve d 2015-04 00:00: 00 2019-10-02 00:00:00 2019-10-02 14:50:18 [facility] Encounter for routine gynecologi harriett examinatio n Encounter for routine gynecologi harriett examinatio n Disease Resolve d 09-22 00:00: 00 2015-05-13 00:00:00 2021-10-24 00:36:24 [facility] Routine follow-up Routine follow-up Disease Resolve d 4-06 00:00: 00 2014-09-22 00:00:00 2014-09-22 11:04:35 [facility] PPROM at 36 weeks PPROM at 36 weeks Disease Resolve d 3-13 00:00: 00 2014-09-22 00:00:00 2014-09-22 10:03:05 [facility] Yeast infection of the vagina Yeast infection of the vagina Disease Resolve d 2-24 00:00: 00 2014-09-22 00:00:00 2014-09-22 11:04:33 [facility] Heartburn in Heartburn in Disease Resolve d 2-11 00:00: 00 2014-09-22 00:00:00 2014-09-22 11:04:27 [facility] Sciatica of right side Sciatica of right side Disease Resolve d 2013-04 00:00: 00 2014-09-22 00:00:00 2014-09-22 11:04:23 [facility] Obesity complicati ng , childbirth , or puerperium , antepartum Obesity complicati ng , childbirth , or puerperium , antepartum Disease Resolve d 2013-04 00:00: 00 2014-09-22 00:00:00 2021-10-24 00:32:36 [facility] Chlamydia trachomati s infection of lower genitourin lorenzo sites Chlamydia trachomati s infection of lower genitourin lorenzo sites Disease Resolve d 11-22 00:00: 00 2014-09-22 00:00:00 2021-10-24 00:31:42 [facility] Multiparit y Multiparit y Disease Resolve d 10-30 00:00: 00 2014-09-22 00:00:00 2014-09-22 11:04:04 [facility] Other threatened labor, antepartum Other threatened labor, antepartum Disease Resolve d 2- 00:00: 00 2014-06-20 00:00:00 2014-06-20 21:14:13 [facility] Supervisio n of other high-risk Supervisio n of other high-risk Disease Resolve d 2013-04 00:00: 00 2014-06-20 00:00:00 2021-10-24 00:32:36 [facility] Abnormal findings on screening Abnormal findings on screening Disease Resolve d 2013-04 00:00: 00 2014-02-24 00:00:00 2021-10-24 00:33:10 [facility] Supervisio n of other normal Supervisio n of other normal Disease Resolve d 12-17 00:00: 00 2014-01-21 00:00:00 2014-01-21 10:05:10 [facility] anemia anemia Disease Resolve d 7-24 00:00: 00 2013-12-17 00:00:00 2021-10-24 00:15:25 [facility] Oligohydra mnios, delivered Oligohydra mnios, delivered Disease Resolve d 10-30 00:00: 00 2013-12-17 00:00:00 2013-12-17 13:17:53 [facility] Second-deg ree perineal laceration in Second-deg ree perineal laceration in Disease Resolve d 10-29 00:00: 00 2013-08-13 00:00:00 2021-10-24 00:15:25 [facility] Allergies, Adverse Reactions, Alerts Allergy Name Allergy Type Status Severity Reaction(s) Onset Date Inactive Date Treating Clinician Comments Source NO KNOWN ALLERGIE S Drug Class Active [facility] Social History Social Habit Start Date Stop Date Quantity Comments Source History SDOH Alcohol Std Drinks [facility] History SDOH Alcohol Binge [facility] Alcoholic beverage intake 2024-01-09 00:00:00 2024-01-09 00:00:00 Ex-drinker (finding) [facility] Exposure to SARS-CoV-2 (event) 2021-10-09 00:00:00 2021-10-19 08:45:00 Not sure [facility] Tobacco use and exposure 2021-10-19 00:00:00 2021-10-19 00:00:00 Smokeless tobacco non-user [facility] History of Social function 2021-10-19 00:00:00 2021-10-19 00:00:00 [facility] Alcohol intake 2021-10-19 00:00:00 2021-10-19 00:00:00 Ex-drinker (finding) [facility] History SDOH Alcohol Frequency 2019-10-02 00:00:00 2019-10-02 00:00:00 2 [facility] Alcohol Comment 2019-10-02 00:00:00 2019-10-02 00:00:00 socially [facility] Sex assigned at 1980 00:00:00 1980 00:00:00 [facility] Smoking Status Start Date Stop Date Source Never smoked tobacco [facility] Medications Ordered Medication Name Filled Medication Name Start Date Stop Date Current Medication? Ordering Clinician Indication Dosage Frequency Signature (SIG) Comments Components Source NaCl 0.9% (NS) bolus infusion 1,000 mL 2023-04 22:00: 00 01-08 23:39 :00 No 1000mL at 999 mL/hr, 1,000 mL, IV Infusion, ONCE, 1 dose, On Mon01/09/24 at 1700, STAT [facility] ondansetron (ZOFRAN (PF)) injection 4 mg 2023-04 22:00: 00 01-08 21:59 :00 No 4mg 4 mg, Slow IV Push, ONCE, 1 dose, On Mon01/09/24 at 1700, TARA [facility] ketorolac (TORADOL) injection 15 mg 2023-04 21:45: 00 01-08 21:56 :00 No 15mg 15 mg, Slow IV Push, ONCE, 1 dose, On Mon01/09/24 at 1645, TARA [facility] iopamidol (ISOVUE 370-500 mL) injection 90 mL 2023-04 21:00: 00 01-08 21:15 :00 No [id number] 90mL 90 mL, Intravenou s, ONCE, 1 dose, On Mon01/09/24 at 1615, Routine [facility] dicyclomine 20 mg tablet 2023-04 00:00: 00 Yes [id number] 20mg Take 1 tablet by mouth 4 (four) times daily. [facility] ibuprofen 600 mg tablet 2023-04 00:00: 00 Yes [id number] 600mg Take 1 tablet by mouth every 6 (six) hours as needed for Pain (scale 4-6). [facility] Dose Unknown - 00:00: 00 Yes [address] Kenyon Brownlee Dose Unknown 8-03 00:00: 00 Yes Kenyon Brownlee TAKE 1 TABLET BY MOUTH EVERY 12 HOURS NEEDED - 00:00: 00 Yes 4 Kenyon Brownlee TAKE 1 TABLET BY MOUTH EVERY 8 HOURS NEEDED FOR MUSCLE SPASMS - 00:00: 00 Yes 10 Kenyon Brownlee Dose Unknown 2021-0 - 00:00: 00 Yes Kenyon Brownlee Dose Unknown 0 10-28 00:00: 00 Yes Kenyon Brownlee Dose Unknown 2021-0 10-28 00:00: 00 Yes 4 Kenyon Brownlee Dose Unknown 0 10-28 00:00: 00 Yes Kenyon Brownlee Dose Unknown 0 10-28 00:00: 00 Yes 800 Kenyon Brownlee metronidazo le 500 mg tablet 2021-0 10-28 00:00: 00 Yes 1mg Kenyon Brownlee TAKE 1 TABLET BY MOUTH EVERY 12 HOURS WITH FOOD NEEDED FOR PAIN 2021-0 20 00:00: 00 Yes 800 Kenyon Brownlee TAKE 1 TABLET BY MOUTH 5 TIMES A DAY FOR 7 DAYS 2021-0 -19 00:00: 00 Yes 800 Kenyon Brownlee TAKE 1 TABLET BY MOUTH 5 TIMES A DAY FOR 7 DAYS 2021-0 10-20 00:00: 00 Yes 800 Kenyon Brownlee TAKE 1 TABLET BY MOUTH EVERY 12 HOURS FOR 7 DAYS 2021-0 -12 00:00: 00 Yes Kenyon Brownlee TAKE 1 TABLET BY MOUTH EVERY 8 HOURS NEEDED FOR MUSCLE SPASMS 2021-0 12 00:00: 00 Yes 10 Kenyon Brownlee TAKE 1 TABLET BY MOUTH TWICE A DAY 2021-0 10-15 00:00: 00 Yes 75 Kenyon Brownlee APPLY 1 PATCH ONCE DAILY NEEDED 2021-0 09-13 00:00: 00 Yes Kenyon Brownlee TAKE 1 TABLET BY MOUTH EVERY 12 HOURS WITH FOOD NEEDED FOR PAIN 2021-0 09-13 00:00: 00 Yes Kenyon Brownlee TAKE 2 TABLETS BY MOUTH EVERY 6 TO 8 HOURS NEEDED FOR PAIN 2021-0 09-13 00:00: 00 Yes Kenyon Brownlee TAKE 1 TABLET BY MOUTH EVERY 12 HOURS NEEDED 2021-0 09-13 00:00: 00 Yes Kenyon Brownlee norethindro ne 0.35 mg tablet 0 10-01 00:00: 00 Yes [id number] 1{tbl} Take 1 tablet by mouth daily. [facility] metronidazo le 500 mg tablet 01-05 00:00: 00 Yes 1mg Kenyon Brownlee Keflex 500 mg capsule 01-01 00:00: 00 Yes 1mg Kenyon Brownlee Immunizations Ordered Immunization Name Filled Immunization Name Date Status Comments Source HPV9 2021-10-19 00:00:00 Completed [facility] HPV9 2021-10-19 00:00:00 Completed [facility] HPV9 2021-10-19 00:00:00 Completed [facility] TDAP 2014-04-22 00:00:00 Completed [facility] TDAP 2014-04-22 00:00:00 Completed [facility] TDAP 2014-04-22 00:00:00 Completed [facility] Influenza Virus Vaccine Quad IM Multi-dose 6+ MO 2014-03-25 00:00:00 Completed [facility] Influenza Virus Vaccine Quad IM Multi-dose 6+ MO 2014-03-25 00:00:00 Completed [facility] Influenza Virus Vaccine Quad IM Multi-dose 6+ MO 2014-03-25 00:00:00 Completed [facility] Varicella (varivax)(chicken pox) 2011-08-18 00:00:00 Completed [facility] Varicella (varivax)(chicken pox) 2011-08-18 00:00:00 Completed [facility] Varicella (varivax)(chicken pox) 2011-08-18 00:00:00 Completed Rubella 2008-03-25 00:00:00 Completed [facility] Rubella 2008-03-25 00:00:00 Completed [facility] Rubella 2008-03-25 00:00:00 Completed [facility] Td 2006-04-10 00:00:00 Completed [facility] TD, NOS 2006-04-10 00:00:00 Completed [facility] TD, NOS 2006-04-10 00:00:00 Completed Rubella Unknown Completed [facility] TD, NOS Unknown Completed [facility] Varicella (varivax)(chicken pox) Unknown Completed [facility] Influenza Virus Vaccine Quad IM Multi-dose 6+ MO Unknown Completed [facility] TDAP Unknown Completed [facility] HPV9 Unknown Completed [facility] Vital Signs Vital Name Observation Time Observation Value Comments S ource Systolic blood pressure 2024-01-09 23:50:00 133 mm[Hg] [facility] Diastolic blood pressure 2024-01-09 23:50:00 67 mm[Hg] [facility] Heart rate 2024-01-09 23:50:00 54 /min Unive [facility] Body temperature 2024-01-09 23:50:00 36.78 Sandie [facility] Respiratory rate 2024-01-09 23:50:00 15 /min [facility] Oxygen saturation in Arterial blood by Pulse oximetry 2024-01-09 23:50:00 99 /min [facility] Body height 2024-01-09 19:36:00 152.4 cm [facility] Body weight 2024-01-09 19:36:00 71.487 kg [facility] BMI 2024-01-09 19:36:00 30.78 kg/m2 [facility] Systolic blood pressure 2023-08-21 14:01:00 123 mm[Hg] [facility] Diastolic blood pressure 2023-08-21 14:01:00 76 mm[Hg] [facility] Heart rate 2023-08-21 14:01:00 56 /min Unive [facility] Body temperature 2023-08-21 14:01:00 36.5 Sandie [facility] Respiratory rate 2023-08-21 14:01:00 18 /min [facility] Body height 2023-08-21 14:01:00 152.4 cm [facility] Body weight 2023-08-21 14:01:00 70.398 kg [facility] BMI 2023-08-21 14:01:00 30.31 kg/m2 [facility] Systolic blood pressure 2021-10-19 13:46:00 114 mm[Hg] [facility] Diastolic blood pressure 2021-10-19 13:46:00 65 mm[Hg] [facility] Heart rate 2021-10-19 13:46:00 61 /min Unive [facility] Body temperature 2021-10-19 13:46:00 36.22 Sandie [facility] Respiratory rate 2021-10-19 13:46:00 16 /min [facility] Body height 2021-10-19 13:46:00 152.4 cm [facility] Body weight 2021-10-19 13:46:00 67.223 kg [facility] BMI 2021-10-19 13:46:00 28.94 kg/m2 [facility] BP Systolic 2023-12-19 13:45:00 122 mm[Hg] Step hen F Kem BP Diastolic 2023-12-19 13:45:00 79 mm[Hg] Justice phen F Kem Weight Measured 2023-12-19 13:45:00 156.40 pounds Kenyon F Kem Height Measured 2023-12-19 13:45:00 59.00 inches Kenyon F Kem Body Temperature 2023-12-19 13:45:00 98.30 degrees Kenyon F Kem Heart Rate 2023-12-19 13:45:00 70.00 /min Marjan en F Kem Respiratory Rate 2023-12-19 13:45:00 18.00 /min Kenyon F Kem BP Systolic 2023-12-12 14:06:00 121 mm[Hg] Step hen F Kem BP Diastolic 2023-12-12 14:06:00 80 mm[Hg] Justice phen F Kem Weight Measured 2023-12-12 14:06:00 152.40 pounds Kenyon F Kem Height Measured 2023-12-12 14:06:00 59.00 inches Kenyon F Kem Body Temperature 2023-12-12 14:06:00 97.60 degrees Kenyon F Kem Heart Rate 2023-12-12 14:06:00 54.00 /min Marjan en F Kem Respiratory Rate 2023-12-12 14:06:00 16.00 /min Kenyon F Kem BP Systolic 2023-08-21 14:06:00 117 mm[Hg] Step [...] Measured 2021-10-26 08:51:00 148.60 pounds Kenyon F Ekm Height Measured 2021-10-26 08:51:00 59.00 inches Kenyon [...] Kem Body Temperature 2020-07-28 08:20:00 Kenyon F Kme Heart Rate 2020-07-28 08:20:00 99.00 /min Marjan [...] Body Temperature 2018-05-22 11:50:00 98.50 degrees Kenyon Brownlee Heart Rate 2018-05-22 11:50:00 59.00 /min Marjan Brownlee Respiratory Rate 2018-05-22 11:50:00 16.00 /min Kenyon Brownlee Procedures Procedure Date / Time Performed Performing Clinicia n Source US OVARY TORSION 2024-01-09 22:00:24 [facility] PEL[facility] W CONTRAST 2024-01-09 21:05:05 Rafal Becker [facility] POCT TEST 2024-01-09 19:53:00 Rafal Becker e [facility] LIPASE 2024-01-09 19:50:00 Rafal Becker [facility] MAGNESIUM 2024-01-09 19:50:00 Rafal Becker [facility] COMP. METABOLIC PANEL ([id number]) 2024-01-09 19:50:00 Rafal Becker [facility] CBC WITH DIFF 2024-01-09 19:50:00 Rafal Becker [facility] URINALYSIS 2024-01-09 19:50:00 Rafal Becker [facility] POCT TEST 2023-08-21 14:02:00 Jerad Villafuerte [facility] GARDASIL 9 (HPV 9V) VACCINE 2021-10-19 14:03:36 Yue Villafuerte [facility] POCT TEST 2021-10-19 13:48:00 Jerad Villafuerte [facility] Encounters Start Date/Time End Date/Time Encounter Type Admission Type Attending Clinicians Care Facility Care Department Encounter ID Source 2024-01-09 14:51:00 2024-01-09 19:00:00 Emergency X Rafal BECKER K [facility] [id number] [facility] 2024-01-09 14:51:00 2024-01-09 19:00:00 Emergency Rafal Becker AT [facility] [id number] [id number] [id number] [id number] [facility] 2023-12-19 13:25:20 2023-12-19 13:25:20 Outpatient [facility] [id number] Ken[address] Brownlee 2023-12-19 00:00:00 2023-12-19 00:00:00 Outpatient Visit [facility] [id number] Kenyon Brownlee 2023-12-15 13:30:00 2023-12-15 13:30:00 Outpatient R FAM CHAUDHRY [facility] [id number] [facility] 2023-12-12 14:00:32 2023-12-12 14:00:32 Outpatient [facility] [id number] [place] 2023-12-12 10:00:00 2023-12-12 10:00:00 Outpatient R [facility] [id number] [facility] 2023-12-12 00:00:00 2023-12-12 00:00:00 Outpatient Visit [facility] [id number] Kenyon Escobar Kem 2023-09-13 10:27:40 2023-09-13 10:27:40 Outpatient [facility] [id number] Kenyon Escobar Kem 2023-08-21 14:02:13 2023-08-21 14:02:13 Outpatient [facility] [id number] Ken[address] [place] 2023-08-21 09:00:00 2023-08-21 09:11:13 Outpatient R YUE VILLAFUERTE [facility] [id number] [facility] 2023-08-21 09:00:00 2023-08-21 09:11:13 Nurse Visit Visit, Ang-Rmchp Nurse Yue Villafuerte [facility] ENTRY LEVEL SALES REPRESENTATIVE [facility] & [facility] [id number] [id number] 4.2.7.2.686 [id number] [facility] 2023-08-21 00:00:00 2023-08-21 00:00:00 Outpatient Visit [facility] [id number] Kenyon Brownlee 2023-08-18 11:35:02 2023-08-18 11:35:02 Outpatient [facility] [id number] Kenyon Brownlee 2023-08-18 00:00:00 2023-08-18 00:00:00 Outpatient Visit [facility] [id number] Kenyon Brownlee 2023-01-03 13:30:00 2023-01-03 13:30:00 Outpatient R YUE VILLAFUERTE [facility] [id number] [facility] 2021-11-19 08:00:00 2021-11-19 08:00:00 Outpatient R [facility] [id number] [facility] 2021-11-19 08:00:00 2021-11-19 08:00:00 Outpatient R YUE VILLAFUERTE [facility] [id number] [facility] 2021-10-19 08:30:00 2021-10-19 09:36:55 Outpatient R YUE VILLAFUERTE [facility] [id number] [facility] 2021-10-19 08:30:00 2021-10-19 09:36:55 Office Visit Yue Villafuerte [facility] ENTRY LEVEL SALES REPRESENTATIVE [facility] [id number] 350.1.13.10 4.2.7.2.686 [id number] [facility] 2021-10-19 09:30:00 2021-10-19 09:30:00 Outpatient R YUE VILLAFUERTE [facility] [id number] [facility] 2021-10-19 08:30:00 2021-10-19 08:45:00 Nurse Visit Visit, Jasonchrashaun Nurse Yue Villafuerte [facility] ENTRY LEVEL SALES REPRESENTATIVE [facility] & CHILD [facility] 1.840.114 350.1.13.10 4.2.7.2.686 [id number] [facility] 2021-10-19 08:30:00 2021-10-19 08:30:00 Outpatient R YUE VILLAFUERTE [facility] [id number] [facility] 2021-10-19 00:00:00 2021-10-19 00:00:00 Orders Only Doctor Unassigned, Bryant [facility] 1..114 350.1.13.10 4.2.7.2.686 [id number] [facility] 2020-09-29 10:30:00 2020-09-29 10:30:00 Outpatient R YUE VILLAFUERTE [facility] [id number] [facility] 2020-01-13 14:00:00 2020-01-13 14:00:00 Outpatient R [facility] [id number] [facility] 2020-01-13 10:40:07 2020-01-13 11:11:28 Nurse Visit Visit, RoseRmchrashaun Nurse Yue Villafuerte [facility] ENTRY LEVEL SALES REPRESENTATIVE [facility] & CHILD [facility] 1.84.114 350.1.13.10 4.2.7.2.686 [id number] [facility] 2020-01-02 14:30:00 2020-01-02 14:30:00 Outpatient R [facility] [id number] [facility] 2019-10-14 00:00:00 2019-10-14 00:00:00 Telephone Yue Villafuerte [facility] ENTRY LEVEL SALES REPRESENTATIVE [facility] & CHILD [facility] 1.84.114 350.1.13.10 4.2.7.2.686 [id number] [facility] 2019-10-02 14:05:45 2019-10-02 16:18:05 Office Visit Yue Villafuerte [facility] ENTRY LEVEL SALES REPRESENTATIVE [facility] & CHILD [facility] [id number] 350.1.13.10 4.2.7.2.686 [id number] [facility] 2019-10-02 14:15:00 2019-10-02 14:15:00 Outpatient R YUE VILLAFUERTE [facility] [id number] [facility] 2019-10-02 00:00:00 2019-10-02 00:00:00 Orders Only Doctor Unassigned, Bryant [facility] 1.2840.114 350.1.13.10 4.2.7.2.686 [id number] [facility] 2019-09-23 00:00:00 2019-09-23 00:00:00 Telephone Yue Villafuerte [facility] ENTRY LEVEL SALES REPRESENTATIVE [facility] CHILD [facility] 1.2840.114 350.1.13.10 4.2.7.2.686 [id number] [facility] 2019-09-19 00:00:00 2019-09-19 00:00:00 Telephone Yue Villafuerte [facility] ENTRY LEVEL SALES REPRESENTATIVE [facility] & CHILD [facility] 1.2840.114 350.1.13.10 4.2.7.2.686 [id number] [facility] 2019-09-18 09:45:00 2019-09-18 09:45:00 Outpatient R YUE VILLAFUERTE [facility] [id number] [facility] 2019-09-18 08:23:20 2019-09-18 09:22:38 Office Visit Yue Villafuerte [facility] ENTRY LEVEL SALES REPRESENTATIVE [facility] & CHILD [facility] [id number] 350.1.13.10 4.2.7.2.686 [id number] [facility] 2019-06-28 09:00:00 2019-06-28 09:00:00 Outpatient R YUE VILLAFUERTE [facility] [id number] [facility] 2019-05-24 10:29:28 2019-05-24 10:58:44 Nurse Visit Visit, Ang-Rmchp Yue Mcgraw [facility] ENTRY LEVEL SALES REPRESENTATIVE [facility] & CHILD [facility] [id number] 350.1.13.10 4.2.7.2.686 [id number] [facility] 2019-05-24 10:29:28 2019-05-24 10:58:44 Nurse Visit Visit, RoseRmp [facility] 1.2.840.114 350.1.13.10 4.2.7.2.686 [id number] 2019-05-24 00:00:00 2019-05-24 00:00:00 Orders Only Doctor Unassigned, Bryant [facility] [id number] 350.1.13.10 4.2.7.2.686 [id number] [facility] 2019-05-24 00:00:00 2019-05-24 00:00:00 Orders Only Doctor Unassigned, Bryant [facility] [id number] 350.1.13.10 4.2.7.2.686 [id number] Results Test Description Test Time Test Comments Results Result Comments Source US OVARY TORSION 22:30:49 EXAM: US OVARY TORSION 01/09/2024 5:06 PM HISTORY: 43 years-old Female; Provided indication: r/o ovarian torsion,right LMP = 4Pregnancy test = Negative. TECHNIQUE: Transabdominal and transvaginal ultrasound imaging and colorDoppler evaluation of the pelvis was performed. Spectral Doppler evaluationof the ovaries was performed. [employer] images were obtained for therecord. COMPARISON: Same date CT abdomen pelvis. FINDINGS: Limited study due to overlying bowel gas Uterus: The uterus measures 8.6 x 3.6 x 4.9 cm. The myometrium appears homogenous.No focal lesion is detected. The endometrium is normal in appearance andthe thickness measures 0.8 cm. Nabothian cysts seen on the cervix.. Right Adnexa:Right ovary was not visualized. Left Adnexa:Ovary: The left ovary measures 3.4 x 3 x 2.6 cm with a volume of 13.5 ml.The left ovary is unremarkable. There is a 2.5 x 2.1 x 2.3 anechoicstructure with posterior acoustic enhancement, which likely represents adominant follicle. Normal arterial and venous waveforms are visualized.Normal flow is seen on color Doppler. Cul-de-sac: No free fluid is present. [facility] CT ABDOMEN PELVIS W CONTRAST 21:15:42 CT ABDOMEN PELVIS W CONTRAST 01/09/2024 3:45 PM HISTORY: Abdominal abscess/infection suspected COMPARISON: None. TECHNIQUE: Axial images of the abdomen and pelvis were acquired afteradministration of intravenous contrast. Coronal and sagittalreconstructions were also created. FINDINGS: LOWER CHEST: The lungs bases are clear. ? HEPATOBILIARY: The liver is normal in size.The contour is normal. Normalparenchymal enhancement. No focal hepatic lesion.The gallbladder is normal.No biliary ductal dilatation. SPLEEN: Normal in size. No lesion. PANCREAS: Normal parenchymal enhancement. No ductal dilatation. No masses. ADRENAL GLANDS: No adrenal nodules. 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 Normalparenchymal enhancement. No hydronephrosis. No stones.No solid mass. GI TRACT: No luminal dilation or wall thickening. The appendix is normal. PERITONEUM AND RETROPERITONEUM: No free air.No free fluid. LYMPH NODES: No pathologically enlarged or morphologically abnormal lymphnodes are identified. PELVIS/BLADDER: The urinary bladder is normal. The reproductive organs arewithin normal limits. A 2.5 cm left dominant follicle is seen. VESSELS: Within normal limits. BONES AND SOFT TISSUES: No aggressive osseous lesion. No acute osseousabnormality. No concerning soft tissue abnormality. [facility] (12582)2024-01-09 20:24:18* Test Item Value Reference Range Interpretation Comme nts NA (test code = 8934200014) 134 mmol/L 135-145 L K (test code = 6998994730) 3.6 mmol/L 3.5-5.0 CL (test code = 8965563783) 102 mmol/L 98-108 CO2 TOTAL (test code = 4819922707) 26 mmol/L 23-31 AGAP (test code = 8765045541) 6 2-16 BUN (test code = 6314585897) 9 mg/dL 7-23 GLUCOSE (test code = 1059638236) 99 mg/dL 70-110 CREATININE (test code = 2160-0) 0.66 mg/dL 0.50-1.04 TOTAL BILI (test code = 3094316442) 0.4 mg/dL 0.1-1.1 CALCIUM (test code = 5354596898) 8.6 mg/dL 8.6-10.6 T PROTEIN (test code = 9077336858) 7.7 g/dL 6.3-8.2 ALBUMIN (test code = 5898712660) 4.1 g/dL 3.5-5.0 ALK PHOS (test code = 0369623409) 112 U/L 34-122 ALTv (test code = 1742-6) 22 U/L 5-35 AST(SGOT) (test code = 6496560932) 23 U/L 13-40 eGFR (test code = 80827-3) 111.8 mL/min/1.73m2 CKD-EPI eGFR (2020). Assuming creatinine has been stable day-to-day for at least three months, the eGFR indicates Category G1 (>= 90 mL/min/1.73 m2) Lab Interpretation (test code = 66556-9) [facility]24:18* Test Item Value Reference Range Interpretation Comme nts LIPASE (test code = 0838377128) 130 U/L 0-220 Lab Interpretation (test cod e = 97989-1) Normal [facility]b with [id number] 20:17:40* Test Item Value Reference Range Interpretation Comme nts WBC (test code = 6690-2) 11.38 4.30-11.10 H RBC (test code = 789-8) 4.06 3.93-5.25 HGB (test code = 718-7) 11.7 g/dL 11.6-15.0 HCT (test code = 4544-3) 35.8 % 35.7-45.2 MCV (test code = 787-2) 88.2 fL 80.6-95.5 MCH (test code = 785-6) 28.8 pg 25.9-32.8 MCHC (test code = 786-4) 32.7 g/dL 31.6-35.1 RDW-SD (test code = 22590-6) 41.6 fL 39.0-49.9 RDW-CV (test code = 788-0) 12.8 % 12.0-15.5 PLT (test code = 777-3) 300 166-358 MPV (test code = 94778-5) 10.6 fL 9.5-12.9 NRBC/100 WBC (test code = 9801522099) 0.0 0.0-10.0 NRBC x10^3 (test code = 4172265433) See_Comment [Automated messa ge] The system which generated this result transmitted reference range: 10*3/?L. The reference range was not used to interpret this result as normal/abnormal. GRAN MAT (NEUT) % (test code = 770-8) 57.6 % IMM GRAN % (test code = 1171866414) 0.40 % LYMPH % (test code = 736-9) 32.8 % MONO % (test code = 5905-5) 5.7 % EOS % (test code = 713-8) 2.7 % BASO % (test code = 706-2) 0.8 % GRAN MAT x10^3(ANC) (test code = 2959323955) 6.55 10*3/uL 1.88-7.09 IMM GRAN x10^3 (test code = 6966663997) 0.05 10*3/uL 0.00-0.06 LYMPH x10^3 (test code = 731-0) 3.73 10*3/uL 1.32-3.29 H MONO x10^3 (test code = 742-7) 0.65 10*3/uL 0.33-0.92 EOS x10^3 (test code = 711-2) 0.31 10*3/uL 0.03-0.39 BASO x10^3 (test code = 704-7) 0.09 10*3/uL 0.01-0.07 H Lab Interpretation (test code = 27774-5) [facility]normal [facility] [id number] 19:53:00* Test Item Value Reference Range Interpretation Comme nts POCT PREG (test code = 1605) Negative On board controls acceptable with C Line (test code = 3574) Yes POCT PREG LOT # (test code = 3575) [id number] POCT PREG TEST DATE ( test code = 357) 01/17/25 Lab Interpretation (test cod e = 89973-0) Normal [facility], [id number] 00:00:00* Test Item Value Reference Range Interpretation Comme nts HCG, QUANTITATIVE (test code = 2506) <5 MIU/ML Kenyon F AustinHCG, [id number] 00:00:00* Test Item Value Reference Range Interpretation Comme nts HCG, QUANTITATIVE (test code = 2506) <5 MIU/ML Kenyon F AustinHCG, [id number] 00:00:00* Test Item Value Reference Range Interpretation Comme nts HCG, QUANTITATIVE (test code = 2506) <5 MIU/ML Kenyon F AustinHCG, [id number] 00:00:00* Test Item Value Reference Range Interpretation Comme nts HCG, QUANTITATIVE (test code = 2506) <5 MIU/ML Kenyon F AustinHCG, [id number] 00:00:00* Test Item Value Reference Range Interpretation Comme nts HCG, QUANTITATIVE (test code = 2506) <5 MIU/ML Kenyon F AustinPOCT [id number] 14:02:00* Test Item Value Reference Range Interpretation Comme nts POCT PREG (test code = 1605) Negative On board controls acceptable with C Line (test code = 3574) Yes POCT PREG LOT # (test code = 3575) POCT PREG TEST DATE ( test code = 357) [facility] BrookCHLAMYDIA, NAAT, [id number] 08:07:31* Test Item Value Reference Range Interpretation Comme nts CHLAMYDIA, NAAT, URINE (test code = 82970) NEGATIVE NEGATIVE Testing is perfo rmed with [employer] PAULO 6800/8800 systems usingreal-time polymerase chain reaction (PCR) method. A negative result does not exclude low level infection, specimensampling error, or collection error. GONORRHEA, NAAT, [id number] 08:07:31* Test Item Value Reference Range Interpretation Comme nts GONORRHEA, NAAT, URINE (test code = 03618) NEGATIVE NEGATIVE Testing is perfo rmed with [employer] PAULO 6800/8800 systems usingreal-time polymerase chain reaction (PCR) method. A negative result does not exclude low level infection, specimensampling error, or collection error. CHLAMYDIA, AMPLIFIED, [id number] 00:00:00* Test Item Value Reference Range Interpretation Comme nts CHLAMYDIA, NAAT, URINE (test code = 64176) NEGATIVE Kenyon Escobar AustinGC, AMPLIFIED, [id number] 00:00:00* Test Item Value Reference Range Interpretation Comme nts GONORRHEA, NAAT, URINE (test code = 55502) NEGATIVE Kenyon Escobar AustinCHLAMYDIA, AMPLIFIED, [id number] 00:00:00* Test Item Value Reference Range Interpretation Comme nts CHLAMYDIA, NAAT, URINE (test code = 66613) NEGATIVE Kenyon Escobar AustinGC, AMPLIFIED, [id number] 00:00:00* Test Item Value Reference Range Interpretation Comme nts GONORRHEA, NAAT, URINE (test code = 61636) NEGATIVE Kenyon Escobar AustinCHLAMYDIA, AMPLIFIED, [id number] 00:00:00* Test Item Value Reference Range Interpretation Comme nts CHLAMYDIA, NAAT, URINE (test code = 46953) NEGATIVE Kenyon Escobar AustinGC, AMPLIFIED, [id number] 00:00:00* Test Item Value Reference Range Interpretation Comme nts GONORRHEA, NAAT, URINE (test code = 09968) NEGATIVE Kenyon Escobar AustinHIV 1/2 4TH GEN, RFLX [id number] 06:46:46* Test Item Value Reference Range Interpretation Comme nts HIV 1/2 4TH GEN, RFLX CONF ( test code = 3514) NON-REACTIVE NON-REACTIVE HEPATITIS PANEL, [id number] 06:46:46* Test Item Value Reference Range Interpretation [...] infection. INTERPRETATION HEPATITIS B: (test code = 77961) (NOTE) Hepatitis B sero logy shows no evidence of past exposure to orcurrent infection with hepatitis B virus. No evidence of hepatitis Bimmunization is identified. INTERPRETATION HEPATITIS C: (test code = 61016) (NOTE) Hepatitis C sero logy shows no evidence of exposure to hepatitisC virus at this time. It can take up to 12 months after exposure tothe hepatitis C virus for antibodies to become detectable in the blood in certain patients. HEPATITIS A [id number] 06:46:46* Test Item Value Reference Range Interpretation Comme nts HEPATITIS A IgM (test code = 2728) NON-REACTIVE NON-REACTIVE UNLESS OTHERW ISE INDICATED, ALL TESTING PERFORMED AT [facility] [address] [place] [address] STREET ROLLER ENGINEER: DAIVD DAVE M.D. CLIA NUMBER [id number] [facility] [place]. [id number] RPR REFLEX TO [id number] 03:49:07* Test Item Value Reference Range Interpretation Comme nts RPR (test code = 06908) NON-REACTIVE NON-REACTIVE RPR TITER (test code = 3500) NOT INDIC. TITER NOT INDIC. HIV 1/2 4TH GEN, RFLX [id number] 00:00:00* Test Item Value Reference Range Interpretation [...] (NOTE) INTERPRETATION HEPATITIS B: (test code = 34870) (NOTE) INTERPRETATION HEPATITIS C: (test code = 30081) (NOTE) Kenyon Escobar AustinRPR REFLEX TO [id number] 00:00:00* Test Item Value Reference Range Interpretation Comme nts RPR (test code = 01820) NON-REACTIVE RPR TITER (test code = 3500) NOT INDIC. TITER Kenyon BrownleeHEPATITIS A IgM [REFLEX]2023-08-19 00:00:00* Test Item Value Reference Range Interpretation Comme nts HEPATITIS A IgM (test code = 2728) NON-REACTIVE Kenyon BrownleeHIV 1/2 4TH GEN, RFLX [id number] 00:00:00* Test Item Value Reference Range Interpretation Comme nts HIV 1/2 4TH GEN, RFLX CONF ( test code = 3514) NON-REACTIVE Kenyon BrownleeHEPATITIS PROFILE (A,B,C)2023-08-19 00:00:00* Test Item Value Reference [...] (NOTE) INTERPRETATION HEPATITIS B: (test code = 83363) (NOTE) INTERPRETATION HEPATITIS C: (test code = 92706) (NOTE) Kenyon Escobar AustinRPR REFLEX TO [id number] 00:00:00* Test Item Value Reference Range Interpretation Comme nts RPR (test code = 49981) NON-REACTIVE RPR TITER (test code = 3500) NOT INDIC. TITER Kenyon Escobar AustinHEPATITIS A IgM [REFLEX]2023-08-19 00:00:00* Test Item Value Reference Range Interpretation Comme nts HEPATITIS A IgM (test code = 2728) NON-REACTIVE Kenyon F AustinHIV 1/2 4TH GEN, RFLX [id number] 00:00:00* Test Item Value Reference Range Interpretation Comme nts HIV 1/2 4TH GEN, RFLX CONF ( test code = 3514) NON-REACTIVE Kenyon BrownleeHEPATITIS PROFILE (A,B,C)2023-08-19 00:00:00* Test Item Value Reference [...] (NOTE) INTERPRETATION HEPATITIS B: (test code = 31011) (NOTE) INTERPRETATION HEPATITIS C: (test code = 64080) (NOTE) Kenyon Escobar AustinRPR REFLEX TO [id number] 00:00:00* Test Item Value Reference Range Interpretation Comme nts RPR (test code = 49683) NON-REACTIVE RPR TITER (test code = 3500) NOT INDIC. TITER Kenyon BrownleeHEPATITIS A IgM [REFLEX]2023-08-19 00:00:00* Test Item Value Reference Range Interpretation Comme nts HEPATITIS A IgM (test code = 2728) NON-REACTIVE Kenyon BrownleeCOMPREHENSIVE METABOLIC [id number] 05:53:04* Test Item Value Reference Range Interpretation Comme nts GLUCOSE (test code = 2217) 79 MG/DL 70-99 BUN (test code = 2208) 12 MG/DL 6-20 CREATININE (test code = 2214) 0.73 MG/DL 0.60-1.30 eGFR (2020 CKD-EPI) (test code = 21545) 106 ML/MIN/1.73 >60 CALC BUN/CREAT (test code [...] 7.1 G/DL 6.1-8.3 ALBUMIN (test code = 1) 3.9 G/DL 3.5-5.2 CALC GLOBULIN (test code = 0) 3.2 G/DL 1.9-3.7 CALC A/G RATIO (test [...] code = 2218) 28 U/L 5-40 LIPID [id number] 05:53:04* Test Item Value Reference Range Interpretation [...] = 2237) 2.30 RATIO <3.22 TSH, THIRD [id number] 04:53:46* Test Item Value Reference Range Interpretation Comme nts TSH, THIRD GENERATION (test code = 2821) 1.790 UIU/ML 0.400-4.100 UNLESS OTHERWISE INDICATED, [facility]ING [facility] [address] [place] [address], [place] [id number] [address] ROLLER ENGINEER: RAMIREZ CUELLO M.D. CLIA NUMBER [id number] [facility] [place]. [id number] CBC W/AUTO DIFF WITH [id number] 04:43:48* Test Item Value Reference Range Interpretation [...] 0.00-0.10 ABS NUCLEATED RBCS (test code = 25621) 0.00 K/UL 0.00-0.11 HEMOGLOBIN [id number] 04:35:33* Test Item Value Reference Range Interpretation Comme nts HEMOGLOBIN A1c (test code = 64317) 5.8 % 4.2-5.6 H HEMOGLOBIN [id number] 00:00:00* Test Item Value Reference Range Interpretation Comme nts HEMOGLOBIN A1c (test code = 61511) 5.8 % Kenyon [id number] 00:00:00* Test Item Value Reference Range Interpretation Comme nts TSH, THIRD GENERATION (test code = 2821) 1.790 UIU/ML Kenyon BrownleeCBC W/AUTO [id number] 00:00:00* Test Item Value Reference Range Interpretation [...] ABS NUCLEATED RBCS (test cod e = 69760) 0.00 K/UL Kenyon BrownleeCOMPREHENSIVE METABOLIC [id number] 00:00:00* Test Item Value Reference Range Interpretation Comme nts GLUCOSE (test code = 2217) 79 MG/DL BUN (test code = 2208) 12 MG/DL CREATININE (test code = 2214) 0.73 MG/DL eGFR (2020 CKD-EPI) (test code = 31099) 106 ML/MIN/1.73 CALC BUN/CREAT (test code = [...] (test code = 2219) 28 U/L Kenyon rBownleeLIPID [id number] 00:00:00* Test Item Value Reference Range Interpretation Comme nts CHOLESTEROL (test code = 2210) 175 MG/DL TRIGLYCERIDES (test code = 2232) 103 MG/DL HDL CHOLESTEROL (test code = 2220) 47 MG/DL CALC LDL CHOL (test code = 2237) 108 MG/DL RISK RATIO LDL/HDL (test cod e = 2238) 2.30 RATIO Kenyon BrownleeHEMOGLOBIN [id number] 00:00:00* Test Item Value Reference Range Interpretation Comme nts HEMOGLOBIN A1c (test code = 53420) 5.8 % Kenyon [id number] 00:00:00* Test Item Value Reference Range Interpretation Comme nts TSH, THIRD GENERATION (test code = 2821) 1.790 UIU/ML Kenyon BrownleeCBC W/AUTO [id number] 00:00:00* Test Item Value Reference Range Interpretation [...] ABS NUCLEATED RBCS (test cod e = 59733) 0.00 K/UL Kenyon BrownleeCOMPREHENSIVE METABOLIC [id number] 00:00:00* Test Item Value Reference Range Interpretation Comme nts GLUCOSE (test code = 2217) 79 MG/DL BUN (test code = 2208) 12 MG/DL CREATININE (test code = 2214) 0.73 MG/DL eGFR (2020 CKD-EPI) (test code = 86204) 106 ML/MIN/1.73 CALC BUN/CREAT (test code = [...] code = 2219) 28 U/L Kenyon BrownleeLIPID [id number] 00:00:00* Test Item Value Reference Range Interpretation Comme nts CHOLESTEROL (test code = 2210) 175 MG/DL TRIGLYCERIDES (test code = 2232) 103 MG/DL HDL CHOLESTEROL (test code = 2220) 47 MG/DL CALC LDL CHOL (test code = 2237) 108 MG/DL RISK RATIO LDL/HDL (test cod e = 2238) 2.30 RATIO Kenyon BrownleeHEMOGLOBIN [id number] 00:00:00* Test Item Value Reference Range Interpretation Comme [place] HEMOGLOBIN A1c (test code = 01575) 5.8 % Kenyon [id number] 00:00:00* Test Item Value Reference Range Interpretation Comme [place] TSH, THIRD GENERATION (test code = 2821) 1.790 UIU/ML Kenyon BrownleeCBC W/AUTO [id number] 00:00:00* Test Item Value Reference Range Interpretation Comme [place] WBC (test code = 1001) 9.6 K/UL [...] ABS NUCLEATED RBCS (test cod e = 24322) 0.00 K/UL Kenyon BrownleeCOMPREHENSIVE METABOLIC [id number] 00:00:00* Test Item Value Reference Range Interpretation Comme nts GLUCOSE (test code = 2217) 79 MG/DL BUN (test code = 2208) 12 MG/DL CREATININE (test code = 2214) 0.73 MG/DL eGFR (2020 CKD-EPI) (test code = 83429) 106 ML/MIN/1.73 CALC BUN/CREAT (test code = [...] code = 2219) 28 U/L Kenyon BrownleeLIPID [id number] 00:00:00* Test Item Value Reference Range Interpretation Comme nts CHOLESTEROL (test code = 2210) 175 MG/DL TRIGLYCERIDES (test code = 2232) 103 MG/DL HDL CHOLESTEROL (test code = 2220) 47 MG/DL CALC LDL CHOL (test code = 2237) 108 MG/DL RISK RATIO LDL/HDL (test cod e = 2238) 2.30 RATIO Kenyon BrownleeHEMOGLOBIN [id number] 00:00:00* Test Item Value Reference Range Interpretation Comme nts HEMOGLOBIN A1c (test code = 66721) 5.8 % Kenyon [id number] 00:00:00* Test Item Value Reference Range Interpretation Comme nts TSH, THIRD GENERATION (test code = 2821) 1.790 UIU/ML Kenyon BrownleeCBC W/AUTO [id number] 00:00:00* Test Item Value Reference Range Interpretation [...] ABS NUCLEATED RBCS (test cod e = 82602) 0.00 K/UL Kenyon BrownleeCOMPREHENSIVE METABOLIC [id number] 00:00:00* Test Item Value Reference Range Interpretation Comme nts GLUCOSE (test code = 2217) 79 MG/DL BUN (test code = 2208) 12 MG/DL CREATININE (test code = 2214) 0.73 MG/DL eGFR (2020 CKD-EPI) (test code = 57535) 106 ML/MIN/1.73 CALC BUN/CREAT (test code = [...] (test code = 2219) 28 U/L Kenyon Escobar AustinLIPID [id number] 00:00:00* Test Item Value Reference Range Interpretation Comme nts CHOLESTEROL (test code = 2210) 175 MG/DL TRIGLYCERIDES (test code = 2232) 103 MG/DL HDL CHOLESTEROL (test code = 2220) 47 MG/DL CALC LDL CHOL (test code = 2237) 108 MG/DL RISK RATIO LDL/HDL (test cod e = 2238) 2.30 RATIO Kenyon Escobar AustinVAGINAL PATHOGENS DNA [id number] 15:33:56* Test Item Value Reference Range Interpretation Comme nts RAMAKRISHNA SPECIES (test code = 80837) NEGATIVE NEGATIVE G. VAGINALIS (test code = ) POSITIVE NEGATIVE A T. VAGINALIS (test code = ) NEGATIVE NEGATIVE UNLESS OTHERWISE INDICATED, [facility] TESTING PER[facility]MED [facility] [address] [place] [address] ROLLER ENGINEER: RAMIREZ CUELLO M.D. CLIA NUMBER [id number] [place] [id number] PAP TEST, THINPREP, [id number] 14:29:43* Test Item Value Reference Range Interpretation Comme nts SOURCE: (test code = 8001) Cervical SLIDES: (test code = 8011) 1 LMP: (test code = 8021) 09/29/2021 SPECIMEN ADEQUACY: (test code = 31310) (NOTE) Satisfactory for evaluation. Endocervical cells/transformation zone component present. INTERPRETATION: (test code = 56177) NILM/NO EPITH. ABNORMALITY;SEE BELOW --- - NEGATIVE FOR INTRAEPITHELIAL LESION OR MALIGNANCY (NILM) ---- OTHER COMMENTS: (test code = 8081) (NOTE) Shift in javier suggestive of bacterial vaginosis. SIDE LASTER : (test code = 8101) YE Rey(ASCP) IAC LOCATION: (test code = 14637) (NOTE) Specimens proces sed and interpreted at [facility], [address] [place] [address], , CLIA: [id number] CPT: (test code = 8140) (NOTE) 05185 UNLESS OTH ERWISE INDICATED, COMPUTER AIDED AND SIDE LASTER SCREENING PERFORMED. The Pap test is a screening test with an inherent, but low probability of error. Your patient should be reminded to consult you immediately if she experiences any suspicious signs or symptoms, regardless of her Pap test result. An alternate report format containing images or consolidated prior Pap history is available as applicable. UNLESS OTHERWISE INDICATED, ALL TESTING PERFORMED [facility]. [address] [place] [address] ROLLER ENGINEER: RAMIREZ CUELLO M.D. CLIA NUMBER [id number] [facility] [place]. [id number] PAP TEST, THINPREP, [id number] 00:00:00* Test Item Value Reference Range Interpretation Comme nts SOURCE: (test code = 8001) Cervical SLIDES: (test code = 8011) 1 LMP: (test code = 8021) 09/29/2021 SPECIMEN ADEQUACY: (test code = 72928) (NOTE) INTERPRETATION: (test code = 38415) NILM/NO EPITH. ABNORMALITY;SEE BELOW OTHER COMMENTS: (test code = 8081) (NOTE) SIDE LASTER: (test code = 8101) YE Rey(ASCP)IAC LOCATION: (test code = 60065) (NOTE) CPT: (test code = 8140) (NOTE) Kenyon Escobar AustinVAGINAL PATHOGENS DNA [id number] 00:00:00* Test Item Value Reference Range Interpretation Comme nts RAMAKRISHNA SPECIES (test code = ) NEGATIVE G. VAGINALIS (test code = 68705) POSITIVE T. VAGINALIS (test code = 73605) NEGATIVE Kenyon BrownleePAP TEST, THINPREP, [id number] 00:00:00* Test Item Value Reference Range Interpretation Comme nts SOURCE: (test code = 8001) Cervical SLIDES: (test code = 8011) 1 LMP: (test code = 8021) 09/29/2021 SPECIMEN ADEQUACY: (test code = 95851) (NOTE) INTERPRETATION: (test code = 59066) NILM/NO EPITH. ABNORMALITY;SEE BELOW OTHER COMMENTS: (test code = 8081) (NOTE) SIDE LASTER: (test code = 8101) YE Rey(ASCP)IAC LOCATION: (test code = 11023) (NOTE) CPT: (test code = 8140) (NOTE) Kenyon Escobar AustinVAGINAL PATHOGENS DNA [id number] 00:00:00* Test Item Value Reference Range Interpretation Comme nts RAMAKRISHNA SPECIES (test code = ) NEGATIVE G. VAGINALIS (test code = 69546) POSITIVE T. VAGINALIS (test code = 73322) NEGATIVE Kenyon Escobar AustinVAGINAL PATHOGENS DNA [id number] 00:00:00* Test Item Value Reference Range Interpretation Comme nts RAMAKRISHNA SPECIES (test code = 08196) NEGATIVE G. VAGINALIS (test code = 08840) POSITIVE T. VAGINALIS (test code = 62089) NEGATIVE Kenyon Shawn AustinPAP TEST, THINPREP, [id number] 00:00:00* Test Item Value Reference Range Interpretation Comme nts SOURCE: (test code = 8001) Cervical SLIDES: (test code = 8011) 1 LMP: (test code = 8021) 09/29/2021 SPECIMEN ADEQUACY: (test code = 92508) (NOTE) INTERPRETATION: (test code = 04300) NILM/NO EPITH. ABNORMALITY;SEE BELOW OTHER COMMENTS: (test code = 8081) (NOTE) SIDE LASTER: (test code = 8101) YE Rey(ASCP)IAC LOCATION: (test code = 85892) (NOTE) CPT: (test code = 8140) (NOTE) Kenyon Shawn KemPAP TEST, THINPREP, [id number] 00:00:00* Test Item Value Reference Range Interpretation Comme nts SOURCE: (test code = 8001) Cervical SLIDES: (test code = 8011) 1 LMP: (test code = 8021) 09/29/2021 SPECIMEN ADEQUACY: (test code = 63748) (NOTE) INTERPRETATION: (test code = 19582) NILM/NO EPITH. ABNORMALITY;SEE BELOW OTHER COMMENTS: (test code = 8081) (NOTE) SIDE LASTER: (test code = 8101) YE Rey(ASCP)IAC LOCATION: (test code = 07825) (NOTE) CPT: (test code = 8140) (NOTE) Kenyon Escobar KemVAGINAL PATHOGENS DNA [id number] 00:00:00* Test Item Value Reference Range Interpretation Comme nts RAMAKRISHNA SPECIES (test code = 14757) NEGATIVE G. VAGINALIS (test code = 18759) POSITIVE T. VAGINALIS (test code = 02202) NEGATIVE Kenyon BrownleeHCG, [id number] 06:38:23* Test Item Value Reference Range Interpretation [...] . . . . . . MIU/ML 4-7VZFJ-ODILDIINKB FEMALES . . . . . . . . . . . . MIU/ML <=7 UNLESS OTHERWISE INDICATED, ALL TESTING PERFORMED [facility] [employer] [address] [place] [id number] ROLLER ENGINEER: RAMIREZ CUELLO M.D. [place] NUMBER [id number] [facility]. [id number] HCG, QUANTITATIVE [ADDED]2021-10-21 00:00:00* Test Item Value [...] = 2506) <5 MIU/ML Kenyon F AustinPOCT [id number] 13:48:00* Test Item Value Reference Range Interpretation Comme nts POCT PREG (test code = 1605) Negative On board controls acceptable with C Line (test code = 3574) Yes POCT PREG LOT # (test code = 3575) POCT PREG TEST DATE ( test code = 3576) [facility], [id number] 00:00:00* Test Item Value Reference Range Interpretation Comme nts HCG, QUANTITATIVE (test code = 2506) <5 MIU/ML Kenyon F AustinHCG, [id number] 00:00:00* Test Item Value Reference Range Interpretation Comme nts HCG, QUANTITATIVE (test code = 2506) <5 MIU/ML Kenyon F AustinHCG, [id number] 00:00:00* Test Item Value Reference Range Interpretation Comme nts HCG, QUANTITATIVE (test code = 2506) <5 MIU/ML Kenyon F AustinHCG, [id number] 00:00:00* Test Item Value Reference Range Interpretation Comme nts HCG, QUANTITATIVE (test code = 2506) <5 MIU/ML Kenyon F AustinHCG, [id number] 00:00:00* Test Item Value Reference Range Interpretation Comme nts HCG, QUANTITATIVE (test code = 2506) <5 MIU/ML Kenyon F AustinHCG, [id number] 00:00:00* Test Item Value Reference Range Interpretation Comme nts HCG, QUANTITATIVE (test code = 2506) <5 MIU/ML Kenyon F AustinHCG, [id number] 00:00:00* Test Item Value Reference Range Interpretation Comme nts HCG, QUANTITATIVE (test code = 2506) <5 MIU/ML Kenyon F AustinHCG, [id number] 00:00:00* Test Item Value Reference Range Interpretation Comme nts HCG, QUANTITATIVE (test code = 2506) <5 MIU/ML Kenyon F AustinHCG, [id number] 00:00:00* Test Item Value Reference Range Interpretation Comme nts HCG, QUANTITATIVE (test code = 2506) <5 MIU/ML Kenyon F AustinHCG, [id number] 00:00:00* Test Item Value Reference Range Interpretation Comme nts HCG, QUANTITATIVE (test code = 2506) <5 MIU/ML Kenyon F AustinHCG, [id number] 00:00:00* Test Item Value Reference Range Interpretation Comme nts HCG, QUANTITATIVE (test code = 2506) <5 MIU/ML Kenyon F AustinHCG, [id number] 00:00:00* Test Item Value Reference Range Interpretation Comme nts HCG, QUANTITATIVE (test code = 2506) <5 MIU/ML Kenyon Escobar AustinHCG, [id number] 00:00:00* Test Item Value Reference Range Interpretation Comme nts HCG, QUANTITATIVE (test code = 2506) <5 MIU/ML Kenyon F AustinHCG, [id number] 00:00:00* Test Item Value Reference Range Interpretation Comme nts HCG, QUANTITATIVE (test code = 2506) <5 MIU/ML Kenyon F AustinHCG, [id number] 00:00:00* Test Item Value Reference Range Interpretation Comme nts HCG, QUANTITATIVE (test code = 2506) <5 MIU/ML Kenyon F AustinHCG, [id number] 00:00:00* Test Item Value Reference Range Interpretation Comme nts HCG, QUANTITATIVE (test code = 2506) <5 MIU/ML Kenyon Escobar AustinHCG, [id number] 00:00:00* Test Item Value Reference Range Interpretation Comme nts HCG, QUANTITATIVE (test code = 2506) <5 MIU/ML Kenyon F AustinVAGINAL PATHOGENS DNA [id number] 00:00:00* Test Item Value Reference Range Interpretation Comme nts RAMAKRISHNA SPECIES (test code = ) NEGATIVE G. VAGINALIS (test code = 17167) POSITIVE T. VAGINALIS (test code = 28455) NEGATIVE Kenyon Escobar AustinHCG, [id number] 00:00:00* Test Item Value Reference Range Interpretation Comme nts HCG, QUANTITATIVE (test code = 2506) <5 MIU/ML Kenyon F AustinVAGINAL PATHOGENS DNA [id number] 00:00:00* Test Item Value Reference Range Interpretation Comme nts RAMAKRISHNA SPECIES (test code = 69641) NEGATIVE G. VAGINALIS (test code = 17722) POSITIVE T. VAGINALIS (test code = 02855) NEGATIVE Kenyon F AustinHCG, [id number] 00:00:00* Test Item Value Reference Range Interpretation Comme nts HCG, QUANTITATIVE (test code = 2506) <5 MIU/ML Kenyon F AustinVAGINAL PATHOGENS DNA [id number] 00:00:00* Test Item Value Reference Range Interpretation Comme nts RAMAKRISHNA SPECIES (test code = ) NEGATIVE G. VAGINALIS (test code = 24795) POSITIVE T. VAGINALIS (test code = 98019) NEGATIVE Kenyon BrownleeHCG, [id number] 00:00:00* Test Item Value Reference Range Interpretation Comme nts HCG, QUANTITATIVE (test code = 2506) <5 MIU/ML Kenyon BrownleeVAGINAL PATHOGENS DNA [id number] 00:00:00* Test Item Value Reference Range Interpretation Comme nts RAMAKRISHNA SPECIES (test code = ) NEGATIVE G. VAGINALIS (test code = 83621) POSITIVE T. VAGINALIS (test code = 51123) NEGATIVE Kenyon Brownlee Notes Date/Time Note Provider Source 2024-01-09 18:58:23 Pt given printed and verbal discharge instructions regarding abdominal pain unspecific encouraged hydration. 2 Prescriptions sent to pharmacy. Pt verbalized understanding of instructions, pt awake alert oriented, resp reg unlabored, skin w/d, color appropriate for race, moves all ext well,pt encouraged to follow up with pcp.Advised to seek medical attention for new/prolonged/worsening of symptoms. No adverse reaction to meds given in ER noted upon discharge. Awake, alert oriented, resp reg unlabored, skin w/d, pt leaving amb with steady gait, in no apparent distress. Patrica Jeffery RN [facility] 2024-01-09 14:34:39 Pt arrived ambulatory with complaints of lower pelvic pain starting this morning. LMP November. Pt thinks she may be in menopause. ELT Abby Truong RN [facility]2024-09-03 00:00:00 [facility]2024-05-13 00:00:00 [facility]2024-05-10 00:00:00 [facility]
[2024-06-01] MEDS ORDERED: MORPHINE 4 MG/ML SYR ONE (23:28)
[2024-06-01] MEDS ORDERED: ONDANSETRON 4 MG/2 ML VIAL ONE (23:28)
[2024-06-01 23:38] LABS: Absolute Basophils 0.1 K/uL (0-0.5); Absolute Eosinophils 0.4 K/uL (0-0.5); Absolute Lymphocytes (CBC) 4.1 K/uL (0.7-4.9); Absolute Monocytes 0.6 K/uL (0.1-1.3); Absolute Neutrophil 6.8 K/uL (1.8-8.0); Hematocrit 39.7 % (36.0-45.0); Hemoglobin 13.2 g/dL (12.0-15.0); Lymphocytes % 34.2 % (15.3-44.8); MCH 29.1 pg (27.0-35.0); MCHC 33.3 g/dL (32.0-36.0); MCV 87.3 fL (80-100); MPV 8.5 fL (7.6-11.3); Monocytes % 5.3 % (3.3-12.3); Neutrophils % 56.5 % (41.7-73.7); Platelets 318 thou/uL (152-406); RBC Red Blood Cell Count 4.54 M/uL (3.86-4.86); Red Cell Distribution Width 13.3 % (12.1-15.2)
[2024-06-01 23:44] LABS: Albumin 3.3 g/dL (3.4-5.0); Albumin/Globulin Ratio 0.7 (1.1-1.8); Anion Gap 7.8 mEq/L (5.0-15.0); Bilirubin Total 0.3 mg/dL (0.2-1.0); Globulin 4.5 g/dL (2.3-3.5); Potassium 3.8 mEq/L (3.5-5.1); Protein, Total 7.8 g/dL (6.4-8.2)
[2024-06-01 23:50] LABS: Sqamous Epithelial <5 /HPF (None Seen); Urine Bacteria <20 /HPF (<20); Urine Bilirubin NEGATIVE (Negative); Urine Blood Negative (Negative); Urine Clarity Turbid (Clear); Urine Color Colorless (Yellow); Urine Culture Reflex Order NOT NEEDED; Urine Glucose NEGATIVE (Negative); Urine Ketones NEGATIVE (Negative); Urine Microscopic Reflex YN ORDER UMIC; Urine Mucus Slight /HPF (None Seen); Urine Nitrite NEGATIVE (Negative); Urine Protein NEGATIVE (Negative); Urine RBC None Seen /HPF (None Seen); Urine Urobilinogen Normal (Normal); Urine WBC <5 /HPF (<5)
--- NOTE | 2024-06-02 00:56 | RAD REPORT ---
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 COMPARISON: CT of the abdomen and pelvis 12/14/2023 TECHNIQUE: CT of the abdomen and pelvis acquired without the intravenous administration of contrast, limiting evaluation of the solid and hollow visceral organs as well as vascular structures. Axial, coronal and sagittal images are provided. The study was performed using dose reduction techniques inc luding automated exposure control and/or adjustment of the MA and/or KV according to patient size, and/or iterative reconstruction techniques. FINDINGS: Lower thorax: No consolidation or pleural effusion. Partially visualized heart is normal in size. Liver, spleen, pancreas, adrenals: No discrete acute lesion on the unenhanced scan. Biliary tree: No intra- or extrahepatic bile duct dilation. Gallbladder: No calcified cholelithiasis or pericholecystic inflammation. Kidneys, ureters, bladder: 2 mm right renal interpolar region minor calyceal nonobstructing calculus. No right ureterolithiasis, left urolithiasis, hydroureteronephrosis, or urinary bladder calculus. Reproductive organs: Anteverted uterus in situ. 2.6 cm left ovarian cyst. No follow-up imaging is rec ommended. Reference: JACR 2019;17(2):248-254 Gastrointestinal tract: Lower esophagus/stomach/small bowel: No small bowel obstruction or perienteric inflammation. Colon: Mild scattered colonic diverticulosis with moderate colonic stool. No diverticulitis. Appendix: Normal diameter appendix. Peritoneum, mesentery and retroperitoneum: No free air, ascites or loculated fluid. Lymph nodes: No pathologic adenopathy based on size criteria. Vasculature: Aorta and branches: Aorta has a normal diameter. IVC and veins: IVC has a normal diameter. Bones: Mild degenerative changes, including multilevel spondylosis and bilateral hip osteoarthrosis. Soft tissues: No acute abnormality. IMPRESSION: 1. Mild colonic diverticulosis with moderate colonic stool. No diverticulitis. 2. Left ovarian 2.6 cm cyst. No follow-up imaging is recommended. 3. Nonobstructing right nephrolithiasis. Electronically signed by: Kolton Sierra MD 06/02/2024 12:31 AM HOME THEATRE TECHNICIAN Due to temporary technical issues with the [employer] reporting system, reports are being kevin d by the in-house radiologist without review as a courtesy to ensure prompt reporting the interpreting radiologist is fully responsible for the content of the report. Transcribed Date/Time: 06/02/2024 12:55 AM
--- NOTE | 2024-06-02 01:18 | ER ---
Nurse's Notes [facility] Name: Nidia Ford Age: 44 yrs Sex: Female : 1980 Arrival Date: 06/01/2024 Time: 22:48 Bed 7 Private MD: Diagnosis: Right Flank Pain Presentation: 06/01 23:02 Chief complaint: Patient states: right sided back and flank pain with urinary frequency lg3 X1 day. Coronavirus screen: Client denies travel out of the [place] in the last 14 days. At this time, the client does not indicate any symptoms associated with coronavirus-19. Ebola Screen: No symptoms or risks identified at this time. Initial Sepsis Screen: Does the patient meet any 2 criteria? No. Patient's initial sepsis screen is negative. Does the patient have a suspected source of infection? No. Patient's initial sepsis screen is negative. Risk Assessment: Do you want to hurt yourself or someone else? Patient reports no desire to harm self or others. Onset of symptoms Onset of symptoms was June 01, 2024. 23:02 Method Of Arrival: Ambulatory lg3 23:02 Acuity: ANASTACIO 3 lg3 Triage Assessment: 23:04 General: Appears in no apparent distress. uncomfortable. General: Behavior is calm, lg3 cooperative. Pain: Complains of pain in right mid back and right low back Pain radiates to right flank. EENT: No deficits noted. No signs and/or symptoms were reported regarding the EENT system. Neuro: No deficits noted. Cotton Agitation-Sedation Scale (RASS): 0 - Alert and Calm Level of Consciousness is awake, alert, obeys commands, Oriented to person, place, time, situation. Cardiovascular: No deficits noted. Denies chest pain, shortness of breath, Capillary refill < 3 seconds Clubbing of nail beds is absent JVD is absent Patient's skin is warm and dry. Respiratory: No deficits noted. Airway is patent Respiratory effort is even, unlabored, Respiratory pattern is regular, symmetrical. GI: No deficits noted. No signs and/or symptoms were reported involving the gastrointestinal system. Abdomen is round non-distended, obese, Abd is soft and non tender X 4 quads. : Reports urinary frequency, Denies burning with urination, pain. Derm: No deficits noted. No signs and/or symptoms reported regarding the dermatologic system. Skin is intact, is healthy with good turgor, Skin is dry, Skin is normal, Skin temperature is warm. Musculoskeletal: Circulation, motion, and sensation intact. Range of motion: intact in all extremities, Reports pain in right mid back and right low back. 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 - Infectious Disease History:: Denies. - Social history:: Smoking status: Patient denies any tobacco usage or history of. Patient/guardian denies using alcohol, street drugs. Screenin:47 [facility] ED Fall Risk Assessment (Adult) History of falling in the last 3 months, cp4 including since admission No falls in past 3 months (0 pts) Confusion or Disorientation No (0 pts) Intoxicated or Sedated No (0 pts) Impaired Gait No (0 pts) Mobility Assist Device Used No (0 pt) Altered Elimination No (0 pt) Score/Fall Risk Level 0 - 2 = Low Risk Oriented to surroundings, Maintained a safe environment, Assessed \T\ reinforced patient's understanding of fall precautions, Hourly rounding (assess needs \T\ fall precautionary measures) done. Abuse screen: Denies threats or abuse. Denies injuries from another. Nutritional screening: No deficits noted. Tuberculosis screening: No symptoms or risk factors identified. Assessment: 23:47 General: Appears in no apparent distress. uncomfortable, Behavior is calm, cooperative, cp4 appropriate for age. Pain: Complains of pain in back and right low back and right mid back Pain does not radiate. Pain currently is 7 out of 10 on a pain scale. Neuro: Level of Consciousness is awake, alert, obeys commands, Oriented to person, place, time, situation, Lead Manufacturing Engineer are equal bilaterally Moves all extremities. Gait is steady, Speech is normal, Facial symmetry appears normal, Pupils are PERRLA, Intact. Cardiovascular: Patient's skin is warm and dry. Respiratory: Airway is patent Respiratory effort is even, unlabored. GI: No signs and/or symptoms were reported involving the gastrointestinal system. : Reports urinary frequency. EENT: No signs and/or symptoms were reported regarding the EENT system. Derm: No signs and/or symptoms reported regarding the dermatologic system. Musculoskeletal: No signs and/or symptoms reported regarding the musculoskeletal system. Vital Signs: 23:02 BP 118 / 67; Pulse 74; Resp 16 S; Pulse Ox 100% on R/A; Weight 74.84 kg (R); Height 5 lg3 ft. 0 in. (R); Pain 7/10; 06/02 00:06 BP 108 / 59; Pulse 73; Resp 16; Pulse Ox 98% ; cp4 01:30 BP 116 / 69; Pulse 65; Resp 18 S; Pulse Ox 100% on R/A; Pain 0/10; br2 06/01 23:02 Body Mass Index 32.22 (74.84 kg, 152.4 cm) lg3 06/01 23:02 Pain Scale: Adult lg3 01:30 Pain Scale: Adult br2 ED Course: 06/01 22:49 Patient arrived in ED. jj6 22:53 Bradley Muniz DO is Attending Physician. ms3 23:03 Triage completed. lg3 23:04 Arm band placed on right wrist. lg3 23:07 Maria L Hernandez is Primary Nurse. cp4 23:19 Inserted saline lock: 20 gauge in right antecubital area, using aseptic technique. br2 Blood collected. Flushed with 10 mL NS. 23:24 CBC with Diff Sent. br2 23:24 CMP Sent. br2 23:24 Test, Urine Sent. br2 23:24 Urinalysis w/ reflexes Sent. br2 23:29 CT Abd/Pelvis - Without Contrast In Process Unspecified. EDMS 23:47 Bed in low position. Call light in reach. Side rails up X 1. cp4 23:47 No provider procedures requiring assistance completed. cp4 06/02 01:18 Donis Hill DO is Referral Physician. ms3 01:29 IV discontinued, intact, bleeding controlled, No redness/swelling at site. Pressure br2 dressing applied. Administered Medications: 06/01 23:43 Drug: Ondansetron IVP 4 mg IVP once; over 2 minutes Route: IVP; Site: right antecubital;br2 06/02 01:30 Follow up: Response: No adverse reaction; Nausea is decreased br2 06/01 23:43 Drug: morphine IVP or IV 4 mg IVP once over 4 mins Route: IVP; Infused Over: 4 mins; br2 Site: right antecubital; 06/02 01:30 Follow up: Response: Pain is decreased br2 Medication: 06/01 23:47 VIS not applicable for this client. cp4 Outcome: 06/02 01:18 Discharge ordered by ms3 01:31 Patient left the ED. br2 Signatures: Dispatcher [employer] EDMS Shirley Haji, RN RN lg3 Bradley Muniz, DO ms3 Floresita Shah Christina cp4 Chandrika Wu RN RN br2
--- NOTE | 2024-06-02 01:18 | EDPHYS ---
Physician Documentation [facility] Name: Nidia Ford Age: 44 yrs Sex: Female : 1980 Arrival Date: 06/01/2024 Time: 22:48 Bed 7 Private MD: ED Physician Bradley Muniz HPI: 06/02 01:18 This 44 yrs old Female presents to ER via Ambulatory with complaints of Back ms3 Pain. 01:18 44-year-old female with past medical history of asthma, fatty liver [place] [facility] [place] for right flank pain that began this morning. Patient states her pain is a 6-7/10. She endorses nausea and urinary frequency. She denies vomiting, fevers, chills. Patient denies any inciting factors. Patient states she took Aleve with mild relief of her symptoms.. PSYCHOLOGY TECH: 06/01 23:04 LMP N/A - Irregular menses, Not lg3 Historical: - Allergies: 23:04 NKDA; lg3 - Home Meds: 23:04 None [Active]; lg3 - PMHx: 23:04 Asthma; fatty liver; lg3 - PSHx: 23:04 Ligation of fallopian tube; lg3 - Immunization history:: Adult Immunizations up to date. - Infectious Disease History:: Denies. - Social history:: Smoking status: Patient denies any tobacco usage or history of. Patient/guardian denies using alcohol, street drugs. ROS: 06/02 01:18 Constitutional: Negative for fever, and chills. Cardiovascular: Negative for chest ms3 pain, and palpitations. Respiratory: Negative for shortness of breath, cough, wheezing, and pleuritic chest pain, MS/Extremity: Negative for injury and deformity, Skin: Negative for injury, rash, and discoloration, Abdomen/GI: Positive for Right sided flank pain, Exam: 01:18 Constitutional: This is a well developed, well nourished patient who is awake, alert, ms3 and in no acute distress. Cardiovascular: Regular rate and rhythm with a normal S1 and S2. No gallops, murmurs, or rubs. Normal PMI, no JVD. No pulse deficits. Respiratory: Lungs have equal breath sounds bilaterally, clear to auscultation and percussion. No rales, rhonchi or wheezes noted. No increased work of breathing, no retractions or nasal flaring. Abdomen/GI: Soft, non-tender, with normal bowel sounds. No distension or tympany. No guarding or rebound. No evidence of tenderness throughout. 01:18 Back: pain, Right flank, ROM is normal, CVA tenderness, is absent, Vital Signs: 06/01 23:02 BP 118 / 67; Pulse 74; Resp 16 S; Pulse Ox 100% on R/A; Weight 74.84 kg (R); Height 5 lg3 ft. 0 in. (R); Pain 7/10; 06/02 00:06 BP 108 / 59; Pulse 73; Resp 16; Pulse Ox 98% ; cp4 01:30 BP 116 / 69; Pulse 65; Resp 18 S; Pulse Ox 100% on R/A; Pain 0/10; br2 06/01 23:02 Body Mass Index 32.22 (74.84 kg, 152.4 cm) lg3 06/01 23:02 Pain Scale: Adult lg3 01:30 Pain Scale: Adult br2 MDM: 06/01 23:03 Medical Screening Exam initiated ms3 06/02 01:18 Differential diagnosis: Ureterolithiasis Muscle spasm versus diverticulitis. Data ms3 reviewed: vital signs, nurses notes, lab test result(s), radiologic studies, and as a result, I will discharge patient. I considered the following discharge prescriptions or medication management in the emergency department Medications were administered in the Emergency Department. See MAR. Counseling: I had a detailed discussion with the patient and/or guardian regarding the historical points, exam findings, and any diagnostic results supporting the discharge/admit diagnosis, lab results, radiology results, the need for outpatient follow up, to return to the emergency department if symptoms worsen or persist or if there are any questions or concerns that arise at home. Special discussion: Based on the patient's Hx, exam, and Dx evaluation, there is no indication for emergent surgery or inpatient Tx. It is understood by the patient/guardian that if the Sx's persist or worsen they need to return immediately for re-evaluation. ED course: Discussed labs, CT results with patient. Patient with elevated white blood count; however, no fevers, or other signs of infection at this time. Patient to follow-up with Dr. Hill in 2 to 3 days. Patient understands and agrees with plan. All questions were answered. Return precautions discussed include worsening symptoms, or any other concerns. On reevaluation patient is alert and oriented x 4, in no apparent distress, nontoxic-appearing, speaking full sentences, abdominal exam remains benign.. 06/01 23:03 Order name: CBC with Diff; Complete Time: 23:56 ms3 06/01 23:03 Order name: CMP; Complete Time: 23:56 ms3 06/01 23:03 Order name: Test, Urine; Complete Time: 23:56 ms3 06/01 23:03 Order name: Urinalysis w/ reflexes; Complete Time: 23:56 ms3 06/01 23:03 Order name: CT Abd/Pelvis - Without Contrast ms3 06/01 23:03 Order name: IV Saline Lock; Complete Time: 23:24 ms3 06/01 23:03 Order name: Labs collected and sent; Complete Time: 23:24 ms3 Administered Medications: 06/01 23:43 Drug: Ondansetron IVP 4 mg IVP once; over 2 minutes Route: IVP; Site: right antecubital;br2 06/02 01:30 Follow up: Response: No adverse reaction; Nausea is decreased br2 06/01 23:43 Drug: morphine IVP or IV 4 mg IVP once over 4 mins Route: IVP; Infused Over: 4 mins; br2 Site: right antecubital; 06/02 01:30 Follow up: Response: Pain is decreased br2 Disposition Summary: 06/02/24 01:18 Discharge Ordered Notes: Location: Home ms3 Condition: Stable ms3 Diagnosis - Right Flank Pain ms3 Followup: ms3 - With: Donis Hill DO - When: 2 - 3 days - Reason: Recheck today's complaints Discharge Instructions: - Discharge Summary Sheet ms3 - Flank Pain, Adult ms3 Forms: - Medication Reconciliation Form ms3 - Antibiotic Education ms3 - Prescription Opioid Use ms3 - Patient Portal Instructions ms3 - Leadership Thank You Letter ms3 Signatures: Dispatcher [employer] Shirley Alonso RN RN lg3 Bradley Muniz DO DO ms3 Chandrika Wu RN RN br2 Corrections: (The following items were deleted from the chart) 06/01 23:03 23:03 CBC+H.LAB.BRZ ordered. EDMS EDMS 23:03 23:03 COMPREHENSIVE METABOLIC PANEL+C.LAB.BRZ ordered. EDMS EDMS 23:03 23:03 Test, Urine+UC.LAB.BRZ ordered. EDMS EDMS 23:03 23:03 Urinalysis+U.LAB.BRZ ordered. EDMS EDMS 23:03 23:03 Abdomen Pelvis Wo Con+CT.RAD.BRZ ordered. EDMS EDMS
[2024-06-02 01:39] VITALS: BP 116/69; O2SAT 100
== END 2024-06-02 01:31 | disposition home or self-care (01) ==
LOC: ER 22:48
DX: R10.9 Unspecified abdominal pain (principal)
CPT/HCPCS: 36415; 74176; 80053; 81001; 81025; 85025; 96374; 96375; 99284; J2405

== ENCOUNTER 2024-07-02 20:50 | Emergency (ER) | payer OTHER ==
--- OUTSIDE RECORDS SUMMARY | 2024-07-02 20:56 | XMS REPORT | Continuity of Care Document ---
Author Name Unknown Address [address] [facility] [address] [place] [address] Organization [facility] [place] Address [address] [facility] [address] [facility] [address] [place] [address] Care Team Providers Care Cash Accountant Name Role Phone Piedad Navarrete Primary Care Physician ADELFO CONN Attending Clinician Unavailabl e Rafal BECKER Attending Clinician Unavailable Rafal BECKER Attending Clinician Unavailable Rosita PACRafal Attending Clinician [phone] FAM CHAUDHRY Attending Clinician Unavailable YUE VILLAFUERTE Attending Clinician Unavail able Visit, [facility] Maryvalerashaun Nurse Attending Clinician Unava ilkaley Villafuerte Yue SAVAGE Attending Clinician + Doctor Unassigned, [place] Attending Clinician U navRafal Ren Admitting Clinician Unavailable Payers Payer Name Policy Type Policy Number Effective Date Expirati on Date Source NICHOLAS Metcalf/ ASHLEY CABRAL [id number] 2023 00:00:00 CIPRIANO-RIGOBERTO [id number] 2019 00:00:00 Problems Condition Name Condition Details Condition Category Status Onset Date Resolution Date Last Treatment Date Treating Clinician Comments Source Heavy menses Heavy menses Disease Active 10-01 00:00: 00 [facility] Stress incontinen ce Stress incontinen ce Disease Active 10-01 00:00: 00 [facility] Recent urinary tract infection Recent urinary tract infection Disease Active 2015-04 00:00: 00 [facility] Other general counseling and advice for contracept jorge management Other general counseling and advice for contracept jorge management Disease Active 2015-04 00:00: 00 [facility] History of bilateral tubal ligation History of bilateral tubal ligation Disease Active 2015-04 00:00: 00 [facility] Obesity (BMI 30-39.9) Obesity (BMI 30-39.9) Disease Active 09-22 00:00: 00 Overview: Formattin g of this note might be different from the original. 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 [facility] Overweight (BMI 25.0-29.9) Overweight (BMI 25.0-29.9) Disease Resolve d 2015-04 00:00: 00 2019-10-02 00:00:00 2019-10-02 14:50:18 [facility] Encounter for routine gynecologi harriett examinatio n Encounter for routine gynecologi harriett examinatio n Disease Resolve d 6 00:00: 00 2015-05-13 00:00:00 2021-10-24 00:36:24 [facility] Routine follow-up Routine follow-up Disease Resolve d 4-06 00:00: 00 2014-09-22 00:00:00 2014-09-22 11:04:35 [facility] PPROM at 36 weeks PPROM at 36 weeks Disease Resolve d 3-13 00:00: 00 2014-09-22 00:00:00 2014-09-22 10:03:05 [facility] Yeast infection of the vagina Yeast infection of the vagina Disease Resolve d 2-24 00:00: 00 2014-09-22 00:00:00 2014-09-22 11:04:33 [facility] Heartburn in Heartburn in Disease Resolve d 0 2-11 00:00: 00 2014-09-22 00:00:00 2014-09-22 11:04:27 [facility] Sciatica of right side Sciatica of right side Disease Resolve d 2013-04 00:00: 00 2014-09-22 00:00:00 2014-09-22 11:04:23 [facility] Obesity complicati ng , childbirth , or puerperium , antepartum Obesity complicati ng , childbirth , or puerperium , antepartum Disease Resolve d 2013-04 00:00: 00 2014-09-22 00:00:00 2021-10-24 00:32:36 [facility] Chlamydia trachomati s infection of lower genitourin lorenzo sites Chlamydia trachomati s infection of lower genitourin lorenzo sites Disease Resolve d 11-22 00:00: 00 2014-09-22 00:00:00 2021-10-24 00:31:42 [facility] Multiparit y Multiparit y Disease Resolve d 10-30 00:00: 00 2014-09-22 00:00:00 2014-09-22 11:04:04 [facility] Other threatened labor, antepartum Other threatened labor, antepartum Disease Resolve d 2 00:00: 00 2014-06-20 00:00:00 2014-06-20 21:14:13 [facility] Supervisio n of other high-risk Supervisio n of other high-risk Disease Resolve d 2013-04 00:00: 00 2014-06-20 00:00:00 2021-10-24 00:32:36 [facility] Abnormal findings on screening Abnormal findings on screening Disease Resolve d 2013-04 00:00: 00 2014-02-24 00:00:00 2021-10-24 00:33:10 [facility] Supervisio n of other normal Supervisio n of other normal Disease Resolve d 12-17 00:00: 00 2014-01-21 00:00:00 2014-01-21 10:05:10 [facility] anemia anemia Disease Resolve d 7-24 00:00: 00 2013-12-17 00:00:00 2021-10-24 00:15:25 [facility] Oligohydra mnios, delivered Oligohydra mnios, delivered Disease Resolve d 10-30 00:00: 00 2013-12-17 00:00:00 2013-12-17 13:17:53 [facility] Second-deg ree perineal laceration in Second-deg ree perineal laceration in Disease Resolve d 10-29 00:00: 00 2013-08-13 00:00:00 2021-10-24 00:15:25 [facility] Allergies, Adverse Reactions, Alerts Allergy Name Allergy Type Status Severity Reaction(s) Onset Date Inactive Date Treating Clinician Comments Source NO KNOWN ALLERGIE S Drug Class Active [facility] Social History Social Habit Start Date Stop Date Quantity Comments Source History SDOH Alcohol Std Drinks [facility] History SDOH Alcohol Binge [facility] Alcoholic beverage intake 2024-01-09 00:00:00 2024-01-09 00:00:00 Ex-drinker (finding) [facility] Exposure to SARS-CoV-2 (event) 2021-10-09 00:00:00 2021-10-19 08:45:00 Not sure [facility] Tobacco use and exposure 2021-10-19 00:00:00 2021-10-19 00:00:00 Smokeless tobacco non-user [facility] History of Social function 2021-10-19 00:00:00 2021-10-19 00:00:00 [facility] Alcohol intake 2021-10-19 00:00:00 2021-10-19 00:00:00 Ex-drinker (finding) [facility] History SDOH Alcohol Frequency 2019-10-02 00:00:00 2019-10-02 00:00:00 2 [facility] Alcohol Comment 2019-10-02 00:00:00 2019-10-02 00:00:00 socially [facility] Sex assigned at 1980 00:00:00 1980 00:00:00 [facility] Smoking Status Start Date Stop Date Source Never smoked tobacco [facility] Medications Ordered Medication Name Filled Medication Name Start Date Stop Date Current Medication? Ordering Clinician Indication Dosage Frequency Signature (SIG) Comments Components Source NaCl 0.9% (NS) bolus infusion 1,000 mL 2023-04 22:00: 00 01-08 23:39 :00 No 1000mL at 999 mL/hr, 1,000 mL, IV Infusion, ONCE, 1 dose, On Mon01/09/24 at 1700, STAT [facility] ondansetron (ZOFRAN (PF)) injection 4 mg 2023-04 22:00: 00 01-08 21:59 :00 No 4mg 4 mg, Slow IV Push, ONCE, 1 dose, On Mon01/09/24 at 1700, TARA [facility] ketorolac (TORADOL) injection 15 mg 2023-04 21:45: 00 01-08 21:56 :00 No 15mg 15 mg, Slow IV Push, ONCE, 1 dose, On Mon01/09/24 at 1645, TARA [facility] iopamidol (ISOVUE 370-500 mL) injection 90 mL 2023-04 21:00: 00 01-08 21:15 :00 No [id number] 90mL 90 mL, Intravenou s, ONCE, 1 dose, On Mon01/09/24 at 1615, Routine [facility] dicyclomine 20 mg tablet 2023-04 00:00: 00 Yes [id number] 20mg Take 1 tablet by mouth 4 (four) times daily. [facility] ibuprofen 600 mg tablet 2023-04 00:00: 00 Yes [id number] 600mg Take 1 tablet by mouth every 6 (six) hours as needed for Pain (scale 4-6). [facility] Dose Unknown 11 00:00: 00 Yes 800 Kenyon Brownlee Dose Unknown 8-03 00:00: 00 Yes Kenyon Escobar Kem TAKE 1 TABLET BY MOUTH EVERY 12 HOURS NEEDED 8- 00:00: 00 Yes 4 Kenyon Brownlee TAKE 1 TABLET BY MOUTH EVERY 8 HOURS NEEDED FOR MUSCLE SPASMS - 00:00: 00 Yes 10 Kenyon Brownlee Dose Unknown 0 - 00:00: 00 Yes Kenyon Brownlee Dose Unknown 0 10-28 00:00: 00 Yes Kenyon Brownlee Dose Unknown 0 10-28 00:00: 00 Yes 4 Kenyon Brownlee Dose Unknown 0 10-28 00:00: 00 Yes Kenyon Brownlee Dose Unknown 0 10-28 00:00: 00 Yes 800 Kenyon Brownlee metronidazo le 500 mg tablet 0 10-28 00:00: 00 Yes 1mg Kenyon Brownlee TAKE 1 TABLET BY MOUTH EVERY 12 HOURS WITH FOOD NEEDED FOR PAIN 0 10-27 00:00: 00 Yes 800 Kenyon Brownlee TAKE 1 TABLET BY MOUTH 5 TIMES A DAY FOR 7 DAYS 0 -19 00:00: 00 Yes 800 Kenyon Brownlee TAKE 1 TABLET BY MOUTH 5 TIMES A DAY FOR 7 DAYS 0 10-20 00:00: 00 Yes 800 Kenyon Brownlee TAKE 1 TABLET BY MOUTH EVERY 12 HOURS FOR 7 DAYS 0 10-19 00:00: 00 Yes Kenyon Brownlee TAKE 1 TABLET BY MOUTH EVERY 8 HOURS NEEDED FOR MUSCLE SPASMS 2021-0 10-19 00:00: 00 Yes 10 Kenyon Brownlee TAKE 1 TABLET BY MOUTH TWICE A DAY 0 10-15 00:00: 00 Yes 75 Kenyon Brownlee APPLY 1 PATCH ONCE DAILY NEEDED 0 09-13 00:00: 00 Yes Kenyon Brownlee TAKE 1 TABLET BY MOUTH EVERY 12 HOURS WITH FOOD NEEDED FOR PAIN 0 09-13 00:00: 00 Yes Kenyon Brownlee TAKE 2 TABLETS BY MOUTH EVERY 6 TO 8 HOURS NEEDED FOR PAIN 0 09-13 00:00: 00 Yes Kenyon Brownlee TAKE 1 TABLET BY MOUTH EVERY 12 HOURS NEEDED 0 09-13 00:00: 00 Yes Kenyon Brownlee norethindro ne 0.35 mg tablet 0 10-01 00:00: 00 Yes [id number] 1{tbl} Take 1 tablet by mouth daily. [facility] metronidazo le 500 mg tablet 01-05 00:00: 00 Yes 1mg Kenyon Brownlee Keflex 500 mg capsule 01-01 00:00: 00 Yes 1mg Kenyon Brownlee Immunizations Ordered Immunization Name Filled Immunization Name Date Status Comments Source HPV9 2021-10-19 00:00:00 Completed [facility] HPV9 2021-10-19 00:00:00 Completed [facility] HPV9 2021-10-19 00:00:00 Completed [facility] TDAP 2014-04-22 00:00:00 Completed [facility] TDAP 2014-04-22 00:00:00 Completed [facility] TDAP 2014-04-22 00:00:00 Completed [facility] Influenza Virus Vaccine Quad IM Multi-dose 6+ MO 2014-03-25 00:00:00 Completed [facility] Influenza Virus Vaccine Quad IM Multi-dose 6+ MO 2014-03-25 00:00:00 Completed [facility] Influenza Virus Vaccine Quad IM Multi-dose 6+ MO 2014-03-25 00:00:00 Completed [facility] Varicella (varivax)(chicken pox) 2011-08-18 00:00:00 Completed [facility] Varicella (varivax)(chicken pox) 2011-08-18 00:00:00 Completed [facility] Varicella (varivax)(chicken pox) 2011-08-18 00:00:00 Completed Rubella 2008-03-25 00:00:00 Completed [facility] Rubella 2008-03-25 00:00:00 Completed [facility] Rubella 2008-03-25 00:00:00 Completed [facility] Td 2006-04-10 00:00:00 Completed [facility] TD, NOS 2006-04-10 00:00:00 Completed [facility] TD, NOS 2006-04-10 00:00:00 Completed Rubella Unknown Completed [facility] TD, NOS Unknown Completed [facility] Varicella (varivax)(chicken pox) Unknown Completed [facility] Influenza Virus Vaccine Quad IM Multi-dose 6+ MO Unknown Completed [facility] TDAP Unknown Completed [facility] HPV9 Unknown Completed [facility] Vital Signs Vital Name Observation Time Observation Value Comments S ource Systolic blood pressure 2024-01-09 23:50:00 133 mm[Hg] [facility] Diastolic blood pressure 2024-01-09 23:50:00 67 mm[Hg] [facility] Heart rate 2024-01-09 23:50:00 54 /min [facility] Body temperature 2024-01-09 23:50:00 36.78 Sandie [facility] Respiratory rate 2024-01-09 23:50:00 15 /min [facility] Oxygen saturation in Arterial blood by Pulse oximetry 2024-01-09 23:50:00 99 /min [facility] Body height 2024-01-09 19:36:00 152.4 cm [facility] Body weight 2024-01-09 19:36:00 71.487 kg [facility] BMI 2024-01-09 19:36:00 30.78 kg/m2 [facility] Systolic blood pressure 2023-08-21 14:01:00 123 mm[Hg] [facility] Diastolic blood pressure 2023-08-21 14:01:00 76 mm[Hg] [facility] Heart rate 2023-08-21 14:01:00 56 /min [facility] Body temperature 2023-08-21 14:01:00 36.5 Sandie [facility] Respiratory rate 2023-08-21 14:01:00 18 /min [facility] Body height 2023-08-21 14:01:00 152.4 cm [facility] Body weight 2023-08-21 14:01:00 70.398 kg [facility] BMI 2023-08-21 14:01:00 30.31 kg/m2 [facility] Systolic blood pressure 2021-10-19 13:46:00 114 mm[Hg] [facility] Diastolic blood pressure 2021-10-19 13:46:00 65 mm[Hg] [facility] Heart rate 2021-10-19 13:46:00 61 /min [facility] Body temperature 2021-10-19 13:46:00 36.22 Sandie [facility] Respiratory rate 2021-10-19 13:46:00 16 /min [facility] Body height 2021-10-19 13:46:00 152.4 cm [facility] Body weight 2021-10-19 13:46:00 67.223 kg [facility] BMI 2021-10-19 13:46:00 28.94 kg/m2 [facility] BP Systolic 2023-12-19 13:45:00 122 mm[Hg] Step [...] OVARY TORSION 2024-01-09 22:00:24 [facility] PEL[facility] W CONTRAST 2024-01-09 21:05:05 Rafal Becker [facility] POCT TEST 2024-01-09 19:53:00 Rafal Becker e [facility] LIPASE 2024-01-09 19:50:00 [facility] MAGNESIUM 2024-01-09 19:50:00 [facility] COMP. METABOLIC PANEL ([id number]) 2024-01-09 19:50:00 Rafal Becker [facility] CBC WITH DIFF 2024-01-09 19:50:00 Rafal Becker [facility] 2024-01-09 19:50:00 Rafal Becker [facility] POCT TEST 2023-08-21 14:02:00 Jerad Villafuerte [facility] GARDASIL 9 (HPV 9V) VACCINE 2021-10-19 14:03:36 Yue Villafuerte [facility] POCT TEST 2021-10-19 13:48:00 Jerad Villafuerte [facility] Encounters Start Date/Time End Date/Time Encounter Type Admission Type Attending Clinicians Care Facility Care Department Encounter ID Source 2024-08-26 08:30:00 2024-08-26 08:30:00 Outpatient ADELFO ACEVES [facility] [id number] [facility] 2024-07-11 08:30:00 2024-07-11 08:30:00 Outpatient ADELFO ACEVES [facility] [id number] [facility] 2024-06-27 14:30:00 2024-06-27 14:34:59 Outpatient R ADELFO CONN [facility] [id number] [facility] 2024-01-09 14:51:00 2024-01-09 19:00:00 Emergency X Rafal BECKER ROSITA, K [facility] ERT [id number] [facility] 2024-01-09 14:51:00 2024-01-09 19:00:00 Emergency Rafal Becker Minerva [facility] [id number] [id number] [id number] [facility] 2023-12-19 13:25:20 2023-12-19 13:25:[address] [facility] [id number] Kenyon Escobar Kem 2023-12-19 00:00:00 2023-12-19 00:00:00 Outpatient Visit SFA [id number] Kenyon Brownlee 2023-12-15 13:30:00 2023-12-15 13:30:00 Outpatient R FAM CHAUDHRY [facility] [id number] [facility] 2023-12-12 14:00:32 2023-12-12 14:00:[address] [facility] [id number] Kenyon Escobar Kem 2023-12-12 10:00:00 2023-12-12 10:00:00 Outpatient R [facility] [id number] [facility] 2023-12-12 00:00:00 2023-12-12 00:00:00 Outpatient Visit SFA [id number] Kenyon Escobar Kem 2023-09-13 10:27:40 2023-09-13 10:27:40 Outpatient SFA [facility] [id number] Kenyon Shawn Kem 2023-08-21 14:02:13 2023-08-21 14:02:13 Outpatient SFA [facility] [id number] Kenyon Brownlee 2023-08-21 09:00:00 2023-08-21 09:11:13 Outpatient R YUE VILLAFUERTE [facility] [id number] [facility] 2023-08-21 09:00:00 2023-08-21 09:11:13 Nurse Visit Visit, Ang-Rmchp Nurse Yue Villafuerte [facility] JEWEL STRINGER [facility] [id number] [id number] [id number] [facility] 2023-08-21 00:00:00 2023-08-21 00:00:[address] [facility] [id number] Kenyon Brownlee 2023-08-18 11:35:02 2023-08-18 11:35:[address] [facility] [id number] Kenyon Brownlee 2023-08-18 00:00:00 2023-08-18 00:00:[address] [facility] [id number] Kenyon Brownlee 2023-01-03 13:30:00 2023-01-03 13:30:00 Outpatient R YUE VILLAFUERTE [facility] [id number] [facility] 2021-11-19 08:00:00 2021-11-19 08:00:00 Outpatient R [facility] [id number] [facility] 2021-11-19 08:00:00 2021-11-19 08:00:00 Outpatient R YUE VILLAFUERTE [facility] [id number] [facility] 2021-10-19 08:30:00 2021-10-19 09:36:55 Outpatient R YUE VILLAFUERTE [facility] [id number] [facility] 2021-10-19 08:30:00 2021-10-19 09:36:55 Office Visit Yue Villafuerte [facility] JEWEL STRINGER [facility] 1..114 350.1.13.10 4.2.7.2.686 [id number] [facility] 2021-10-19 09:30:00 2021-10-19 09:30:00 Outpatient R YEU VILLAFUERTE [facility] [id number] [facility] 2021-10-19 08:30:00 2021-10-19 08:45:00 Nurse Visit Visit, Yue Turner [facility] JEWEL STRINGER [facility] 1..114 350.1.13.10 4.2.7.2.686 [id number] [facility] 2021-10-19 08:30:00 2021-10-19 08:30:00 Outpatient R YUE VILLAFUERTE [facility] [id number] [facility] 2021-10-19 00:00:00 2021-10-19 00:00:00 Orders Only Doctor Unassigned, [place] [facility] 1..114 350.1.13.10 4.2.7.2.686 [id number] [facility] 2020-09-29 10:30:00 2020-09-29 10:30:00 Outpatient R YUE VILLAFUERTE [facility] [id number] [facility] 2020-01-13 14:00:00 2020-01-13 14:00:00 Outpatient R [facility] [id number] [facility] 2020-01-13 10:40:07 2020-01-13 11:11:28 Nurse Visit Visit, RoseRmchYue Cardenas [facility] JEWEL STRINGER [facility] 1..114 350.1.13.10 4.2.7.2.686 [id number] [facility] 2020-01-02 14:30:00 2020-01-02 14:30:00 Outpatient R [facility] [id number] [facility] 2019-10-14 00:00:00 2019-10-14 00:00:[address] [facility] JEWEL STRINGER [facility] [id number] 350.1.13.10 4.2.7.2.686 [id number] [facility] 2019-10-02 14:05:45 2019-10-02 16:18:05 Office Visit Yue Villafuerte [facility] JEWEL STRINGER [facility] 1.0.114 350.1.13.10 4.2.7.2.686 [id number] [facility] 2019-10-02 14:15:00 2019-10-02 14:15:00 Outpatient R YUE VILLAFUERTE [facility] [id number] [facility] 2019-10-02 00:00:00 2019-10-02 00:00:00 Orders Only Doctor Unassigned, [place] [facility] 1.0.114 350.1.13.10 4.2.7.2.686 [id number] [facility] 2019-09-23 00:00:00 2019-09-23 00:00:[address] [facility] JEWEL STRINGER [facility] CH[facility] 1.0.114 350.1.13.10 4.2.7.2.686 [id number] [facility] 2019-09-19 00:00:00 2019-09-19 00:00:[address] [facility] JEWEL STRINGER [facility] 1.840.114 350.1.13.10 4.2.7.2.686 [id number] [facility] 2019-09-18 09:45:00 2019-09-18 09:45:00 Outpatient R YUE VILLAFUERTE [facility] [id number] [facility] 2019-09-18 08:23:20 2019-09-18 09:22:38 Office Visit Yue Villafuerte [facility] JEWEL STRINGER [facility] 1.2840.114 350.1.13.10 4.2.7.2.686 [id number] [facility] 2019-06-28 09:00:00 2019-06-28 09:00:00 Outpatient R YUE VILLAFUERTE [facility] [id number] [facility] 2019-05-24 10:29:28 2019-05-24 10:58:44 Nurse Visit Visit, Bobby Huang [facility] 1.0.114 350.1.13.10 4.2.7.2.686 [id number] 2019-05-24 10:29:28 2019-05-24 10:58:44 Nurse Visit Visit, Bobby Nurse Yue Villafuerte [facility] 1.2840.114 350.1.13.10 4.2.7.2.686 [id number] [facility] 2019-05-24 00:00:00 2019-05-24 00:00:00 Orders Only Doctor Unassigned, [place] [facility] 1.2840.114 350.1.13.10 4.2.7.2.686 [id number] 2019-05-24 00:00:00 2019-05-24 00:00:00 Orders Only Doctor Unassigned, [place] [facility] 1.2840.114 350.1.13.10 4.2.7.2.686 [id number] [facility] Results Test Description Test Time Test Comments Results Result Comments Source US OVARY TORSION 22:30:49 EXAM: US OVARY TORSION 01/09/2024 5:06 PM HISTORY: 43 years-old Female; Provided indication: r/o ovarian torsion,right LMP = 11/05/2023regnancy test = Negative. TECHNIQUE: Transabdominal and transvaginal ultrasound imaging and colorDoppler evaluation of the pelvis was performed. Spectral Doppler evaluationof the ovaries was performed. 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 COMPARISON: Same [...] Doppler. Cul-de-sac: No free fluid is present. [facility] CT ABDOMEN PELVIS W CONTRAST 21:15:42 CT [...] acute osseousabnormality. No concerning soft tissue abnormality. [facility] ([id number])2024-01-09 20:24:18* Test Item Value Reference Range Interpretation Comme nts NA (test code = 5664357527) 134 mmol/L 135-145 L K (test code = 5910629366) 3.6 mmol/L 3.5-5.0 CL (test code = 9388104505) 102 mmol/L 98-108 CO2 TOTAL (test code = 7573107486) 26 mmol/L 23-31 AGAP (test code = 8727469635) 6 2-16 BUN (test code = 1118705202) 9 mg/dL 7-23 GLUCOSE (test code = 3686295723) 99 mg/dL 70-110 CREATININE (test code = 2160-0) 0.66 mg/dL 0.50-1.04 TOTAL BILI (test code = 4668013673) 0.4 mg/dL 0.1-1.1 CALCIUM (test code = 2811621514) 8.6 mg/dL 8.6-10.6 T PROTEIN (test code = 6596061971) 7.7 g/dL 6.3-8.2 ALBUMIN (test code = 0772291178) 4.1 g/dL 3.5-5.0 ALK PHOS (test code = 9825235119) 112 U/L 34-122 ALTv (test code = 1742-6) 22 U/L 5-35 AST(SGOT) (test code = 6138143139) 23 U/L 13-40 eGFR (test code = 91487-5) 111.8 mL/min/1.73m2 CKD-EPI eGFR (2020). Assuming creatinine has been stable day-to-day for at least three months, the eGFR indicates Category G1 (>= 90 mL/min/1.73 m2) Lab Interpretation (test code = 21190-1) [facility]normal [facility] 20:24:18* Test Item Value Reference Range Interpretation Comme nts LIPASE (test code = 3184239587) 130 U/L 0-220 Lab Interpretation (test cod e = 15582-3) Normal [facility] with [id number] 20:17:40* Test Item Value Reference Range Interpretation [...] 32.7 g/dL 31.6-35.1 RDW-SD (test code = 46226-6) 41.6 fL 39.0-49.9 RDW-CV (test code = 788-0) 12.8 % 12.0-15.5 PLT (test code = 777-3) 300 166-358 MPV (test code = 37704-9) 10.6 fL 9.5-12.9 NRBC/100 WBC (test code = 4335694697) 0.0 0.0-10.0 NRBC x10^3 (test code = 1037970691) See_Comment [Automated messa ge] The system which generated this result transmitted reference range: 10*3/?L. The reference range was not used to interpret this result as normal/abnormal. GRAN MAT (NEUT) % (test code = 770-8) 57.6 % IMM GRAN % (test code = 9970740578) 0.40 % LYMPH % (test code = 736-9) 32.8 % MONO % (test code = 5905-5) 5.7 % EOS % (test code = 713-8) 2.7 % BASO % (test code = 706-2) 0.8 % GRAN MAT x10^3(ANC) (test code = 8646959978) 6.55 10*3/uL 1.88-7.09 IMM GRAN x10^3 (test code = 7798021627) 0.05 10*3/uL 0.00-0.06 LYMPH x10^3 (test code = 731-0) 3.73 10*3/uL 1.32-3.29 H MONO x10^3 (test code = 742-7) 0.65 10*3/uL 0.33-0.92 EOS x10^3 (test code = 711-2) 0.31 10*3/uL 0.03-0.39 BASO x10^3 (test code = 704-7) 0.09 10*3/uL 0.01-0.07 H Lab Interpretation (test code = 45473-5) [facility]normal [facility] CenterPOCT [id number] 19:53:00* Test Item Value Reference Range Interpretation Comme nts POCT PREG (test code = 1605) Negative On board controls acceptable with C Line (test code = 3574) Yes POCT PREG LOT # (test code = 3575) [id number] POCT PREG TEST DATE ( test code = 3576) 01/17/25 Lab Interpretation (test cod e = 33459-6) Normal [facility] CenterHCG, [id number] 00:00:00* Test Item Value Reference Range Interpretation Comme nts HCG, QUANTITATIVE (test code = 2506) <5 MIU/ML Kenyon F AustinHCG, [id number] 00:00:00* Test Item Value Reference Range Interpretation Comme nts HCG, QUANTITATIVE (test code = 2506) <5 MIU/ML Kenyon F AustinHCG, [id number] 00:00:00* Test Item Value Reference Range Interpretation Comme nts HCG, QUANTITATIVE (test code = 2506) <5 MIU/ML Kenyon F AustinHCG, [id number] 00:00:00* Test Item Value Reference Range Interpretation Comme nts HCG, QUANTITATIVE (test code = 2506) <5 MIU/ML Kenyon F AustinHCG, [id number] 00:00:00* Test Item Value Reference Range Interpretation Comme nts HCG, QUANTITATIVE (test code = 2506) <5 MIU/ML Kenyon BrownleePOCT [id number] 14:02:00* Test Item Value Reference Range Interpretation Comme nts POCT PREG (test code = 1605) Negative On board controls acceptable with C Line (test code = 3574) Yes POCT PREG LOT # (test code = 3575) POCT PREG TEST DATE ( test code = 3576) [facility] CenterCHLAMYDIA, NAAT, [id number] 08:07:31* Test Item Value Reference Range Interpretation Comme nts CHLAMYDIA, NAAT, URINE (test code = 02399) NEGATIVE NEGATIVE Testing is perfo rmed with Homero PAULO 6800/8800 systems usingreal-time polymerase chain reaction (PCR) method. A negative result does not exclude low level infection, specimensampling error, or collection error. GONORRHEA, NAAT, [id number] 08:07:31* Test Item Value Reference Range Interpretation Comme nts GONORRHEA, NAAT, URINE (test code = 34045) NEGATIVE NEGATIVE Testing is perfo rmed with [employer] PAULO 6800/8800 systems usingreal-time polymerase chain reaction (PCR) method. A negative result does not exclude low level infection, specimensampling error, or collection error. CHLAMYDIA, AMPLIFIED, [id number] 00:00:00* Test Item Value Reference Range Interpretation Comme nts CHLAMYDIA, NAAT, URINE (test code = 67959) NEGATIVE Kenyon BrownleeGC, AMPLIFIED, [id number] 00:00:00* Test Item Value Reference Range Interpretation Comme nts GONORRHEA, NAAT, URINE (test code = 97535) NEGATIVE Kenyon Escobar AustinCHLAMYDIA, AMPLIFIED, [id number] 00:00:00* Test Item Value Reference Range Interpretation Comme nts CHLAMYDIA, NAAT, URINE (test code = 84315) NEGATIVE Kenyon Escobar AustinGC, AMPLIFIED, [id number] 00:00:00* Test Item Value Reference Range Interpretation Comme nts GONORRHEA, NAAT, URINE (test code = 44931) NEGATIVE Kenyon BrownleeCHLAMYDIA, AMPLIFIED, [id number] 00:00:00* Test Item Value Reference Range Interpretation Comme nts CHLAMYDIA, NAAT, URINE (test code = 30479) NEGATIVE Kenyon BrownleeGC, AMPLIFIED, [id number] 00:00:00* Test Item Value Reference Range Interpretation Comme nts GONORRHEA, NAAT, URINE (test code = 71845) NEGATIVE Kenyon BrownleeHIV 1/2 4TH GEN, RFLX [id number] 06:46:46* Test Item Value Reference Range Interpretation Comme nts HIV 1/2 4TH GEN, RFLX CONF ( test code = 3514) NON-REACTIVE NON-REACTIVE HEPATITIS PANEL, [id number] 06:46:46* Test Item Value Reference Range Interpretation [...] infection. INTERPRETATION HEPATITIS B: (test code = 04541) (NOTE) Hepatitis B sero logy shows no evidence of past exposure to orcurrent infection with hepatitis B virus. No evidence of hepatitis Bimmunization is identified. INTERPRETATION HEPATITIS C: (test code = 48744) (NOTE) Hepatitis C sero logy shows no evidence of exposure to hepatitisC virus at this time. It can take up to 12 months after exposure tothe hepatitis C virus for antibodies to become detectable in the blood in certain patients. HEPATITIS A [id number] 06:46:46* Test Item Value Reference Range Interpretation Comme nts HEPATITIS A IgM (test code = 2728) NON-REACTIVE NON-REACTIVE UNLESS OTHERW ISE INDICATED, ALL TESTING PERFORMED AT [facility] [address] [place] [address] [employer]: DAVID DAVE M.D. CLIA NUMBER [id number] [place]. [id number] RPR REFLEX TO [id number] 03:49:07* Test Item Value Reference Range Interpretation Comme nts RPR (test code = 65253) NON-REACTIVE NON-REACTIVE RPR TITER (test code = 3500) NOT INDIC. TITER NOT INDIC. HIV 1/2 4TH GEN, RFLX [id number] 00:00:00* Test Item Value Reference Range Interpretation [...] (NOTE) INTERPRETATION HEPATITIS B: (test code = 76941) (NOTE) INTERPRETATION HEPATITIS C: (test code = 03317) (NOTE) Kenyon Escobar AustinRPR REFLEX TO [id number] 00:00:00* Test Item Value Reference Range Interpretation Comme nts RPR (test code = 52519) NON-REACTIVE RPR TITER (test code = 3500) NOT INDIC. TITER Kenyon BarajasPATITIS A IgM [REFLEX]2023-08-19 00:00:00* Test Item Value Reference Range Interpretation Comme nts HEPATITIS A IgM (test code = 2728) NON-REACTIVE Kenyon Escobar AustinHIV 1/2 4TH GEN, RFLX [id number] 00:00:00* Test Item Value Reference Range Interpretation [...] (NOTE) INTERPRETATION HEPATITIS B: (test code = 72885) (NOTE) INTERPRETATION HEPATITIS C: (test code = 33416) (NOTE) Kenyon BrownleeRPR REFLEX TO [id number] 00:00:00* Test Item Value Reference Range Interpretation Comme nts RPR (test code = 52439) NON-REACTIVE RPR TITER (test code = 3500) NOT INDIC. TITER Kenyon BrownleeHEPATITIS A IgM [REFLEX]2023-08-19 00:00:00* Test Item Value Reference Range Interpretation Comme nts HEPATITIS A IgM (test code = 2728) NON-REACTIVE Kenyon Escobar AustinHIV 1/2 4TH GEN, RFLX [id number] 00:00:00* Test Item Value Reference Range Interpretation [...] (NOTE) INTERPRETATION HEPATITIS B: (test code = 26949) (NOTE) INTERPRETATION HEPATITIS C: (test code = 13603) (NOTE) Kenyon BrownleeRPR REFLEX TO [id number] 00:00:00* Test Item Value Reference Range Interpretation Comme nts RPR (test code = 95486) NON-REACTIVE RPR TITER (test code = 3500) NOT INDIC. TITER Kenyon BrownleeHEPATITIS A IgM [REFLEX]2023-08-19 00:00:00* Test Item Value Reference Range Interpretation Comme nts HEPATITIS A IgM (test code = 2728) NON-REACTIVE Kenyon BrownleeCOMPREHENSIVE METABOLIC [id number] 05:53:04* Test Item Value Reference Range Interpretation Comme nts GLUCOSE (test code = 2217) 79 MG/DL 70-99 BUN (test code = 2207) 12 MG/DL 6-20 CREATININE (test code = 2213) 0.73 MG/DL 0.60-1.30 eGFR (2020 CKD-EPI) (test code = ) 106 ML/MIN/1.73 >60 CALC BUN/CREAT (test code = 2234) 16 RATIO 6-28 SODIUM (test code = 2230) 139 MEQ/L 133-146 POTASSIUM (test code = 2227) 4.6 MEQ/L 3.5-5.4 CHLORIDE (test code = 2214) 106 MEQ/L 95-107 CARBON DIOXIDE (test code [...] code = 2218) 28 U/L 5-40 LIPID [id number] 05:53:04* Test Item Value Reference Range Interpretation Comme nts CHOLESTEROL (test code = 2209) 175 MG/DL <200 TRIGLYCERIDES (test code = 2232) 103 MG/DL <150 HDL CHOLESTEROL (test code = 2220) 47 MG/DL >39 CALC LDL CHOL (test code = 2236) 108 MG/DL <100 H NOTE: CALCULATED LDL IS BASED ON JARAD-BELCHER METHOD WHICHINCLUDES ADJUSTABLE TRIGLYCERIDE:VLDL CHOLESTEROL RATIO.THIS FACTOR VARIES BY MEASURED TRIGLYCERIDE AND NON-HDLCHOLESTEROL CONCENTRATIONS WITH INCREASED CALCULATED LDL SEENIN HIGHER TRIGLYCERIDE OR LOWER NON-HDL SPECIMENS. FOR MOREINFORMATION, SEE CLIENT ANNOUNCEMENT AT [email or web address] RISK RATIO LDL/HDL (test code = 2238) 2.30 RATIO <3.22 TSH, THIRD [id number] 04:53:46* Test Item Value Reference Range Interpretation Comme nts TSH, THIRD GENERATION (test code = 2821) 1.790 UIU/ML 0.400-4.100 UNLESS OTHERWISE INDICATED, ALL TESTING PERFORMED [facility] [employer] [employer] [address] [place] [address] [employer]: RAMIREZ CUELLO M.D. CLIA NUMBER [id number] [place]. [id number] CBC W/AUTO DIFF WITH [id number] 04:43:48* Test Item Value Reference Range Interpretation [...] = 1065) 0.0 /100 WBC'S See_Comment [Automated Wireless Dynamicsa ge] The system which generated this result [...] 0.00-0.10 ABS NUCLEATED RBCS (test code = 27406) 0.00 K/UL 0.00-0.11 HEMOGLOBIN [id number] 04:35:33* Test Item Value Reference Range Interpretation Comme nts HEMOGLOBIN A1c (test code = 07486) 5.8 % 4.2-5.6 H HEMOGLOBIN [id number] 00:00:00* Test Item Value Reference Range Interpretation Comme nts HEMOGLOBIN A1c (test code = 01014) 5.8 % Kenyon BrownleeKcrkqaRME1550-00-27 00:00:00* Test Item Value Reference Range Interpretation Comme nts TSH, THIRD GENERATION (test code = 2821) 1.790 UIU/ML Kenyon BrownleeCBC W/AUTO [id number] 00:00:00* Test Item Value Reference Range Interpretation [...] ABS NUCLEATED RBCS (test cod e = 65347) 0.00 K/UL Kenyon BrownleeCOMPREHENSIVE METABOLIC [id number] 00:00:00* Test Item Value Reference Range Interpretation Comme nts GLUCOSE (test code = 2217) 79 MG/DL BUN (test code = 2208) 12 MG/DL CREATININE (test code = 2214) 0.73 MG/DL eGFR (2020 CKD-EPI) (test code = 24774) 106 ML/MIN/1.73 CALC BUN/CREAT (test code = [...] = 2219) 28 U/L Kenyon Escobar AustinLIPID [id number] 00:00:00* Test Item Value Reference Range Interpretation Comme nts CHOLESTEROL (test code = 2210) 175 MG/DL TRIGLYCERIDES (test code = 2232) 103 MG/DL HDL CHOLESTEROL (test code = 2220) 47 MG/DL CALC LDL CHOL (test code = 2237) 108 MG/DL RISK RATIO LDL/HDL (test cod e = 2238) 2.30 RATIO Kenyon F AustinHEMOGLOBIN [id number] 00:00:00* Test Item Value Reference Range Interpretation Comme nts HEMOGLOBIN A1c (test code = 41029) 5.8 % Kenyon [id number] 00:00:00* Test Item Value Reference Range Interpretation Comme nts TSH, THIRD GENERATION (test code = 2821) 1.790 UIU/ML Kenyon BrownleeCBC W/AUTO [id number] 00:00:00* Test Item Value Reference Range Interpretation [...] ABS NUCLEATED RBCS (test cod e = 63091) 0.00 K/UL Kenyon BrownleeCOMPREHENSIVE METABOLIC [id number] 00:00:00* Test Item Value Reference Range Interpretation Comme nts GLUCOSE (test code = 2217) 79 MG/DL BUN (test code = 2208) 12 MG/DL CREATININE (test code = 2214) 0.73 MG/DL eGFR (2020 CKD-EPI) (test code = 18100) 106 ML/MIN/1.73 CALC BUN/CREAT (test code = [...] code = 2219) 28 U/L Kenyon rBownleeLIPID [id number] 00:00:00* Test Item Value Reference Range Interpretation Comme nts CHOLESTEROL (test code = 2210) 175 MG/DL TRIGLYCERIDES (test code = 2232) 103 MG/DL HDL CHOLESTEROL (test code = 2220) 47 MG/DL CALC LDL CHOL (test code = 2237) 108 MG/DL RISK RATIO LDL/HDL (test cod e = 2238) 2.30 RATIO Kenyon BrownleeHEMOGLOBIN [id number] 00:00:00* Test Item Value Reference Range Interpretation Comme nts HEMOGLOBIN A1c (test code = 54979) 5.8 % Kenyon [id number] 00:00:00* Test Item Value Reference Range Interpretation Comme nts TSH, THIRD GENERATION (test code = 2821) 1.790 UIU/ML Kenyon BrownleeCBC W/AUTO [id number] 00:00:00* Test Item Value Reference Range Interpretation [...] ABS NUCLEATED RBCS (test cod e = 31372) 0.00 K/UL Kenyon F KemCOMPREHENSIVE METABOLIC [id number] 00:00:00* Test Item Value Reference Range Interpretation Comme nts GLUCOSE (test code = 2217) 79 MG/DL BUN (test code = 2208) 12 MG/DL CREATININE (test code = 2214) 0.73 MG/DL eGFR (2020 CKD-EPI) (test code = 65763) 106 ML/MIN/1.73 CALC BUN/CREAT (test code = [...] code = 2219) 28 U/L Kenyon BrownleeLIPID [id number] 00:00:00* Test Item Value Reference Range Interpretation Comme nts CHOLESTEROL (test code = 2210) 175 MG/DL TRIGLYCERIDES (test code = 2232) 103 MG/DL HDL CHOLESTEROL (test code = 2220) 47 MG/DL CALC LDL CHOL (test code = 2237) 108 MG/DL RISK RATIO LDL/HDL (test cod e = 2238) 2.30 RATIO Kenyon BrownleeHEMOGLOBIN [id number] 00:00:00* Test Item Value Reference Range Interpretation Comme [place] HEMOGLOBIN A1c (test code = 55300) 5.8 % Kenyon [id number] 00:00:00* Test Item Value Reference Range Interpretation Comme nts TSH, THIRD GENERATION (test code = 2821) 1.790 UIU/ML Kenyon BrownleeCBC W/AUTO [id number] 00:00:00* Test Item Value Reference Range Interpretation [...] ABS NUCLEATED RBCS (test cod e = 84737) 0.00 K/UL Kenyon BrownleeCOMPREHENSIVE METABOLIC [id number] 00:00:00* Test Item Value Reference Range Interpretation Comme nts GLUCOSE (test code = 2217) 79 MG/DL BUN (test code = 2208) 12 MG/DL CREATININE (test code = 2214) 0.73 MG/DL eGFR (2020 CKD-EPI) (test code = 04155) 106 ML/MIN/1.73 CALC BUN/CREAT (test code = [...] = 2219) 28 U/L Kenyon Escobar AustinLIPID [id number] 00:00:00* Test Item Value Reference Range Interpretation Comme nts CHOLESTEROL (test code = 2210) 175 MG/DL TRIGLYCERIDES (test code = 2232) 103 MG/DL HDL CHOLESTEROL (test code = 2220) 47 MG/DL CALC LDL CHOL (test code = 2237) 108 MG/DL RISK RATIO LDL/HDL (test cod e = 2238) 2.30 RATIO Kenyon BrownleeVAGINAL PATHOGENS DNA [id number] 15:33:56* Test Item Value Reference Range Interpretation Comme nts RAMAKRISHNA SPECIES (test code = 42935) NEGATIVE NEGATIVE G. VAGINALIS (test code = 87188) POSITIVE NEGATIVE A T. VAGINALIS (test code = 31300) NEGATIVE NEGATIVE UNLESS OTHERWISE INDICATED, ALL TESTING PERFORMED [facility] [employer] [address] [place] [address] [employer]: RAMIREZ CUELLO M.D. CLIA NUMBER [id number] [place]. [id number] PAP TEST, THINPREP, [id number] 14:29:43* Test Item Value Reference Range Interpretation Comme nts SOURCE: (test code = 8001) Cervical SLIDES: (test code = 8011) 1 LMP: (test code = 8021) 09/29/2021 SPECIMEN ADEQUACY: (test code = 14693) (NOTE) Satisfactory for evaluation. Endocervical cells/transformation zone component present. INTERPRETATION: (test code = 85655) NILM/NO EPITH. ABNORMALITY;SEE BELOW --- - NEGATIVE FOR INTRAEPITHELIAL LESION OR MALIGNANCY (NILM) ---- OTHER COMMENTS: (test code = 8081) (NOTE) Shift in javier suggestive of bacterial vaginosis. POWER MULE OPERATOR : (test code = 8101) YE Rey(ASCP) IAC LOCATION: (test code = 97344) (NOTE) Specimens proces sed and interpreted at [facility], [address] [place] [address], , CLIA: [id number] CPT: (test code = 8140) (NOTE) 39181 UNLESS OTH ERWISE INDICATED, COMPUTER AIDED AND POWER MULE OPERATOR SCREENING PERFORMED. The Pap test is a screening test with an inherent, but low probability of error. Your patient should be reminded to consult you immediately if she experiences any suspicious signs or symptoms, regardless of her Pap test result. An alternate report format containing images or consolidated prior Pap history is available as applicable. UNLESS OTHERWISE INDICATED, ALL TESTING PERFORMED [facility] [employer] [address] [place] [address] [employer]: RAMIREZ CUELLO M.D. IA NUMBER [id number] [place]. [id number] PAP TEST, THINPREP, [id number] 00:00:00* Test Item Value Reference Range Interpretation Comme nts SOURCE: (test code = 8001) Cervical SLIDES: (test code = 8011) 1 LMP: (test code = 8021) 09/29/2021 SPECIMEN ADEQUACY: (test code = 91472) (NOTE) INTERPRETATION: (test code = 42608) NILM/NO EPITH. ABNORMALITY;SEE BELOW OTHER COMMENTS: (test code = 8081) (NOTE) POWER MULE OPERATOR: (test code = 8101) YE Rey(ASCP)IAC LOCATION: (test code = 40253) (NOTE) CPT: (test code = 8140) (NOTE) Kenyon BrownleeVAGINAL PATHOGENS DNA [id number] 00:00:00* Test Item Value Reference Range Interpretation Comme nts RAMAKRISHNA SPECIES (test code = 99872) NEGATIVE G. VAGINALIS (test code = 24154) POSITIVE T. VAGINALIS (test code = 00102) NEGATIVE Kenyon BrownleePAP TEST, THINPREP, [id number] 00:00:00* Test Item Value Reference Range Interpretation Comme nts SOURCE: (test code = 8001) Cervical SLIDES: (test code = 8011) 1 LMP: (test code = 8021) 09/29/2021 SPECIMEN ADEQUACY: (test code = 23554) (NOTE) INTERPRETATION: (test code = 89996) NILM/NO EPITH. ABNORMALITY;SEE BELOW OTHER COMMENTS: (test code = 8081) (NOTE) POWER MULE OPERATOR: (test code = 8101) YE Rey(ASCP)IAC LOCATION: (test code = 23975) (NOTE) CPT: (test code = 8140) (NOTE) Kenyon BrownleeVAGINAL PATHOGENS DNA [id number] 00:00:00* Test Item Value Reference Range Interpretation Comme nts RAMAKRISHNA SPECIES (test code = ) NEGATIVE G. VAGINALIS (test code = 72830) POSITIVE T. VAGINALIS (test code = 34769) NEGATIVE Kenyon BrownleeVAGINAL PATHOGENS DNA [id number] 00:00:00* Test Item Value Reference Range Interpretation Comme nts RAMAKRISHNA SPECIES (test code = ) NEGATIVE G. VAGINALIS (test code = 47146) POSITIVE T. VAGINALIS (test code = 81071) NEGATIVE Kenyon BrownleePAP TEST, THINPREP, [id number] 00:00:00* Test Item Value Reference Range Interpretation Comme nts SOURCE: (test code = 8001) Cervical SLIDES: (test code = 8011) 1 LMP: (test code = 8021) 09/29/2021 SPECIMEN ADEQUACY: (test code = 77579) (NOTE) INTERPRETATION: (test code = 62021) NILM/NO EPITH. ABNORMALITY;SEE BELOW OTHER COMMENTS: (test code = 8081) (NOTE) POWER MULE OPERATOR: (test code = 8101) YE Rey(ASCP)IAC LOCATION: (test code = 31940) (NOTE) CPT: (test code = 8140) (NOTE) Kenyon PaceP TEST, THINPREP, [id number] 00:00:00* Test Item Value Reference Range Interpretation Comme nts SOURCE: (test code = 8001) Cervical SLIDES: (test code = 8011) 1 LMP: (test code = 8021) 09/29/2021 SPECIMEN ADEQUACY: (test code = 46188) (NOTE) INTERPRETATION: (test code = 66348) NILM/NO EPITH. ABNORMALITY;SEE BELOW OTHER COMMENTS: (test code = 8081) (NOTE) POWER MULE OPERATOR: (test code = 8101) YE Rey(ASCP)IAC LOCATION: (test code = 41747) (NOTE) CPT: (test code = 8140) (NOTE) Kenyon Escobar AustinVAGINAL PATHOGENS DNA [id number] 00:00:00* Test Item Value Reference Range Interpretation Comme nts RAMAKRISHNA SPECIES (test code = ) NEGATIVE G. VAGINALIS (test code = 72758) POSITIVE T. VAGINALIS (test code = 12818) NEGATIVE Kenyon BrownleeHCG, [id number] 06:38:23* Test Item Value Reference Range Interpretation [...] . . . . . . MIU/ML [id number]-TIQHXQVDGD FEMALES . . . . . . . . . . . . MIU/ML <=7 UNLESS OTHERWISE INDICATED, ALL TESTING [facility] [address] [place] [address] [employer]PERVIS[employer]: RAMIREZ CUELLO M.D. CLIA NUMBER [id number] [place]. [id number] HCG, QUANTITATIVE [ADDED]2021-10-21 00:00:00* Test Item Value Reference Range Interpretation Comme nts HCG, QUANTITATIVE (test code = 2506) <5 MIU/ML Kenyon Escobar AustinHCG, QUANTITATIVE [ADDED]2021-10-21 00:00:00* Test Item Value Reference Range Interpretation Comme nts HCG, QUANTITATIVE (test code = 2506) <5 MIU/ML Kenyon BrownleeHCG, QUANTITATIVE [ADDED]2021-10-21 00:00:00* Test Item Value Reference Range Interpretation Comme nts HCG, QUANTITATIVE (test code = 2506) <5 MIU/ML Kenyon F AustinHCG, QUANTITATIVE [ADDED]2021-10-21 00:00:00* Test Item Value Reference Range Interpretation Comme nts HCG, QUANTITATIVE (test code = 2506) <5 MIU/ML Kenyon F AustinPOCT [id number] 13:48:00* Test Item Value Reference Range Interpretation Comme nts POCT PREG (test code = 1605) Negative On board controls acceptable with C Line (test code = 3574) Yes POCT PREG LOT # (test code = 3575) POCT PREG TEST DATE ( test code = 3576) [facility], [id number] 00:00:00* Test Item Value Reference Range Interpretation Comme nts HCG, QUANTITATIVE (test code = 2506) <5 MIU/ML Kenyon F AustinHCG, [id number] 00:00:00* Test Item Value Reference Range Interpretation Comme nts HCG, QUANTITATIVE (test code = 2506) <5 MIU/ML Kenyon F AustinHCG, [id number] 00:00:00* Test Item Value Reference Range Interpretation Comme nts HCG, QUANTITATIVE (test code = 2506) <5 MIU/ML Kenyon F AustinHCG, [id number] 00:00:00* Test Item Value Reference Range Interpretation Comme nts HCG, QUANTITATIVE (test code = 2506) <5 MIU/ML Kenyon F AustinHCG, [id number] 00:00:00* Test Item Value Reference Range Interpretation Comme nts HCG, QUANTITATIVE (test code = 2506) <5 MIU/ML Kenyon F AustinHCG, [id number] 00:00:00* Test Item Value Reference Range Interpretation Comme nts HCG, QUANTITATIVE (test code = 2506) <5 MIU/ML [facility] F AustinHCG, [id number] 00:00:00* Test Item Value Reference Range Interpretation Comme nts HCG, QUANTITATIVE (test code = 2506) <5 MIU/ML [facility] F AustinHCG, [id number] 00:00:00* Test Item Value Reference Range Interpretation Comme nts HCG, QUANTITATIVE (test code = 2506) <5 MIU/ML [facility] F AustinHCG, [id number] 00:00:00* Test Item Value Reference Range Interpretation Comme nts HCG, QUANTITATIVE (test code = 2506) <5 MIU/ML [facility] F AustinHCG, [id number] 00:00:00* Test Item Value Reference Range Interpretation Comme nts HCG, QUANTITATIVE (test code = 2506) <5 MIU/ML Kenyon F AustinHCG, [id number] 00:00:00* Test Item Value Reference Range Interpretation Comme nts HCG, QUANTITATIVE (test code = 2506) <5 MIU/ML Kenyon F AustinHCG, [id number] 00:00:00* Test Item Value Reference Range Interpretation Comme nts HCG, QUANTITATIVE (test code = 2506) <5 MIU/ML [facility] F AustinHCG, [id number] 00:00:00* Test Item Value Reference Range Interpretation Comme nts HCG, QUANTITATIVE (test code = 2506) <5 MIU/ML Ken[facility] F AustinHCG, [id number] 00:00:00* Test Item Value Reference Range Interpretation Comme nts HCG, QUANTITATIVE (test code = 2506) <5 MIU/ML [facility] F AustinHCG, [id number] 00:00:00* Test Item Value Reference Range Interpretation Comme nts HCG, QUANTITATIVE (test code = 2506) <5 MIU/ML [facility] F AustinHCG, [id number] 00:00:00* Test Item Value Reference Range Interpretation Comme nts HCG, QUANTITATIVE (test code = 2506) <5 MIU/ML Kenyon F AustinHCG, [id number] 00:00:00* Test Item Value Reference Range Interpretation Comme nts HCG, QUANTITATIVE (test code = 2506) <5 MIU/ML Kenyon F AustinVAGINAL PATHOGENS DNA [id number] 00:00:00* Test Item Value Reference Range Interpretation Comme nts RAMAKRISHNA SPECIES (test code = 06030) NEGATIVE G. VAGINALIS (test code = 31060) POSITIVE T. VAGINALIS (test code = 67009) NEGATIVE Kenyon F AustinHCG, [id number] 00:00:00* Test Item Value Reference Range Interpretation Comme nts HCG, QUANTITATIVE (test code = 2506) <5 MIU/ML Kenyon BrownleeVAGINAL PATHOGENS DNA [id number] 00:00:00* Test Item Value Reference Range Interpretation Comme nts RAMAKRISHNA SPECIES (test code = 65736) NEGATIVE G. VAGINALIS (test code = 81147) POSITIVE T. VAGINALIS (test code = 63211) NEGATIVE Kenyon BrownleeHCG, [id number] 00:00:00* Test Item Value Reference Range Interpretation Comme nts HCG, QUANTITATIVE (test code = 2506) <5 MIU/ML Kenyon BrownleeVAGINAL PATHOGENS DNA [id number] 00:00:00* Test Item Value Reference Range Interpretation Comme nts RAMAKRISHNA SPECIES (test code = 30850) NEGATIVE G. VAGINALIS (test code = 02056) POSITIVE T. VAGINALIS (test code = 58826) NEGATIVE Kenyon BrownleeHCG, [id number] 00:00:00* Test Item Value Reference Range Interpretation Comme nts HCG, QUANTITATIVE (test code = 2506) <5 MIU/ML Kenyon BrownleeVAGINAL PATHOGENS DNA [id number] 00:00:00* Test Item Value Reference Range Interpretation Comme nts RAMAKRISHNA SPECIES (test code = ) NEGATIVE G. VAGINALIS (test code = 58990) POSITIVE T. VAGINALIS (test code = 18219) NEGATIVE Kenyon Brownlee Notes Date/Time Note Provider [...] in no apparent distress. Patrica Jeffery RN [facility] 2024-01-09 14:34:39 Pt arrived ambulatory with complaints of lower pelvic pain starting this morning. LMP November. Pt thinks she may be in menopause. Abby Truong RN [facility]2024-09-03 00:00:00 [facility]2024-05-13 00:00:00 [facility]2024-05-10 00:00:00 [facility]
--- NOTE | 2024-07-02 21:11 | EDPHYS ---
Physician Documentation [facility] Name: Nidia Ford Age: 44 yrs Sex: Female : 1980 Arrival Date: 07/02/2024 Time: 20:50 Bed IW4 Private MD: ED Physician Yo Gross HPI: 07/02 22:04 This 44 yrs old Female presents to ER via Ambulatory with complaints of Insect kb Bite. 22:04 Pt is a 44-year-old female who presents for contact with an insect. States she felt kb something fall on her neck so she is wiped away and went to her right breast. States she is not sure what it was but afterwards she had a burning pain to her neck and right breast.. 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 - Infectious Disease History:: Denies. - Social history:: Smoking status: Patient denies any tobacco usage or history of. ROS: 22:03 Constitutional: As per HPI kb Exam: 22:03 Constitutional: This is a well developed, well nourished patient who is awake, alert, kb and in no acute distress. Head/Face: Normocephalic, atraumatic. ENT: Moist Mucous membranes Cardiovascular: Regular rate Respiratory: Respirations even and unlabored. No increased work of breathing. Talking in full sentences Skin: Warm, dry with normal turgor. Normal color. MS/ Extremity: Pulses equal, no cyanosis. Neurovascular intact. Full, normal range of motion. Neuro: Awake and alert, GCS 15, oriented to person, place, time, and situation. Vital Signs: 21:10 BP 134 / 72; Pulse 66; Resp 18; Temp 98.4; Pulse Ox 100% ; Weight 74.84 kg; Height 5 me1 ft. 0 in. ; Pain 7/10; 21:10 Body Mass Index 32.22 (74.84 kg, 152.4 cm) me1 21:10 Pain Scale: Adult me1 MDM: 20:55 Medical Screening Exam initiated kb 22:04 Differential diagnosis: insect sting, chemical irritation. Data reviewed: vital signs, kb nurses notes. Historians other than the Patient: Spouse/Significant Other: spouse. Counseling: I had a detailed discussion with the patient and/or guardian regarding the historical points, exam findings, and any diagnostic results supporting the discharge/admit diagnosis, the need for outpatient follow up, a family practitioner, to return to the emergency department if symptoms worsen or persist or if there are any questions or concerns that arise at home. 07/02 21:10 Order name: Ice pack; Complete Time: 21:16 kb Administered Medications: 21:20 Drug: Ibuprofen PO 400 mg PO once Route: PO; me1 21:23 Follow up: Response: No adverse reaction me1 21:21 Drug: Acetaminophen PO 650 mg PO once Route: PO; me1 21:24 Follow up: Response: No adverse reaction me1 Disposition: 07/03 19:53 Co-signature as Attending Physician, Yo Gross MD I agree with the assessment sp4 and plan of care. I reviewed the patient's care provided by the Advanced Practice Provider and agree with the diagnosis and treatment plan. Disposition Summary: 07/02/24 21:11 Discharge Ordered Notes: Location: Home kb Condition: Stable kb Diagnosis - Insect bite of other specified part of neck kb Followup: kb - With: Emergency Department - When: As needed - Reason: Worsening of condition Followup: kb - With: Private Physician - When: 2 - 3 days - Reason: Recheck today's complaints, Continuance of care, Re-evaluation by your physician Discharge Instructions: - Discharge Summary Sheet kb - Insect Bite, Adult, [id number] kb Forms: - Medication Reconciliation Form kb - Antibiotic Education kb - Prescription Opioid Use kb - Patient Portal Instructions kb - Leadership Thank You Letter kb Signatures: Selina Graham FNP-C FNP-Yo Cuellar MD MD sp4 Elizabeth Pelaez RN RN me1
[2024-07-02] MEDS ORDERED: IBUPROFEN 400 MG TAB ONE (21:14)
[2024-07-02] MEDS ORDERED: ACETAMINOPHEN 325 MG TABLET ONE (21:14)
--- NOTE | 2024-07-02 21:24 | ER ---
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 [facility] Coronavirus screen: Vaccine status: Patient reports receiving the 2nd dose of the covid vaccine. Ebola Screen: No symptoms or risks identified at this time. Initial Sepsis Screen: Does the patient meet any 2 criteria? No. Patient's initial sepsis screen is negative. Does the patient have a suspected source of infection? No. Patient's initial sepsis screen is negative. Risk Assessment: Do you want to hurt yourself or someone else? Patient reports no desire to harm self or others. Onset of symptoms was July 02, 2024 at 20:45. 21:10 Method Of Arrival: Ambulatory [facility] 21:10 Acuity: ANASTACIO 5 [facility] Triage Assessment: 21:12 Bite description: bite sustained to left clavicle and shoulder is from insect by [facility] unknown insect. 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 Patient reports pain 7/10. Pain: Complains of pain in left upper chest to left shoulder Pain does not radiate. Pain currently is 7 out of 10 on a pain scale. Quality of pain is described as burning, stinging, Pain began suddenly, Is continuous. 21:24 Bite description: animal information: vaccination(s) is not applicable. [facility] SAND MIXER: 21:12 LMP N/A - control method, Not [facility] Historical: - Allergies: 21:12 NKDA; me1 - PMHx: 21:12 Asthma; fatty liver; ovarian cyst (Unknown); me1 - PSHx: 21:12 Ligation of fallopian tube; me1 - Immunization history:: Adult Immunizations up to date. - Infectious Disease History:: Denies. - Social history:: Smoking status: Patient denies any tobacco usage or history of. Screenin:14 [facility] ED Fall Risk Assessment (Adult) History of falling in the last 3 months, me1 including since admission No falls in past 3 months (0 pts) Confusion or Disorientation No (0 pts) Intoxicated or Sedated No (0 pts) Impaired Gait No (0 pts) Mobility Assist Device Used No (0 pt) Altered Elimination No (0 pt) Score/Fall Risk Level 0 - 2 = Low Risk Maintained a safe environment, Provided non-skid footwear, Hourly rounding (assess needs \T\ fall precautionary measures) done. Abuse screen: Denies threats or abuse. Nutritional screening: No deficits noted. Tuberculosis screening: No symptoms or risk factors identified. Assessment: 21:14 General: See triage assessment. Derm: Skin is intact, is healthy with good turgor, Skin me1 is pink, warm \T\ dry. unknown insect. Musculoskeletal: No signs and/or symptoms reported regarding the musculoskeletal system. Vital Signs: 21:10 BP 134 / 72; Pulse 66; Resp 18; Temp 98.4; Pulse Ox 100% ; Weight 74.84 kg; Height 5 me1 ft. 0 in. ; Pain 7/10; 21:10 Body Mass Index 32.22 (74.84 kg, 152.4 cm) me1 21:10 Pain Scale: Adult me1 ED Course: 20:53 Patient arrived in ED. gm2 20:55 Selina Graham FNP-C is [facility] kb 20:55 Yo Gross MD is Attending Physician. kb 21:12 Triage completed. me1 21:12 Arm band placed on Patient placed in an exam room. me1 21:14 Patient has correct armband on for positive identification. Provided Education on: POC. me1 Verbalized understanding.. 21:14 No provider procedures requiring assistance completed. Patient did not have IV access me1 during this emergency room visit. Administered Medications: 21:20 Drug: Ibuprofen PO 400 mg PO once Route: PO; me1 21:23 Follow up: Response: No adverse reaction me1 21:21 Drug: Acetaminophen PO 650 mg PO once Route: PO; me1 21:24 Follow up: Response: No adverse reaction me1 Medication: 21:14 VIS not applicable for this client. me1 Outcome: 21:11 Discharge ordered by . kb 21:24 Discharged to home ambulatory, with family, me1 21:24 Condition: stable 21:24 Discharge instructions given to patient, family, Instructed on discharge instructions, follow up and referral plans. Demonstrated understanding of instructions, follow-up care, 21:24 Patient left the ED. me1 Signatures: Selina Graham, SPORTS TEACHER-C SPORTS TEACHER-Elizabeth Robins RN RN me1 Mayuri Pablo 2
[2024-07-02 21:45] VITALS: BP 134/72; TEMP 98.4; O2SAT 100
== END 2024-07-02 21:24 | disposition home or self-care (01) ==
LOC: ER 20:50
DX: S10.86XA Insect bite of other specified part of neck, initial encounter (principal)